=== PATIENT | female | born 1945 | race Caucasian/White ===

== ENCOUNTER 2016-11-10 07:43 | Inpatient (IN) | payer MEDICARE, OTHER ==
[2016-11-10] VITALS (8 sets, daily range): BP systolic 117–166; BP diastolic 59–80; PULSE 86–97; RESP 16–26; TEMP 98.2–100.1; O2SAT 78–95
[~2016-11-10] VITALS: Ht 162.6 cm; Wt 85.5 kg
[2016-11-10] MEDS ORDERED: APIX5TAB PO (07:51)
[2016-11-10] MEDS ORDERED: AMIO200T PO (07:51)
[2016-11-10] MEDS ORDERED: ROSU20 PO (07:51)
[2016-11-10] MEDS ORDERED: CLAR10CA3 PO (07:51)
[2016-11-10] MEDS ORDERED: VALT500T PO (07:51)
[2016-11-10] MEDS ORDERED: VENL50TA PO (07:51)
[2016-11-10] MEDS ORDERED: PROP10TA6 PO (07:56)
[2016-11-10] MEDS ORDERED: zyrtec PO (07:56)
[2016-11-10] MEDS ORDERED: SODIUM CHLORIDE 0.9% FLUSH 10 ML FLUSH IVF PRN ×2 (08:15→09:00)
[2016-11-10 08:25] LABS: AUTOMATED NEUTROPHIL # 10.6 TH/MM3 (1.8-7.7); BASOPHIL # 0.1 TH/MM3 (0-0.2); BASOPHIL % 0.5 % (0.0-2.0); EOSINOPHIL # 0.3 TH/MM3 (0-0.4); EOSINOPHIL % 2.5 % (0.0-4.0); HEMATOCRIT 30.5 % (35.0-46.0); HEMO FLAGS DIFF FINAL; LYMPH % 6.4 % (9.0-44.0); LYMPHOCYTE # 0.8 TH/MM3 (1.0-4.8); MEAN CELL VOLUME 89.7 FL (80.0-100.0); MEAN CORPUSCULAR HEMOGLOBIN 28.9 PG (27.0-34.0); MEAN CORPUSCULAR HGB CONC 32.2 % (32.0-36.0); MONO % 6.8 % (0.0-8.0); NEUT % 83.8 % (16.0-70.0); PLATELET COUNT 460 TH/MM3 (150-450); RED CELL DISTRIBUTION WIDTH 19.4 % (11.6-17.2); WHITE BLOOD COUNT 12.6 TH/MM3 (4.0-11.0)
[2016-11-10 08:39] LABS: BICARBONATE 25.1 MEQ/L (21.0-32.0); POTASSIUM 3.5 MEQ/L (3.5-5.1)
[2016-11-10] MEDS ORDERED: AZITHROMYCIN INJ 500 MG in SODIUM CHLOR 0.9% 250 ML INJ 250 ML IV ONE (09:00)
[2016-11-10] MEDS ORDERED: CEFEPIME INJ 2,000 MG in SODIUM CHLORIDE 0.9% INJ 100 ML IV ONE (09:00)
[2016-11-10] MEDS: SODIUM CHLOR 0.9% 1000 ML INJ 1,000 ML IV SCH ×2 (09:46→19:34)
[2016-11-10] MEDS ORDERED: SODIUM CHLOR 0.9% 1000 ML INJ 1,000 ML IV SCH (09:46)
--- NOTE | 2016-11-10 09:46 | RADRPT ---
EXAM DATE/TIME: 11/10/2016 08:32 [place] COMPARISON: No previous studies available for comparison. INDICATIONS : Shortness of breath, cough, congestion, increased weakness. MEDICAL HISTORY : Hypertension. Chronic obstructive pulmonary disease. SURGICAL HISTORY : CABG. ENCOUNTER: Initial ACUITY: 3 days PAIN SCORE: 0/10 LOCATION: Bilateral chest FINDINGS: PA and lateral views of the chest. Median sternotomy wires are present. Moderate severity diffuse lou ateral interstitial opacity. Areas of more confluence are seen in the right upper lung zone and right lower lung zone. Mild cardiac silhouette enlargement. No evidence of pleural effusion or pneumothora x. Old proximal right humerus fracture. CONCLUSION: Moderate severity diffuse bilateral interstitial opacity. Differential diagnosis is pulmonary edema v ersus chronic lung disease. More confluent areas of opacity in the right upper lung zone and right lo wer lung zone indicate superimposed pulmonary consolidation. Recommend radiographic followup to confi rm resolution and exclude underlying mass. Adolph Root MD on November 10, 2016 at 9:42 Board Certified Radiologist. This report was verified electronically.
[2016-11-10] MEDS ORDERED: NALOXONE HCL 0.4 MG/ML AMP IV PUSH PRN (10:00)
[2016-11-10] MEDS ORDERED: SODIUM CHLORIDE 0.9% FLUSH 10 ML FLUSH IV FLUSH PRN ×2 (10:00)
[2016-11-10] MEDS ORDERED: ACETAMINOPHEN 325 MG TAB PO PRN ×3 (10:00)
--- NOTE | 2016-11-10 10:16 | PD ---
HPI Chief Complaint: Respiratory Distress Time Seen by Provider: 08:09 Travel History International Travel<30 days: No Contact w/Intl Traveler<30days: No Traveled to known affect area: No History of Present Illness HPI 71 yo F with cough and shortness fo breath over night. Denies fever. Reports CABG 7 weeks prior, COPD, and HTN. Pt denies chest pain. Post-op pleural effusion which was drained is reported. Pt drove here from [facility] over past few days with frequent stops for ambulation. Compliance with Eliquis reported. PFSH Past Medical History Depression: Yes Cardiac Catheterization: Yes COPD: Yes Hypertension: Yes Sleep Apnea: Yes Influenza Vaccination: Yes Past Surgical History Appendectomy: Yes Coronary Artery Bypass Graft: Yes Tonsillectomy: Yes Social History Alcohol Use: Yes (daily) Tobacco Use: No Substance Use: No Allergies-Medications (Allergen,Severity, Reaction): Coded Allergies: hydromorphone (Verified Allergy, Intermediate, hallucinations, 11/10/16) morphine (Verified Allergy, Intermediate, hallucinations, 11/10/16) Reported Meds & Prescriptions Reported Meds & Active Scripts Active Reported [zyrtec] Unknown Dose PO HS Propranolol (Propranolol HCl) 10 Mg Tab Unknown Dose PO HS Effexor (Venlafaxine HCl) 50 Mg Tab Unknown Dose PO Q12H Valtrex (Valacyclovir HCl) 500 Mg Tab Unknown Dose PO BID Claritin (Loratadine) 10 Mg Cap 10 Mg PO DAILY Eliquis (Apixaban) 5 Mg Tab Unknown Dose PO BID Crestor (Rosuvastatin Calcium) 20 Mg Tab Unknown Dose PO DAILY Amiodarone (Amiodarone HCl) 200 Mg Tab 200 Mg PO DAILY Review of Systems Except as stated in HPI: all other systems reviewed are Neg General / Constitutional: No: Fever Respiratory: Positive: Cough, Shortness of Breath Physical Exam Narrative GENERAL: 71 yo f, appears well, speaks in full sentences, wnwd SKIN: Warm and dry. HEAD: Atraumatic. Normocephalic. EYES: Pupils equal and round. No scleral icterus. No injection or drainage. ENT: No nasal bleeding or discharge. Mucous membranes pink and moist. NECK: Trachea midline. No JVD. CARDIOVASCULAR: Regular rate and rhythm. RESPIRATORY: No accessory muscle use. Clear to auscultation. Breath sounds equal bilaterally. GASTROINTESTINAL: Abdomen soft, non-tender, nondistended. Hepatic and splenic margins not palpable. MUSCULOSKELETAL: Extremities without clubbing, cyanosis, or edema. No obvious deformities. No sign DVT. NEUROLOGICAL: Awake and alert. No obvious cranial nerve deficits. Motor grossly within normal limits. Five out of 5 muscle strength in the arms and legs. Normal speech. PSYCHIATRIC: Appropriate mood and affect; insight and judgment normal. Data Data Last Documented VS Vital Signs Date Time Temp Pulse Resp B/P (MAP) Pulse Ox O2 Delivery O2 Flow Rate FiO2 11/10/16 08:24 Nasal Cannula 2.00 11/10/16 08:24 95 11/10/16 07:56 86 20 11/10/16 07:44 98.5 139/75 (96) VS reviewed Orders Orders Complete Blood Count With Diff (11/10/16 08:09) Basic Metabolic Panel (Bmp) (11/10/16 08:09) B-Type Natriuretic Peptide (11/10/16 08:09) Iv Access Insert/Monitor (11/10/16 08:09) Electrocardiogram (11/10/16 08:09) Ecg Monitoring (11/10/16 08:09) Oximetry (11/10/16 08:09) Oxygen Administration (11/10/16 08:09) Chest, Pa & Lat (11/10/16 08:09) Sodium Chloride 0.9% Flush (Ns Flush) (11/10/16 08:15) Blood Culture (11/10/16 08:48) Sodium Chloride 0.9% Flush (Ns Flush) (11/10/16 09:00) Cefepime Inj (Maxipime Inj) (11/10/16 09:00) Azithromycin Inj (Zithromax Inj) (11/10/16 09:00) Comprehensive Metabolic Panel (11/11/16 06:00) Free Thyroxine (T4) (11/11/16 06:00) Hemoglobin (Hgb) A1c (11/11/16 06:00) Magnesium (Mg) (11/11/16 06:00) Phosphorus (Po4) (11/11/16 06:00) Thyroid Stimulating Hormone (11/11/16 06:00) Complete Blood Count With Diff (11/11/16 06:00) Valacyclovir (Valtrex) (11/10/16 09:45) Apixaban (Eliquis) (11/10/16 21:00) Propranolol (Inderal) (11/10/16 09:45) Atorvastatin (Lipitor) (11/10/16 21:00) Venlafaxine (Effexor) (11/10/16 21:00) Amiodarone (Cordarone) (11/10/16 11:00) Loratadine (Claritin) (11/10/16 09:45) Admit Order (Ed Use Only) (11/10/16 09:50) Sodium Chlor 0.9% 1000 Ml Inj (Ns 1000 M (11/10/16 09:46) Sodium Chloride 0.9% Flush (Ns Flush) (11/10/16 10:00) Sodium Chloride 0.9% Flush (Ns Flush) (11/10/16 21:00) Cefepime Inj (Maxipime Inj) (11/10/16 10:00) Azithromycin Inj (Zithromax Inj) (11/10/16 10:00) Albuterol-Ipratropium Neb (Duoneb Neb) (11/10/16 10:00) Acetaminophen (Tylenol) (11/10/16 10:00) Ondansetron Inj (Zofran Inj) (11/10/16 10:00) Guaifen-Dm 200-20 Mg/10 Ml Liq (Robituss (11/10/16 10:00) Admit To Inpatient (11/10/16 ) Code Status (11/10/16 09:46) Vital Signs (Adult) RAGINI.Q4H (11/10/16 09:46) Activity Oob With Assistance (11/10/16 09:46) Intake + Output RAGINI.Q8H (11/10/16 09:46) Manager Software Development / Telemetry RAGINI.Q8H (11/10/16 09:46) Diet Heart Healthy (11/10/16 Breakfast) Resp Oxygen Flavio C Titrat 1-4 L (11/10/16 ) Resp Incentive Spirometry (11/10/16 ) Consult Pt Eval & Treat (11/10/16 09:46) Sputum Culture And Gram Stain (11/10/16 09:46) Blood Culture (11/10/16 09:46) Scd Bilateral/Knee High RAGINI.BID (11/10/16 09:46) Humberto Bilateral/Knee High RAGINI.QSHIFT (11/10/16 10:00) Inpatient Certification (11/10/16 ) Vital Signs (Adult) Q4H (11/10/16 09:46) Sodium Chlor 0.9% 1000 Ml Inj (Ns 1000 M (11/10/16 09:46) Sodium Chloride 0.9% Flush (Ns Flush) (11/10/16 10:00) Sodium Chloride 0.9% Flush (Ns Flush) (11/10/16 21:00) Acetaminophen (Tylenol) (11/10/16 10:00) Prochlorperazine Supp (Compazine Supp) (11/10/16 10:00) Creatine Kinase (Cpk) (11/10/16 09:46) Creatine Kinase (Cpk) (11/10/16 15:46) Troponin I (11/10/16 09:46) Troponin I (11/10/16 15:46) Urinalysis - C+S If Indicated (11/10/16 09:46) Electrocardiogram (11/10/16 09:46) Ot Request For Service (11/10/16 09:46) Case Management Consult (11/10/16 09:46) Zolpidem (Ambien) (11/10/16 10:00) Acetaminophen (Tylenol) (11/10/16 10:00) Oxycodone-Acetamin 5-325 Mg (Percocet (11/10/16 10:00) Oxycodone-Acetamin 10-325 Mg (Percocet 1 (11/10/16 10:00) Naloxone Inj (Narcan Inj) (11/10/16 10:00) Docusate Sodium-Senna (Hanna-Colace) (11/10/16 21:00) Magnesium Hydroxide Liq (Milk Of Magnesi (11/10/16 10:00) Sennosides (Senokot) (11/10/16 10:00) Bisacodyl Supp (Dulcolax Supp) (11/10/16 10:00) Lactulose Liq (Lactulose Liq) (11/10/16 10:00) Labs Laboratory Tests Test 11/10/16 08:00 White Blood Count 12.6 TH/MM3 Red Blood Count 3.40 MIL/MM3 Hemoglobin 9.8 GM/DL Hematocrit 30.5 % Mean Corpuscular Volume 89.7 FL Mean Corpuscular Hemoglobin 28.9 PG Mean Corpuscular Hemoglobin Concent 32.2 % Red Cell Distribution Width 19.4 % Platelet Count 460 TH/MM3 Mean Platelet Volume 8.8 FL Neutrophils (%) (Auto) 83.8 % Lymphocytes (%) (Auto) 6.4 % Monocytes (%) (Auto) 6.8 % Eosinophils (%) (Auto) 2.5 % Basophils (%) (Auto) 0.5 % Neutrophils # (Auto) 10.6 TH/MM3 Lymphocytes # (Auto) 0.8 TH/MM3 Monocytes # (Auto) 0.9 TH/MM3 Eosinophils # (Auto) 0.3 TH/MM3 Basophils # (Auto) 0.1 TH/MM3 CBC Comment DIFF FINAL Differential Comment Blood Urea Nitrogen 6 MG/DL Creatinine 0.75 MG/DL Random Glucose 111 MG/DL Calcium Level 9.0 MG/DL Sodium Level 134 MEQ/L Potassium Level 3.5 MEQ/L Chloride Level 100 MEQ/L Carbon Dioxide Level 25.1 MEQ/L Anion Gap 9 MEQ/L Estimat Glomerular Filtration Rate 76 ML/MIN B-Type Natriuretic Peptide 250 PG/ML MDM Medical Decision Making Medical Screen Exam Complete: Yes Emergency Medical Condition: Yes Differential Diagnosis NSTEMI, unstable angina, coronary vasospasm, PE, PTX, aortic dissection, pericarditis, myocarditis, endocarditis, PNA, esophageal disease, aneurysm, musculoskeletal etiologies, anxiety, cocaine/sympathomimetic abuse Narrative Course CBC & BMP Diagram 11/10/16 08:00 Calcium Level 9.0 Last 24 hours Impressions Chest X-Ray 11/10/16 0809 Signed Impressions: Service Date/Time: October 08:32 - CONCLUSION: Moderate severity diffuse bilateral interstitial opacity. Differential diagnosis is pulmonary edema versus chronic lung disease. More confluent areas of opacity in the right upper lung zone and right lower lung zone indicate superimposed pulmonary consolidation. Recommend radiographic followup to confirm resolution and exclude underlying mass. Adolph Root MD There is concern for PNA, possibly with CHF Cefepime/Vanco, blood cultures d/w Dr Gutierrez of [facility] pt agreeable with plan Diagnosis Primary Impression: Bilateral pneumonia Qualified Codes: J18.9 - Pneumonia, unspecified organism Admitting Information Admitting Physician Requests: Admit Car Dunn MD Nov 10, 2016 10:16
[2016-11-10] MEDS: AMIODARONE 200 MG TAB PO SCH (11:00)
[2016-11-10] MEDS: LORATADINE 10 MG TAB PO SCH (12:00)
[2016-11-10] MEDS ORDERED: MAGNESIUM HYDROXIDE SUSP 30 ML CUP PO PRN (12:00)
[2016-11-10] MEDS ORDERED: PROCHLORPERAZINE 25 MG SUPP RECTAL PRN (12:00)
[2016-11-10] MEDS: AZITHROMYCIN INJ 500 MG in SODIUM CHLOR 0.9% 250 ML INJ 250 ML IV SCH (12:00)
[2016-11-10] MEDS: PROPRANOLOL HCL 10 MG TAB PO SCH ×2 (12:00→20:38)
[2016-11-10] MEDS ORDERED: ONDANSETRON HCL 4 MG/2 ML VIAL IV PUSH PRN (12:00)
[2016-11-10] MEDS: valACYclovir HCL 500 MG TAB PO SCH ×2 (12:00→20:38)
[2016-11-10] MEDS ORDERED: oxyCODONE/ACETAMINOPHEN 5 MG/325 MG TAB PO PRN (12:00)
--- NOTE | 2016-11-10 12:38 | HHI.HP ---
[facility]Staff Admission Diagnosis Bilateral PNA Diagnoses: (1) Coronary artery disease Diagnosis: Principal (2) S/P CABG x 3 Diagnosis: Principal (3) VTE (venous thromboembolism) Diagnosis: Principal (4) Chest pain Diagnosis: Secondary (5) Bilateral pneumonia Diagnosis: Principal (6) Atrial fibrillation Chief Complaint: Respiratory distress Travel History International Travel<30 Days: No Contact w/Intl Traveler <30 Da: No Traveled to Known Affected Are: No History of Present Illness Patient is a 71-year-old female. SHe presented to the emergency department today with cough and shortness of breath it's been going on for a couple days. Patient states that she had a coronary artery bypass graft of 3 vesselS 7 weeks ago in [facility]. Has a history of COPD and hypertension. Denies any current chest pain. She states that she did have a postoperative pleural effusion which was drained in the past. She drove here from [place] over the past few days with frequent stops for ambulation. Has been on Eliquis. We'll get a CAT scan involving the pulmonary arteries Treat her for pneumonia. With cefepime and Zithromax since she has a recent hospitalization Will be a full admission Review of Systems Constitutional: COMPLAINS OF: Fatigue, Fever, Chills, DENIES: Diaphoretic episodes, Weight gain, Weight loss, Dizziness, Change in appetite Endocrine: DENIES: Abnorml menstrual pattern, Heat/cold intolerance, Polydipsia Eyes: DENIES: Blurred vision, Diplopia, Eye inflammation, Eye pain Ears, nose, mouth, throat: DENIES: Tinnitus, Hearing loss, Vertigo, Nasal discharge, Oral lesions Respiratory: COMPLAINS OF: Cough, Sputum production, Shortness of breath, DENIES: Apneas, Snoring, Wheezing, Hemoptysis Cardiovascular: DENIES: Chest pain, Palpitations, Syncope, Dyspnea on Exertion , PND Gastrointestinal: DENIES: Abdominal pain, Black stools, Bloody stools, Constipation, Diarrhea Genitourinary: DENIES: Abnormal vaginal bleeding, Dysmenorrhea, Dyspareunia Musculoskeletal: COMPLAINS OF: Joint pain, DENIES: Muscle aches, Stiffness, Joint Swelling Integumentary: DENIES: Abnormal pigmentation, Pruritus, Rash, Nail changes Hematologic/lymphatic: DENIES: Bruising, Lymphadenopathy Immunologic/allergic: DENIES: Urticaria Neurologic: DENIES: Abnormal gait, Headache, Localized weakness, Paresthesias, Seizures, Speech Problems, Tremor Psychiatric: DENIES: Anxiety, Confusion, Mood changes, Depression, Hallucinations, Agitation, Suicidal Ideation, Homicidal Ideation Past Family Social History Past Medical History Depression COPD Hyperlipidemia Obstructive sleep apnea Recent coronary artery disease History of coronary artery bypass graft of 3 vessels approximately 7 weeks ago in [place] On chronic anticoagulation with Eliquis Past Surgical History Coronary artery bypass graft of 3 vessels 7 weeks ago Tonsillectomy Appendectomy bilateral breasts biopsies Steroid injections in the lumbar region Bilateral cataract surgeries Reported Medications Reported Meds & Active Scripts Active Reported [zyrtec] Unknown Dose PO HS Propranolol (Propranolol HCl) 10 Mg Tab Unknown Dose PO HS Effexor (Venlafaxine HCl) 50 Mg Tab Unknown Dose PO Q12H Valtrex (Valacyclovir HCl) 500 Mg Tab Unknown Dose PO BID Claritin (Loratadine) 10 Mg Cap 10 Mg PO DAILY Eliquis (Apixaban) 5 Mg Tab Unknown Dose PO BID Crestor (Rosuvastatin Calcium) 20 Mg Tab Unknown Dose PO DAILY Amiodarone (Amiodarone HCl) 200 Mg Tab 200 Mg PO DAILY Allergies: Coded Allergies: hydromorphone (Verified Allergy, Intermediate, hallucinations, 11/10/16) morphine (Verified Allergy, Intermediate, hallucinations, 11/10/16) Active Ordered Medications Current Medications Sodium Chloride (NS Flush) 2 ml UNSCH PRN IVF FLUSH AFTER USING IV ACCESS; Start 11/10/16 at 08:15; Stop 11/10/16 at 12:00; Status DC Sodium Chloride (NS Flush) 2 ml UNSCH PRN IVF FLUSH AFTER USING IV ACCESS; Start 11/10/16 at 09:00 Cefepime HCl 2000 mg/Sodium Chloride 100 ml @ 200 mls/hr ONCE ONCE IV Last administered on 11/10/16 11:04; Start 11/10/16 at 09:00; Stop 11/10/16 at 09:29 ; Status DC Azithromycin 500 mg/Sodium Chloride 250 ml @ 250 mls/hr ONCE ONCE IV Last administered on 9/28/17at 09:34; Start 11/10/16 at 09:00; Stop 11/10/16 at 09:59 ; Status DC Valacyclovir HCl (Valtrex) 500 mg Q12HR PO ; Start 11/10/16 at 12:00 Apixaban (Eliquis) 5 mg BID PO ; Start 11/10/16 at 21:00 Propranolol HCl (Inderal) 10 mg Q12HR PO ; Start 11/10/16 at 12:00 Atorvastatin Calcium (Lipitor) 80 mg HS PO ; Start 11/10/16 at 21:00 Venlafaxine HCl (Effexor) 50 mg BID PO ; Start 11/10/16 at 21:00 Amiodarone HCl (Cordarone) 200 mg DAILY PO ; Start 11/10/16 at 11:00 Loratadine (Claritin) 10 mg DAILY PO ; Start 11/10/16 at 12:00 Sodium Chloride 1,000 ml @ 100 mls/hr Q10H IV ; Start 11/10/16 at 09:46 Sodium Chloride (NS Flush) 2 ml UNSCH PRN IV FLUSH FLUSH AFTER USING IV ACCESS ; Start 11/10/16 at 10:00; Stop 11/10/16 at 11:58; Status DC Sodium Chloride (NS Flush) 2 ml BID IV FLUSH ; Start 11/10/16 at 21:00; Stop at 21:00; Status DC Cefepime HCl 2000 mg/Sodium Chloride 100 ml @ 200 mls/hr Q8H IV ; Start at 13:00 Azithromycin 500 mg/Sodium Chloride 250 ml @ 250 mls/hr Q24H IV ; Start at 12:00 Albuterol/ Ipratropium (Duoneb Neb) 1 ampule Q4HR NEB PRN INH SHORTNESS OF BREATH; Start 11/10/16 at 12:00 Acetaminophen (Tylenol) 650 mg Q4H PRN PO TEMPERATURE > 101 F; Start 11/10/16 at 10:00; Stop 11/10/16 at 11:59; Status DC Ondansetron HCl (Zofran Inj) 4 mg Q6HR PRN IV PUSH NAUSEA; Start 11/10/16 at 12 :00 Guaifenesin/ Dextromethorphan (Robitussin Dm 200-20 Mg/10 ml Liq) 10 ml Q4HR PRN PO COUGH; Start 11/10/16 at 12:00 Sodium Chloride 1,000 ml @ 100 mls/hr Q10H IV ; Start 11/10/16 at 09:46 Sodium Chloride (NS Flush) 2 ml UNSCH PRN IV FLUSH FLUSH AFTER USING IV ACCESS ; Start 11/10/16 at 10:00 Sodium Chloride (NS Flush) 2 ml BID IV FLUSH ; Start 11/10/16 at 21:00 Acetaminophen (Tylenol) 650 mg Q4H PRN PO TEMP > 100.4; Start 11/10/16 at 10:00 Prochlorperazine (Compazine Supp) 25 mg Q12H PRN RECTAL NAUSEA OR VOMITING; Start 11/10/16 at 12:00 Zolpidem Tartrate (Ambien) 5 mg HS PRN PO INSOMNIA; Start 11/10/16 at 21:00 Acetaminophen (Tylenol) 650 mg Q6H PRN PO PAIN SCALE 1 TO 2; Start 11/10/16 at 10:00 Oxycodone/ Acetaminophen (Percocet 5-325 Mg) 1 tab Q6H PRN PO PAIN SCALE 3 TO 5; Start 11/10/16 at 12:00 Oxycodone/ Acetaminophen (Percocet 10-325 Mg) 1 tab Q6H PRN PO PAIN SCALE 6 TO 10; Start 11/10/16 at 12:00 Naloxone HCl (Narcan Inj) 0.4 mg UNSCH PRN IV PUSH SEE LABEL COMMENTS; Start at 10:00 Senna/Docusate Sodium (Hanna-Colace) 1 tab BID PO ; Start 11/10/16 at 21:00 Magnesium Hydroxide (Milk Of Magnesia Liq) 30 ml Q12HR PRN PO MILD - MODERATE CONSTIPATION; Start 11/10/16 at 12:00 Sennosides (Senokot) 17.2 mg Q12HR PRN PO MODERATE - SEVERE CONSTIPATION; Start 11/10/16 at 12:00 Bisacodyl (Dulcolax Supp) 10 mg DAILY PRN RECTAL SEVERE CONSITIPATION; Start at 12:00 Lactulose (Lactulose Liq) 30 ml DAILY PRN PO SEVERE CONSITIPATION; Start at 12:00 Family History Hypertension Social History Former smoker quit many years ago. Denies any illicits occasional alcoholic beverage Physical Exam Vital Signs Vital Signs Date Time Temp Pulse Resp B/P (MAP) Pulse Ox O2 Delivery O2 Flow Rate FiO2 11/10/16 10:47 95 Nasal Cannula 2.00 11/10/16 08:24 Nasal Cannula 2.00 11/10/16 08:24 95 11/10/16 07:56 86 20 94 Nasal Cannula 3.00 11/10/16 07:44 98.5 91 26 139/75 (96) 78 Physical Exam GENERAL: This is a well-nourished, well-developed patient, in no apparent distress. SKIN: No rashes, ecchymoses or lesions. Cool and dry. HEAD: Atraumatic. Normocephalic. No temporal or scalp tenderness. EYES: Pupils equal round and reactive. Extraocular motions intact. No scleral icterus. No injection or drainage. ENT: Nose without bleeding, purulent drainage or septal hematoma. Throat without erythema, tonsillar hypertrophy or exudate. Uvula midline. Airway patent. NECK: Trachea midline. No JVD or lymphadenopathy. Supple, nontender, no meningeal signs. CARDIOVASCULAR: IRRegular rate and rhythm without murmurs, gallops, or rubs. S1 -S2 no S3 or S4 no heave or thrill or rub or gallop RESPIRATORY: Coarse breath sounds bilaterally. Breath sounds equal bilaterally. No wheezes, rales, Scattered rhonchi GASTROINTESTINAL: Abdomen soft, non-tender, nondistended. No hepato-splenomegaly , or palpable masses. No guarding. MUSCULOSKELETAL: Extremities without clubbing, cyanosis, or edema. No joint tenderness, effusion, or edema noted. No calf tenderness. Negative Homans sign bilaterally. Tenderness in right shoulder humerus region previous fracture recently NEUROLOGICAL: Awake and alert. Cranial nerves II through XII intact. Motor and sensory grossly within normal limits. Five out of 5 muscle strength in all muscle groups. Normal speech. Insight and judgment are good Mood and behavior appropriate Laboratory Laboratory Tests Test 11/10/16 08:00 11/10/16 10:55 White Blood Count 12.6 Red Blood Count 3.40 Hemoglobin 9.8 Hematocrit 30.5 Mean Corpuscular Volume 89.7 Mean Corpuscular Hemoglobin 28.9 Mean Corpuscular Hemoglobin Concent 32.2 Red Cell Distribution Width 19.4 Platelet Count 460 Mean Platelet Volume 8.8 Neutrophils (%) (Auto) 83.8 Lymphocytes (%) (Auto) 6.4 Monocytes (%) (Auto) 6.8 Eosinophils (%) (Auto) 2.5 Basophils (%) (Auto) 0.5 Neutrophils # (Auto) 10.6 Lymphocytes # (Auto) 0.8 Monocytes # (Auto) 0.9 Eosinophils # (Auto) 0.3 Basophils # (Auto) 0.1 CBC Comment DIFF FINAL Differential Comment Blood Urea Nitrogen 6 Creatinine 0.75 Random Glucose 111 Calcium Level 9.0 Sodium Level 134 Potassium Level 3.5 Chloride Level 100 Carbon Dioxide Level 25.1 Anion Gap 9 Estimat Glomerular Filtration Rate 76 B-Type Natriuretic Peptide 250 Date/Time Source Procedure Growth Status 11/10/16 09:20 Blood Peripheral Aerobic Blood Culture Pending Received 11/10/16 09:20 Blood Peripheral Anaerobic Blood Culture Pending Received Result Diagram: 11/10/16 0800 11/10/16 0800 Imaging Last Impressions Chest X-Ray 11/10/16 0809 Signed Impressions: Service Date/Time: October 08:32 - CONCLUSION: Moderate severity diffuse bilateral interstitial opacity. Differential diagnosis is pulmonary edema versus chronic lung disease. More confluent areas of opacity in the right upper lung zone and right lower lung zone indicate superimposed pulmonary consolidation. Recommend radiographic followup to confirm resolution and exclude underlying mass. Adolph Root MD Caprini VTE Risk Assessment Caprini VTE Risk Assessment: Mod/High Risk (score >= 2) Caprini Risk Assessment Model Point Value = 1 Point Value = 2 Point Value = 3 Point Value = 5 Age 41-60 Minor surgery BMI > 25 kg/m2 Swollen legs Varicose veins or History of unexplained or recurrent spontaneous Oral contraceptives or hormone replacement Sepsis (< 1 month) Serious lung disease, including pneumonia (< 1 month) Abnormal pulmonary function Acute myocardial infarction Congestive heart failure (< 1 month) History of inflammatory bowel disease Medical patient at bed rest Age 61-74 Arthroscopic surgery Major open surgery (> 45 min) Laparoscopic surgery (> 45 min) Malignancy Confined to bed (> 72 hours) Immobilizing plaster cast Central venous access Age >= 75 History of VTE Family history of VTE Factor V Leiden Prothrombin [id number] Lupus anticoagulant Anticardiolipin antibodies Elevated serum homocysteine Heparin-induced thrombocytopenia Other congenital or acquired thrombophilia Stroke (< 1 month) Elective arthroplasty Hip, pelvis, or leg fracture Acute spinal cord injury (< 1 month) Prophylaxis Regimen Total Risk Factor Score Risk Level Prophylaxis Regimen 0-1 Low Early ambulation 2 Moderate Order ONE of the following: *Sequential Compression Device (SCD) *Heparin 5000 units SQ BID 3-4 Higher Order ONE of the following medications: *Heparin 5000 units SQ TID *Enoxaparin/Lovenox 40 mg SQ daily (WT < 150 kg, CrCl > 30 mL/min) *Enoxaparin/Lovenox 30 mg SQ daily (WT < 150 kg, CrCl > 10-29 mL/min) *Enoxaparin/Lovenox 30 mg SQ BID (WT < 150 kg, CrCl > 30 mL/min) AND/OR *Sequential Compression Device (SCD) 5 or more Highest Order ONE of the following medications: *Heparin 5000 units SQ TID (Preferred with Epidurals) *Enoxaparin/Lovenox 40 mg SQ daily (WT < 150 kg, CrCl > 30 mL/min) *Enoxaparin/Lovenox 30 mg SQ daily (WT < 150 kg, CrCl > 10-29 mL/min) *Enoxaparin/Lovenox 30 mg SQ BID (WT < 150 kg, CrCl > 30 mL/min) AND *Sequential Compression Device (SCD) Assessment and Plan Problem List: (1) S/P CABG x 3 ICD Code: Z95.1 - Presence of aortocoronary bypass graft (2) Atrial fibrillation ICD Code: I48.91 - Unspecified atrial fibrillation (3) VTE (venous thromboembolism) ICD Code: I82.90 - Acute embolism and thrombosis of unspecified vein (4) Coronary artery disease ICD Code: I25.10 - Atherosclerotic heart disease of [place] coronary artery without angina pectoris (5) Bilateral pneumonia ICD Code: J18.9 - Pneumonia, unspecified organism Status: Acute (6) Chest pain ICD Code: R07.9 - Chest pain, unspecified Status: Acute Assessment and Plan Pneumonia bilateral started on Zithromax and cefepime Continue on guaifenesin continue on incentive spirometry continue on DuoNeb's Atrial fibrillation continue on Eliquis We'll check a CTA of the chest to make sure that she does not have any active pulmonary emboli therefore the Eliquis would have to be increased Has pain in the right upper extremity from where she's had a fracture versus humerus will get x-rays. An ask [employer] for a sling Hypertension continue home medications Atrial fibrillation continue on amiodarone Hyperlipidemia continue on statin Depression continue on Effexor Have discussed with patient and RN. Is on Eliquis for atrial fibrillation which would cover pulmonary emboli but might need to be increased We'll get a.m. labs CBC CMP TSH free T4 hemoglobin A1c magnesium and phosphorus We'll make full admission We will ask physical therapy and occupational therapy to eval and treat Will continue on DVT and GI prophylaxis Code Status Full code Discussed Condition With Discussed with patient and RN and family and the emergency room physician Physician Certification 2 Midnight Certification Type: Admission for Inpatient Services Order for Inpatient Services The services are ordered in accordance with Medicare regulations or non- Medicare payer requirements, as applicable. In the case of services not specified as inpatient-only, they are appropriately provided as inpatient services in accordance with the 2-midnight benchmark. Estimated LOS (days): 3 3 days is the estimated time the patient will need to remain in the hospital, assuming treatment plan goals are met and no additional complications. Post-Hospital Plan: Not yet determined Problem Qualifiers (1) Bilateral pneumonia: Qualified Codes: J18.9 - Pneumonia, unspecified organism Vikas Gutierrez DO Nov 10, 2016 12:38
[2016-11-10 12:54] LABS: CREATINE KINASE 34 U/L (26-192)
--- NOTE | 2016-11-10 14:15 | RADRPT ---
EXAM DATE/TIME: 11/10/2016 13:50 [facility] COMPARISON: No previous studies available for comparison. INDICATIONS : Right shoulder discomfort occasionally. MEDICAL HISTORY : None. SURGICAL HISTORY : None. ENCOUNTER: Subsequent ACUITY: 1 day PAIN SCORE: 0/10 LOCATION: Right shoulder FINDINGS: Old impacted mildly comminuted right humeral neck fracture with periosteal reaction and bony remodeli ng. Slightly high riding right humeral head. Otherwise, glenohumeral joint appears anatomic. No acute bony fractures are identified. Acromioclavicular joint appears maintained. Extensive coarse intersti tial changes in the visualized portions of the right lung. CONCLUSION: 1. Old right humeral neck fracture. 2. No acute fracture or dislocation. 3. Course interstitial opacities throughout the visualized right upper lobe. Crispin Ramos MD on November 10, 2016 at 14:08 Board Certified Radiologist. This report was verified electronically.
--- NOTE | 2016-11-10 14:16 | RADRPT ---
EXAM DATE/TIME: 11/10/2016 13:53 [facility] COMPARISON: No previous studies available for comparison. INDICATIONS : Right shoulder discomfort occasionally. MEDICAL HISTORY : None. SURGICAL HISTORY : None. ENCOUNTER: Subsequent ACUITY: 1 day PAIN SCORE: 0/10 LOCATION: Right shoulder FINDINGS: Impacted old right humeral neck fracture with periosteal reaction and bony remodeling. Remaining osse ous structures are intact without evidence for acute bony fracture. Joint spaces are grossly maintain ed. Soft tissues are within normal limits. CONCLUSION: 1. Old right humeral neck fracture. 2. No acute fracture or dislocation. Crispin Ramos MD on November 10, 2016 at 14:13 Board Certified Radiologist. This report was verified electronically.
[2016-11-10] MEDS ORDERED: IOHEXOL 350 MG/ML 10 ML VIAL (for RAD DIAG) IVCONTRAST ONE (14:54)
[2016-11-10] MEDS: CEFEPIME INJ 2,000 MG in SODIUM CHLORIDE 0.9% INJ 100 ML IV SCH ×2 (15:07→20:37)
--- NOTE | 2016-11-10 15:19 | RADRPT ---
EXAM DATE/TIME: 11/10/2016 14:35 [facility] COMPARISON: CHEST PA & LAT, November 10, 2016, 8:32. INDICATIONS : Shortness of breath and cough. IV CONTRAST: 75 cc Omnipaque 350 (iohexol) IV RADIATION DOSE: 23.44 CTDIvol (mGy) MEDICAL HISTORY : Cardiovascular disease. Hypertension. Chronic obstructive pulmonary disease. SURGICAL HISTORY : Appendectomy. ENCOUNTER: Initial ACUITY: 3 days PAIN SCALE: 5/10 LOCATION: Bilateral chest TECHNIQUE: Volumetric scanning of the chest was performed using a pulmonary embolism protocol MIP images were re constructed. Using automated exposure control and adjustment of the mA and/or kV according to patien t size, radiation dose was kept as low as reasonably achievable to obtain optimal diagnostic quality images. DICOM format image data is available electronically for review and comparison. Follow-up recommendations for detected pulmonary nodules are based at a minimum on nodule size and pa tient risk factors according to Fleischner Society Guidelines. FINDINGS: PULMONARY ARTERIES: No filling defects are seen in the pulmonary arteries through the segmental level. LUNGS: Extensive bilateral pulmonary parenchymal opacity. It is a combination of reticular opacity and groun dglass opacity producing a "crazy paving" pattern. It involves the upper, mid, and lower lung zones b ilaterally with severe involvement of the right lung apex. No focal mass identified. PLEURAE: Small bilateral pleural effusions left greater than right with extension into the major fissure on th e left. MEDIASTINUM: Multiple mildly enlarged mediastinal lymph nodes with pretracheal lymph node measuring 1.6 cm in shor t axis dimension. Aorta is within normal limits. MUSCULOSKELETAL: Within normal limits for patient age. MISCELLANEOUS: Scattered calcifications in the spleen and liver indicating old granulomatous disease. CONCLUSION: 1. No evidence of pulmonary embolus. 2. Severe extensive bilateral pulmonary parenchymal opacity with a "crazy paving" appearance. Differe ntial diagnosis includes pulmonary edema, pulmonary alveolar stenosis, acute interstitial pneumonia, and eosinophilic pneumonia. 3. Small pleural effusions left greater than right. 4. Mildly enlarged mediastinal lymph nodes likely reactive. Adolph Root MD on November 10, 2016 at 15:09 Board Certified Radiologist. This report was verified electronically.
[2016-11-10 18:10] LABS: CREATINE KINASE 33 U/L (26-192)
[2016-11-10] MEDS: RESP: ALBUTEROL 2.5 MG/IPRATROPIUM 0.5 MG NEB (PRN) INH (18:38)
[2016-11-10] MEDS ORDERED: POTASSIUM CHLORIDE 20 MEQ CONTROLLED RELEASE TAB PO ONE (20:30)
[2016-11-10] MEDS ORDERED: FUROSEMIDE 40 MG/4 ML VIAL IV PUSH ONE (20:30)
[2016-11-10] MEDS: APIXABAN 5 MG TABLET PO SCH (20:37)
[2016-11-10] MEDS: SODIUM CHLORIDE 0.9% FLUSH 10 ML FLUSH IV FLUSH SCH (20:37)
[2016-11-10] MEDS: ATORVASTATIN 80 MG TAB PO SCH (20:38)
[2016-11-10] MEDS: DOCUSATE SODIUM 50 MG/SENNA 8.6 MG TAB PO SCH (20:39)
[2016-11-10] MEDS ORDERED: SODIUM CHLORIDE 0.9% FLUSH 10 ML FLUSH IV FLUSH SCH (21:00)
[2016-11-10] MEDS ORDERED: ZOLPIDEM TARTRATE 5 MG TAB PO PRN (21:00)
[2016-11-10] MEDS: VENLAFAXINE HCL 25 MG TAB PO SCH (21:27)
[2016-11-11] VITALS (12 sets, daily range): BP systolic 89–140; BP diastolic 51–78; PULSE 80–97; RESP 16–20; TEMP 98.2–99.6; O2SAT 90–96
[2016-11-11] MEDS: CEFEPIME INJ 2,000 MG in SODIUM CHLORIDE 0.9% INJ 100 ML IV SCH ×3 (04:05→20:35)
[2016-11-11 07:23] LABS: AUTOMATED NEUTROPHIL # 9.8 TH/MM3 (1.8-7.7); BASOPHIL # 0.1 TH/MM3 (0-0.2); BASOPHIL % 0.7 % (0.0-2.0); EOSINOPHIL # 1.2 TH/MM3 (0-0.4); EOSINOPHIL % 8.8 % (0.0-4.0); HEMATOCRIT 28.7 % (35.0-46.0); HEMO FLAGS DIFF FINAL; LYMPH % 10.7 % (9.0-44.0); LYMPHOCYTE # 1.5 TH/MM3 (1.0-4.8); MEAN CELL VOLUME 89.9 FL (80.0-100.0); MEAN CORPUSCULAR HEMOGLOBIN 29.1 PG (27.0-34.0); MEAN CORPUSCULAR HGB CONC 32.3 % (32.0-36.0); MONO % 9.6 % (0.0-8.0); NEUT % 70.2 % (16.0-70.0); PLATELET COUNT 430 TH/MM3 (150-450); RED CELL DISTRIBUTION WIDTH 19.4 % (11.6-17.2)
[2016-11-11 07:45] LABS: ALT (GPT) 20 U/L (10-53); ANION GAP 6 MEQ/L (5-15); AST (GOT) 28 U/L (15-37); BICARBONATE 26.6 MEQ/L (21.0-32.0); BLOOD UREA NITROGEN 8 MG/DL (7-18); CHLORIDE 103 MEQ/L (98-107); GLOMERULAR FILTRATION RATE 75 ML/MIN (>89); MAGNESIUM 1.9 MG/DL (1.5-2.5); POTASSIUM 4.3 MEQ/L (3.5-5.1); SODIUM (NA) 136 MEQ/L (136-145)
[2016-11-11 07:54] LABS: ALKALINE PHOSPHATASE 92 U/L (45-117); FREE T4 1.62 NG/DL (0.76-1.46); TOTAL BILIRUBIN ADULT 0.3 MG/DL (0.2-1.0)
[2016-11-11] MEDS: APIXABAN 5 MG TABLET PO SCH ×2 (08:17→20:32)
[2016-11-11] MEDS: AMIODARONE 200 MG TAB PO SCH (08:17)
[2016-11-11] MEDS: PROPRANOLOL HCL 10 MG TAB PO SCH ×2 (08:17→20:34)
[2016-11-11] MEDS: LORATADINE 10 MG TAB PO SCH (08:17)
[2016-11-11] MEDS: SODIUM CHLORIDE 0.9% FLUSH 10 ML FLUSH IV FLUSH SCH ×2 (08:18→20:35)
[2016-11-11] MEDS: RESP: ALBUTEROL 2.5 MG/IPRATROPIUM 0.5 MG NEB (PRN) INH ×3 (08:53→19:59)
[2016-11-11] MEDS: DOCUSATE SODIUM 50 MG/SENNA 8.6 MG TAB PO SCH ×2 (09:00→20:33)
[2016-11-11] MEDS: VENLAFAXINE HCL 25 MG TAB PO SCH ×2 (09:46→20:31)
[2016-11-11] MEDS: valACYclovir HCL 500 MG TAB PO SCH ×2 (09:46→20:34)
--- NOTE | 2016-11-11 10:17 | EKG ---
Date Performed: 11/10/2016 Time Performed: 11:53:18 PTAGE: 71 years EKG: Sinus rhythm NONSPECIFIC T-WAVE ABNORMALITY BORDERLINE ECG NO PREVIOUS TRACING DOCTOR: Slade Garcia Interpretating Date/Time 11/11/2016 10:12:49
[2016-11-11 13:16] LABS: HEMOGLOBIN A1a 1.5 %; HEMOGLOBIN Ao 83.7 %; HEMOGLOBIN LA1C 2.1 %; HEMOGLOBIN P3 3.9 %
[2016-11-11] MEDS: guaiFENesin/DEXTROMETHORPHAN 200 MG/20 MG/10 ML CUP PO PRN ×2 (13:55→17:58)
[2016-11-11] MEDS: AZITHROMYCIN INJ 500 MG in SODIUM CHLOR 0.9% 250 ML INJ 250 ML IV SCH (13:58)
--- NOTE | 2016-11-11 14:44 | HHI.PR ---
Subjective Remarks 71 years sold female here on vacation from [place] had a recent CABG 09/23, CAD, history of atrial fibrillation that time presented with syncope underwent full comprehensive rehab came in with shortness of breath started about a week ago worsening- prompted to come here overnight and admitted for further evaluation patient states cough - sputum minimal and white mild pretibial edema Objective Vitals Vital Signs Date Time Temp Pulse Resp B/P (MAP) Pulse Ox O2 Delivery O2 Flow Rate FiO2 11/11/16 08:50 92 Nasal Cannula 5.00 11/11/16 08:00 99.6 90 132/67 (88) 11/11/16 04:45 98.4 80 20 138/78 (98) 95 11/11/16 01:19 97 11/11/16 01:00 95 Nasal Cannula 3.00 11/11/16 00:20 98.9 88 19 140/69 (92) 96 11/10/16 20:50 100.1 97 20 166/80 (108) 94 11/10/16 19:56 93 Nasal Cannula 3.00 11/10/16 16:00 98.2 86 16 132/65 (87) 92 I/O 11/10/16 11/10/16 11/10/16 11/11/16 11/11/16 11/11/16 07:00 15:00 23:00 07:00 15:00 23:00 Intake Total 450 ml 700 ml 1050 ml Balance 450 ml 700 ml 1050 ml Intake Oral 600 ml 950 ml IV Total 450 ml 100 ml 100 ml # Voids 1 2 2 # Bowel Movements 0 0 Result Diagram: 11/11/16 0656 11/11/16 0656 Imaging Last Impressions Chest X-Ray 11/10/16 0809 Signed Impressions: Service Date/Time: October 08:32 - CONCLUSION: Moderate severity diffuse bilateral interstitial opacity. Differential diagnosis is pulmonary edema versus chronic lung disease. More confluent areas of opacity in the right upper lung zone and right lower lung zone indicate superimposed pulmonary consolidation. Recommend radiographic followup to confirm resolution and exclude underlying mass. Adolph Root MD Shoulder X-Ray 11/10/16 0000 Signed Impressions: Service Date/Time: October 13:50 - CONCLUSION: 1. Old right humeral neck fracture. 2. No acute fracture or dislocation. 3. Course interstitial opacities throughout the visualized right upper lobe. Crispin Ramos MD Humerus X-Ray 11/10/16 0000 Signed Impressions: Service Date/Time: October 13:53 - CONCLUSION: 1. Old right humeral neck fracture. 2. No acute fracture or dislocation. Crispin Ramos MD CT Angiography 11/10/16 0000 Signed Impressions: Service Date/Time: October 14:35 - CONCLUSION: 1. No evidence of pulmonary embolus. 2. Severe extensive bilateral pulmonary parenchymal opacity with a crazy paving appearance. Differential diagnosis includes pulmonary edema, pulmonary alveolar stenosis, acute interstitial pneumonia, and eosinophilic pneumonia. 3. Small pleural effusions left greater than right. 4. Mildly enlarged mediastinal lymph nodes likely reactive. Adolph Root MD Objective Remarks awake and alert, appears shortness of breath, 2 LNC anicteric lung- decreased breath sounds, no wheezes irregular rhythm, soft 3/6 systolic murmur left sternal border abdomen soft, nontender extremities - mild pretibial edema A/P Problem List: (1) S/P CABG x 3 ICD Code: Z95.1 - Presence of aortocoronary bypass graft (2) Atrial fibrillation ICD Code: I48.91 - Unspecified atrial fibrillation (3) VTE (venous thromboembolism) ICD Code: I82.90 - Acute embolism and thrombosis of unspecified vein (4) Coronary artery disease ICD Code: I25.10 - Atherosclerotic heart disease of [place] coronary artery without angina pectoris (5) Bilateral pneumonia ICD Code: J18.9 - Pneumonia, unspecified organism Status: Acute (6) Chest pain ICD Code: R07.9 - Chest pain, unspecified Status: Acute Assessment and Plan 71 years old female CHF- with udnerlying CAD r/o cardiomyopathy History of atrial fibrillation- now in SR HYpertension will give Lasix 20 mg IV bid get a 2D echo continue on BB, Eliquis\. Amiodarone. consdier DEVIN if decrease EF CTA- negative for PE Cardiology consult- - Dr. Simpson Pneumonia bilateral- treat as hospital acquired started on Zithromax and cefepime Continue on guaifenesin continue on incentive spirometry continue on DuoNeb's COPD- continue duonebs Left UE pain- old healed fracture PT/OT consult Hyperlipidemia continue on statin Depression continue on Effexor not sure why she is on Valtrexz- jef verify We will ask physical therapy and occupational therapy to eval and treat Will continue on DVT and GI prophylaxis Problem Qualifiers (1) Bilateral pneumonia: Qualified Codes: J18.9 - Pneumonia, unspecified organism Joe Mendieta MD Nov 11, 2016 14:44
[2016-11-11] MEDS: oxyCODONE/ACETAMINOPHEN 10 MG/325 MG TAB PO PRN (16:02)
[2016-11-11] MEDS: FUROSEMIDE 20 MG/2 ML VIAL IV PUSH SCH (17:58)
--- NOTE | 2016-11-11 18:31 | MB ---
cc: JOSE BULL MD DATE OF CONSULTATION: 11/11/2016. REASON FOR CONSULTATION: HISTORY OF PRESENT ILLNESS: Ms. Miranda is a very pleasant 71-year-old white female here on vacation from [place], [place] who presented to the emergency room with cough and shortness of breath. She had three-vessel coronary bypass in [place] seven weeks ago. She has not had any chest pain prior to the bypass. She does not have chest pain at this time either. She had pleural effusion which was drained after the surgery. She has chronic atrial fibrillation and has been on Eliquis. She was diagnosed with pneumonia and is treated with antibiotics and she still complains of cough and shortness of breath but has not had any chest pain. PAST MEDICAL HISTORY: Her past medical history is positive for: 1. Coronary artery disease. 2. Recent coronary bypass. There were apparently able to bypass three out of four vessels seven weeks ago in [place]. 3. History of COPD. 4. Dyslipidemia. 5. Sleep apnea. 6. Depression. 7. History of tonsillectomy. 8. Appendectomy. 9. Breast biopsies. 10. Lumbar region steroid injections. 11. Cataract surgery. MEDICATIONS: Medications at home include: 1. Amiodarone. 2. Crestor. 3. Eliquis. 4. Claritin. 5. . 6. Effexor. 7. Propranolol. 8. Zyrtec. ALLERGIES: 1. HYDROMORPHONE. 2. MORPHINE. SOCIAL HISTORY: The patient does not smoke. She quit smoking 23 years ago. She drinks excessively about four drinks a day. FAMILY HISTORY: Family history is positive for heart disease in her brother. REVIEW OF SYSTEMS: The review of systems is otherwise negative. PHYSICAL EXAMINATION: VITAL SIGNS: Blood pressure 132/67, pulse 90 and regular. HEAD, EYES, EARS, NOSE, THROAT: Negative. NECK: 2+ carotid upstrokes, no bruits. LUNGS: With bilateral rhonchi and crackles. HEART: Regular with no murmurs, rubs or gallops. CHEST: The sternal wound is well healed. ABDOMEN: Abdomen soft. No bruits. EXTREMITIES: Without edema. 2+ distal pulses. NEUROLOGIC: Grossly nonfocal. EKGS: EKG was reviewed and showed normal sinus rhythm, first-degree AV block, normal axis and nonspecific T wave changes. LABS: Hemoglobin 9.3. Potassium 4.3, creatinine 0.8. AT and ALT normal. Troponin negative x2. CK and troponin negative x2. BNP 250. TSH 0.6. IMAGING STUDIES: Chest CT shows no evidence of pulmonary embolism, bilateral pulmonary infiltrates and small bilateral pleural effusions. DIAGNOSIS: 1. Bilateral pneumonia. 2. Coronary artery disease, history of three-vessel coronary bypass. 3. Paroxysmal atrial fibrillation. 4. Dyslipidemia. 5. COPD. 6. Depression. DISPOSITION: Ms. Miranda will be monitored on telemetry. She being ruled out for myocardial infarction by enzymes. Will obtain her bypass records from [place]. We will obtain echocardiogram to evaluate her left ventricular function. She will be treated for pneumonia with antibiotics. Will follow her for cardiology during her hospitalization. MD ARINA Barkley/DEBRA /3:55 PM /6:11 PM
[2016-11-11] MEDS: TIOTROPIUM BROMIDE 18 MCG INH INH SCH (18:34)
--- NOTE | 2016-11-11 18:40 | ECHRPT ---
Indication: A FIB FLUTTER CONCLUSIONS Normal left ventricular size. Wall thickness is normal. The left ventricular systolic function is normal with an estimated ejection fraction in the range of 55-60%. No wall motion abnormalities. Trace mitral valve regurgitation. BP: / HR: Rhythm: MEASUREMENTS (Male / Female) Normal Values Technical Quality:Good 2D ECHO LV Diastolic Diameter PLAX 4.1 cm 4.2 - 5.9 / 3.9 - 5.3 cm LV Systolic Diameter PLAX 3.2 cm IVS Diastolic Thickness 1.2 cm 0.6 - 1.0 / 0.6 - 0.9 cm LVPW Diastolic Thickness 0.7 cm 0.6 - 1.0 / 0.6 - 0.9 cm LV Relative Wall Thickness 0.5 RV Internal Dim ED PLAX 2.5 cm LA Systolic Diameter LX 3.4 cm 3.0 - 4.0 / 2.7 - 3.8 cm M-MODE Aortic Root Diameter MM 3.6 cm AV Cusp Separation MM 2.1 cm DOPPLER Mitral E Point Velocity 112.0 cm/s Mitral A Point Velocity 66.1 cm/s Mitral E to A Ratio 1.7 TR Peak Velocity 282.0 cm/s TR Peak Gradient 31.8 mmHg Right Atrial Pressure 5.0 mmHg Pulmonary Artery Systolic Pressu 36.8 mmHg Right Ventricular Systolic Press 36.8 mmHg FINDINGS LEFT VENTRICLE Normal left ventricular size. Wall thickness is normal. The left ventricular systolic function is normal with an estimated ejection fraction in the range of 55-60%. No wall motion abnormalities. RIGHT VENTRICLE Normal right ventricular size and systolic function. LEFT ATRIUM The left atrial size is normal. RIGHT ATRIUM The right atrial size is normal. ATRIAL SEPTUM Normal atrial septal thickness without atrial level shunting by limited color doppler interrogation. AORTA The aortic root and proximal ascending aorta are normal in size on limited imaging. MITRAL VALVE Trace mitral valve regurgitation. AORTIC VALVE Aortic valve sclerosis is present. TRICUSPID VALVE Structurally normal tricuspid valve. No tricuspid valve stenosis or regurgitation. PULMONARY VALVE No pulmonary valve regurgitation or stenosis. VESSELS The inferior vena cava is normal in size. PERICARDIUM No pericardial effusion. Harley Talley MD (Electronically Signed) Final Date:11 November 2016 18:39
[2016-11-11] MEDS: ATORVASTATIN 80 MG TAB PO SCH (20:34)
[2016-11-12] VITALS (15 sets, daily range): BP systolic 101–150; BP diastolic 55–85; PULSE 78–123; RESP 18–36; TEMP 98.5–100.5; O2SAT 72–100
[2016-11-12] MEDS: RESP: ALBUTEROL 2.5 MG/IPRATROPIUM 0.5 MG NEB (PRN) INH ×2 (00:28→09:11)
[2016-11-12] MEDS: CEFEPIME INJ 2,000 MG in SODIUM CHLORIDE 0.9% INJ 100 ML IV SCH ×3 (04:27→21:00)
[2016-11-12] MEDS: TIOTROPIUM BROMIDE 18 MCG INH INH SCH (08:47)
[2016-11-12] MEDS: LORATADINE 10 MG TAB PO SCH (08:54)
[2016-11-12] MEDS: SODIUM CHLORIDE 0.9% FLUSH 10 ML FLUSH IV FLUSH SCH ×2 (08:54→20:23)
[2016-11-12] MEDS: AMIODARONE 200 MG TAB PO SCH (08:54)
[2016-11-12] MEDS: APIXABAN 5 MG TABLET PO SCH ×2 (08:55→20:13)
[2016-11-12] MEDS: DOCUSATE SODIUM 50 MG/SENNA 8.6 MG TAB PO SCH ×2 (08:55→20:13)
[2016-11-12] MEDS: PROPRANOLOL HCL 10 MG TAB PO SCH ×2 (08:55→20:13)
[2016-11-12] MEDS: FUROSEMIDE 20 MG/2 ML VIAL IV PUSH SCH ×2 (09:00→18:00)
[2016-11-12] MEDS: guaiFENesin/DEXTROMETHORPHAN 200 MG/20 MG/10 ML CUP PO PRN (09:09)
[2016-11-12] MEDS: oxyCODONE/ACETAMINOPHEN 10 MG/325 MG TAB PO PRN (09:09)
[2016-11-12] MEDS: valACYclovir HCL 500 MG TAB PO SCH ×2 (09:09→20:23)
[2016-11-12] MEDS: VENLAFAXINE HCL 25 MG TAB PO SCH ×2 (09:10→20:23)
--- NOTE | 2016-11-12 10:25 | HHI.PR ---
Subjective Remarks this am- hypoxemic- appears short of breath- denies any chest pains dry cough- not bringing up anything states slept good overnight Objective Vitals Vital Signs Date Time Temp Pulse Resp B/P (MAP) Pulse Ox O2 Delivery O2 Flow Rate FiO2 11/12/16 07:51 98.9 102 18 115/58 (77) 85 11/12/16 05:25 99.1 100 20 116/57 (76) 82 11/12/16 01:16 100.5 97 18 105/55 (72) 82 11/12/16 00:30 72 Nasal Cannula 6.00 11/11/16 23:00 84 11/11/16 21:42 89 116/55 (75) 11/11/16 20:00 98.2 92 18 89/51 (64) 92 11/11/16 20:00 98.2 92 18 89/ 92 11/11/16 20:00 90 Nasal Cannula 6.00 11/11/16 16:00 98.9 89 16 112/61 (78) 92 11/11/16 12:30 89 11/11/16 12:00 98.9 81 16 105/57 (73) 92 I/O 11/11/16 11/11/16 11/11/16 11/12/16 11/12/16 11/12/16 07:00 15:00 23:00 07:00 15:00 23:00 Intake Total 1050 ml 744.7 ml 240 ml Balance 1050 ml 744.7 ml 240 ml Intake Oral 950 ml 240 ml IV Total 100 ml 744.7 ml # Voids 2 2 1 # Bowel Movements 0 Result Diagram: 11/11/16 0656 11/11/16 0656 Imaging Last Impressions Chest X-Ray 11/10/16 0809 Signed Impressions: Service Date/Time: October 08:32 - CONCLUSION: Moderate severity diffuse bilateral interstitial opacity. Differential diagnosis is pulmonary edema versus chronic lung disease. More confluent areas of opacity in the right upper lung zone and right lower lung zone indicate superimposed pulmonary consolidation. Recommend radiographic followup to confirm resolution and exclude underlying mass. Adolph Root MD Shoulder X-Ray 11/10/16 0000 Signed Impressions: Service Date/Time: October 13:50 - CONCLUSION: 1. Old right humeral neck fracture. 2. No acute fracture or dislocation. 3. Course interstitial opacities throughout the visualized right upper lobe. Crispin Ramos MD Humerus X-Ray 11/10/16 0000 Signed Impressions: Service Date/Time: October 13:53 - CONCLUSION: 1. Old right humeral neck fracture. 2. No acute fracture or dislocation. Crispin Ramos MD CT Angiography 11/10/16 0000 Signed Impressions: Service Date/Time: October 14:35 - CONCLUSION: 1. No evidence of pulmonary embolus. 2. Severe extensive bilateral pulmonary parenchymal opacity with a crazy paving appearance. Differential diagnosis includes pulmonary edema, pulmonary alveolar stenosis, acute interstitial pneumonia, and eosinophilic pneumonia. 3. Small pleural effusions left greater than right. 4. Mildly enlarged mediastinal lymph nodes likely reactive. Adolph Root MD Objective Remarks awake and alert, high Fi02 requirement anicteric lung- decreased breath sounds,+ fine rales bases irregular rhythm, soft 3/6 systolic murmur left sternal border abdomen soft, nontender extremities - mild pretibial edema A/P Problem List: (1) S/P CABG x 3 ICD Code: Z95.1 - Presence of aortocoronary bypass graft (2) Atrial fibrillation ICD Code: I48.91 - Unspecified atrial fibrillation (3) VTE (venous thromboembolism) ICD Code: I82.90 - Acute embolism and thrombosis of unspecified vein (4) Coronary artery disease ICD Code: I25.10 - Atherosclerotic heart disease of [place] coronary artery without angina pectoris (5) Bilateral pneumonia ICD Code: J18.9 - Pneumonia, unspecified organism Status: Acute (6) Chest pain ICD Code: R07.9 - Chest pain, unspecified Status: Acute Assessment and Plan 71 years old female Acute REspiratory failure- hypoxemic- likely with underlying COPD + fine rales 02 sat 87% at 6L secondary to acute CHF- likley diastolic dysfunction acute CHF- with CAD with diastolic dysfunction - fine rales on exam Underlying COPD- no wheezes on exam increase fi02 - to keep sats greater than 90% stat ABG, CXR on duonebs PUlmonary consult- respiratory failure- [place] [facility] [place] History of atrial fibrillation- now in SR HYpertension on Lasix 20 mg IV bid- give extra 40 mg IV x 1 now 2D echo- check EF 55-60% continue on BB, Eliquis\. Amiodarone. consider CTA- negative for PE Cardiology ff Pneumonia bilateral- treat as hospital acquired on Zithromax and cefepime Continue on guaifenesin continue on incentive spirometry continue on DuoNeb's Left UE pain- old healed fracture PT/OT consult Hyperlipidemia continue on statin Depression continue on Effexor on Eliquis for above not sure why she is on Valtrexz- will verify We will ask physical therapy and occupational therapy to eval and treat Will continue on DVT and GI prophylaxis Problem Qualifiers (1) Bilateral pneumonia: Qualified Codes: J18.9 - Pneumonia, unspecified organism Joe Mendieta MD Nov 12, 2016 10:25
--- NOTE | 2016-11-12 10:31 | RADRPT ---
EXAM DATE/TIME: 11/12/2016 09:59 [facility] COMPARISON: CHEST PA & LAT, November 10, 2016, 8:32. CT PULMONARY ANGIOGRAM, November 10, 2016, 14:35. INDICATIONS : Shortness of breath. MEDICAL HISTORY : Hypertension. Chronic obstructive pulmonary disease. SURGICAL HISTORY : CABG. ENCOUNTER: Subsequent ACUITY: 4 - 6 days PAIN SCORE: 0/10 LOCATION: Bilateral chest FINDINGS: Single view of the chest is reviewed with prior CT. Again noted cardiomegaly with bilateral pleural e ffusions. The lung is significant for hyperinflation and diffuse interstitial and a similar air space opacities. Multiple intact median sternotomy wires . Old fracture deformity involving the right femo ral head. This appearance is grossly stable from the exam of November 10, 2016. CONCLUSION: Stable exam. Differential diagnosis remains the same congestive heart failure and pulmonary edema burt daniel alveolar proteinosis, acute interstitial pneumonia or eosinophilic pneumonia. Given the enlarged cardiac silhouette and caliber of the pulmonary vessels favor congestive heart wanda lure and pulmonary edema in the setting of severe diffuse lung disease. Ann Chang MD on November 12, 2016 at 10:25 Board Certified Radiologist. This report was verified electronically.
[2016-11-12] MEDS ORDERED: CETI-1 PO (10:39)
[2016-11-12 10:48] LABS: BLOOD GAS BASE EXCESS -2.4 mmol/L (-2-2); BLOOD GAS CARBOXYHEMOGLOBIN 1.3 % (0-4); BLOOD GAS HCO3 22 mmol/L (22-26); BLOOD GAS METHEMOGLOBIN 0.7 % (0-2); BLOOD GAS O2 HGB SATURATION 75 % (90-100); BLOOD GAS PCO2 40 mmHg (38-42); BLOOD GAS PO2 46 mmHg (61-120); BLOOD GAS TOTAL HGB 9.4 G/DL (12.0-16.0); TEMP CORR TO 98.6
[2016-11-12 10:48] LABS: AUTOMATED NEUTROPHIL # 12.9 TH/MM3 (1.8-7.7); BASOPHIL # 0.1 TH/MM3 (0-0.2); BASOPHIL % 0.4 % (0.0-2.0); EOSINOPHIL # 0.7 TH/MM3 (0-0.4); EOSINOPHIL % 4.3 % (0.0-4.0); HEMATOCRIT 26.1 % (35.0-46.0); HEMO FLAGS DIFF FINAL; LYMPH % 7.6 % (9.0-44.0); LYMPHOCYTE # 1.2 TH/MM3 (1.0-4.8); MEAN CELL VOLUME 89.9 FL (80.0-100.0); MEAN CORPUSCULAR HEMOGLOBIN 30.8 PG (27.0-34.0); MEAN CORPUSCULAR HGB CONC 34.3 % (32.0-36.0); MONO % 6.2 % (0.0-8.0); NEUT % 81.5 % (16.0-70.0); PLATELET COUNT 442 TH/MM3 (150-450); RED CELL DISTRIBUTION WIDTH 18.8 % (11.6-17.2); WHITE BLOOD COUNT 15.8 TH/MM3 (4.0-11.0)
[2016-11-12 10:49] LABS: CRITICAL VALUE YES; DRAW SITE LT RADIAL; LITER FLOW 6 L/M; NUMBER OF ARTERIAL PUNCTURES 1; OXYGEN DEVICE NASAL CANNULA; STAT YES; ULNAR PULSE Y
[2016-11-12] MEDS ORDERED: FUROSEMIDE 40 MG/4 ML VIAL IV PUSH ONE ×2 (11:00→23:15)
[2016-11-12 11:09] LABS: BICARBONATE 24.1 MEQ/L (21.0-32.0); POTASSIUM 3.6 MEQ/L (3.5-5.1)
[2016-11-12] MEDS: AZITHROMYCIN INJ 500 MG in SODIUM CHLOR 0.9% 250 ML INJ 250 ML IV SCH (11:56)
[2016-11-12] MEDS ORDERED: CHLORHEXIDINE GLUCONATE 2 % 1 PACK (2 CLOTHS)(extra cloths) TOPICAL PRN (20:00)
[2016-11-12] MEDS: ALPRAZolam 0.5 MG TAB PO SCH (20:13)
[2016-11-12] MEDS: ATORVASTATIN 80 MG TAB PO SCH (20:13)
[2016-11-12] MEDS: methylPREDNISolone SOD SUCC 40 MG/1 ML VIAL IV PUSH SCH (20:13)
--- NOTE | 2016-11-12 20:31 | MB ---
cc: Ursula SCHWAB M.D. DATE OF CONSULTATION 11/12/16 REASON FOR CONSULTATION Pneumonia and respiratory distress. HISTORY OF PRESENT ILLNESS This is a 71-year-old white female with a history of COPD and hypertension was admitted through the emergency room with complaints of progressive shortness of breath over the past 3 to 4 days. The patient apparently has a history of coronary artery disease and who underwent CABG x3 approximately 7 weeks ago in [place], [place]. She did have some postoperative pleural effusions which had to be tapped. She then drove from [place] down here and she was experiencing increasing dyspnea and thus was seen in the emergency room. A CT scan of the chest showed evidence of bilateral patchy pulmonary infiltrates consistent with either pneumonia and/or pulmonary edema. There was also evidence of pleural effusions. She was coughing up some little brownish mucus. Denies fevers or chills or hemoptysis. PAST MEDICAL HISTORY Has included history of coronary artery disease with recent coronary artery bypass grafting x3. History of atrial arrhythmias and history of obstructive sleep apnea. She has had hypertension and hyperlipidemia. She had a previous tonsillectomy remotely as well as appendectomy. Bilateral breast biopsies. History of lumbar disk disease with injections and bilateral cataract repair. ALLERGIES HYDROMORPHONE. MEDICATIONS LIST Included: 1. Effexor 50 milligrams b.i.d. 2. Propranolol 10 milligrams t.i.d. 3. Claritin 10 milligrams a day. 4. Eliquis 500 milligrams b.i.d. 5. Crestor 20 milligrams a day. 6. Amiodarone 200 milligrams daily. HABITS The patient has a history of smoking one pack per day for over 30 years and then quit. No significant alcohol use. FAMILY HISTORY Significant for heart disease. REVIEW OF SYSTEMS The patient is overweight. She has dizziness, postnasal drip. She has cough with expectoration. She has epigastric distress and reflux. She has urinary frequency. No joint pains. She has mild leg swelling and no calf muscle pains. She has some depression with anxiety. PHYSICAL EXAMINATION GENERAL: This moderately obese elderly lady was on a non-rebreather mask, moderately dyspneic. VITAL SIGNS: Blood pressure 138/80, pulse is 92, respirations 24, temperature 98.2. HEENT: Head normocephalic. Pupils are reactive and equal. Tongue is moist. Throat is injected. Nasal mucosa masses. NECK: Supple. No bruits or thyroid enlargement or lymphadenopathy. CHEST: Distant breath sounds with coarse wheezes throughout both lung franco. Prolonged expirations with crackles at the lung bases. HEART: The heart sounds are irregular S1-S2 with no murmur. No S3, gallop. ABDOMEN: The abdomen is soft, protuberant without masses or organomegaly or tenderness. Bowel sounds are active. EXTREMITIES: No lesions. No edema. NEURO: Reflexes are 1+ with no gross motor deficits. Cranial nerves grossly intact. SKIN: No lesions observed. IMPRESSION 1. Bilateral pneumonia versus pulmonary edema. 2. Atrial fibrillation and ASHD. 3. History of coronary artery disease with CABG x3. 4. Pleural effusions. 5. COPD with emphysema and acute exacerbation. 6. History of DVT. PLAN The patient has been started on antibiotic coverage including cefepime 1 gram q. 8 as well as Zithromax 500 milligrams IV daily. We will also continue with Lasix 20 milligrams IV twice daily, nebulized DuoNeb solution will be added and ___ will be placed on hold. The patient will be maintained on Eliquis 5 milligrams twice a day and she was started on Solu-Medrol 40 milligrams IV q. 8 hours. Follow up chest x-ray to be obtained in a.m. and blood gas study as well. She will be placed on BiPap mask at night and had a Ventimask at 40% during the day and weaned to nasal cannula. I will follow the case with you Dr. Mendieta. Thank you for this consultation. Issa Schwab MD JKENA/BONILLA /7:53 PM /8:13 PM
[2016-11-13] VITALS (37 sets, daily range): BP systolic 74–147; BP diastolic 51–94; PULSE 66–120; RESP 14–31; TEMP 97.4–98.1; O2SAT 93–98
[2016-11-13 00:17] LABS: BLOOD GAS BASE EXCESS -1.9 mmol/L (-2-2); BLOOD GAS CARBOXYHEMOGLOBIN 1.5 % (0-4); BLOOD GAS HCO3 23 mmol/L (22-26); BLOOD GAS METHEMOGLOBIN 1.3 % (0-2); BLOOD GAS O2 HGB SATURATION 92 % (90-100); BLOOD GAS OXYGEN CONTENT 11.1 Vol % (12.0-20.0); BLOOD GAS PCO2 39 mmHg (38-42); BLOOD GAS PO2 76 mmHg (61-120); BLOOD GAS TOTAL HGB 8.5 G/DL (12.0-16.0); CRITICAL VALUE NO; DRAW SITE RT RADIAL; FIO2 100 %; NUMBER OF ARTERIAL PUNCTURES 1; OXYGEN DEVICE BIPAP; STAT YES; TEMP CORR TO 98.6; ULNAR PULSE PRESENT; VENT SETTINGS IPAP15/EPAP8
[2016-11-13] MEDS ORDERED: SUCCINYLCHOLINE CHLORIDE 200 MG/10 ML VIAL ONE (00:36)
[2016-11-13] MEDS ORDERED: ETOMIDATE 20 MG/10 ML VIAL IV PUSH ONE (00:45)
[2016-11-13] MEDS ORDERED: SUCCINYLCHOLINE CHLORIDE 100 MG/5 ML SYRINGE IV PUSH ONE (00:45)
[2016-11-13] MEDS ORDERED: PROPOFOL 1000 MG/100 ML INJ 100 ML ONE (00:59)
[2016-11-13] MEDS ORDERED: NOREPINEPHRINE-DEXTROSE DRIP 250 ML IV ONE (01:18)
--- NOTE | 2016-11-13 01:29 | PD.CONS ---
HPI Service Critical Care Medicine Consult Requested By Primary Care Physician Non-Staff History of Present Illness 71-year-old female with a history of COPD, coronary artery disease and hypertension who was admitted through the emergency room with complaints of progressive shortness of breath over the past 3 to 4 days. The patient has a history of CABG x3 approximately 7 weeks ago in [place], [place]. She did have some postoperative pleural effusions which had to be tapped. She then drove from [place] down here and she was experiencing increasing dyspnea. A CT scan of the chest showed evidence of bilateral patchy pulmonary infiltrates consistent with either pneumonia and/or pulmonary edema. At night November 12 her respiratory status dramatically declined, patient became hypoxemic and tachypneic and diaphoretic requiring endotracheal intubation. Review of Systems ROS Unobtainable patient is sedated and intubated Past Family Social History Allergies: Coded Allergies: hydromorphone (Verified Allergy, Intermediate, hallucinations, 11/10/16) morphine (Verified Allergy, Intermediate, hallucinations, 11/10/16) Past Medical History Coronary artery disease status post CABG 7 weeks ago Atrial arrhythmias COPD Obstructive sleep apnea Hypertension Dyslipidemia Past Surgical History CABG in 2017 Tonsillectomy Appendectomy Bilateral breast biopsies Cataract repair Lumbar disc disease with injections Reported Medications Reported Meds & Active Scripts Active Reported Zyrtec (Cetirizine HCl) Unknown Strength Tablet 1 Tab PO HS Propranolol (Propranolol HCl) 10 Mg Tab Unknown Dose PO HS Effexor (Venlafaxine HCl) 50 Mg Tab Unknown Dose PO Q12H Valtrex (Valacyclovir HCl) 500 Mg Tab Unknown Dose PO BID Claritin (Loratadine) 10 Mg Cap 10 Mg PO DAILY Eliquis (Apixaban) 5 Mg Tab Unknown Dose PO BID Crestor (Rosuvastatin Calcium) 20 Mg Tab Unknown Dose PO DAILY Amiodarone (Amiodarone HCl) 200 Mg Tab 200 Mg PO DAILY Active Ordered Medications Current Medications Medications (Trade) Dose Ordered Sig/Vida Route PRN Reason Start Time Stop Time Status Last Admin Dose Admin Sodium Chloride (NS Flush) 2 ml UNSCH PRN IVF FLUSH AFTER USING IV ACCESS 11/10/16 09:00 Valacyclovir HCl (Valtrex) 500 mg Q12HR PO 11/10/16 12:00 11/12/16 20:23 Apixaban (Eliquis) 5 mg BID PO 11/10/16 21:00 11/12/16 20:13 Propranolol HCl (Inderal) 10 mg Q12HR PO 11/10/16 12:00 11/12/16 20:13 Atorvastatin Calcium (Lipitor) 80 mg HS PO 11/10/16 21:00 11/12/16 20:13 Venlafaxine HCl (Effexor) 50 mg BID PO 11/10/16 21:00 11/12/16 20:23 Amiodarone HCl (Cordarone) 200 mg DAILY PO 11/10/16 11:00 11/12/16 08:54 Loratadine (Claritin) 10 mg DAILY PO 11/10/16 12:00 11/12/16 08:54 Cefepime HCl 2000 mg/Sodium Chloride 100 ml @ 200 mls/hr Q8H IV 11/10/16 13:00 11/12/16 21:00 Azithromycin 500 mg/Sodium Chloride 250 ml @ 250 mls/hr Q24H IV 11/10/16 12:00 11/12/16 11:56 Albuterol/ Ipratropium (Duoneb Neb) 1 ampule Q4HR NEB PRN INH SHORTNESS OF BREATH 11/10/16 12:00 11/12/16 09:11 Ondansetron HCl (Zofran Inj) 4 mg Q6HR PRN IV PUSH NAUSEA 11/10/16 12:00 11/10/16 20:31 Guaifenesin/ Dextromethorphan (Robitussin Dm 200-20 Mg/10 ml Liq) 10 ml Q4HR PRN PO COUGH 11/10/16 12:00 11/12/16 09:09 Sodium Chloride (NS Flush) 2 ml UNSCH PRN IV FLUSH FLUSH AFTER USING IV ACCESS 11/10/16 10:00 Sodium Chloride (NS Flush) 2 ml BID IV FLUSH 11/10/16 21:00 11/12/16 20:23 Acetaminophen (Tylenol) 650 mg Q4H PRN PO TEMP > 100.4 11/10/16 10:00 11/11/16 08:10 Prochlorperazine (Compazine Supp) 25 mg Q12H PRN RECTAL NAUSEA OR VOMITING 11/10/16 12:00 Acetaminophen (Tylenol) 650 mg Q6H PRN PO PAIN SCALE 1 TO 2 11/10/16 10:00 Oxycodone/ Acetaminophen (Percocet 5-325 Mg) 1 tab Q6H PRN PO PAIN SCALE 3 TO 5 11/10/16 12:00 11/10/16 21:47 Oxycodone/ Acetaminophen (Percocet 10-325 Mg) 1 tab Q6H PRN PO PAIN SCALE 6 TO 10 11/10/16 12:00 11/12/16 09:09 Naloxone HCl (Narcan Inj) 0.4 mg UNSCH PRN IV PUSH SEE LABEL COMMENTS 11/10/16 10:00 Senna/Docusate Sodium (Hanna-Colace) 1 tab BID PO 11/10/16 21:00 11/12/16 20:13 Magnesium Hydroxide (Milk Of Magnesia Liq) 30 ml Q12HR PRN PO MILD - MODERATE CONSTIPATION 11/10/16 12:00 Sennosides (Senokot) 17.2 mg Q12HR PRN PO MODERATE - SEVERE CONSTIPATION 11/10/16 12:00 Bisacodyl (Dulcolax Supp) 10 mg DAILY PRN RECTAL SEVERE CONSITIPATION 11/10/16 12:00 Lactulose (Lactulose Liq) 30 ml DAILY PRN PO SEVERE CONSITIPATION 11/10/16 12:00 Furosemide (Lasix Inj) 20 mg BID@09,18 IV PUSH 11/11/16 18:00 11/11/16 17:58 Tiotropium [place] (Spiriva Inh) 18 mcg DAILY INH 11/11/16 17:00 Future Hold 11/12/16 08:47 Alprazolam (Xanax) 0.5 mg HS PO 11/12/16 21:00 11/12/16 20:13 Miscellaneous Information Patient in critical care unit? Ass... [id number] .XX 11/12/16 20:00 Chlorhexidine Gluconate (Chlorhexidine 2% Cloth) 3 pack DAILY@04 TOPICAL 11/13/16 04:00 11/17/16 04:01 11/13/16 03:11 Chlorhexidine Gluconate (Chlorhexidine 2% Cloth) 3 pack UNSCH PRN TOPICAL HYGIENIC CARE 11/12/16 20:00 11/17/16 19:51 Methylprednisolone Sodium Succinate (SoluMEDROL INJ) 40 mg Q8HR IV PUSH 11/12/16 22:00 11/12/16 20:13 Fentanyl Citrate 250 ml @ 5 mls/hr TITRATE PRN IV SEDATION 11/13/16 01:30 11/13/16 02:15 Midazolam HCl 100 ml @ 2 mls/hr TITRATE PRN IV SEDATION 11/13/16 01:30 11/13/16 02:15 Propofol 100 ml @ 2.142 mls/ hr TITRATE PRN IV SEDATION 11/13/16 03:00 Norepinephrine Bitartrate 250 ml @ 7.5 mls/hr TITRATE PRN IV Maintain MAP > 65 mmHg 11/13/16 03:00 Family History Unobtainable Social History Remote history of smoking, patient used to smoke 1-1/2 pack per day for 30 years and quit No history of significant alcohol or illicit drug abuse Physical Exam Vital Signs Vital Signs Date Time Temp Pulse Resp B/P (MAP) Pulse Ox O2 Delivery O2 Flow Rate FiO2 11/12/16 20:00 123 11/12/16 20:00 99.1 123 36 144/85 (104) 96 11/12/16 19:53 95 Non-Rebreather 15.00 11/12/16 18:00 86 11/12/16 16:00 82 11/12/16 16:00 98.5 82 31 150/76 (100) 100 11/12/16 14:00 86 11/12/16 12:00 78 11/12/16 12:00 99.2 78 29 101/59 (73) 96 11/12/16 11:27 18 11/12/16 09:11 92 Non-Rebreather 15.00 11/12/16 07:51 98.9 102 18 115/58 (77) 85 11/12/16 05:25 99.1 100 20 116/57 (76) 82 Physical Exam GENERAL: Sedated and intubated elderly woman SKIN: Warm and dry. HEAD: Normocephalic. EYES: No scleral icterus. No injection or drainage. NECK: Supple, trachea midline. No JVD or lymphadenopathy. CARDIOVASCULAR: Regular rate and rhythm without murmurs, gallops, or rubs. RESPIRATORY: Breath sounds equal bilaterally. No accessory muscle use. GASTROINTESTINAL: Abdomen soft, non-tender, nondistended. MUSCULOSKELETAL: No cyanosis, or edema. BACK: Nontender without obvious deformity. NEURO EXAM: GCS: M 6 V T E 3 Mental Status: The patient is sedated and intubated. Cranial Nerves: Pupils are round, reactive to light. Reflexes: Biceps, patellar, and Achilles are 2/4 bilaterally. No clonus. Laboratory Laboratory Tests Test 11/12/16 10:13 11/12/16 10:30 11/13/16 00:00 Blood Gas Puncture Site LT RADIAL RT RADIAL Blood Gas Patient Temperature 98.6 98.6 Blood Gas HCO3 22 23 Blood Gas Base Excess -2.4 -1.9 Blood Gas Oxygen Saturation 75 92 Arterial Blood pH 7.37 7.38 Arterial Blood Partial Pressure CO2 40 39 Arterial Blood Partial Pressure O2 46 76 Arterial Blood Oxygen Content 10.0 11.1 Arterial Blood Carboxyhemoglobin 1.3 1.5 Arterial Blood Methemoglobin 0.7 1.3 Blood Gas Hemoglobin 9.4 8.5 Oxygen Delivery Device NASAL CANNULA BIPAP Blood Gas Liter Flow 6 White Blood Count 15.8 Red Blood Count 2.90 Hemoglobin 8.9 Hematocrit 26.1 Mean Corpuscular Volume 89.9 Mean Corpuscular Hemoglobin 30.8 Mean Corpuscular Hemoglobin Concent 34.3 Red Cell Distribution Width 18.8 Platelet Count 442 Mean Platelet Volume 8.6 Neutrophils (%) (Auto) 81.5 Lymphocytes (%) (Auto) 7.6 Monocytes (%) (Auto) 6.2 Eosinophils (%) (Auto) 4.3 Basophils (%) (Auto) 0.4 Neutrophils # (Auto) 12.9 Lymphocytes # (Auto) 1.2 Monocytes # (Auto) 1.0 Eosinophils # (Auto) 0.7 Basophils # (Auto) 0.1 CBC Comment DIFF FINAL Differential Comment Blood Urea Nitrogen 10 Creatinine 0.87 Random Glucose 115 Calcium Level 8.5 Sodium Level 131 Potassium Level 3.6 Chloride Level 99 Carbon Dioxide Level 24.1 Anion Gap 8 Estimat Glomerular Filtration Rate 64 Troponin I 0.05 B-Type Natriuretic Peptide 565 Blood Gas Ventilator Setting [id number]/[id number] Blood Gas Inspired Oxygen 100 Date/Time Source Procedure Growth Status 11/10/16 09:20 Blood Peripheral Aerobic Blood Culture - Preliminary NO GROWTH IN 2 DAYS Resulted 11/10/16 09:20 Blood Peripheral Anaerobic Blood Culture - Preliminary NO GROWTH IN 2 DAYS Resulted Result Diagram: 11/12/16 1030 11/12/16 1030 Assessment and Plan Assessment and Plan Respiratory failure - Bilateral patchy infiltrates - Pneumonia versus pulmonary edema - Mechanical ventilation - CXR and ABG daily - Broad-spectrum antibiotics - Worsening CXR will add vancomycin - Follow-up cultures - Gentle diuresis Borderline hypotension - Centerline and a line in place - Likely due to sedation side effect - Levophed to keep MAP above 65 - Telemetry COPD - DuoNeb scheduled and when necessary Coronary artery disease - Status post CABG - Troponins negative - Cardiology input appreciated - Echo pending Paroxysmal atrial fibrillation - Rate controlled - Amiodarone DVT GI prophylaxis - Eliquis - Pepcid - Teds SCDs Critical Care: The total critical care time was 35 minutes. Time to perform other separately billable procedures was not included in the critical care time. Maximus Miles MD Nov 13, 2016 01:29
[2016-11-13 02:11] LABS: BLOOD GAS BASE EXCESS -2.6 mmol/L (-2-2); BLOOD GAS CARBOXYHEMOGLOBIN 1.3 % (0-4); BLOOD GAS HCO3 22 mmol/L (22-26); BLOOD GAS METHEMOGLOBIN 1.5 % (0-2); BLOOD GAS O2 HGB SATURATION 96 % (90-100); BLOOD GAS OXYGEN CONTENT 14.1 Vol % (12.0-20.0); BLOOD GAS PCO2 40 mmHg (38-42); BLOOD GAS PO2 162 mmHg (61-120); BLOOD GAS TOTAL HGB 10.2 G/DL (12.0-16.0); CRITICAL VALUE NO; OXYGEN DEVICE VENTILATOR; TEMP CORR TO 98.6
[2016-11-13 02:12] LABS: DRAW SITE RT RADIAL; FIO2 100 %; NUMBER OF ARTERIAL PUNCTURES 1; STAT NO; ULNAR PULSE PRESENT; VENT SETTINGS PRVC/AC
[2016-11-13] MEDS: MIDAZOLAM 100 MG/100 ML INJ 100 ML IV PRN ×2 (02:15→08:42)
[2016-11-13] MEDS: fentaNYL DRIP 250 ML IV PRN ×2 (02:15→23:03)
--- NOTE | 2016-11-13 02:28 | RADRPT ---
EXAM DATE/TIME: 11/13/2016 01:41 [facility] COMPARISON: CHEST SINGLE AP, November 12, 2016, 9:59. INDICATIONS : Left internal jugular central line placement. MEDICAL HISTORY : Hypertension. Chronic obstructive pulmonary disease. SURGICAL HISTORY : CABG. ENCOUNTER: Subsequent ACUITY: 1 week PAIN SCORE: Non-responsive. LOCATION: Left chest FINDINGS: A single view of the chest demonstrates left central line in superior vena cava. No pneumothorax. End otracheal tube in satisfactory position. Previous median sternotomy and atrial clip. Bilateral airspa ce disease increased from November 12. CONCLUSION: Central line in superior vena cava without pneumothorax. Endotracheal tube in good position. Increasi ng airspace disease. Gold Cope MD on November 13, 2016 at 2:25 Board Certified Radiologist. This report was verified electronically.
[2016-11-13] MEDS ORDERED: NOREPINEPHRINE 4 MG/D5W 250 ML IV PRN (03:00)
[2016-11-13] MEDS: CHLORHEXIDINE GLUCONATE 2 % 1 PACK (2 CLOTHS)(taper/protocol) TOPICAL SCH (03:11)
[2016-11-13] MEDS: CEFEPIME INJ 2,000 MG in SODIUM CHLORIDE 0.9% INJ 100 ML IV SCH ×3 (05:00→21:00)
[2016-11-13] MEDS ORDERED: VANCOMYCIN INJ 1,000 MG in SODIUM CHLOR 0.9% 250 ML INJ 250 ML IV ONE (06:00)
[2016-11-13] MEDS ORDERED: Vancomycin Consult Pharmacy 1 EA OTHER SCH (06:00)
[2016-11-13] MEDS: methylPREDNISolone SOD SUCC 40 MG/1 ML VIAL IV PUSH SCH ×3 (06:15→21:20)
[2016-11-13] MEDS: RESP: ALBUTEROL 2.5 MG/IPRATROPIUM 0.5 MG NEB (PRN) INH (08:12)
[2016-11-13] MEDS: PROPRANOLOL HCL 10 MG TAB PO SCH (08:40)
[2016-11-13] MEDS: FUROSEMIDE 20 MG/2 ML VIAL IV PUSH SCH (08:40)
[2016-11-13] MEDS: DOCUSATE SODIUM 50 MG/SENNA 8.6 MG TAB PO SCH ×2 (08:40→21:20)
[2016-11-13] MEDS: valACYclovir HCL 500 MG TAB PO SCH ×2 (08:40→21:20)
[2016-11-13] MEDS: VENLAFAXINE HCL 25 MG TAB PO SCH ×2 (08:40→21:00)
[2016-11-13] MEDS: AMIODARONE 200 MG TAB PO SCH (08:40)
[2016-11-13] MEDS: APIXABAN 5 MG TABLET PO SCH ×2 (08:40→21:20)
[2016-11-13 08:42] LABS: BASOPHIL % 0.2 % (0.0-2.0); EOSINOPHIL % 0.1 % (0.0-4.0); HEMATOCRIT 29.1 % (35.0-46.0); HEMO FLAGS DIFF FINAL; LYMPH % 3.8 % (9.0-44.0); LYMPHOCYTE # 0.7 TH/MM3 (1.0-4.8); MEAN CELL VOLUME 89.3 FL (80.0-100.0); MEAN CORPUSCULAR HEMOGLOBIN 28.5 PG (27.0-34.0); MEAN CORPUSCULAR HGB CONC 31.9 % (32.0-36.0); MONO % 2.6 % (0.0-8.0); NEUT % 93.3 % (16.0-70.0); PLATELET COUNT 506 TH/MM3 (150-450); RED BLOOD COUNT 3.26 MIL/MM3 (4.00-5.30); RED CELL DISTRIBUTION WIDTH 19.5 % (11.6-17.2); WHITE BLOOD COUNT 18.2 TH/MM3 (4.0-11.0)
[2016-11-13 08:50] LABS: APTT (PATIENT) 35.4 SEC (24.3-30.1); INTERNATIONAL NORMALIZED RATIO 1.3 RATIO; PROTHROMBIN TIME - PATIENT 14.3 SEC (9.8-11.6)
[2016-11-13] MEDS: LORATADINE 10 MG TAB PO SCH (09:00)
[2016-11-13] MEDS: SODIUM CHLORIDE 0.9% FLUSH 10 ML FLUSH IV FLUSH SCH ×2 (09:00→21:20)
[2016-11-13 09:10] LABS: ALKALINE PHOSPHATASE 114 U/L (45-117); ALT (GPT) 18 U/L (10-53); ANION GAP 12 MEQ/L (5-15); AST (GOT) 30 U/L (15-37); BICARBONATE 25.5 MEQ/L (21.0-32.0); BLOOD UREA NITROGEN 14 MG/DL (7-18); CHLORIDE 98 MEQ/L (98-107); GLOMERULAR FILTRATION RATE 57 ML/MIN (>89); MAGNESIUM 1.9 MG/DL (1.5-2.5); SODIUM (NA) 135 MEQ/L (136-145); TOTAL BILIRUBIN ADULT 0.4 MG/DL (0.2-1.0)
[2016-11-13 09:14] LABS: POTASSIUM 2.9 MEQ/L (3.5-5.1)
[2016-11-13] MEDS ORDERED: POTASSIUM PHOSPHATE INJ 30 MMOL in SODIUM CHLOR 0.9% 250 ML INJ 250 ML IV PRN (09:45)
[2016-11-13] MEDS ORDERED: POTASSIUM CHLOR 40 MEQ PREMIX 100 ML IV ONE ×2 (09:45→11:45)
[2016-11-13] MEDS ORDERED: MAGNESIUM OXIDE 400 MG TAB PO PRN (09:45)
[2016-11-13] MEDS ORDERED: MAGNESIUM SULFATE INJ 4 GM in SODIUM CHLORIDE 0.9% INJ 92 ML IV PRN (09:45)
[2016-11-13] MEDS ORDERED: POTASSIUM CHLOR 20 MEQ PREMIX 100 ML IV PRN ×2 (09:45)
[2016-11-13] MEDS ORDERED: POTASSIUM PHOSPHATE MONOBASIC 500 MG TAB PO/TUBE PRN (09:45)
[2016-11-13] MEDS ORDERED: POTASSIUM PHOSPHATE MONOBASIC 500 MG TAB PO PRN (09:45)
[2016-11-13] MEDS ORDERED: SODIUM PHOSPHATE INJ 30 MMOL in SODIUM CHLOR 0.9% 250 ML INJ 240 ML IV PRN (09:45)
[2016-11-13] MEDS ORDERED: POTASSIUM CHLOR 40 MEQ PREMIX 100 ML IV PRN ×2 (09:45)
[2016-11-13] MEDS ORDERED: MAGNESIUM SULFATE INJ 2 GM in SODIUM CHLORIDE 0.9% INJ 96 ML IV PRN (09:45)
--- NOTE | 2016-11-13 09:52 | EKG ---
Date Performed: 11/13/2016 Time Performed: 09:05:23 PTAGE: 71 years EKG: ATRIAL FIBRILLATION WITH RAPID VENTRICULAR RESPONSE ST/T-WAVE ABNORMALITY, CONSIDER ANTERIO R ISCHEMIA ABNORMAL ECG PREVIOUS TRACING : 11/10/2016 11.53 Compared to previous tracing, atrial fibrillation has repla randall Sinus rhythm , heart rate has increased. DOCTOR: Harley Talley Interpretating Date/Time 11/13/2016 09:50:18
[2016-11-13] MEDS: VASOPRESSIN INJ 40 UNITS in DEXTROSE 5% IN WATER 100ML INJ 98 ML IV SCH ×2 (10:46)
[2016-11-13] MEDS: SODIUM CHLOR 0.9% 1000 ML INJ 1,000 ML IV SCH (10:47)
[2016-11-13] MEDS: AZITHROMYCIN INJ 500 MG in SODIUM CHLOR 0.9% 250 ML INJ 250 ML IV SCH (10:47)
[2016-11-13] MEDS: BISACODYL 10 MG SUPP RECTAL PRN (11:08)
[2016-11-13] MEDS: SENNOSIDES 8.6 MG TAB PO PRN (11:08)
[2016-11-13] MEDS: LACTULOSE SYRUP 20 GM/30 ML CUP PO PRN (11:08)
[2016-11-13] MEDS ORDERED: LACTULOSE SYRUP 20 GM/30 ML CUP PO PRN (12:15)
[2016-11-13] MEDS ORDERED: DOCUSATE SODIUM 50 MG/SENNA 8.6 MG TAB PO SCH (12:15)
[2016-11-13] MEDS ORDERED: SENNOSIDES 8.6 MG TAB PO PRN (12:15)
[2016-11-13] MEDS ORDERED: MAGNESIUM HYDROXIDE SUSP 30 ML CUP PO PRN (12:15)
--- NOTE | 2016-11-13 15:43 | HHI.PR ---
Subjective Remarks Was intubated for respiratory failure last Nite. Now on 60 % FIO2. CXR shows Bilateral Infiltrates. Seated on the vent. Objective Vital Signs Date Time Temp Pulse Resp B/P (MAP) Pulse Ox O2 Delivery O2 Flow Rate FiO2 11/13/16 15:30 70 11/13/16 15:19 94 50 11/13/16 15:00 71 11/13/16 14:30 68 11/13/16 14:00 68 11/13/16 13:30 66 11/13/16 13:00 66 11/13/16 12:30 66 11/13/16 12:00 69 11/13/16 12:00 69 14 96/62 (73) 98 93/54 (67) 11/13/16 11:54 98 60 11/13/16 11:30 69 11/13/16 11:30 69 14 91/63 (72) 97 86/51 (63) 11/13/16 11:02 71 11/13/16 11:02 71 17 104/53 (70) 97 105/66 (79) 11/13/16 10:46 74 78/51 11/13/16 10:30 79 14 93/59 (70) 97 108/67 (81) 11/13/16 10:30 79 11/13/16 10:02 79 11/13/16 10:02 79 14 97/55 (69) 95 87/52 (64) 11/13/16 10:00 81 11/13/16 10:00 81 14 74/52 (59) 95 11/13/16 09:30 88 14 107/66 (80) 95 117/65 (82) 11/13/16 09:00 84 14 114/74 (87) 93 106/61 (76) 11/13/16 08:41 87 141/73 11/13/16 08:30 89 14 147/74 (98) 93 146/78 (100) 11/13/16 08:22 84 14 137/94 (108) 93 123/83 (96) 11/13/16 08:14 93 60 11/13/16 08:00 90 11/13/16 08:00 95 14 127/80 (96) 93 90/76 (81) 11/13/16 06:00 85 11/13/16 04:33 94 60 11/13/16 04:00 85 10/1/17 04:00 98.1 95 23 123/78 (93) 95 11/13/16 02:15 96 60 11/13/16 02:00 93 11/13/16 01:12 93 100 11/13/16 00:00 97.6 120 31 90/59 (69) 93 11/13/16 00:00 120 11/12/16 23:06 91 11/12/16 22:57 90 100 11/12/16 22:10 94 90 11/12/16 22:00 120 11/12/16 20:00 123 11/12/16 20:00 99.1 123 36 144/85 (104) 96 11/12/16 19:53 95 Non-Rebreather 15.00 11/12/16 18:00 86 11/12/16 16:00 82 11/12/16 16:00 98.5 82 31 150/76 (100) 100 I/O 11/12/16 11/12/16 11/12/16 11/13/16 11/13/16 11/13/16 07:00 15:00 23:00 07:00 15:00 23:00 Intake Total 240 ml 350 ml 100 ml 805 ml 250 ml Output Total 1400 ml Balance 240 ml 350 ml 100 ml -595 ml 250 ml Intake Oral 240 ml IV Total 350 ml 100 ml 805 ml 250 ml Output Urine Total 1400 ml # Voids 1 # Bowel Movements 0 Result Diagram: 11/13/16 0830 11/13/16 0830 Objective Remarks GENERAL: This moderately obese elderly lady intubated and on vent support. HEENT: Head normocephalic. Pupils are reactive and equal. Tongue is moist. Throat is clear . NECK: Supple. No bruits or thyroid enlargement or lymphadenopathy. CHEST: Distant breath sounds with coarse wheezes throughout both lung franco. Prolonged expirations with crackles at the lung bases. HEART: The heart sounds are irregular S1-S2 with no murmur. No S3, gallop. ABDOMEN: The abdomen is soft, protuberant without masses or organomegaly or tenderness. Bowel sounds are active. EXTREMITIES: No lesions. No edema. NEURO: Reflexes are 1+ .Sedated. SKIN: No lesions observed. Assessment and Plan Assessment and Plan IMPRESSION 1. Bilateral pneumonia versus pulmonary edema. 2. Atrial fibrillation and ASHD. 3. History of coronary artery disease with CABG x3. 4. Pleural effusions. 5. COPD with emphysema and acute exacerbation. 6. History of DVT. 7. Respiratory Failure Plan : 1. Will wean Fio2 to Keep sat >92. 2. Keep sedated with Diprivan. 3. Continue antibiotics . 4. CXR,BMP in am 5. Solumedrol 40 mg IV BID. 6. Nebs miriam , Ursula Castañeda MD Nov 13, 2016 15:43
[2016-11-13] MEDS: ALPRAZolam 0.5 MG TAB PO SCH (21:00)
[2016-11-13] MEDS: ATORVASTATIN 80 MG TAB PO SCH (21:20)
[2016-11-14] VITALS (25 sets, daily range): BP systolic 77–141; BP diastolic 48–76; PULSE 62–72; RESP 14; TEMP 96.8–97.8; O2SAT 92–97
[2016-11-14] MEDS: VANCOMYCIN INJ 1,250 MG in SODIUM CHLOR 0.9% 250 ML INJ 250 ML IV SCH ×2 (00:03→18:00)
[2016-11-14] MEDS: CHLORHEXIDINE GLUCONATE 2 % 1 PACK (2 CLOTHS)(taper/protocol) TOPICAL SCH (01:05)
[2016-11-14] MEDS: CEFEPIME INJ 2,000 MG in SODIUM CHLORIDE 0.9% INJ 100 ML IV SCH ×2 (05:00→11:38)
[2016-11-14 05:01] LABS: AUTOMATED NEUTROPHIL # 13.6 TH/MM3 (1.8-7.7); BASOPHIL % 0.2 % (0.0-2.0); EOSINOPHIL % 0.1 % (0.0-4.0); HEMATOCRIT 25.3 % (35.0-46.0); HEMO FLAGS DIFF FINAL; LYMPH % 4.2 % (9.0-44.0); LYMPHOCYTE # 0.6 TH/MM3 (1.0-4.8); MEAN CELL VOLUME 90.1 FL (80.0-100.0); MEAN CORPUSCULAR HGB CONC 32.2 % (32.0-36.0); MONO % 3.1 % (0.0-8.0); NEUT % 92.4 % (16.0-70.0); PLATELET COUNT 414 TH/MM3 (150-450); RED BLOOD COUNT 2.81 MIL/MM3 (4.00-5.30); RED CELL DISTRIBUTION WIDTH 18.8 % (11.6-17.2); WHITE BLOOD COUNT 14.7 TH/MM3 (4.0-11.0)
[2016-11-14 05:03] LABS: ALKALINE PHOSPHATASE 94 U/L (45-117); ALT (GPT) 24 U/L (10-53); ANION GAP 7 MEQ/L (5-15); AST (GOT) 49 U/L (15-37); BICARBONATE 24.5 MEQ/L (21.0-32.0); BLOOD UREA NITROGEN 27 MG/DL (7-18); CHLORIDE 107 MEQ/L (98-107); GLOMERULAR FILTRATION RATE 51 ML/MIN (>89); SODIUM (NA) 138 MEQ/L (136-145); TOTAL BILIRUBIN ADULT 0.3 MG/DL (0.2-1.0)
[2016-11-14 05:11] LABS: POTASSIUM 4.7 MEQ/L (3.5-5.1)
[2016-11-14] MEDS: SODIUM CHLOR 0.9% 1000 ML INJ 1,000 ML IV SCH ×2 (05:45→08:30)
[2016-11-14] MEDS: methylPREDNISolone SOD SUCC 40 MG/1 ML VIAL IV PUSH SCH ×3 (05:47→21:13)
--- NOTE | 2016-11-14 06:01 | RADRPT ---
EXAM DATE/TIME: 11/14/2016 04:35 [facility] COMPARISON: CHEST SINGLE AP, November 13, 2016, 1:41. INDICATIONS : Shortness of breath, possible pulmonary disease. MEDICAL HISTORY : Hypertension. Chronic obstructive pulmonary disease. SURGICAL HISTORY : CABG. ENCOUNTER: Subsequent ACUITY: 1 week PAIN SCORE: Non-responsive. LOCATION: Bilateral chest FINDINGS: Right greater than left pulmonary consolidation persists but both sides are moderately improved in th e interim. Small, bilateral pleural effusions are likely. No pneumothorax. Heart size stable, within normal limits. Patient has had previous median sternotomy. Endotracheal tube tip is approximately 3.5 cm above the nicolasa. There is a nasogastric tube now prese nt, coiled in the stomach. Left internal jugular central venous catheter again seen, tip in the super ior vena cava. CONCLUSION: Improved bilateral airspace disease. New nasogastric tube, tip in the stomach. Other lines and tubes unchanged. Issa Kumar MD on November 14, 2016 at 5:58 Board Certified Radiologist. This report was verified electronically.
[2016-11-14] MEDS: APIXABAN 5 MG TABLET PO SCH ×2 (08:43→21:14)
[2016-11-14] MEDS: valACYclovir HCL 500 MG TAB PO SCH ×2 (08:43→21:14)
[2016-11-14] MEDS: VENLAFAXINE HCL 25 MG TAB PO SCH ×2 (08:43→21:14)
[2016-11-14] MEDS: DOCUSATE SODIUM 50 MG/SENNA 8.6 MG TAB PO SCH ×2 (08:43→21:14)
[2016-11-14] MEDS: AMIODARONE 200 MG TAB PO SCH (08:43)
[2016-11-14] MEDS: VASOPRESSIN INJ 40 UNITS in DEXTROSE 5% IN WATER 100ML INJ 98 ML IV SCH ×2 (08:43)
[2016-11-14] MEDS: FUROSEMIDE 20 MG/2 ML VIAL IV PUSH SCH (08:44)
[2016-11-14] MEDS: LORATADINE 10 MG TAB PO SCH (08:44)
[2016-11-14] MEDS: SODIUM CHLORIDE 0.9% FLUSH 10 ML FLUSH IV FLUSH SCH ×2 (08:44→21:14)
[2016-11-14] MEDS: AZITHROMYCIN INJ 500 MG in SODIUM CHLOR 0.9% 250 ML INJ 250 ML IV SCH (11:37)
--- NOTE | 2016-11-14 14:52 | HHI.CCPN ---
Subjective Remarks/Hospital Course 11/13: 71-year-old female with a history of COPD, coronary artery disease and hypertension who was admitted through the emergency room with complaints of progressive shortness of breath over the past 3 to 4 days. The patient has a history of CABG x3 approximately 7 weeks ago in [place], [place]. She did have some postoperative pleural effusions which had to be tapped. She then drove from [place] down here and she was experiencing increasing dyspnea. A CT scan of the chest showed evidence of bilateral patchy pulmonary infiltrates consistent with either pneumonia and/or pulmonary edema. At night November 12 her respiratory status dramatically declined, patient became hypoxemic and tachypneic and diaphoretic requiring endotracheal intubation. 11/14: Remains sedated, orally intubated on mechanical ventilation. On low dose vasopressin and Levophed for pressor support. Objective Vital Signs Date Time Temp Pulse Resp B/P (MAP) Pulse Ox O2 Delivery O2 Flow Rate FiO2 11/14/16 14:00 72 11/14/16 14:00 14 99/53 (68) 96 11/14/16 12:54 50 11/14/16 04:00 97.1 11/12/16 19:53 Non-Rebreather 15.00 Intake and Output 11/14/16 11/14/16 11/15/16 08:00 16:00 00:00 Intake Total 1508 ml 200 ml Output Total 700 ml Balance 808 ml 200 ml Result Diagram: 11/14/16 0400 11/14/16 0400 Other Results Laboratory Tests Test 11/14/16 04:00 White Blood Count 14.7 TH/MM3 Red Blood Count 2.81 MIL/MM3 Hemoglobin 8.1 GM/DL Hematocrit 25.3 % Mean Corpuscular Volume 90.1 FL Mean Corpuscular Hemoglobin 29.0 PG Mean Corpuscular Hemoglobin Concent 32.2 % Red Cell Distribution Width 18.8 % Platelet Count 414 TH/MM3 Mean Platelet Volume 9.1 FL Neutrophils (%) (Auto) 92.4 % Lymphocytes (%) (Auto) 4.2 % Monocytes (%) (Auto) 3.1 % Eosinophils (%) (Auto) 0.1 % Basophils (%) (Auto) 0.2 % Neutrophils # (Auto) 13.6 TH/MM3 Lymphocytes # (Auto) 0.6 TH/MM3 Monocytes # (Auto) 0.5 TH/MM3 Eosinophils # (Auto) 0.0 TH/MM3 Basophils # (Auto) 0.0 TH/MM3 CBC Comment DIFF FINAL Differential Comment Blood Urea Nitrogen 27 MG/DL Creatinine 1.05 MG/DL Random Glucose 219 MG/DL Total Protein 6.0 GM/DL Albumin 1.8 GM/DL Calcium Level 8.6 MG/DL Alkaline Phosphatase 94 U/L Aspartate Amino Transf (AST/SGOT) 49 U/L Alanine Aminotransferase (ALT/SGPT) 24 U/L Total Bilirubin 0.3 MG/DL Sodium Level 138 MEQ/L Potassium Level 4.7 MEQ/L Chloride Level 107 MEQ/L Carbon Dioxide Level 24.5 MEQ/L Anion Gap 7 MEQ/L Estimat Glomerular Filtration Rate 51 ML/MIN Imaging Last Impressions Chest X-Ray 11/14/16 0000 Signed Impressions: Service Date/Time: Monday, November 14, 2016 04:35 - CONCLUSION: Improved bilateral airspace disease. New nasogastric tube, tip in the stomach. Other lines and tubes unchanged. Issa Kumar MD Shoulder X-Ray 11/10/16 0000 Signed Impressions: Service Date/Time: October 13:50 - CONCLUSION: 1. Old right humeral neck fracture. 2. No acute fracture or dislocation. 3. Course interstitial opacities throughout the visualized right upper lobe. Crispin Ramos MD Humerus X-Ray 11/10/16 0000 Signed Impressions: Service Date/Time: October 13:53 - CONCLUSION: 1. Old right humeral neck fracture. 2. No acute fracture or dislocation. Crispin Ramos MD CT Angiography 11/10/16 0000 Signed Impressions: Service Date/Time: October 14:35 - CONCLUSION: 1. No evidence of pulmonary embolus. 2. Severe extensive bilateral pulmonary parenchymal opacity with a crazy paving appearance. Differential diagnosis includes pulmonary edema, pulmonary alveolar stenosis, acute interstitial pneumonia, and eosinophilic pneumonia. 3. Small pleural effusions left greater than right. 4. Mildly enlarged mediastinal lymph nodes likely reactive. Adoplh Root MD Objective Remarks GENERAL: Sedated and intubated elderly woman SKIN: Warm and dry. HEAD: Normocephalic. EYES: No scleral icterus. No injection or drainage. NECK: Supple, trachea midline. No JVD or lymphadenopathy. CARDIOVASCULAR: Regular rate and rhythm without murmurs, gallops, or rubs. RESPIRATORY: Breath sounds equal bilaterally. No accessory muscle use. GASTROINTESTINAL: Abdomen soft, non-tender, nondistended. MUSCULOSKELETAL: No cyanosis, or edema. BACK: Nontender without obvious deformity. NEURO: Sedated, arousable, orally intubated on mechanical ventilation A/P Assessment and Plan Acute Respiratory failure on [facility] ventilation - Bilateral patchy infiltrates - Pneumonia versus pulmonary edema - Mechanical ventilation - CXR and ABG daily - Broad-spectrum antibiotics - Follow-up cultures - Gentle diuresis Septic shock - Central line and a line in place -Levophed/low-dose vasopressin gtt. to maintain map greater than 65 - Decrease IV fluids in view of significant positive fluid balance. COPD - DuoNeb scheduled and when necessary, Solumedrol Coronary artery disease - Status post CABG - Troponins negative - Cardiology input appreciated - Echo pending Paroxysmal atrial fibrillation - Rate controlled - Amiodarone DVT GI prophylaxis - Eliquis - Pepcid - Teds SCDs Discussed with patient's daughter and at bedside on 11/13 and updated them regarding current clinical status and plan of care and they voiced understanding and were agreeable. Critical Care: The total critical care time was 35 minutes. Time to perform other separately billable procedures was not included in the critical care time. Ketan Starkey MD Nov 14, 2016 14:52
[2016-11-14] MEDS ORDERED: GLUCAGON 1 MG/ML VIAL IM/SQ PRN (15:00)
[2016-11-14] MEDS: INSULIN ASPART SUPPLEMENTAL SCALE SQ SCH ×2 (15:00→18:00)
[2016-11-14] MEDS ORDERED: DEXTROSE 50% IN WATER 50 ML SYRINGE IV PRN (15:00)
--- NOTE | 2016-11-14 15:22 | PD.ID.CON ---
History of Present Illness Service ID Consult Requested By Reason for Consult Evaluation and mment of Pneumonia in a post CABG patient. Primary Care Physician Non-Staff Diagnoses: History of Present Illness is a 71 y/o CF with PMHx of COPD, CAD, HTN was admitted through emergency room. Patients is in the room and reports she had a CABG triple vessel with major (> 90 percent blockages). She remained intubated for few days post surgery. She improved and drains removed. Overall did ok but when found to have post operative pleural effusions underwent thoracentesis. After tap she did fairly ok and was discharged home. On her way to [place] she started feeling short of breath while they drove here. She was seen in the ED. CT chest showed evidence of bilateral patchy pulmonary infiltrates consistent with either pneumonia and/or pulmonary edema. She was initially admitted to [facility] hospitalist service and due to decline in her respiratory status (hypoxia , tachypnea and diaphoresis) she was intubated. At the time of my evaluation, she is in IMC. Currently intubated with 50% FiO2, PEEP 7. secretions small white thin. UO ok. On vasopressin, weaned off Levophed earlier. ID has been consulted for septic shock secondary to Pneumonia in a CABG patient. Review of Systems ROS Limitations: Intubated Past Family Social History Allergies: Coded Allergies: hydromorphone (Verified Allergy, Intermediate, hallucinations, 11/10/16) morphine (Verified Allergy, Intermediate, hallucinations, 11/10/16) Past Medical History Coronary artery disease status post CABG 7 weeks ago Atrial arrhythmias COPD Obstructive sleep apnea Hypertension Dyslipidemia Past Surgical History Reported Medications I attest that I obtained, updated, or reviewed the home and current medication list (for name, dose, frequency, and route of administration of medications). Reported Meds & Active Scripts Active Reported Zyrtec (Cetirizine HCl) Unknown Strength Tablet 1 Tab PO HS Propranolol (Propranolol HCl) 10 Mg Tab Unknown Dose PO HS Effexor (Venlafaxine HCl) 50 Mg Tab Unknown Dose PO Q12H Valtrex (Valacyclovir HCl) 500 Mg Tab Unknown Dose PO BID Claritin (Loratadine) 10 Mg Cap 10 Mg PO DAILY Eliquis (Apixaban) 5 Mg Tab Unknown Dose PO BID Crestor (Rosuvastatin Calcium) 20 Mg Tab Unknown Dose PO DAILY Amiodarone (Amiodarone HCl) 200 Mg Tab 200 Mg PO DAILY Active Ordered Medications Current Medications Medications (Trade) Dose Ordered Sig/Vida Route Start Time Stop Time Status Last Admin (Valtrex) 500 mg Q12HR PO 11/10/16 12:00 11/14/16 08:43 (Eliquis) 5 mg BID PO 11/10/16 21:00 11/14/16 08:43 (Inderal) 10 mg Q12HR PO 11/10/16 12:00 Future Hold 11/13/16 08:40 (Lipitor) 80 mg HS PO 11/10/16 21:00 11/13/16 21:20 (Effexor) 50 mg BID PO 11/10/16 21:00 11/14/16 08:43 (Cordarone) 200 mg DAILY PO 11/10/16 11:00 11/14/16 08:43 (Claritin) 10 mg DAILY PO 11/10/16 12:00 11/14/16 08:44 Azithromycin 500 mg/Sodium Chloride 250 ml @ 250 mls/hr Q24H IV 11/10/16 12:00 11/14/16 11:37 (Duoneb Neb) 1 ampule Q4HR NEB PRN INH 11/10/16 12:00 11/13/16 08:12 (Zofran Inj) 4 mg Q6HR PRN IV PUSH 11/10/16 12:00 11/10/16 20:31 (Robitussin Dm 200-20 Mg/10 ml Liq) 10 ml Q4HR PRN PO 11/10/16 12:00 11/12/16 09:09 (NS Flush) 2 ml UNSCH PRN IV FLUSH 11/10/16 10:00 (NS Flush) 2 ml BID IV FLUSH 11/10/16 21:00 11/14/16 08:44 (Tylenol) 650 mg Q4H PRN PO 11/10/16 10:00 11/11/16 08:10 (Compazine Supp) 25 mg Q12H PRN RECTAL 11/10/16 12:00 (Tylenol) 650 mg Q6H PRN PO 11/10/16 10:00 (Percocet 5-325 Mg) 1 tab Q6H PRN PO 11/10/16 12:00 11/10/16 21:47 (Percocet 10-325 Mg) 1 tab Q6H PRN PO 11/10/16 12:00 11/12/16 09:09 (Narcan Inj) 0.4 mg UNSCH PRN IV PUSH 11/10/16 10:00 (Hanna-Colace) 1 tab BID PO 11/10/16 21:00 11/14/16 08:43 (Milk Of Magnesia Liq) 30 ml Q12HR PRN PO 11/10/16 12:00 (Senokot) 17.2 mg Q12HR PRN PO 11/10/16 12:00 11/13/16 11:08 (Dulcolax Supp) 10 mg DAILY PRN RECTAL 11/10/16 12:00 11/13/16 11:08 (Lactulose Liq) 30 ml DAILY PRN PO 11/10/16 12:00 11/13/16 11:08 (Spiriva Inh) 18 mcg DAILY INH 11/11/16 17:00 Future Hold 11/12/16 08:47 (Xanax) 0.5 mg HS PO 11/12/16 21:00 11/12/16 20:13 Miscellaneous Information Patient in critical care unit? Ass... Q361D .XX 11/12/16 20:00 (Chlorhexidine 2% Cloth) 3 pack DAILY@04 TOPICAL 11/13/16 04:00 11/17/16 04:01 11/14/16 01:05 (Chlorhexidine 2% Cloth) 3 pack UNSCH PRN TOPICAL 11/12/16 20:00 11/17/16 19:51 (SoluMEDROL INJ) 40 mg Q8HR IV PUSH 11/12/16 22:00 11/14/16 14:35 Fentanyl Citrate 250 ml @ 5 mls/hr TITRATE PRN IV 11/13/16 01:30 11/13/16 23:03 Midazolam HCl 100 ml @ 2 mls/hr TITRATE PRN IV 11/13/16 01:30 11/13/16 08:42 Propofol 100 ml @ 2.142 mls/ hr TITRATE PRN IV 11/13/16 03:00 Norepinephrine Bitartrate 250 ml @ 7.5 mls/hr TITRATE PRN IV 11/13/16 03:00 11/13/16 08:41 Pharmacy Profile Note 0 ml @ 0 mls/hr UNSCH OTHER 11/13/16 06:00 Potassium Chloride 100 ml @ 50 mls/hr Q2H PRN IV 11/13/16 09:45 Potassium Chloride 100 ml @ 50 mls/hr Q2H PRN IV 11/13/16 09:45 Potassium Chloride 100 ml @ 25 mls/hr UNSCH PRN IV 11/13/16 09:45 Potassium Chloride 100 ml @ 50 mls/hr Q2H PRN IV 11/13/16 09:45 Magnesium Sulfate 4 gm/Sodium Chloride 100 ml @ 50 mls/hr UNSCH PRN IV 11/13/16 09:45 (Mag-Ox) 800 mg UNSCH PRN PO 11/13/16 09:45 Magnesium Sulfate 2 gm/Sodium Chloride 100 ml @ 50 mls/hr UNSCH PRN IV 11/13/16 09:45 (K-Phos) 2,000 mg Q4H PRN PO 11/13/16 09:45 Sodium Phosphate 30 mmol/Sodium Chloride 250 ml @ 42 mls/hr UNSCH PRN IV 11/13/16 09:45 (K-Phos) 2,000 mg UNSCH PRN PO/TUBE 11/13/16 09:45 Potassium Phosphate 30 mmol/ Sodium Chloride 260 ml @ 42 mls/hr UNSCH PRN IV 11/13/16 09:45 Vasopressin 40 units/Dextrose 100 ml @ 4.5 mls/hr [id number] IV 11/13/16 09:38 11/14/16 08:43 (Lasix Inj) 20 mg DAILY IV PUSH 11/14/16 09:00 11/14/16 08:44 Sodium Chloride 1,000 ml @ 20 mls/hr Q24H IV 11/13/16 09:45 11/14/16 05:45 Vancomycin HCl 1250 mg/Sodium Chloride 262.5 ml @ 250 mls/hr Q18H IV 11/14/16 00:00 11/14/16 18:00 Miscellaneous Information SPECIFIC LAB TO BE DRAWN:VANCOMYCIN TROUGH DATE TO... ONCE ONCE .XX 11/15/16 11:45 11/15/16 11:46 Cefepime HCl 2000 mg/Sodium Chloride 100 ml @ 200 mls/hr Q12H IV 11/15/16 00:00 (NovoLOG SUPPLEMENTAL SCALE) 1 Q6HR SQ 11/14/16 15:00 11/14/16 15:00 (D50w (Syr) Inj) 25 ml UNSCH PRN IV 11/14/16 15:00 (Glucagon Inj) 1 mg UNSCH PRN IM/SQ 11/14/16 15:00 (Lasix Inj) 40 mg ONCE ONCE IV PUSH 11/14/16 20:00 11/14/16 20:01 Family History could not be obtained. Social History Lives in [place], [place] and visiting here for a vacation. She has been doing that for 20 yrs in [place] area. Non smoker. No alcohol. No drugs. in room. Physical Exam Vital Signs Vital Signs Date Time Temp Pulse Resp B/P (MAP) Pulse Ox O2 Delivery O2 Flow Rate FiO2 11/14/16 14:00 72 11/14/16 14:00 72 14 99/53 (68) 96 11/14/16 12:54 96 50 11/14/16 12:00 62 11/14/16 12:00 50 11/14/16 12:00 62 14 94/54 (67) 93 11/14/16 11:36 63 14 84/55 (65) 93 92/51 (65) 11/14/16 11:36 63 11/14/16 11:30 63 11/14/16 11:30 63 14 78/53 (61) 94 77/48 (58) 11/14/16 11:00 67 11/14/16 11:00 67 14 92/59 (70) 94 87/53 (64) 11/14/16 10:30 66 14 102/64 (77) 94 100/60 (73) 11/14/16 10:30 66 11/14/16 10:12 95 50 11/14/16 10:00 66 14 123/76 (92) 95 133/70 (91) 11/14/16 10:00 66 11/14/16 09:30 65 14 114/65 (81) 95 113/63 (80) 11/14/16 09:30 65 11/14/16 09:01 65 14 131/68 (89) 97 135/71 (92) 11/14/16 09:01 65 11/14/16 08:43 64 129/68 11/14/16 08:30 64 14 110/66 (81) 95 121/66 (84) 11/14/16 08:30 64 11/14/16 08:00 50 11/14/16 08:00 64 14 106/63 (77) 93 118/64 (82) 11/14/16 08:00 64 11/14/16 07:37 93 50 11/14/16 06:00 69 11/14/16 04:17 94 50 11/14/16 04:00 69 11/14/16 04:00 50 11/14/16 04:00 97.1 69 14 129/69 (89) 95 141/75 (97) 11/14/16 02:00 69 11/14/16 00:11 95 50 11/14/16 00:00 71 11/14/16 00:00 60 11/14/16 00:00 96.8 71 14 116/75 (89) 95 125/63 (83) 11/13/16 22:00 72 11/13/16 20:45 96 50 11/13/16 20:00 97.4 71 14 115/76 (89) 96 125/63 (83) 11/13/16 20:00 60 11/13/16 20:00 71 11/13/16 18:01 70 11/13/16 18:00 70 11/13/16 18:00 70 14 79/51 (60) 95 11/13/16 17:30 70 11/13/16 17:30 70 14 116/59 (78) 96 127/72 (90) 11/13/16 17:00 69 11/13/16 17:00 69 14 98/60 (73) 94 108/61 (77) 11/13/16 16:33 67 15 98/63 (75) 95 111/62 (78) 11/13/16 16:33 67 11/13/16 16:00 69 14 120/73 (89) 95 124/64 (84) 11/13/16 16:00 69 11/13/16 15:30 70 11/13/16 15:30 70 Physical Exam GENERAL: Obese, well-developed patient, in no apparent distress. SKIN: No rashes, ecchymoses or lesions. Cool and dry. HEAD: Atraumatic. Normocephalic. No temporal or scalp tenderness. EYES: Pupils equal round and reactive. Extraocular motions intact. No scleral icterus. No injection or drainage. ENT: Nose without bleeding, purulent drainage or septal hematoma. Throat without erythema, tonsillar hypertrophy or exudate. Uvula midline. Airway patent. NECK: Trachea midline. Supple, nontender, no meningeal signs. Large neck. CARDIOVASCULAR: HS audible. No murmur appreciated. Chest wall exam: surgical site with no e.o infection. RESPIRATORY: Clear to auscultation. Breath sounds equal bilaterally. No wheezes , rales, or rhonchi. GASTROINTESTINAL: Abdomen soft, non-tender, nondistended. Drain sites in upper abdomen normal. MUSCULOSKELETAL: Extremities without clubbing, cyanosis, or edema. No joint tenderness, effusion, or edema noted. No calf tenderness. Negative Homans sign bilaterally. NEUROLOGICAL: Awake and alert. Gross examination normal. Psych could not be assessed. IV line sites with no e.o infection. Laboratory Laboratory Tests Test 11/14/16 04:00 White Blood Count 14.7 Red Blood Count 2.81 Hemoglobin 8.1 Hematocrit 25.3 Mean Corpuscular Volume 90.1 Mean Corpuscular Hemoglobin 29.0 Mean Corpuscular Hemoglobin Concent 32.2 Red Cell Distribution Width 18.8 Platelet Count 414 Mean Platelet Volume 9.1 Neutrophils (%) (Auto) 92.4 Lymphocytes (%) (Auto) 4.2 Monocytes (%) (Auto) 3.1 Eosinophils (%) (Auto) 0.1 Basophils (%) (Auto) 0.2 Neutrophils # (Auto) 13.6 Lymphocytes # (Auto) 0.6 Monocytes # (Auto) 0.5 Eosinophils # (Auto) 0.0 Basophils # (Auto) 0.0 CBC Comment DIFF FINAL Differential Comment Blood Urea Nitrogen 27 Creatinine 1.05 Random Glucose 219 Total Protein 6.0 Albumin 1.8 Calcium Level 8.6 Alkaline Phosphatase 94 Aspartate Amino Transf (AST/SGOT) 49 Alanine Aminotransferase (ALT/SGPT) 24 Total Bilirubin 0.3 Sodium Level 138 Potassium Level 4.7 Chloride Level 107 Carbon Dioxide Level 24.5 Anion Gap 7 Estimat Glomerular Filtration Rate 51 Date/Time Source Procedure Growth Status 11/10/16 09:20 Blood Peripheral Aerobic Blood Culture - Preliminary NO GROWTH IN 4 DAYS Resulted 11/10/16 09:20 Blood Peripheral Anaerobic Blood Culture - Preliminary NO GROWTH IN 4 DAYS Resulted 11/13/16 08:30 Nasal Washing Influenza Types A,B Antigen ([facility]) - Final NEGATIVE FOR FLU A AND B ANTIGEN.... Complete Result Diagram: 11/14/1639911/14/16399 Imaging Last Impressions Chest X-Ray 11/14/16 0000 Signed Impressions: Service Date/Time: Monday, November 14, 2016 04:35 - CONCLUSION: Improved bilateral airspace disease. New nasogastric tube, tip in the stomach. Other lines and tubes unchanged. Issa Kumar MD Shoulder X-Ray 11/10/16 0000 Signed Impressions: Service Date/Time: October 13:50 - CONCLUSION: 1. Old right humeral neck fracture. 2. No acute fracture or dislocation. 3. Course interstitial opacities throughout the visualized right upper lobe. Crispin Ramos MD Humerus X-Ray 11/10/16 0000 Signed Impressions: Service Date/Time: October 13:53 - CONCLUSION: 1. Old right humeral neck fracture. 2. No acute fracture or dislocation. Crispin Ramos MD CT Angiography 11/10/16 0000 Signed Impressions: Service Date/Time: October 14:35 - CONCLUSION: 1. No evidence of pulmonary embolus. 2. Severe extensive bilateral pulmonary parenchymal opacity with a crazy paving appearance. Differential diagnosis includes pulmonary edema, pulmonary alveolar stenosis, acute interstitial pneumonia, and eosinophilic pneumonia. 3. Small pleural effusions left greater than right. 4. Mildly enlarged mediastinal lymph nodes likely reactive. Adolph Root MD Assessment and Plan Assessment and Plan Septic Shock with Multiorgan dysfunction syndrome. Pneumonia recent hospitalization at risk for MDRO. Recent CABG triple vessel 7 weeks back. Acute renal failure: sepsis, medication induced. Hyperglycemia, no known DM, A1C 5.8 Obesity BMI 27.6 kg/m2 Recs: Continue Cefepime IV DC Vanco IV Start Zyvox (re: possible MRSA) Continue Azithro (Atypical PNA) follow QT interval. Check Procalcitonin. Check Sputum culture. Check legionella urine antigen Check pneumococcal antigen. Follow cultures Follow clinically. d/w patient spouse and RN for pt. CXR reviewed by me. Antibiotic doses renally adjusted. d/w [facility] . Discussed Condition With Spouse, POA: Jung Miranda who is bedside. [phone] Full code. No advance directive on file. Consuelo Starkey MD Nov 14, 2016 15:22
--- NOTE | 2016-11-14 17:31 | PD.CARD.PN ---
Subjective Subjective Remarks Intubated, sedated, echo on 11/11 w nl LV fx and no WMA, off Levophed, still on vasopressin Objective Medications Administered Medications Medications (Trade) Dose Ordered Sig/Vida Route PRN Reason Start Time Stop Time Status Last Admin Dose Admin Valacyclovir HCl (Valtrex) 500 mg Q12HR PO 11/10/16 12:00 11/14/16 08:43 Apixaban (Eliquis) 5 mg BID PO 11/10/16 21:00 11/14/16 08:43 Propranolol HCl (Inderal) 10 mg Q12HR PO 11/10/16 12:00 Future Hold 11/13/16 08:40 Atorvastatin Calcium (Lipitor) 80 mg HS PO 11/10/16 21:00 11/13/16 21:20 Venlafaxine HCl (Effexor) 50 mg BID PO 11/10/16 21:00 11/14/16 08:43 Amiodarone HCl (Cordarone) 200 mg DAILY PO 11/10/16 11:00 11/14/16 08:43 Loratadine (Claritin) 10 mg DAILY PO 11/10/16 12:00 11/14/16 08:44 Azithromycin 500 mg/Sodium Chloride 250 ml @ 250 mls/hr Q24H IV 11/10/16 12:00 11/14/16 11:37 Albuterol/ Ipratropium (Duoneb Neb) 1 ampule Q4HR NEB PRN INH SHORTNESS OF BREATH 11/10/16 12:00 11/13/16 08:12 Ondansetron HCl (Zofran Inj) 4 mg Q6HR PRN IV PUSH NAUSEA 11/10/16 12:00 11/10/16 20:31 Guaifenesin/ Dextromethorphan (Robitussin Dm 200-20 Mg/10 ml Liq) 10 ml Q4HR PRN PO COUGH 11/10/16 12:00 11/12/16 09:09 Sodium Chloride (NS Flush) 2 ml BID IV FLUSH 11/10/16 21:00 11/14/16 08:44 Acetaminophen (Tylenol) 650 mg Q4H PRN PO TEMP > 100.4 11/10/16 10:00 11/11/16 08:10 Oxycodone/ Acetaminophen (Percocet 5-325 Mg) 1 tab Q6H PRN PO PAIN SCALE 3 TO 5 11/10/16 12:00 11/10/16 21:47 Oxycodone/ Acetaminophen (Percocet 10-325 Mg) 1 tab Q6H PRN PO PAIN SCALE 6 TO 10 11/10/16 12:00 11/12/16 09:09 Senna/Docusate Sodium (Hanna-Colace) 1 tab BID PO 11/10/16 21:00 11/14/16 08:43 Sennosides (Senokot) 17.2 mg Q12HR PRN PO MODERATE - SEVERE CONSTIPATION 11/10/16 12:00 11/13/16 11:08 Bisacodyl (Dulcolax Supp) 10 mg DAILY PRN RECTAL SEVERE CONSITIPATION 11/10/16 12:00 11/13/16 11:08 Lactulose (Lactulose Liq) 30 ml DAILY PRN PO SEVERE CONSITIPATION 11/10/16 12:00 11/13/16 11:08 Tiotropium [place] (Spiriva Inh) 18 mcg DAILY INH 11/11/16 17:00 Future Hold 11/12/16 08:47 Alprazolam (Xanax) 0.5 mg HS PO 11/12/16 21:00 11/12/16 20:13 Chlorhexidine Gluconate (Chlorhexidine 2% Cloth) 3 pack DAILY@04 TOPICAL 11/13/16 04:00 11/17/16 04:01 11/14/16 01:05 Methylprednisolone Sodium Succinate (SoluMEDROL INJ) 40 mg Q8HR IV PUSH 11/12/16 22:00 11/14/16 14:35 Fentanyl Citrate 250 ml @ 5 mls/hr TITRATE PRN IV SEDATION 11/13/16 01:30 11/13/16 23:03 Midazolam HCl 100 ml @ 2 mls/hr TITRATE PRN IV SEDATION 11/13/16 01:30 11/13/16 08:42 Norepinephrine Bitartrate 250 ml @ 7.5 mls/hr TITRATE PRN IV Maintain MAP > 65 mmHg 11/13/16 03:00 11/13/16 08:41 Vasopressin 40 units/Dextrose 100 ml @ 4.5 mls/hr [id number] IV 11/13/16 09:38 11/14/16 08:43 Furosemide (Lasix Inj) 20 mg DAILY IV PUSH 11/14/16 09:00 11/14/16 08:44 Sodium Chloride 1,000 ml @ 20 mls/hr Q24H IV 11/13/16 09:45 11/14/16 05:45 Vancomycin HCl 1250 mg/Sodium Chloride 262.5 ml @ 250 mls/hr Q18H IV 11/14/16 00:00 11/14/16 00:03 Insulin Aspart (NovoLOG SUPPLEMENTAL SCALE) 1 Q6HR SQ 11/14/16 15:00 11/14/16 15:00 Vital Signs / I&O Vital Signs Date Time Temp Pulse Resp B/P (MAP) Pulse Ox O2 Delivery O2 Flow Rate FiO2 11/14/16 14:00 72 11/14/16 14:00 72 14 99/53 (68) 96 11/14/16 12:54 96 50 11/14/16 12:00 62 11/14/16 12:00 50 11/14/16 12:00 62 14 94/54 (67) 93 11/14/16 11:36 63 14 84/55 (65) 93 92/51 (65) 11/14/16 11:36 63 11/14/16 11:30 63 11/14/16 11:30 63 14 78/53 (61) 94 77/48 (58) 11/14/16 11:00 67 11/14/16 11:00 67 14 92/59 (70) 94 87/53 (64) 11/14/16 10:30 66 14 102/64 (77) 94 100/60 (73) 11/14/16 10:30 66 11/14/16 10:12 95 50 11/14/16 10:00 66 14 123/76 (92) 95 133/70 (91) 11/14/16 10:00 66 11/14/16 09:30 65 14 114/65 (81) 95 113/63 (80) 11/14/16 09:30 65 11/14/16 09:01 65 14 131/68 (89) 97 135/71 (92) 11/14/16 09:01 65 11/14/16 08:43 64 129/68 11/14/16 08:30 64 14 110/66 (81) 95 121/66 (84) 11/14/16 08:30 64 11/14/16 08:00 50 11/14/16 08:00 64 14 106/63 (77) 93 118/64 (82) 11/14/16 08:00 64 11/14/16 07:37 93 50 11/14/16 06:00 69 11/14/16 04:17 94 50 11/14/16 04:00 69 11/14/16 04:00 50 11/14/16 04:00 97.1 69 14 129/69 (89) 95 141/75 (97) 11/14/16 02:00 69 11/14/16 00:11 95 50 11/14/16 00:00 71 11/14/16 00:00 60 11/14/16 00:00 96.8 71 14 116/75 (89) 95 125/63 (83) 11/13/16 22:00 72 11/13/16 20:45 96 50 11/13/16 20:00 97.4 71 14 115/76 (89) 96 125/63 (83) 11/13/16 20:00 60 11/13/16 20:00 71 11/13/16 18:01 70 11/13/16 18:00 70 11/13/16 18:00 70 14 79/51 (60) 95 11/13/16 17:30 70 11/13/16 17:30 70 14 116/59 (78) 96 127/72 (90) I/O 11/13/16 11/13/16 11/13/16 11/14/16 11/14/16 11/14/16 07:00 15:00 23:00 07:00 15:00 23:00 Intake Total 805 ml 250 ml 419 ml 1508 ml 550 ml Output Total 1400 ml 750 ml 700 ml Balance -595 ml 250 ml -331 ml 808 ml 550 ml IV Total 805 ml 250 ml 852 ml 550 ml Tube Feeding 179 ml 536 ml Other 240 ml 120 ml Output Urine Total 1400 ml 750 ml 700 ml # Bowel Movements 0 3 2 Physical Exam GENERAL: Intubated, sedated SKIN: Warm and dry. HEAD: Normocephalic. EYES: No scleral icterus. No injection or drainage. NECK: Supple, trachea midline. No JVD or lymphadenopathy. CARDIOVASCULAR: Regular rate and rhythm without murmurs, gallops, or rubs. RESPIRATORY: Breath sounds equal bilaterally. No accessory muscle use. GASTROINTESTINAL: Abdomen soft, non-tender, nondistended. MUSCULOSKELETAL: No cyanosis, or edema. Laboratory Laboratory Tests Test 11/14/16 04:00 White Blood Count 14.7 TH/MM3 Red Blood Count 2.81 MIL/MM3 Hemoglobin 8.1 GM/DL Hematocrit 25.3 % Mean Corpuscular Volume 90.1 FL Mean Corpuscular Hemoglobin 29.0 PG Mean Corpuscular Hemoglobin Concent 32.2 % Red Cell Distribution Width 18.8 % Platelet Count 414 TH/MM3 Mean Platelet Volume 9.1 FL Neutrophils (%) (Auto) 92.4 % Lymphocytes (%) (Auto) 4.2 % Monocytes (%) (Auto) 3.1 % Eosinophils (%) (Auto) 0.1 % Basophils (%) (Auto) 0.2 % Neutrophils # (Auto) 13.6 TH/MM3 Lymphocytes # (Auto) 0.6 TH/MM3 Monocytes # (Auto) 0.5 TH/MM3 Eosinophils # (Auto) 0.0 TH/MM3 Basophils # (Auto) 0.0 TH/MM3 CBC Comment DIFF FINAL Differential Comment Blood Urea Nitrogen 27 MG/DL Creatinine 1.05 MG/DL Random Glucose 219 MG/DL Total Protein 6.0 GM/DL Albumin 1.8 GM/DL Calcium Level 8.6 MG/DL Alkaline Phosphatase 94 U/L Aspartate Amino Transf (AST/SGOT) 49 U/L Alanine Aminotransferase (ALT/SGPT) 24 U/L Total Bilirubin 0.3 MG/DL Sodium Level 138 MEQ/L Potassium Level 4.7 MEQ/L Chloride Level 107 MEQ/L Carbon Dioxide Level 24.5 MEQ/L Anion Gap 7 MEQ/L Estimat Glomerular Filtration Rate 51 ML/MIN Imaging Last 24 hours Impressions Chest X-Ray 11/14/16 0000 Signed Impressions: Service Date/Time: Monday, November 14, 2016 04:35 - CONCLUSION: Improved bilateral airspace disease. New nasogastric tube, tip in the stomach. Other lines and tubes unchanged. Issa Kumar MD Assessment and Plan Problem List: (1) Respiratory failure ICD Codes: J96.90 - Respiratory failure, unspecified, unspecified whether with hypoxia or hypercapnia (2) Septic shock ICD Codes: A41.9 - Sepsis, unspecified organism; R65.21 - Severe sepsis with septic shock (3) Bilateral pneumonia ICD Codes: J18.9 - Pneumonia, unspecified organism Status: Acute (4) Coronary artery disease ICD Codes: I25.10 - Atherosclerotic heart disease of [place] coronary artery without angina pectoris (5) S/P CABG x 3 ICD Codes: Z95.1 - Presence of aortocoronary bypass graft (6) Atrial fibrillation ICD Codes: I48.91 - Unspecified atrial fibrillation Assessment and Plan Continue ICU care with vent support. Wean pressors as tolerated. Continue abx as per ID service. Echo w nl LV syst fx. Tele shows SR. D/w pt's . Problem Qualifiers (1) Bilateral pneumonia: Qualified Codes: J18.9 - Pneumonia, unspecified organism Daniella Simpson MD Nov 14, 2016 17:31
--- NOTE | 2016-11-14 19:07 | HHI.PR ---
Subjective Remarks Was intubated for respiratory failure last Nite. Now on 50 % FIO2. CXR shows Bilateral Infiltrates.Sedated on Vent support. Objective Vital Signs Date Time Temp Pulse Resp B/P (MAP) Pulse Ox O2 Delivery O2 Flow Rate FiO2 11/14/16 16:00 62 14 109/57 (74) 92 11/14/16 16:00 62 11/14/16 16:00 97.8 11/14/16 16:00 50 11/14/16 14:00 72 11/14/16 14:00 72 14 99/53 (68) 96 11/14/16 12:54 96 50 11/14/16 12:00 62 11/14/16 12:00 50 11/14/16 12:00 62 14 94/54 (67) 93 11/14/16 11:36 63 14 84/55 (65) 93 92/51 (65) 11/14/16 11:36 63 11/14/16 11:30 63 11/14/16 11:30 63 14 78/53 (61) 94 77/48 (58) 11/14/16 11:00 67 11/14/16 11:00 67 14 92/59 (70) 94 87/53 (64) 11/14/16 10:30 66 14 102/64 (77) 94 100/60 (73) 11/14/16 10:30 66 11/14/16 10:12 95 50 11/14/16 10:00 66 14 123/76 (92) 95 133/70 (91) 11/14/16 10:00 66 11/14/16 09:30 65 14 114/65 (81) 95 113/63 (80) 11/14/16 09:30 65 11/14/16 09:01 65 14 131/68 (89) 97 135/71 (92) 11/14/16 09:01 65 11/14/16 08:43 64 129/68 11/14/16 08:30 64 14 110/66 (81) 95 121/66 (84) 11/14/16 08:30 64 11/14/16 08:00 50 11/14/16 08:00 64 14 106/63 (77) 93 118/64 (82) 11/14/16 08:00 64 11/14/16 07:37 93 50 11/14/16 06:00 69 11/14/16 04:17 94 50 11/14/16 04:00 69 11/14/16 04:00 50 11/14/16 04:00 97.1 69 14 129/69 (89) 95 141/75 (97) 11/14/16 02:00 69 11/14/16 00:11 95 50 11/14/16 00:00 71 11/14/16 00:00 60 11/14/16 00:00 96.8 71 14 116/75 (89) 95 125/63 (83) 11/13/16 22:00 72 11/13/16 20:45 96 50 11/13/16 20:00 97.4 71 14 115/76 (89) 96 125/63 (83) 11/13/16 20:00 60 11/13/16 20:00 71 I/O 11/13/16 11/13/16 11/13/16 11/14/16 11/14/16 11/14/16 07:00 15:00 23:00 07:00 15:00 23:00 Intake Total 805 ml 250 ml 419 ml 1508 ml 550 ml 848 ml Output Total 1400 ml 750 ml 700 ml 850 ml Balance -595 ml 250 ml -331 ml 808 ml 550 ml -2 ml IV Total 805 ml 250 ml 852 ml 550 ml Tube Feeding 179 ml 536 ml 608 ml Other 240 ml 120 ml 240 ml Output Urine Total 1400 ml 750 ml 700 ml 850 ml # Bowel Movements 0 3 2 Result Diagram: 11/14/1639911/14/16399 Objective Remarks GENERAL: This moderately obese elderly lady intubated and on vent support. HEENT: Head normocephalic. Pupils are reactive and equal. Throat is clear . NECK: Supple. No bruits or thyroid enlargement or lymphadenopathy. CHEST: Distant breath sounds with coarse wheezes throughout both lung franco. Prolonged expirations . HEART: The heart sounds are irregular S1-S2 with no murmur. No S3, gallop. ABDOMEN: The abdomen is soft, protuberant without masses or organomegaly or tenderness. Bowel sounds are active. EXTREMITIES: No lesions. 1 + edema. NEURO: Reflexes are 1+ .Sedated. SKIN: No lesions observed. Assessment and Plan Assessment and Plan IMPRESSION 1. Bilateral pneumonia versus pulmonary edema. 2. Atrial fibrillation and ASHD. 3. History of coronary artery disease with CABG x3. 4. Pleural effusions. 5. COPD with emphysema and acute exacerbation. 6. History of DVT. 7. Respiratory Failure Plan : 1. Will wean Fio2 to Keep sat >90. 2. Keep sedated with Diprivan. 3. Continue antibiotics . 4. CXR,BMP in am 5. Solumedrol 40 mg IV BID. 6. Nebs qid , Duoneb 7. CPAP trial in am if stable. Ursula Schwab MD Nov 14, 2016 19:07
[2016-11-14] MEDS: MIDAZOLAM 100 MG/100 ML INJ 100 ML IV PRN (19:57)
[2016-11-14] MEDS ORDERED: FUROSEMIDE 40 MG/4 ML VIAL IV PUSH ONE (20:00)
[2016-11-14] MEDS: ALPRAZolam 0.5 MG TAB PO SCH (21:13)
[2016-11-14] MEDS: ATORVASTATIN 80 MG TAB PO SCH (21:14)
[2016-11-14] MEDS: LINEZOLID 600 MG PREMIX 300 ML IV SCH (21:14)
[2016-11-15] VITALS (33 sets, daily range): BP systolic 91–133; BP diastolic 53–78; PULSE 63–83; RESP 14–25; TEMP 97.7–98.7; O2SAT 83–96
[2016-11-15] MEDS: CEFEPIME INJ 2,000 MG in SODIUM CHLORIDE 0.9% INJ 100 ML IV SCH ×3 (00:39→23:26)
[2016-11-15] MEDS: CHLORHEXIDINE GLUCONATE 2 % 1 PACK (2 CLOTHS)(taper/protocol) TOPICAL SCH (04:00)
--- NOTE | 2016-11-15 05:46 | RADRPT ---
EXAM DATE/TIME: 11/15/2016 05:05 [place] COMPARISON: CHEST SINGLE AP, November 14, 2016, 4:35. INDICATIONS : Short of breath. MEDICAL HISTORY : Hypertension. Chronic obstructive pulmonary disease. SURGICAL HISTORY : CABG. ENCOUNTER: Subsequent ACUITY: 1 week PAIN SCORE: 0/10 LOCATION: Bilateral chest FINDINGS: Diffuse bibasilar predominant bilateral airspace consolidation again noted. Small pleural effusion po ssible on the left. No large effusion seen. No pneumothorax. Heart size stable, within normal limits. Endotracheal tube tip is approximately 3 cm above the nicolas[place]. There is a nasogastric tube that course s into the stomach. Left internal jugular central venous catheter with tip in the superior vena cava again noted. CONCLUSION: No significant change. Issa Kumar MD on November 15, 2016 at 5:44 Board Certified Radiologist. This report was verified electronically.
[2016-11-15] MEDS: INSULIN ASPART SUPPLEMENTAL SCALE SQ SCH ×5 (06:00→23:26)
[2016-11-15] MEDS: VASOPRESSIN INJ 40 UNITS in DEXTROSE 5% IN WATER 100ML INJ 98 ML IV SCH ×2 (06:06)
[2016-11-15 08:00] LABS: AUTOMATED NEUTROPHIL # 14.9 TH/MM3 (1.8-7.7); BASOPHIL # 0.1 TH/MM3 (0-0.2); BASOPHIL % 0.5 % (0.0-2.0); HEMATOCRIT 23.3 % (35.0-46.0); HEMO FLAGS DIFF FINAL; LYMPH % 3.7 % (9.0-44.0); LYMPHOCYTE # 0.6 TH/MM3 (1.0-4.8); MEAN CELL VOLUME 90.4 FL (80.0-100.0); MEAN CORPUSCULAR HEMOGLOBIN 29.5 PG (27.0-34.0); MEAN CORPUSCULAR HGB CONC 32.7 % (32.0-36.0); MONO % 3.5 % (0.0-8.0); NEUT % 92.3 % (16.0-70.0); PLATELET COUNT 393 TH/MM3 (150-450); RED BLOOD COUNT 2.58 MIL/MM3 (4.00-5.30); RED CELL DISTRIBUTION WIDTH 18.8 % (11.6-17.2); WHITE BLOOD COUNT 16.1 TH/MM3 (4.0-11.0)
[2016-11-15] MEDS: LACTULOSE SYRUP 20 GM/30 ML CUP PO PRN (08:19)
[2016-11-15] MEDS: DOCUSATE SODIUM 50 MG/SENNA 8.6 MG TAB PO SCH ×2 (08:19→20:38)
[2016-11-15] MEDS: valACYclovir HCL 500 MG TAB PO SCH ×2 (08:19→20:38)
[2016-11-15] MEDS: methylPREDNISolone SOD SUCC 40 MG/1 ML VIAL IV PUSH SCH ×2 (08:20→20:38)
[2016-11-15] MEDS: FUROSEMIDE 20 MG/2 ML VIAL IV PUSH SCH (08:20)
[2016-11-15] MEDS: VENLAFAXINE HCL 25 MG TAB PO SCH ×2 (08:20→20:38)
[2016-11-15] MEDS: AMIODARONE 200 MG TAB PO SCH (08:20)
[2016-11-15] MEDS: APIXABAN 5 MG TABLET PO SCH (08:20)
[2016-11-15] MEDS: LORATADINE 10 MG TAB PO SCH (08:20)
[2016-11-15] MEDS: SENNOSIDES 8.6 MG TAB PO PRN (08:20)
[2016-11-15] MEDS: BISACODYL 10 MG SUPP RECTAL PRN (08:21)
[2016-11-15] MEDS: SODIUM CHLORIDE 0.9% FLUSH 10 ML FLUSH IV FLUSH SCH ×2 (08:21→20:38)
[2016-11-15] MEDS: LINEZOLID 600 MG PREMIX 300 ML IV SCH ×2 (08:21→20:37)
[2016-11-15 08:27] LABS: ALKALINE PHOSPHATASE 89 U/L (45-117); ALT (GPT) 34 U/L (10-53); ANION GAP 5 MEQ/L (5-15); AST (GOT) 38 U/L (15-37); BICARBONATE 27.6 MEQ/L (21.0-32.0); BLOOD UREA NITROGEN 39 MG/DL (7-18); CHLORIDE 109 MEQ/L (98-107); GLOMERULAR FILTRATION RATE 42 ML/MIN (>89); MAGNESIUM 2.3 MG/DL (1.5-2.5); SODIUM (NA) 142 MEQ/L (136-145); TOTAL BILIRUBIN ADULT 0.2 MG/DL (0.2-1.0)
--- NOTE | 2016-11-15 08:35 | HHI.IDPN ---
Subjective Subjective Remarks is a 71 y/o CF with PMHx of COPD, CAD, HTN was admitted through emergency room. Patients is in the room and reports she had a CABG triple vessel with major (> 90 percent blockages). She remained intubated for few days post surgery. She improved and drains removed. Overall did ok but when found to have post operative pleural effusions underwent thoracentesis. After tap she did fairly ok and was discharged home. On her way to [place] she started feeling short of breath while they drove here. She was seen in the ED. CT chest showed evidence of bilateral patchy pulmonary infiltrates consistent with either pneumonia and/or pulmonary edema. [facility] and due to decline in her respiratory status (hypoxia , tachypnea and diaphoresis) she was intubated. At the time of my evaluation, she is in IMC. Currently intubated with 50% FiO2, PEEP 7. secretions small white thin. UO ok. On vasopressin, weaned off Levophed earlier. ID has been consulted for septic shock secondary to Pneumonia in a CABG patient. Overnight events reviewed. Remains intubated. Vent FIO2 50%, PEEP 7. Not much secretions: white, thin, small to moderate. No fevers No rash No diarrhea. sputum not sent yet. UO ok. Antibiotics Azithro Zyvox Cefepime Lines Line sites with no e.o infection Past Medical History reviewed Allergies: Coded Allergies: hydromorphone (Verified Allergy, Intermediate, hallucinations, 11/10/16) morphine (Verified Allergy, Intermediate, hallucinations, 11/10/16) Objective . Vital Signs Date Time Temp Pulse Resp B/P (MAP) Pulse Ox O2 Delivery O2 Flow Rate FiO2 11/15/16 07:38 94 50 11/15/16 06:06 68 101/55 11/15/16 06:00 63 11/15/16 04:27 89 50 11/15/16 04:00 97.9 67 14 124/69 (87) 92 11/15/16 04:00 67 11/15/16 04:00 50 11/15/16 02:00 65 11/15/16 00:19 90 50 11/15/16 00:00 67 11/15/16 00:00 50 11/15/16 00:00 97.7 67 14 133/78 (96) 88 11/14/16 22:00 63 11/14/16 21:22 97 50 11/14/16 20:00 50 11/14/16 20:00 62 11/14/16 20:00 97.4 62 14 114/59 (77) 93 11/14/16 18:00 66 11/14/16 16:00 62 14 109/57 (74) 92 11/14/16 16:00 62 11/14/16 16:00 97.8 11/14/16 16:00 50 11/14/16 14:00 72 11/14/16 14:00 72 14 99/53 (68) 96 11/14/16 12:54 96 50 11/14/16 12:00 62 11/14/16 12:00 50 11/14/16 12:00 62 14 94/54 (67) 93 11/14/16 11:36 63 14 84/55 (65) 93 92/51 (65) 11/14/16 11:36 63 11/14/16 11:30 63 11/14/16 11:30 63 14 78/53 (61) 94 77/48 (58) 11/14/16 11:00 67 11/14/16 11:00 67 14 92/59 (70) 94 87/53 (64) 11/14/16 10:30 66 14 102/64 (77) 94 100/60 (73) 11/14/16 10:30 66 11/14/16 10:12 95 50 11/14/16 10:00 66 14 123/76 (92) 95 133/70 (91) 11/14/16 10:00 66 11/14/16 09:30 65 14 114/65 (81) 95 113/63 (80) 11/14/16 09:30 65 11/14/16 09:01 65 14 131/68 (89) 97 135/71 (92) 11/14/16 09:01 65 11/14/16 08:43 64 129/68 . Laboratory Tests Test 11/14/16 04:00 11/15/16 07:30 White Blood Count 14.7 TH/MM3 16.1 TH/MM3 Red Blood Count 2.81 MIL/MM3 2.58 MIL/MM3 Hemoglobin 8.1 GM/DL 7.6 GM/DL Hematocrit 25.3 % 23.3 % Mean Corpuscular Volume 90.1 FL 90.4 FL Mean Corpuscular Hemoglobin 29.0 PG 29.5 PG Mean Corpuscular Hemoglobin Concent 32.2 % 32.7 % Red Cell Distribution Width 18.8 % 18.8 % Platelet Count 414 TH/MM3 393 TH/MM3 Mean Platelet Volume 9.1 FL 8.2 FL Neutrophils (%) (Auto) 92.4 % 92.3 % Lymphocytes (%) (Auto) 4.2 % 3.7 % Monocytes (%) (Auto) 3.1 % 3.5 % Eosinophils (%) (Auto) 0.1 % 0.0 % Basophils (%) (Auto) 0.2 % 0.5 % Neutrophils # (Auto) 13.6 TH/MM3 14.9 TH/MM3 Lymphocytes # (Auto) 0.6 TH/MM3 0.6 TH/MM3 Monocytes # (Auto) 0.5 TH/MM3 0.6 TH/MM3 Eosinophils # (Auto) 0.0 TH/MM3 0.0 TH/MM3 Basophils # (Auto) 0.0 TH/MM3 0.1 TH/MM3 CBC Comment DIFF FINAL DIFF FINAL Differential Comment Laboratory Tests Test 11/14/16 04:00 11/15/16 03:08 11/15/16 07:30 Blood Urea Nitrogen 27 MG/DL 39 MG/DL Creatinine 1.05 MG/DL 1.25 MG/DL Random Glucose 219 MG/DL 173 MG/DL Total Protein 6.0 GM/DL 5.9 GM/DL Albumin 1.8 GM/DL 1.9 GM/DL Calcium Level 8.6 MG/DL 8.6 MG/DL Alkaline Phosphatase 94 U/L 89 U/L Aspartate Amino Transf (AST/SGOT) 49 U/L 38 U/L Alanine Aminotransferase (ALT/SGPT) 24 U/L 34 U/L Total Bilirubin 0.3 MG/DL 0.2 MG/DL Sodium Level 138 MEQ/L 142 MEQ/L Potassium Level 4.7 MEQ/L 4.0 MEQ/L Chloride Level 107 MEQ/L 109 MEQ/L Carbon Dioxide Level 24.5 MEQ/L 27.6 MEQ/L Anion Gap 7 MEQ/L 5 MEQ/L Estimat Glomerular Filtration Rate 51 ML/MIN 42 ML/MIN Phosphorus Level 2.2 MG/DL Magnesium Level 2.3 MG/DL Microbiology Date/Time Source Procedure Growth Status 11/13/16 08:30 Nasal Washing Influenza Types A,B Antigen (SARAH) - Final NEGATIVE FOR FLU A AND B ANTIGEN.... Complete 11/15/16 01:20 Urine Random Urine Legionella Antigen Pending Received 11/15/16 01:20 Urine Random Urine Streptococcus pneumoniae Antigen (M Pending Received Imaging Last Impressions Chest X-Ray 11/15/16 0600 Signed Impressions: Service Date/Time: Tuesday, November 15, 2016 05:05 - CONCLUSION: No significant change. Issa Kumar MD Shoulder X-Ray 11/10/16 0000 Signed Impressions: Service Date/Time: , November 10, 2016 13:50 - CONCLUSION: 1. Old right humeral neck fracture. 2. No acute fracture or dislocation. 3. Course interstitial opacities throughout the visualized right upper lobe. Crispin Ramos MD Humerus X-Ray 11/10/16 0000 Signed Impressions: Service Date/Time: October 13:53 - CONCLUSION: 1. Old right humeral neck fracture. 2. No acute fracture or dislocation. Crispin Ramos MD CT Angiography 11/10/16 0000 Signed Impressions: Service Date/Time: October 14:35 - CONCLUSION: 1. No evidence of pulmonary embolus. 2. Severe extensive bilateral pulmonary parenchymal opacity with a crazy paving appearance. Differential diagnosis includes pulmonary edema, pulmonary alveolar stenosis, acute interstitial pneumonia, and eosinophilic pneumonia. 3. Small pleural effusions left greater than right. 4. Mildly enlarged mediastinal lymph nodes likely reactive. Adolph Root MD Physical Exam GENERAL: Obese, well-developed patient, in no apparent distress. SKIN: No rashes, ecchymoses or lesions. Cool and dry. HEAD: Atraumatic. Normocephalic. No temporal or scalp tenderness. EYES: Pupils equal round and reactive. Extraocular motions intact. No scleral icterus. No injection or drainage. ENT: Nose without bleeding, purulent drainage or septal hematoma. Throat without erythema, tonsillar hypertrophy or exudate. Uvula midline. Airway patent. NECK: Trachea midline. Supple, nontender, no meningeal signs. Large neck. CARDIOVASCULAR: HS audible. No murmur appreciated. Chest wall exam: surgical site with no e.o infection. RESPIRATORY: Clear to auscultation. Breath sounds equal bilaterally. No wheezes , rales, or rhonchi. GASTROINTESTINAL: Abdomen soft, non-tender, nondistended. Drain sites in upper abdomen normal. MUSCULOSKELETAL: Extremities without clubbing, cyanosis, or edema. No joint tenderness, effusion, or edema noted. No calf tenderness. Negative Homans sign bilaterally. NEUROLOGICAL: Awake and alert. Gross examination normal. Psych could not be assessed. IV line sites with no e.o infection. Assessment & Plan Remarks Septic Shock with Multiorgan dysfunction syndrome. Pneumonia recent hospitalization at risk for MDRO. Recent CABG triple vessel 7 weeks back. Acute renal failure: sepsis, medication induced. Hyperglycemia, no known DM, A1C 5.8 Obesity BMI 27.6 kg/m2 Recs: Continue Cefepime IV Continue Zyvox (re: possible MRSA) Continue Azithro (Atypical PNA) follow QT interval. Follow Procalcitonin. Sputum culture not sent so far. Follow legionella and pneumococcal antigen. Follow cultures Follow clinically. d/w LAZARO SANTIAGO and RN. Consuelo Starkey MD Nov 15, 2016 08:35
[2016-11-15] MEDS ORDERED: PHARMACY ORDERED LAB ONE (11:45)
[2016-11-15] MEDS: AZITHROMYCIN INJ 500 MG in SODIUM CHLOR 0.9% 250 ML INJ 250 ML IV SCH (12:33)
--- NOTE | 2016-11-15 14:40 | HHI.CCPN ---
Subjective Remarks/Hospital Course 11/13: 71-year-old female with a history of COPD, coronary artery disease and hypertension who was admitted through the emergency room with complaints of progressive shortness of breath over the past 3 to 4 days. The patient has a history of CABG x3 approximately 7 weeks ago in [place], [place]. She did have some postoperative pleural effusions which had to be tapped. She then drove from [place] down here and she was experiencing increasing dyspnea. A CT scan of the chest showed evidence of bilateral patchy pulmonary infiltrates consistent with either pneumonia and/or pulmonary edema. At night November 12 her respiratory status dramatically declined, patient became hypoxemic and tachypneic and diaphoretic requiring endotracheal intubation. 11/14: Remains sedated, orally intubated on mechanical ventilation. On low dose vasopressin and Levophed for pressor support. 11/15: Remains sedated, orally intubated on mechanical ventilation. Failed C- peptide yesterday within 5 minutes. Off Levophed. Low-dose vasopressin being titrated down. Tolerating tube feeds. Hemoglobin drop noted however significant positive fluid balance. Objective Vital Signs Date Time Temp Pulse Resp B/P (MAP) Pulse Ox O2 Delivery O2 Flow Rate FiO2 11/15/16 14:00 81 11/15/16 12:58 83 50 11/15/16 12:30 25 109/58 (75) 100/53 (69) 11/15/16 04:00 97.9 11/12/16 19:53 Non-Rebreather 15.00 Intake and Output 11/15/16 11/15/16 11/16/16 08:00 16:00 00:00 Intake Total 1512.8 ml Output Total 875 ml Balance 637.8 ml Result Diagram: 11/15/16 0730 11/15/16 0730 Other Results Microbiology Date/Time Source Procedure Growth Status 11/13/16 08:30 Nasal Washing Influenza Types A,B Antigen (SARAH) - Final NEGATIVE FOR FLU A AND B ANTIGEN.... Complete 11/15/16 01:20 Urine Random Urine Legionella Antigen - Final PRESUMPTIVE NEGATIVE FOR LEGIONELLA P... Complete 11/15/16 01:20 Urine Random Urine Streptococcus pneumoniae Antigen (M - Final PRESUMPTIVE NEGATIVE FOR STREPTOCOCCU... Complete Imaging Last Impressions Chest X-Ray 11/14/16 0000 Signed Impressions: Service Date/Time: Monday, November 14, 2016 04:35 - CONCLUSION: Improved bilateral airspace disease. New nasogastric tube, tip in the stomach. Other lines and tubes unchanged. Issa Kumar MD Shoulder X-Ray 11/10/16 0000 Signed Impressions: Service Date/Time: October 13:50 - CONCLUSION: 1. Old right humeral neck fracture. 2. No acute fracture or dislocation. 3. Course interstitial opacities throughout the visualized right upper lobe. Crispin Ramos MD Humerus X-Ray 11/10/16 0000 Signed Impressions: Service Date/Time: October 13:53 - CONCLUSION: 1. Old right humeral neck fracture. 2. No acute fracture or dislocation. Crispin Ramos MD CT Angiography 11/10/16 0000 Signed Impressions: Service Date/Time: October 14:35 - CONCLUSION: 1. No evidence of pulmonary embolus. 2. Severe extensive bilateral pulmonary parenchymal opacity with a crazy paving appearance. Differential diagnosis includes pulmonary edema, pulmonary alveolar stenosis, acute interstitial pneumonia, and eosinophilic pneumonia. 3. Small pleural effusions left greater than right. 4. Mildly enlarged mediastinal lymph nodes likely reactive. Adolph Root MD Objective Remarks GENERAL: Sedated and intubated elderly woman SKIN: Warm and dry. HEAD: Normocephalic. EYES: No scleral icterus. No injection or drainage. NECK: Supple, trachea midline. No JVD or lymphadenopathy. CARDIOVASCULAR: Regular rate and rhythm without murmurs, gallops, or rubs. RESPIRATORY: Breath sounds equal bilaterally. No accessory muscle use. GASTROINTESTINAL: Abdomen soft, non-tender, nondistended. MUSCULOSKELETAL: No cyanosis, or edema. BACK: Nontender without obvious deformity. NEURO: Sedated, arousable, orally intubated on mechanical ventilation A/P Assessment and Plan Acute Respiratory failure on [facility] ventilation - Bilateral patchy infiltrates - Pneumonia versus pulmonary edema - Mechanical ventilation - CXR and ABG daily - Broad-spectrum antibiotics - Follow-up cultures - Gentle diuresis Septic shock - Central line and a line in place -OffLevophed/low-dose vasopressin gtt. - Decreased IV fluids in view of significant positive fluid balance. Diurese with lasix to mobilize fluid. COPD - DuoNeb scheduled and when necessary, Solumedrol Coronary artery disease - Status post CABG - Troponins negative - Cardiology input appreciated - Echo with normal LV function. Paroxysmal atrial fibrillation - Rate controlled - Amiodarone - Eliquis held on 11/15 due to drop in Hgb. DVT GI prophylaxis - Eliquis held 11/15, will consider lovenox for DVT prophylaxis vs resuming full anticoagulation if Hgb remains stable with no e/o bleeding. - Pepcid - Teds SCDs Discussed with patient's daughter and at bedside on 11/13 and updated them regarding current clinical status and plan of care and they voiced understanding and were agreeable. Critical Care: The total critical care time was 35 minutes. Time to perform other separately billable procedures was not included in the critical care time. Ketan Starkey MD Nov 15, 2016 14:40
[2016-11-15] MEDS ORDERED: FUROSEMIDE 40 MG/4 ML VIAL IV PUSH ONE (15:00)
[2016-11-15 17:11] LABS: BLOOD, URINE SMALL (NEG); GLUCOSE,URINE NEG (NEG); KETONE, URINE NEG (NEG); NITRITE,URINE NEG (NEG); PH, URINE 5.5 (5.0-8.5); URINE COLOR LIGHT-YELLOW (YELLW/STRAW)
[2016-11-15 17:15] LABS: COMMENT (UR) CATH-CULT NOT IND; CULTURE IF INDICATED CATH CULTURE NOT IND
--- NOTE | 2016-11-15 17:30 | PD.CARD.PN ---
Subjective Subjective Remarks Intubated, sedated, off pressors Objective Medications Administered Medications Medications (Trade) Dose Ordered Sig/Vida Route PRN Reason Start Time Stop Time Status Last Admin Dose Admin Valacyclovir HCl (Valtrex) 500 mg Q12HR PO 11/10/16 12:00 11/15/16 08:19 Apixaban (Eliquis) 5 mg BID PO 11/10/16 21:00 Future Hold 11/15/16 08:20 Propranolol HCl (Inderal) 10 mg Q12HR PO 11/10/16 12:00 Future Hold 11/13/16 08:40 Atorvastatin Calcium (Lipitor) 80 mg HS PO 11/10/16 21:00 11/14/16 21:14 Venlafaxine HCl (Effexor) 50 mg BID PO 11/10/16 21:00 11/15/16 08:20 Amiodarone HCl (Cordarone) 200 mg DAILY PO 11/10/16 11:00 11/15/16 08:20 Loratadine (Claritin) 10 mg DAILY PO 11/10/16 12:00 11/15/16 08:20 Azithromycin 500 mg/Sodium Chloride 250 ml @ 250 mls/hr Q24H IV 11/10/16 12:00 11/15/16 12:33 Albuterol/ Ipratropium (Duoneb Neb) 1 ampule Q4HR NEB PRN INH SHORTNESS OF BREATH 11/10/16 12:00 11/13/16 08:12 Ondansetron HCl (Zofran Inj) 4 mg Q6HR PRN IV PUSH NAUSEA 11/10/16 12:00 11/10/16 20:31 Guaifenesin/ Dextromethorphan (Robitussin Dm 200-20 Mg/10 ml Liq) 10 ml Q4HR PRN PO COUGH 11/10/16 12:00 11/12/16 09:09 Sodium Chloride (NS Flush) 2 ml BID IV FLUSH 11/10/16 21:00 11/15/16 08:21 Acetaminophen (Tylenol) 650 mg Q4H PRN PO TEMP > 100.4 11/10/16 10:00 11/11/16 08:10 Oxycodone/ Acetaminophen (Percocet 5-325 Mg) 1 tab Q6H PRN PO PAIN SCALE 3 TO 5 11/10/16 12:00 11/10/16 21:47 Oxycodone/ Acetaminophen (Percocet 10-325 Mg) 1 tab Q6H PRN PO PAIN SCALE 6 TO 10 11/10/16 12:00 11/12/16 09:09 Senna/Docusate Sodium (Hanna-Colace) 1 tab BID PO 11/10/16 21:00 11/15/16 08:19 Sennosides (Senokot) 17.2 mg Q12HR PRN PO MODERATE - SEVERE CONSTIPATION 11/10/16 12:00 11/15/16 08:20 Bisacodyl (Dulcolax Supp) 10 mg DAILY PRN RECTAL SEVERE CONSITIPATION 11/10/16 12:00 11/15/16 08:21 Lactulose (Lactulose Liq) 30 ml DAILY PRN PO SEVERE CONSITIPATION 11/10/16 12:00 11/15/16 08:19 Tiotropium Martin (Spiriva Inh) 18 mcg DAILY INH 11/11/16 17:00 Future Hold 11/12/16 08:47 Alprazolam (Xanax) 0.5 mg HS PO 11/12/16 21:00 11/14/16 21:13 Chlorhexidine Gluconate (Chlorhexidine 2% Cloth) 3 pack DAILY@04 TOPICAL 11/13/16 04:00 11/17/16 04:01 11/15/16 04:00 Fentanyl Citrate 250 ml @ 5 mls/hr TITRATE PRN IV SEDATION 11/13/16 01:30 11/13/16 23:03 Midazolam HCl 100 ml @ 2 mls/hr TITRATE PRN IV SEDATION 11/13/16 01:30 11/14/16 19:57 Norepinephrine Bitartrate 250 ml @ 7.5 mls/hr TITRATE PRN IV Maintain MAP > 65 mmHg 11/13/16 03:00 11/13/16 08:41 Sodium Phosphate 30 mmol/Sodium Chloride 250 ml @ 42 mls/hr UNSCH PRN IV For Phosphorus < 2.5 mg/dL 11/13/16 09:45 11/15/16 15:02 Vasopressin 40 units/Dextrose 100 ml @ 4.5 mls/hr [id number] IV 11/13/16 09:38 11/14/16 08:43 Sodium Chloride 1,000 ml @ 20 mls/hr Q24H IV 11/13/16 09:45 11/14/16 08:30 Cefepime HCl 2000 mg/Sodium Chloride 100 ml @ 200 mls/hr Q12H IV 11/15/16 00:00 11/15/16 12:32 Insulin Aspart (NovoLOG SUPPLEMENTAL SCALE) 1 Q6HR SQ 11/14/16 15:00 11/15/16 06:00 Linezolid 300 ml @ 300 mls/hr Q12H IV 11/14/16 20:00 11/15/16 08:21 Methylprednisolone Sodium Succinate (SoluMEDROL INJ) 40 mg BID IV PUSH 11/14/16 21:00 11/15/16 08:20 Vital Signs / I&O Vital Signs Date Time Temp Pulse Resp B/P (MAP) Pulse Ox O2 Delivery O2 Flow Rate FiO2 11/15/16 16:30 78 17 107/59 (75) 94 107/55 (72) 11/15/16 16:30 78 11/15/16 16:16 95 50 11/15/16 16:00 76 11/15/16 16:00 50 11/15/16 16:00 76 17 100/56 (71) 89 106/54 (71) 11/15/16 15:30 78 17 111/57 (75) 94 115/59 (77) 11/15/16 15:00 80 23 104/65 (78) 91 107/57 (74) 11/15/16 14:30 83 19 99/58 (72) 92 101/54 (70) 11/15/16 14:00 81 11/15/16 14:00 81 18 91/58 (69) 95 100/54 (69) 11/15/16 13:00 83 11/15/16 12:58 83 50 11/15/16 12:38 91 50 11/15/16 12:30 79 11/15/16 12:30 79 25 109/58 (75) 90 100/53 (69) 11/15/16 12:00 81 23 113/74 (87) 86 105/53 (70) 11/15/16 12:00 81 11/15/16 12:00 50 11/15/16 11:30 80 11/15/16 11:00 81 11/15/16 11:00 81 24 129/63 (85) 94 114/64 (81) 11/15/16 10:47 91 50 11/15/16 10:30 78 18 101/70 (80) 91 96/54 (68) 11/15/16 10:30 78 11/15/16 10:00 77 20 118/76 (90) 88 114/60 (78) 11/15/16 10:00 77 11/15/16 09:30 77 11/15/16 09:30 77 17 119/65 (83) 91 112/58 (76) 11/15/16 09:28 77 18 121/69 (86) 89 105/62 (76) 11/15/16 09:28 77 11/15/16 09:10 50 11/15/16 09:10 96 50 11/15/16 08:00 68 15 102/56 (71) 93 11/15/16 08:00 68 11/15/16 08:00 50 11/15/16 07:38 94 50 11/15/16 06:06 68 101/55 11/15/16 06:00 63 11/15/16 04:27 89 50 11/15/16 04:00 97.9 67 14 124/69 (87) 92 11/15/16 04:00 67 11/15/16 04:00 50 11/15/16 02:00 65 11/15/16 00:19 90 50 11/15/16 00:00 67 11/15/16 00:00 50 11/15/16 00:00 97.7 67 14 133/78 (96) 88 11/14/16 22:00 63 11/14/16 21:22 97 50 11/14/16 20:00 50 11/14/16 20:00 62 11/14/16 20:00 97.4 62 14 114/59 (77) 93 11/14/16 18:00 66 I/O 11/14/16 11/14/16 11/14/16 11/15/16 11/15/16 11/15/16 07:00 15:00 23:00 07:00 15:00 23:00 Intake Total 1508 ml 550 ml 1108 ml 1512.8 ml Output Total 700 ml 850 ml 875 ml Balance 808 ml 550 ml 258 ml 637.8 ml IV Total 852 ml 550 ml 260 ml 861.8 ml Tube Feeding 536 ml 608 ml 651 ml Other 120 ml 240 ml Output Urine Total 700 ml 850 ml 875 ml # Bowel Movements 2 Physical Exam GENERAL: Intubated, sedated SKIN: Warm and dry. HEAD: Normocephalic. EYES: No scleral icterus. No injection or drainage. NECK: Supple, trachea midline. No JVD or lymphadenopathy. CARDIOVASCULAR: Regular rate and rhythm without murmurs, gallops, or rubs. RESPIRATORY: Breath sounds equal bilaterally, coarse. GASTROINTESTINAL: Abdomen soft, non-tender, nondistended. MUSCULOSKELETAL: No cyanosis, or edema. Laboratory Laboratory Tests Test 11/15/16 03:08 11/15/16 07:30 11/15/16 15:20 Procalcitonin 0.44 ng/mL White Blood Count 16.1 TH/MM3 Red Blood Count 2.58 MIL/MM3 Hemoglobin 7.6 GM/DL Hematocrit 23.3 % Mean Corpuscular Volume 90.4 FL Mean Corpuscular Hemoglobin 29.5 PG Mean Corpuscular Hemoglobin Concent 32.7 % Red Cell Distribution Width 18.8 % Platelet Count 393 TH/MM3 Mean Platelet Volume 8.2 FL Neutrophils (%) (Auto) 92.3 % Lymphocytes (%) (Auto) 3.7 % Monocytes (%) (Auto) 3.5 % Eosinophils (%) (Auto) 0.0 % Basophils (%) (Auto) 0.5 % Neutrophils # (Auto) 14.9 TH/MM3 Lymphocytes # (Auto) 0.6 TH/MM3 Monocytes # (Auto) 0.6 TH/MM3 Eosinophils # (Auto) 0.0 TH/MM3 Basophils # (Auto) 0.1 TH/MM3 CBC Comment DIFF FINAL Differential Comment Blood Urea Nitrogen 39 MG/DL Creatinine 1.25 MG/DL Random Glucose 173 MG/DL Total Protein 5.9 GM/DL Albumin 1.9 GM/DL Calcium Level 8.6 MG/DL Phosphorus Level 2.2 MG/DL Magnesium Level 2.3 MG/DL Alkaline Phosphatase 89 U/L Aspartate Amino Transf (AST/SGOT) 38 U/L Alanine Aminotransferase (ALT/SGPT) 34 U/L Total Bilirubin 0.2 MG/DL Sodium Level 142 MEQ/L Potassium Level 4.0 MEQ/L Chloride Level 109 MEQ/L Carbon Dioxide Level 27.6 MEQ/L Anion Gap 5 MEQ/L Estimat Glomerular Filtration Rate 42 ML/MIN Urine Color LIGHT-YELLOW Urine Turbidity CLEAR Urine pH 5.5 Urine Specific [place] 1.010 Urine Protein NEG mg/dL Urine Glucose (UA) NEG mg/dL Urine Ketones NEG mg/dL Urine Occult Blood SMALL Urine Nitrite NEG Urine Bilirubin NEG Urine Urobilinogen LESS THAN 2.0 MG/DL Urine Leukocyte Esterase NEG Urine RBC 3 /hpf Urine WBC 2 /hpf Microscopic Urinalysis Comment CATH-CULT NOT IND Imaging Last 24 hours Impressions Chest X-Ray 11/15/16 0600 Signed Impressions: Service Date/Time: Tuesday, November 15, 2016 05:05 - CONCLUSION: No significant change. Issa Kumar MD Assessment and Plan Problem List: (1) Respiratory failure ICD Codes: J96.90 - Respiratory failure, unspecified, unspecified whether with hypoxia or hypercapnia (2) Septic shock ICD Codes: A41.9 - Sepsis, unspecified organism; R65.21 - Severe sepsis with septic shock (3) Bilateral pneumonia ICD Codes: J18.9 - Pneumonia, unspecified organism Status: Acute (4) Coronary artery disease ICD Codes: I25.10 - Atherosclerotic heart disease of [place] coronary artery without angina pectoris (5) S/P CABG x 3 ICD Codes: Z95.1 - Presence of aortocoronary bypass graft (6) Atrial fibrillation ICD Codes: I48.91 - Unspecified atrial fibrillation Assessment and Plan Continue ICU care with vent support. Off pressors. Wean vent as tolerated. Continue antibiotic tx as per ID service. Echo w nl LV syst fx. Tele shows SR. Problem Qualifiers (1) Bilateral pneumonia: Qualified Codes: J18.9 - Pneumonia, unspecified organism Daniella Simpson MD Nov 15, 2016 17:30
--- NOTE | 2016-11-15 18:51 | HHI.PR ---
Subjective Remarks Was intubated for respiratory failure and now sedated on the vent. Now on 50 % FIO2. CXR shows Bilateral Infiltrates. Restless on the vent . Objective Vital Signs Date Time Temp Pulse Resp B/P (MAP) Pulse Ox O2 Delivery O2 Flow Rate FiO2 11/15/16 18:00 76 11/15/16 16:30 78 17 107/59 (75) 94 107/55 (72) 11/15/16 16:30 78 11/15/16 16:16 95 50 11/15/16 16:00 76 11/15/16 16:00 50 11/15/16 16:00 76 17 100/56 (71) 89 106/54 (71) 11/15/16 15:30 78 17 111/57 (75) 94 115/59 (77) 11/15/16 15:00 80 23 104/65 (78) 91 107/57 (74) 11/15/16 14:30 83 19 99/58 (72) 92 101/54 (70) 11/15/16 14:00 81 11/15/16 14:00 81 18 91/58 (69) 95 100/54 (69) 11/15/16 13:00 83 11/15/16 12:58 83 50 11/15/16 12:38 91 50 11/15/16 12:30 79 11/15/16 12:30 79 25 109/58 (75) 90 100/53 (69) 11/15/16 12:00 81 23 113/74 (87) 86 105/53 (70) 11/15/16 12:00 81 11/15/16 12:00 50 11/15/16 11:30 80 11/15/16 11:00 81 11/15/16 11:00 81 24 129/63 (85) 94 114/64 (81) 11/15/16 10:47 91 50 11/15/16 10:30 78 18 101/70 (80) 91 96/54 (68) 11/15/16 10:30 78 11/15/16 10:00 77 20 118/76 (90) 88 114/60 (78) 11/15/16 10:00 77 11/15/16 09:30 77 11/15/16 09:30 77 17 119/65 (83) 91 112/58 (76) 11/15/16 09:28 77 18 121/69 (86) 89 105/62 (76) 11/15/16 09:28 77 11/15/16 09:10 50 11/15/16 09:10 96 50 11/15/16 08:00 68 15 102/56 (71) 93 11/15/16 08:00 68 11/15/16 08:00 50 11/15/16 07:38 94 50 11/15/16 06:06 68 101/55 11/15/16 06:00 63 11/15/16 04:27 89 50 11/15/16 04:00 97.9 67 14 124/69 (87) 92 11/15/16 04:00 67 11/15/16 04:00 50 11/15/16 02:00 65 11/15/16 00:19 90 50 11/15/16 00:00 67 11/15/16 00:00 50 11/15/16 00:00 97.7 67 14 133/78 (96) 88 11/14/16 22:00 63 11/14/16 21:22 97 50 11/14/16 20:00 50 11/14/16 20:00 62 11/14/16 20:00 97.4 62 14 114/59 (77) 93 I/O 11/14/16 11/14/16 11/14/16 11/15/16 11/15/16 11/15/16 07:00 15:00 23:00 07:00 15:00 23:00 Intake Total 1508 ml 550 ml 1108 ml 1512.8 ml 1547 ml Output Total 700 ml 850 ml 875 ml 800 ml Balance 808 ml 550 ml 258 ml 637.8 ml 747 ml IV Total 852 ml 550 ml 260 ml 861.8 ml 550 ml Tube Feeding 536 ml 608 ml 651 ml 757 ml Other 120 ml 240 ml 240 ml Output Urine Total 700 ml 850 ml 875 ml 800 ml # Bowel Movements 2 1 Result Diagram: 11/15/1672911/15/16729 Objective Remarks GENERAL: This moderately obese elderly lady intubated and on vent support. HEENT: Head normocephalic. Pupils are reactive and equal. Throat is clear . NECK: Supple. No bruits or thyroid enlargement or lymphadenopathy. CHEST: Distant breath sounds with coarse wheezes throughout both lung franco. Prolonged expirations .Occ Crackles HEART: The heart sounds are irregular S1-S2 with no murmur. No S3, gallop. ABDOMEN: The abdomen is soft, protuberant without masses or organomegaly or tenderness. Bowel sounds are active. EXTREMITIES: No lesions. 1 + edema. NEURO: Reflexes are 1+ .Sedated. SKIN: No lesions observed. Assessment and Plan Assessment and Plan IMPRESSION 1. Bilateral pneumonia versus pulmonary edema. 2. Atrial fibrillation and ASHD. 3. History of coronary artery disease with CABG x3. 4. Pleural effusions. 5. COPD with emphysema and acute exacerbation. 6. History of DVT. 7. Respiratory Failure Plan : 1. Will wean Fio2 to Keep sat >90. 2. Keep sedated with fentanyl, Versed 3. Continue antibiotics . 4. CXR,CBC BMP in am 5. Solumedrol 40 mg IV BID. 6. Nebs qid , Duoneb 7. Rpt CPAP trial in am if stable. Ursula Schwab MD Nov 15, 2016 18:51
[2016-11-15] MEDS: ALPRAZolam 0.5 MG TAB PO SCH (20:38)
[2016-11-15] MEDS: ATORVASTATIN 80 MG TAB PO SCH (20:38)
[2016-11-15] MEDS: MIDAZOLAM 100 MG/100 ML INJ 100 ML IV PRN (23:27)
[2016-11-16] VITALS (25 sets, daily range): BP systolic 110–140; BP diastolic 61–74; PULSE 75–87; RESP 15–32; TEMP 98.2–98.8; O2SAT 91–95
[2016-11-16 02:54] LABS: HEMATOCRIT 24.3 % (35.0-46.0); MEAN CELL VOLUME 89.5 FL (80.0-100.0); MEAN CORPUSCULAR HEMOGLOBIN 28.8 PG (27.0-34.0); MEAN CORPUSCULAR HGB CONC 32.1 % (32.0-36.0); PLATELET COUNT 394 TH/MM3 (150-450); RED BLOOD COUNT 2.72 MIL/MM3 (4.00-5.30); RED CELL DISTRIBUTION WIDTH 18.9 % (11.6-17.2); WHITE BLOOD COUNT 18.9 TH/MM3 (4.0-11.0)
[2016-11-16 03:02] LABS: HEMO FLAGS AUTO DIFF
[2016-11-16 03:38] LABS: ALKALINE PHOSPHATASE 88 U/L (45-117); ALT (GPT) 50 U/L (10-53); ANION GAP 7 MEQ/L (5-15); AST (GOT) 51 U/L (15-37); BICARBONATE 27.3 MEQ/L (21.0-32.0); BLOOD UREA NITROGEN 56 MG/DL (7-18); CHLORIDE 111 MEQ/L (98-107); GLOMERULAR FILTRATION RATE 30 ML/MIN (>89); POTASSIUM 3.9 MEQ/L (3.5-5.1); SODIUM (NA) 145 MEQ/L (136-145); TOTAL BILIRUBIN ADULT 0.2 MG/DL (0.2-1.0)
[2016-11-16] MEDS: CHLORHEXIDINE GLUCONATE 2 % 1 PACK (2 CLOTHS)(taper/protocol) TOPICAL SCH (04:00)
[2016-11-16] MEDS: VASOPRESSIN INJ 40 UNITS in DEXTROSE 5% IN WATER 100ML INJ 98 ML IV SCH ×4 (04:20→23:32)
[2016-11-16] MEDS: fentaNYL DRIP 250 ML IV PRN (05:16)
[2016-11-16] MEDS: SODIUM CHLOR 0.9% 1000 ML INJ 1,000 ML IV SCH (05:16)
[2016-11-16] MEDS: INSULIN ASPART SUPPLEMENTAL SCALE SQ SCH ×4 (05:17→23:31)
--- NOTE | 2016-11-16 05:51 | RADRPT ---
EXAM DATE/TIME: 11/16/2016 05:03 [facility] COMPARISON: CHEST SINGLE AP, November 15, 2016, 5:05. INDICATIONS : Short of breath. MEDICAL HISTORY : Hypertension. Chronic obstructive pulmonary disease. SURGICAL HISTORY : CABG. ENCOUNTER: Subsequent ACUITY: 1 week PAIN SCORE: 0/10 LOCATION: Bilateral chest FINDINGS: Patchy diffuse airspace opacities persist bilaterally, not significantly changed. No pleural effusion . No pneumothorax. Heart size stable, normal. Patient has had previous median sternotomy. Endotracheal tube tip is about 2.5 cm above the nicolasa. Nasogastric tube is coiled in the stomach. Th ere is a left internal jugular central venous catheter are again seen, tip in the superior vena cava. CONCLUSION: No significant change. Issa Kumar MD on November 16, 2016 at 5:48 Board Certified Radiologist. This report was verified electronically.
[2016-11-16 06:01] LABS: BLOOD GAS BASE EXCESS -0.9 mmol/L (-2-2); BLOOD GAS CARBOXYHEMOGLOBIN 1.5 % (0-4); BLOOD GAS HCO3 23 mmol/L (22-26); BLOOD GAS METHEMOGLOBIN 1.3 % (0-2); BLOOD GAS O2 HGB SATURATION 93 % (90-100); BLOOD GAS OXYGEN CONTENT 10.8 Vol % (12.0-20.0); BLOOD GAS PCO2 38 mmHg (38-42); BLOOD GAS PO2 80 mmHg (61-120); BLOOD GAS TOTAL HGB 8.2 G/DL (12.0-16.0); TEMP CORR TO 98.6
[2016-11-16 06:02] LABS: CRITICAL VALUE NO; OXYGEN DEVICE VENTILATOR
[2016-11-16 06:03] LABS: DRAW SITE ALINE; FIO2 50 %; NUMBER OF ARTERIAL PUNCTURES 0; ULNAR PULSE PRESENT
[2016-11-16 06:04] LABS: STAT NO
[2016-11-16 08:55] LABS: BANDS 6 % (0-6); POLYS (SEG NEUTROPHILS) 89 % (16-70); WBC DIFF SAMPLE 100
[2016-11-16 08:58] LABS: OVALOCYTES 1+ (NORMAL)
[2016-11-16 09:02] LABS: SCAN/DIFF FINAL DIFF MANUAL
[2016-11-16 09:03] LABS: ACANTHOCYTES OCC (NORMAL)
[2016-11-16] MEDS: LINEZOLID 600 MG PREMIX 300 ML IV SCH ×2 (10:05→21:18)
[2016-11-16] MEDS: AMIODARONE 200 MG TAB PO SCH (10:06)
[2016-11-16] MEDS: LORATADINE 10 MG TAB PO SCH (10:06)
[2016-11-16] MEDS: SODIUM CHLORIDE 0.9% FLUSH 10 ML FLUSH IV FLUSH SCH ×2 (10:06→21:19)
[2016-11-16] MEDS: DOCUSATE SODIUM 50 MG/SENNA 8.6 MG TAB PO SCH ×2 (10:06→21:00)
[2016-11-16] MEDS: valACYclovir HCL 500 MG TAB PO SCH ×2 (10:06→21:19)
[2016-11-16] MEDS: VENLAFAXINE HCL 25 MG TAB PO SCH ×2 (10:06→21:19)
[2016-11-16] MEDS: methylPREDNISolone SOD SUCC 40 MG/1 ML VIAL IV PUSH SCH ×2 (10:07→21:19)
[2016-11-16] MEDS: FUROSEMIDE 20 MG/2 ML VIAL IV PUSH SCH (10:07)
--- NOTE | 2016-11-16 10:14 | HHI.IDPN ---
Subjective Subjective Remarks is a 71 y/o CF with PMHx of COPD, CAD, HTN was admitted through emergency room. Patients is in the room and reports she had a CABG triple vessel with major (> 90 percent blockages). She remained intubated for few days post surgery. She improved and drains removed. Overall did ok but when found to have post operative pleural effusions underwent thoracentesis. After tap she did fairly ok and was discharged home. On her way to [place] she started feeling short of breath while they drove here. She was seen in the ED. CT chest showed evidence of bilateral patchy pulmonary infiltrates consistent with either pneumonia and/or pulmonary edema. She was initially admitted to [facility] and due to decline in her respiratory status (hypoxia , tachypnea and diaphoresis) she was intubated. At the time of my evaluation, she is in [facility]. Currently intubated with 50% FiO2, PEEP 7. secretions small white thin. UO ok. On vasopressin, weaned off Levophed earlier. ID has been consulted for septic shock secondary to Pneumonia in a CABG patient. Overnight events reviewed. Remains intubated. Vent FIO2 50%, PEEP 7.On CPAP trial today. Receiving diuretics. Not much secretions: white, thin, small to moderate. No fevers No rash No diarrhea. sputum not sent yet. UO ok. Antibiotics Azithro Zyvox Cefepime Lines Line sites with no e.o infection Past Medical History reviewed Allergies: Coded Allergies: hydromorphone (Verified Allergy, Intermediate, hallucinations, 11/10/16) morphine (Verified Allergy, Intermediate, hallucinations, 11/10/16) Objective . Vital Signs Date Time Temp Pulse Resp B/P (MAP) Pulse Ox O2 Delivery O2 Flow Rate FiO2 11/16/16 08:09 93 45 11/16/16 06:00 75 11/16/16 04:00 76 11/16/16 04:00 98.7 76 16 118/65 (82) 92 122/69 (86) 11/16/16 04:00 50 11/16/16 03:59 91 50 11/16/16 02:00 77 11/16/16 00:00 79 11/16/16 00:00 98.8 79 18 123/70 (87) 91 118/71 (87) 11/16/16 00:00 50 11/15/16 23:43 91 50 11/15/16 22:00 76 11/15/16 20:51 91 50 11/15/16 20:00 79 11/15/16 20:00 98.7 79 19 108/58 (75) 91 109/55 (73) 11/15/16 20:00 50 11/15/16 18:00 76 11/15/16 16:30 78 17 107/59 (75) 94 107/55 (72) 11/15/16 16:30 78 11/15/16 16:16 95 50 11/15/16 16:00 76 11/15/16 16:00 50 11/15/16 16:00 76 17 100/56 (71) 89 106/54 (71) 11/15/16 15:30 78 17 111/57 (75) 94 115/59 (77) 11/15/16 15:00 80 23 104/65 (78) 91 107/57 (74) 11/15/16 14:30 83 19 99/58 (72) 92 101/54 (70) 11/15/16 14:00 81 11/15/16 14:00 81 18 91/58 (69) 95 100/54 (69) 11/15/16 13:00 83 11/15/16 12:58 83 50 11/15/16 12:38 91 50 11/15/16 12:30 79 11/15/16 12:30 79 25 109/58 (75) 90 100/53 (69) 11/15/16 12:00 81 23 113/74 (87) 86 105/53 (70) 11/15/16 12:00 81 11/15/16 12:00 50 11/15/16 11:30 80 11/15/16 11:00 81 11/15/16 11:00 81 24 129/63 (85) 94 114/64 (81) 11/15/16 10:47 91 50 11/15/16 10:30 78 18 101/70 (80) 91 96/54 (68) 11/15/16 10:30 78 . Laboratory Tests Test 11/15/16 07:30 11/16/16 02:45 White Blood Count 16.1 TH/MM3 18.9 TH/MM3 Red Blood Count 2.58 MIL/MM3 2.72 MIL/MM3 Hemoglobin 7.6 GM/DL 7.8 GM/DL Hematocrit 23.3 % 24.3 % Mean Corpuscular Volume 90.4 FL 89.5 FL Mean Corpuscular Hemoglobin 29.5 PG 28.8 PG Mean Corpuscular Hemoglobin Concent 32.7 % 32.1 % Red Cell Distribution Width 18.8 % 18.9 % Platelet Count 393 TH/MM3 394 TH/MM3 Mean Platelet Volume 8.2 FL 8.1 FL Neutrophils (%) (Auto) 92.3 % Lymphocytes (%) (Auto) 3.7 % Monocytes (%) (Auto) 3.5 % Eosinophils (%) (Auto) 0.0 % Basophils (%) (Auto) 0.5 % Neutrophils # (Auto) 14.9 TH/MM3 Lymphocytes # (Auto) 0.6 TH/MM3 Monocytes # (Auto) 0.6 TH/MM3 Eosinophils # (Auto) 0.0 TH/MM3 Basophils # (Auto) 0.1 TH/MM3 CBC Comment DIFF FINAL AUTO DIFF Differential Comment FINAL DIFF MANUAL Differential Total Cells Counted 100 Neutrophils % (Manual) 89 % Band Neutrophils % 6 % Lymphocytes % 3 % Monocytes % 2 % Neutrophils # (Manual) 18.0 TH/MM3 Ovalocytes 1+ Acanthocytes OCC Laboratory Tests Test 11/15/16 03:08 11/15/16 07:30 11/16/16 02:45 Procalcitonin 0.44 ng/mL Blood Urea Nitrogen 39 MG/DL 56 MG/DL Creatinine 1.25 MG/DL 1.68 MG/DL Random Glucose 173 MG/DL 154 MG/DL Total Protein 5.9 GM/DL 5.8 GM/DL Albumin 1.9 GM/DL 1.9 GM/DL Calcium Level 8.6 MG/DL 8.4 MG/DL Phosphorus Level 2.2 MG/DL 3.2 MG/DL Magnesium Level 2.3 MG/DL Alkaline Phosphatase 89 U/L 88 U/L Aspartate Amino Transf (AST/SGOT) 38 U/L 51 U/L Alanine Aminotransferase (ALT/SGPT) 34 U/L 50 U/L Total Bilirubin 0.2 MG/DL 0.2 MG/DL Sodium Level 142 MEQ/L 145 MEQ/L Potassium Level 4.0 MEQ/L 3.9 MEQ/L Chloride Level 109 MEQ/L 111 MEQ/L Carbon Dioxide Level 27.6 MEQ/L 27.3 MEQ/L Anion Gap 5 MEQ/L 7 MEQ/L Estimat Glomerular Filtration Rate 42 ML/MIN 30 ML/MIN Microbiology Date/Time Source Procedure Growth Status 11/15/16 09:00 Sputum Endotracheal Gram Stain - Final Resulted 11/15/16 09:00 Sputum Endotracheal Sputum Culture Pending Resulted 11/15/16 01:20 Urine Random Urine Legionella Antigen - Final PRESUMPTIVE NEGATIVE FOR LEGIONELLA P... Complete 11/15/16 01:20 Urine Random Urine Streptococcus pneumoniae Antigen (M - Final PRESUMPTIVE NEGATIVE FOR STREPTOCOCCU... Complete Imaging Last Impressions Chest X-Ray 11/15/16 0600 Signed Impressions: Service Date/Time: Tuesday, November 15, 2016 05:05 - CONCLUSION: No significant change. Issa Kumar MD Shoulder X-Ray 11/10/16 0000 Signed Impressions: Service Date/Time: October 13:50 - CONCLUSION: 1. Old right humeral neck fracture. 2. No acute fracture or dislocation. 3. Course interstitial opacities throughout the visualized right upper lobe. Crispin Ramos MD Humerus X-Ray 11/10/16 0000 Signed Impressions: Service Date/Time: October 13:53 - CONCLUSION: 1. Old right humeral neck fracture. 2. No acute fracture or dislocation. Crispin Ramos MD CT Angiography 11/10/16 0000 Signed Impressions: Service Date/Time: October 14:35 - CONCLUSION: 1. No evidence of pulmonary embolus. 2. Severe extensive bilateral pulmonary parenchymal opacity with a crazy paving appearance. Differential diagnosis includes pulmonary edema, pulmonary alveolar stenosis, acute interstitial pneumonia, and eosinophilic pneumonia. 3. Small pleural effusions left greater than right. 4. Mildly enlarged mediastinal lymph nodes likely reactive. Adolph Root MD Physical Exam GENERAL: Obese, well-developed patient, in no apparent distress. SKIN: No rashes, ecchymoses or lesions. Cool and dry. HEAD: Atraumatic. Normocephalic. No temporal or scalp tenderness. EYES: Pupils equal round and reactive. Extraocular motions intact. No scleral icterus. No injection or drainage. ENT: Nose without bleeding, purulent drainage or septal hematoma. Throat without erythema, tonsillar hypertrophy or exudate. Uvula midline. Airway patent. NECK: Trachea midline. Supple, nontender, no meningeal signs. Large neck. CARDIOVASCULAR: HS audible. No murmur appreciated. Chest wall exam: surgical site with no e.o infection. RESPIRATORY: Clear to auscultation. Breath sounds equal bilaterally. No wheezes , rales, or rhonchi. GASTROINTESTINAL: Abdomen soft, non-tender, nondistended. Drain sites in upper abdomen normal. MUSCULOSKELETAL: Extremities without clubbing, cyanosis, or edema. No joint tenderness, effusion, or edema noted. No calf tenderness. Negative Homans sign bilaterally. NEUROLOGICAL: Awake and alert. Gross examination normal. Psych could not be assessed. IV line sites with no e.o infection. Assessment & Plan Remarks Septic Shock with Multiorgan dysfunction syndrome. Pneumonia recent hospitalization at risk for MDRO. Recent CABG triple vessel 7 weeks back. Acute renal failure: sepsis, medication induced. Hyperglycemia, no known DM, A1C 5.8 Obesity BMI 27.6 kg/m2 Recs: Continue Cefepime IV Continue Zyvox (re: possible MRSA) Continue Azithro (Atypical PNA) follow QT interval. Normal Procalcitonin. Negative legionella and pneumococcal antigen. Follow cultures Follow clinically. d/w LAZARO SANTIAGO and RN. Consuelo Starkey MD Nov 16, 2016 10:14
--- NOTE | 2016-11-16 11:06 | HHI.CCPN ---
Subjective Remarks/Hospital Course 11/13: 71-year-old female with a history of COPD, coronary artery disease and hypertension who was admitted through the emergency room with complaints of progressive shortness of breath over the past 3 to 4 days. The patient has a history of CABG x3 approximately 7 weeks ago in [place], [place]. She did have some postoperative pleural effusions which had to be tapped. She then drove from [place] down here and she was experiencing increasing dyspnea. A CT scan of the chest showed evidence of bilateral patchy pulmonary infiltrates consistent with either pneumonia and/or pulmonary edema. At night November 12 her respiratory status dramatically declined, patient became hypoxemic and tachypneic and diaphoretic requiring endotracheal intubation. 11/14: Remains sedated, orally intubated on mechanical ventilation. On low dose vasopressin and Levophed for pressor support. 11/15: Remains sedated, orally intubated on mechanical ventilation. Failed CPAP trial yesterday within 5 minutes. Off Levophed. Low-dose vasopressin being titrated down. Tolerating tube feeds. Hemoglobin drop noted however significant positive fluid balance. 11/16: Remains sedated, orally intubated on mechanical ventilation. Tolerating tube feeds. Off pressors. Daily C Pap trials. Objective Vital Signs Date Time Temp Pulse Resp B/P (MAP) Pulse Ox O2 Delivery O2 Flow Rate FiO2 11/16/16 10:21 45 11/16/16 08:09 93 11/16/16 06:00 75 11/16/16 04:00 98.7 16 118/65 (82) 122/69 (86) 11/12/16 19:53 Non-Rebreather 15.00 Intake and Output 11/16/16 11/16/16 11/17/16 08:00 16:00 00:00 Intake Total 1236.0 ml Output Total 450 ml Balance 786.0 ml Result Diagram: 11/16/16 0245 11/16/16 0245 Other Results Laboratory Tests Test 11/15/16 15:20 11/16/16 02:45 11/16/16 05:43 Urine Color LIGHT-YELLOW Urine Turbidity CLEAR Urine pH 5.5 Urine Specific Daphne 1.010 Urine Protein NEG mg/dL Urine Glucose (UA) NEG mg/dL Urine Ketones NEG mg/dL Urine Occult Blood SMALL Urine Nitrite NEG Urine Bilirubin NEG Urine Urobilinogen LESS THAN 2.0 MG/DL Urine Leukocyte Esterase NEG Urine RBC 3 /hpf Urine WBC 2 /hpf Microscopic Urinalysis Comment CATH-CULT NOT IND White Blood Count 18.9 TH/MM3 Red Blood Count 2.72 MIL/MM3 Hemoglobin 7.8 GM/DL Hematocrit 24.3 % Mean Corpuscular Volume 89.5 FL Mean Corpuscular Hemoglobin 28.8 PG Mean Corpuscular Hemoglobin Concent 32.1 % Red Cell Distribution Width 18.9 % Platelet Count 394 TH/MM3 Mean Platelet Volume 8.1 FL CBC Comment AUTO DIFF Differential Total Cells Counted 100 Neutrophils % (Manual) 89 % Band Neutrophils % 6 % Lymphocytes % 3 % Monocytes % 2 % Neutrophils # (Manual) 18.0 TH/MM3 Differential Comment FINAL DIFF MANUAL Ovalocytes 1+ Acanthocytes OCC Blood Urea Nitrogen 56 MG/DL Creatinine 1.68 MG/DL Random Glucose 154 MG/DL Total Protein 5.8 GM/DL Albumin 1.9 GM/DL Calcium Level 8.4 MG/DL Phosphorus Level 3.2 MG/DL Alkaline Phosphatase 88 U/L Aspartate Amino Transf (AST/SGOT) 51 U/L Alanine Aminotransferase (ALT/SGPT) 50 U/L Total Bilirubin 0.2 MG/DL Sodium Level 145 MEQ/L Potassium Level 3.9 MEQ/L Chloride Level 111 MEQ/L Carbon Dioxide Level 27.3 MEQ/L Anion Gap 7 MEQ/L Estimat Glomerular Filtration Rate 30 ML/MIN Blood Gas Puncture Site HORACE Blood Gas Patient Temperature 98.6 Blood Gas HCO3 23 mmol/L Blood Gas Base Excess -0.9 mmol/L Blood Gas Oxygen Saturation 93 % Arterial Blood pH 7.41 Arterial Blood Partial Pressure CO2 38 mmHg Arterial Blood Partial Pressure O2 80 mmHg Arterial Blood Oxygen Content 10.8 Vol % Arterial Blood Carboxyhemoglobin 1.5 % Arterial Blood Methemoglobin 1.3 % Blood Gas Hemoglobin 8.2 G/DL Oxygen Delivery Device VENTILATOR Blood Gas Ventilator Setting SEE COMMENT Blood Gas Inspired Oxygen 50 % Imaging Last Impressions Chest X-Ray 11/14/16 0000 Signed Impressions: Service Date/Time: Monday, November 14, 2016 04:35 - CONCLUSION: Improved bilateral airspace disease. New nasogastric tube, tip in the stomach. Other lines and tubes unchanged. Issa Kumar MD Shoulder X-Ray 11/10/16 0000 Signed Impressions: Service Date/Time: October 13:50 - CONCLUSION: 1. Old right humeral neck fracture. 2. No acute fracture or dislocation. 3. Course interstitial opacities throughout the visualized right upper lobe. Crispin Ramos MD Humerus X-Ray 11/10/16 0000 Signed Impressions: Service Date/Time: October 13:53 - CONCLUSION: 1. Old right humeral neck fracture. 2. No acute fracture or dislocation. Crispin Ramos MD CT Angiography 11/10/16 0000 Signed Impressions: Service Date/Time: October 14:35 - CONCLUSION: 1. No evidence of pulmonary embolus. 2. Severe extensive bilateral pulmonary parenchymal opacity with a crazy paving appearance. Differential diagnosis includes pulmonary edema, pulmonary alveolar stenosis, acute interstitial pneumonia, and eosinophilic pneumonia. 3. Small pleural effusions left greater than right. 4. Mildly enlarged mediastinal lymph nodes likely reactive. Adolph Root MD Objective Remarks GENERAL: Sedated and intubated elderly woman SKIN: Warm and dry. HEAD: Normocephalic. EYES: Pallor present. No scleral icterus. No injection or drainage. NECK: Supple, trachea midline. No JVD or lymphadenopathy. CARDIOVASCULAR: Regular rate and rhythm without murmurs, gallops, or rubs. RESPIRATORY: Breath sounds equal bilaterally. No accessory muscle use. GASTROINTESTINAL: Abdomen soft, non-tender, nondistended. MUSCULOSKELETAL: No cyanosis. Trace edema. BACK: Nontender without obvious deformity. NEURO: Sedated, arousable, orally intubated on mechanical ventilation Urinary Catheter: Yes Assessment to: Continue Barraza insert reason: ICU Pt Getting Diuretics A/P Assessment and Plan Acute Respiratory failure on [facility] ventilation - Bilateral patchy infiltrates - Pneumonia versus pulmonary edema - Mechanical ventilation - CXR and ABG daily - Broad-spectrum antibiotics - Follow-up cultures - Gentle diuresis Septic shock - Central line and a line in place -OffLevophed/low-dose vasopressin gtt. - Decreased IV fluids in view of significant positive fluid balance. Diurese with lasix to mobilize fluid. COPD - DuoNeb scheduled and when necessary, Solumedrol Coronary artery disease - Status post CABG - Troponins negative - Cardiology input appreciated - Echo with normal LV function. Paroxysmal atrial fibrillation - Rate controlled - Amiodarone - Eliquis held on 11/15 due to drop in Hgb. DVT GI prophylaxis - Eliquis held 11/15, will consider lovenox for DVT prophylaxis vs resuming full anticoagulation if Hgb remains stable with no e/o bleeding. - Pepcid - Teds SCDs Discussed with patient's daughter and at bedside on 11/13 and updated them regarding current clinical status and plan of care and they voiced understanding and were agreeable. Critical Care: The total critical care time was 35 minutes. Time to perform other separately billable procedures was not included in the critical care time. Ketan Starkey MD Nov 16, 2016 11:06
--- NOTE | 2016-11-16 12:35 | HHI.PR ---
Subjective Remarks Was intubated for respiratory failure and now sedated on the vent. Now on 45 % FIO2. CXR shows Bilateral Infiltrates. Restless on the vent .On CPAP Now. Objective Vital Signs Date Time Temp Pulse Resp B/P (MAP) Pulse Ox O2 Delivery O2 Flow Rate FiO2 11/16/16 11:59 94 45 11/16/16 11:00 80 18 116/69 (85) 93 128/68 (88) 11/16/16 10:30 79 25 120/61 (80) 95 134/71 (92) 11/16/16 10:21 45 11/16/16 10:00 77 18 115/74 (88) 95 125/67 (86) 11/16/16 09:30 80 32 123/61 (81) 94 128/68 (88) 11/16/16 09:00 75 15 119/66 (83) 92 124/68 (86) 11/16/16 08:30 75 18 110/65 (80) 92 117/65 (82) 11/16/16 08:09 93 45 11/16/16 08:00 50 11/16/16 08:00 75 16 113/65 (81) 92 117/64 (81) 11/16/16 06:00 75 11/16/16 04:00 76 11/16/16 04:00 98.7 76 16 118/65 (82) 92 122/69 (86) 11/16/16 04:00 50 11/16/16 03:59 91 50 11/16/16 02:00 77 11/16/16 00:00 79 11/16/16 00:00 98.8 79 18 123/70 (87) 91 118/71 (87) 11/16/16 00:00 50 11/15/16 23:43 91 50 11/15/16 22:00 76 11/15/16 20:51 91 50 11/15/16 20:00 79 11/15/16 20:00 98.7 79 19 108/58 (75) 91 109/55 (73) 11/15/16 20:00 50 11/15/16 18:00 76 11/15/16 16:30 78 17 107/59 (75) 94 107/55 (72) 11/15/16 16:30 78 11/15/16 16:16 95 50 11/15/16 16:00 76 11/15/16 16:00 50 11/15/16 16:00 76 17 100/56 (71) 89 106/54 (71) 11/15/16 15:30 78 17 111/57 (75) 94 115/59 (77) 11/15/16 15:00 80 23 104/65 (78) 91 107/57 (74) 11/15/16 14:30 83 19 99/58 (72) 92 101/54 (70) 11/15/16 14:00 81 11/15/16 14:00 81 18 91/58 (69) 95 100/54 (69) 11/15/16 13:00 83 11/15/16 12:58 83 50 11/15/16 12:38 91 50 I/O 11/15/16 11/15/16 11/15/16 11/16/16 11/16/16 11/16/16 07:00 15:00 23:00 07:00 15:00 23:00 Intake Total 1512.8 ml 2097 ml 1236.0 ml 300 ml Output Total 875 ml 800 ml 450 ml Balance 637.8 ml 1297 ml 786.0 ml 300 ml IV Total 861.8 ml 1100 ml 244.0 ml 300 ml Tube Feeding 651 ml 757 ml 872 ml Other 240 ml 120 ml Output Urine Total 875 ml 800 ml 450 ml # Bowel Movements 1 Result Diagram: 11/16/1624411/16/16244 Objective Remarks GENERAL: This moderately obese elderly lady intubated and on vent support. HEENT: Head normocephalic. Pupils are reactive and equal. Throat is clear . NECK: Supple. No bruits or thyroid enlargement or lymphadenopathy. CHEST: Distant breath sounds with coarse wheezes throughout both lung franco. Prolonged expirations .Occ Crackles at bases HEART: The heart sounds are irregular S1-S2 with no murmur. No S3, gallop. ABDOMEN: The abdomen is soft, protuberant without masses or organomegaly or tenderness. Bowel sounds are active. EXTREMITIES: No lesions. 1 + edema. NEURO: Reflexes are 1+ .Sedated. SKIN: No lesions observed. Assessment and Plan Assessment and Plan IMPRESSION 1. Bilateral pneumonia versus pulmonary edema. 2. Atrial fibrillation and ASHD. 3. History of coronary artery disease with CABG x3. 4. Pleural effusions. 5. COPD with emphysema and acute exacerbation. 6. History of DVT. 7. Respiratory Failure Plan : 1. Will wean Fio2 to Keep sat >90. 2. Keep sedated with fentanyl, Versed 3. Continue antibiotics . per ID 4. CXR,CBC BMP in am 5. Solumedrol 20 mg IV BID. 6. Nebs qid , Duoneb 7. Rpt CPAP trial in am if stable. Ursula Schwab MD Nov 16, 2016 12:35
[2016-11-16] MEDS: CEFEPIME INJ 2,000 MG in SODIUM CHLORIDE 0.9% INJ 100 ML IV SCH ×2 (12:40→23:31)
[2016-11-16] MEDS: AZITHROMYCIN INJ 500 MG in SODIUM CHLOR 0.9% 250 ML INJ 250 ML IV SCH (12:41)
--- NOTE | 2016-11-16 16:30 | PD.CARD.PN ---
Subjective Subjective Remarks Intubated, sedated, on CPAP Objective Medications Administered Medications Medications (Trade) Dose Ordered Sig/Vida Route PRN Reason Start Time Stop Time Status Last Admin Dose Admin Valacyclovir HCl (Valtrex) 500 mg Q12HR PO 11/10/16 12:00 11/16/16 10:06 Apixaban (Eliquis) 5 mg BID PO 11/10/16 21:00 Future Hold 11/15/16 08:20 Propranolol HCl (Inderal) 10 mg Q12HR PO 11/10/16 12:00 Future Hold 11/13/16 08:40 Atorvastatin Calcium (Lipitor) 80 mg HS PO 11/10/16 21:00 11/15/16 20:38 Venlafaxine HCl (Effexor) 50 mg BID PO 11/10/16 21:00 11/16/16 10:06 Amiodarone HCl (Cordarone) 200 mg DAILY PO 11/10/16 11:00 11/16/16 10:06 Loratadine (Claritin) 10 mg DAILY PO 11/10/16 12:00 11/16/16 10:06 Azithromycin 500 mg/Sodium Chloride 250 ml @ 250 mls/hr Q24H IV 11/10/16 12:00 11/16/16 12:41 Albuterol/ Ipratropium (Duoneb Neb) 1 ampule Q4HR NEB PRN INH SHORTNESS OF BREATH 11/10/16 12:00 11/13/16 08:12 Ondansetron HCl (Zofran Inj) 4 mg Q6HR PRN IV PUSH NAUSEA 11/10/16 12:00 11/10/16 20:31 Guaifenesin/ Dextromethorphan (Robitussin Dm 200-20 Mg/10 ml Liq) 10 ml Q4HR PRN PO COUGH 11/10/16 12:00 11/12/16 09:09 Sodium Chloride (NS Flush) 2 ml BID IV FLUSH 11/10/16 21:00 11/16/16 10:06 Acetaminophen (Tylenol) 650 mg Q4H PRN PO TEMP > 100.4 11/10/16 10:00 11/11/16 08:10 Oxycodone/ Acetaminophen (Percocet 5-325 Mg) 1 tab Q6H PRN PO PAIN SCALE 3 TO 5 11/10/16 12:00 11/10/16 21:47 Oxycodone/ Acetaminophen (Percocet 10-325 Mg) 1 tab Q6H PRN PO PAIN SCALE 6 TO 10 11/10/16 12:00 11/12/16 09:09 Senna/Docusate Sodium (Hanna-Colace) 1 tab BID PO 11/10/16 21:00 11/16/16 10:06 Sennosides (Senokot) 17.2 mg Q12HR PRN PO MODERATE - SEVERE CONSTIPATION 11/10/16 12:00 11/15/16 08:20 Bisacodyl (Dulcolax Supp) 10 mg DAILY PRN RECTAL SEVERE CONSITIPATION 11/10/16 12:00 11/15/16 08:21 Lactulose (Lactulose Liq) 30 ml DAILY PRN PO SEVERE CONSITIPATION 11/10/16 12:00 11/15/16 08:19 Tiotropium [place] (Spiriva Inh) 18 mcg DAILY INH 11/11/16 17:00 Future Hold 11/12/16 08:47 Alprazolam (Xanax) 0.5 mg HS PO 11/12/16 21:00 11/15/16 20:38 Chlorhexidine Gluconate (Chlorhexidine 2% Cloth) 3 pack DAILY@04 TOPICAL 11/13/16 04:00 11/17/16 04:01 11/16/16 04:00 Fentanyl Citrate 250 ml @ 5 mls/hr TITRATE PRN IV SEDATION 11/13/16 01:30 11/16/16 05:16 Midazolam HCl 100 ml @ 2 mls/hr TITRATE PRN IV SEDATION 11/13/16 01:30 11/15/16 23:27 Norepinephrine Bitartrate 250 ml @ 7.5 mls/hr TITRATE PRN IV Maintain MAP > 65 mmHg 11/13/16 03:00 11/13/16 08:41 Sodium Phosphate 30 mmol/Sodium Chloride 250 ml @ 42 mls/hr UNSCH PRN IV For Phosphorus < 2.5 mg/dL 11/13/16 09:45 11/15/16 15:02 Vasopressin 40 units/Dextrose 100 ml @ 4.5 mls/hr [id number] IV 11/13/16 09:38 11/14/16 08:43 Sodium Chloride 1,000 ml @ 20 mls/hr Q24H IV 11/13/16 09:45 11/14/16 08:30 Cefepime HCl 2000 mg/Sodium Chloride 100 ml @ 200 mls/hr Q12H IV 11/15/16 00:00 11/16/16 12:40 Insulin Aspart (NovoLOG SUPPLEMENTAL SCALE) 1 Q6HR SQ 11/14/16 15:00 11/16/16 12:00 Linezolid 300 ml @ 300 mls/hr Q12H IV 11/14/16 20:00 11/16/16 10:05 Furosemide (Lasix Inj) 20 mg DAILY IV PUSH 11/16/16 09:00 11/16/16 10:07 Vital Signs / I&O Vital Signs Date Time Temp Pulse Resp B/P (MAP) Pulse Ox O2 Delivery O2 Flow Rate FiO2 11/16/16 15:55 92 45 11/16/16 14:00 87 11/16/16 13:00 85 11/16/16 12:30 86 11/16/16 12:00 84 11/16/16 12:00 98.2 11/16/16 12:00 45 11/16/16 11:59 94 45 11/16/16 11:30 80 11/16/16 11:00 80 11/16/16 11:00 80 18 116/69 (85) 93 128/68 (88) 11/16/16 10:30 79 25 120/61 (80) 95 134/71 (92) 11/16/16 10:30 79 11/16/16 10:21 45 11/16/16 10:00 77 18 115/74 (88) 95 125/67 (86) 11/16/16 10:00 77 11/16/16 09:30 80 32 123/61 (81) 94 128/68 (88) 11/16/16 09:30 80 11/16/16 09:00 75 11/16/16 09:00 75 15 119/66 (83) 92 124/68 (86) 11/16/16 08:30 75 18 110/65 (80) 92 117/65 (82) 11/16/16 08:30 75 11/16/16 08:09 93 45 11/16/16 08:00 50 11/16/16 08:00 75 16 113/65 (81) 92 117/64 (81) 11/16/16 08:00 75 11/16/16 06:00 75 11/16/16 04:00 76 11/16/16 04:00 98.7 76 16 118/65 (82) 92 122/69 (86) 11/16/16 04:00 50 11/16/16 03:59 91 50 11/16/16 02:00 77 11/16/16 00:00 79 11/16/16 00:00 98.8 79 18 123/70 (87) 91 118/71 (87) 11/16/16 00:00 50 11/15/16 23:43 91 50 11/15/16 22:00 76 11/15/16 20:51 91 50 11/15/16 20:00 79 11/15/16 20:00 98.7 79 19 108/58 (75) 91 109/55 (73) 11/15/16 20:00 50 11/15/16 18:00 76 11/15/16 16:30 78 17 107/59 (75) 94 107/55 (72) 11/15/16 16:30 78 I/O 11/15/16 11/15/16 11/15/16 11/16/16 11/16/16 11/16/16 07:00 15:00 23:00 07:00 15:00 23:00 Intake Total 1512.8 ml 2097 ml 1236.0 ml 300 ml Output Total 875 ml 800 ml 450 ml Balance 637.8 ml 1297 ml 786.0 ml 300 ml IV Total 861.8 ml 1100 ml 244.0 ml 300 ml Tube Feeding 651 ml 757 ml 872 ml Other 240 ml 120 ml Output Urine Total 875 ml 800 ml 450 ml # Bowel Movements 1 Physical Exam GENERAL: Intubated, sedated SKIN: Warm and dry. HEAD: Normocephalic. EYES: No scleral icterus. No injection or drainage. NECK: Supple, trachea midline. No JVD or lymphadenopathy. CARDIOVASCULAR: Regular rate and rhythm without murmurs, gallops, or rubs. RESPIRATORY: Breath sounds equal bilaterally, coarse. GASTROINTESTINAL: Abdomen soft, non-tender, nondistended. MUSCULOSKELETAL: No cyanosis, or edema. Laboratory Laboratory Tests Test 11/16/16 02:45 11/16/16 05:43 White Blood Count 18.9 TH/MM3 Red Blood Count 2.72 MIL/MM3 Hemoglobin 7.8 GM/DL Hematocrit 24.3 % Mean Corpuscular Volume 89.5 FL Mean Corpuscular Hemoglobin 28.8 PG Mean Corpuscular Hemoglobin Concent 32.1 % Red Cell Distribution Width 18.9 % Platelet Count 394 TH/MM3 Mean Platelet Volume 8.1 FL CBC Comment AUTO DIFF Differential Total Cells Counted 100 Neutrophils % (Manual) 89 % Band Neutrophils % 6 % Lymphocytes % 3 % Monocytes % 2 % Neutrophils # (Manual) 18.0 TH/MM3 Differential Comment FINAL DIFF MANUAL Ovalocytes 1+ Acanthocytes OCC Blood Urea Nitrogen 56 MG/DL Creatinine 1.68 MG/DL Random Glucose 154 MG/DL Total Protein 5.8 GM/DL Albumin 1.9 GM/DL Calcium Level 8.4 MG/DL Phosphorus Level 3.2 MG/DL Alkaline Phosphatase 88 U/L Aspartate Amino Transf (AST/SGOT) 51 U/L Alanine Aminotransferase (ALT/SGPT) 50 U/L Total Bilirubin 0.2 MG/DL Sodium Level 145 MEQ/L Potassium Level 3.9 MEQ/L Chloride Level 111 MEQ/L Carbon Dioxide Level 27.3 MEQ/L Anion Gap 7 MEQ/L Estimat Glomerular Filtration Rate 30 ML/MIN Blood Gas Puncture Site HORACE Blood Gas Patient Temperature 98.6 Blood Gas HCO3 23 mmol/L Blood Gas Base Excess -0.9 mmol/L Blood Gas Oxygen Saturation 93 % Arterial Blood pH 7.41 Arterial Blood Partial Pressure CO2 38 mmHg Arterial Blood Partial Pressure O2 80 mmHg Arterial Blood Oxygen Content 10.8 Vol % Arterial Blood Carboxyhemoglobin 1.5 % Arterial Blood Methemoglobin 1.3 % Blood Gas Hemoglobin 8.2 G/DL Oxygen Delivery Device VENTILATOR Blood Gas Ventilator Setting SEE COMMENT Blood Gas Inspired Oxygen 50 % Assessment and Plan Problem List: (1) Respiratory failure ICD Codes: J96.90 - Respiratory failure, unspecified, unspecified whether with hypoxia or hypercapnia (2) Septic shock ICD Codes: A41.9 - Sepsis, unspecified organism; R65.21 - Severe sepsis with septic shock (3) Bilateral pneumonia ICD Codes: J18.9 - Pneumonia, unspecified organism Status: Acute (4) Coronary artery disease ICD Codes: I25.10 - Atherosclerotic heart disease of [place] coronary artery without angina pectoris (5) S/P CABG x 3 ICD Codes: Z95.1 - Presence of aortocoronary bypass graft (6) Atrial fibrillation ICD Codes: I48.91 - Unspecified atrial fibrillation Assessment and Plan No new cardiac issues. Continue ICU care with vent support. Off pressors. Wean vent as tolerated, hopefully extubation soon. Continue antibiotic tx as per ID service. Echo w nl LV syst fx. Tele shows SR. D/w pt's . Problem Qualifiers (1) Bilateral pneumonia: Qualified Codes: J18.9 - Pneumonia, unspecified organism Daniella Simpson MD Nov 16, 2016 16:30
[2016-11-16] MEDS: ATORVASTATIN 80 MG TAB PO SCH (21:19)
[2016-11-16] MEDS: ALPRAZolam 0.5 MG TAB PO SCH (21:19)
[2016-11-17] VITALS (20 sets, daily range): BP systolic 125–164; BP diastolic 69–93; PULSE 81–92; RESP 15–25; TEMP 98–98.8; O2SAT 90–100
[2016-11-17] MEDS: CHLORHEXIDINE GLUCONATE 2 % 1 PACK (2 CLOTHS)(taper/protocol) TOPICAL SCH (03:28)
[2016-11-17] MEDS: SODIUM CHLOR 0.9% 1000 ML INJ 1,000 ML IV SCH (03:28)
[2016-11-17] MEDS: MIDAZOLAM 100 MG/100 ML INJ 100 ML IV PRN (04:45)
[2016-11-17] MEDS: INSULIN ASPART SUPPLEMENTAL SCALE SQ SCH ×4 (05:35→23:53)
[2016-11-17 08:55] LABS: AUTOMATED NEUTROPHIL # 15.2 TH/MM3 (1.8-7.7); BASOPHIL % 0.2 % (0.0-2.0); HEMATOCRIT 25.3 % (35.0-46.0); HEMO FLAGS DIFF FINAL; LYMPH % 6.9 % (9.0-44.0); LYMPHOCYTE # 1.2 TH/MM3 (1.0-4.8); MEAN CELL VOLUME 89.9 FL (80.0-100.0); MEAN CORPUSCULAR HEMOGLOBIN 28.9 PG (27.0-34.0); MEAN CORPUSCULAR HGB CONC 32.2 % (32.0-36.0); MONO % 6.9 % (0.0-8.0); PLATELET COUNT 342 TH/MM3 (150-450); RED BLOOD COUNT 2.82 MIL/MM3 (4.00-5.30); RED CELL DISTRIBUTION WIDTH 19.6 % (11.6-17.2); WHITE BLOOD COUNT 17.6 TH/MM3 (4.0-11.0)
[2016-11-17] MEDS ORDERED: POTASSIUM CHLORIDE 20 MEQ PWD PACKET OG-TUBE ONE (09:00)
[2016-11-17] MEDS ORDERED: FUROSEMIDE 40 MG/4 ML VIAL IV PUSH ONE (09:00)
[2016-11-17 09:14] LABS: ALKALINE PHOSPHATASE 90 U/L (45-117); ALT (GPT) 58 U/L (10-53); ANION GAP 7 MEQ/L (5-15); AST (GOT) 50 U/L (15-37); BICARBONATE 27.1 MEQ/L (21.0-32.0); BLOOD UREA NITROGEN 74 MG/DL (7-18); CHLORIDE 112 MEQ/L (98-107); GLOMERULAR FILTRATION RATE 22 ML/MIN (>89); POTASSIUM 4.3 MEQ/L (3.5-5.1); SODIUM (NA) 146 MEQ/L (136-145); TOTAL BILIRUBIN ADULT 0.2 MG/DL (0.2-1.0)
[2016-11-17] MEDS: DOCUSATE SODIUM 50 MG/SENNA 8.6 MG TAB PO SCH ×2 (09:29→20:38)
[2016-11-17] MEDS: LORATADINE 10 MG TAB PO SCH (09:29)
[2016-11-17] MEDS: methylPREDNISolone SOD SUCC 40 MG/1 ML VIAL IV PUSH SCH ×2 (09:29→20:38)
[2016-11-17] MEDS: valACYclovir HCL 500 MG TAB PO SCH ×2 (09:30→20:38)
[2016-11-17] MEDS: AMIODARONE 200 MG TAB PO SCH (09:30)
[2016-11-17] MEDS: SODIUM CHLORIDE 0.9% FLUSH 10 ML FLUSH IV FLUSH SCH ×2 (09:31→20:37)
[2016-11-17] MEDS: FUROSEMIDE 20 MG/2 ML VIAL IV PUSH SCH (09:31)
[2016-11-17] MEDS: VENLAFAXINE HCL 25 MG TAB PO SCH ×2 (09:36→20:38)
--- NOTE | 2016-11-17 09:41 | HHI.IDPN ---
Subjective Subjective Remarks is a 71 y/o CF with PMHx of COPD, CAD, HTN was admitted through emergency room. Patients is in the room and reports she had a CABG triple vessel with major (> 90 percent blockages). She remained intubated for few days post surgery. She improved and drains removed. Overall did ok but when found to have post operative pleural effusions underwent thoracentesis. After tap she did fairly ok and was discharged home. On her way to [place] she started feeling short of breath while they drove here. She was seen in the ED. CT chest showed evidence of bilateral patchy pulmonary infiltrates consistent with either pneumonia and/or pulmonary edema. She was initially admitted to [facility] and due to decline in her respiratory status (hypoxia , tachypnea and diaphoresis) she was intubated. At the time of my evaluation, she is in IMC. Currently intubated with 50% FiO2, PEEP 7. secretions small white thin. UO ok. On vasopressin, weaned off Levophed earlier. ID has been consulted for septic shock secondary to Pneumonia in a CABG patient. Overnight events reviewed. Remains intubated. Vent FIO2 50%, PEEP 7.On CPAP trial today. Receiving diuretics. Not much secretions: white, thin, small to moderate. No fevers No rash No diarrhea. sputum not sent yet. UO ok. Antibiotics Azithro Zyvox Cefepime Lines Line sites with no e.o infection Past Medical History reviewed Allergies: Coded Allergies: hydromorphone (Verified Allergy, Intermediate, hallucinations, 11/10/16) morphine (Verified Allergy, Intermediate, hallucinations, 11/10/16) Objective . Vital Signs Date Time Temp Pulse Resp B/P (MAP) Pulse Ox O2 Delivery O2 Flow Rate FiO2 11/17/16 09:17 40 11/17/16 08:02 40 11/17/16 08:02 93 40 11/17/16 08:00 40 11/17/16 06:00 81 11/17/16 04:38 92 45 11/17/16 04:00 45 11/17/16 04:00 83 11/17/16 04:00 98.1 83 17 139/75 (96) 91 130/69 (89) 11/17/16 02:00 83 11/17/16 00:33 90 45 11/17/16 00:00 45 11/17/16 00:00 82 11/17/16 00:00 98.1 82 18 130/74 (92) 91 141/75 (97) 11/16/16 22:00 85 11/16/16 20:28 94 45 11/16/16 20:00 45 11/16/16 20:00 82 11/16/16 20:00 98.6 82 25 140/73 (95) 94 11/16/16 18:00 83 11/16/16 16:00 84 11/16/16 16:00 84 21 128/68 (88) 91 11/16/16 16:00 45 11/16/16 16:00 84 11/16/16 15:55 92 45 11/16/16 14:00 87 11/16/16 13:00 85 11/16/16 12:30 86 11/16/16 12:00 84 11/16/16 12:00 98.2 11/16/16 12:00 45 11/16/16 11:59 94 45 11/16/16 11:30 80 11/16/16 11:00 80 11/16/16 11:00 80 18 116/69 (85) 93 128/68 (88) 11/16/16 10:30 79 25 120/61 (80) 95 134/71 (92) 11/16/16 10:30 79 11/16/16 10:21 45 11/16/16 10:00 77 18 115/74 (88) 95 125/67 (86) 11/16/16 10:00 77 11/17/16 11/17/16 11/18/16 15:00 23:00 07:00 Intake Total 226 ml Balance 226 ml IV Total 20 ml Tube Feeding 146 ml Other 60 ml . Laboratory Tests Test 11/16/16 02:45 11/17/16 07:43 White Blood Count 18.9 TH/MM3 17.6 TH/MM3 Red Blood Count 2.72 MIL/MM3 2.82 MIL/MM3 Hemoglobin 7.8 GM/DL 8.1 GM/DL Hematocrit 24.3 % 25.3 % Mean Corpuscular Volume 89.5 FL 89.9 FL Mean Corpuscular Hemoglobin 28.8 PG 28.9 PG Mean Corpuscular Hemoglobin Concent 32.1 % 32.2 % Red Cell Distribution Width 18.9 % 19.6 % Platelet Count 394 TH/MM3 342 TH/MM3 Mean Platelet Volume 8.1 FL 8.2 FL CBC Comment AUTO DIFF DIFF FINAL Differential Total Cells Counted 100 Neutrophils % (Manual) 89 % Band Neutrophils % 6 % Lymphocytes % 3 % Monocytes % 2 % Neutrophils # (Manual) 18.0 TH/MM3 Differential Comment FINAL DIFF MANUAL Ovalocytes 1+ Acanthocytes OCC Neutrophils (%) (Auto) 86.0 % Lymphocytes (%) (Auto) 6.9 % Monocytes (%) (Auto) 6.9 % Eosinophils (%) (Auto) 0.0 % Basophils (%) (Auto) 0.2 % Neutrophils # (Auto) 15.2 TH/MM3 Lymphocytes # (Auto) 1.2 TH/MM3 Monocytes # (Auto) 1.2 TH/MM3 Eosinophils # (Auto) 0.0 TH/MM3 Basophils # (Auto) 0.0 TH/MM3 Laboratory Tests Test 11/16/16 02:45 11/17/16 07:43 Blood Urea Nitrogen 56 MG/DL 74 MG/DL Creatinine 1.68 MG/DL 2.16 MG/DL Random Glucose 154 MG/DL 125 MG/DL Total Protein 5.8 GM/DL 6.2 GM/DL Albumin 1.9 GM/DL 2.0 GM/DL Calcium Level 8.4 MG/DL 9.0 MG/DL Phosphorus Level 3.2 MG/DL 2.8 MG/DL Alkaline Phosphatase 88 U/L 90 U/L Aspartate Amino Transf (AST/SGOT) 51 U/L 50 U/L Alanine Aminotransferase (ALT/SGPT) 50 U/L 58 U/L Total Bilirubin 0.2 MG/DL 0.2 MG/DL Sodium Level 145 MEQ/L 146 MEQ/L Potassium Level 3.9 MEQ/L 4.3 MEQ/L Chloride Level 111 MEQ/L 112 MEQ/L Carbon Dioxide Level 27.3 MEQ/L 27.1 MEQ/L Anion Gap 7 MEQ/L 7 MEQ/L Estimat Glomerular Filtration Rate 30 ML/MIN 22 ML/MIN Magnesium Level 3.0 MG/DL Microbiology Date/Time Source Procedure Growth Status 11/15/16 09:00 Sputum Endotracheal Gram Stain - Final Complete 11/15/16 09:00 Sputum Endotracheal Sputum Culture - Final HEAVY GROWTH NORMAL RESPIRATORY MANJULA Complete 11/15/16 01:20 Urine Random Urine Legionella Antigen - Final PRESUMPTIVE NEGATIVE FOR LEGIONELLA P... Complete 11/15/16 01:20 Urine Random Urine Streptococcus pneumoniae Antigen (M - Final PRESUMPTIVE NEGATIVE FOR STREPTOCOCCU... Complete Imaging Last Impressions Chest X-Ray 11/15/16 0600 Signed Impressions: Service Date/Time: Tuesday, November 15, 2016 05:05 - CONCLUSION: No significant change. Issa Kumar MD Shoulder X-Ray 11/10/16 0000 Signed Impressions: Service Date/Time: October 13:50 - CONCLUSION: 1. Old right humeral neck fracture. 2. No acute fracture or dislocation. 3. Course interstitial opacities throughout the visualized right upper lobe. Crispin Ramos MD Humerus X-Ray 11/10/16 0000 Signed Impressions: Service Date/Time: October 13:53 - CONCLUSION: 1. Old right humeral neck fracture. 2. No acute fracture or dislocation. Crispin Ramos MD CT Angiography 11/10/16 0000 Signed Impressions: Service Date/Time: October 14:35 - CONCLUSION: 1. No evidence of pulmonary embolus. 2. Severe extensive bilateral pulmonary parenchymal opacity with a crazy paving appearance. Differential diagnosis includes pulmonary edema, pulmonary alveolar stenosis, acute interstitial pneumonia, and eosinophilic pneumonia. 3. Small pleural effusions left greater than right. 4. Mildly enlarged mediastinal lymph nodes likely reactive. Adolph Root MD Physical Exam GENERAL: Obese, well-developed patient, in no apparent distress. SKIN: No rashes, ecchymoses or lesions. Cool and dry. HEAD: Atraumatic. Normocephalic. No temporal or scalp tenderness. EYES: Pupils equal round and reactive. Extraocular motions intact. No scleral icterus. No injection or drainage. ENT: Nose without bleeding, purulent drainage or septal hematoma. Throat without erythema, tonsillar hypertrophy or exudate. Uvula midline. Airway patent. NECK: Trachea midline. Supple, nontender, no meningeal signs. Large neck. CARDIOVASCULAR: HS audible. No murmur appreciated. Chest wall exam: surgical site with no e.o infection. RESPIRATORY: Clear to auscultation. Breath sounds equal bilaterally. No wheezes , rales, or rhonchi. GASTROINTESTINAL: Abdomen soft, non-tender, nondistended. Drain sites in upper abdomen normal. MUSCULOSKELETAL: Extremities without clubbing, cyanosis, or edema. No joint tenderness, effusion, or edema noted. No calf tenderness. Negative Homans sign bilaterally. NEUROLOGICAL: Awake and alert. Gross examination normal. Psych could not be assessed. IV line sites with no e.o infection. Assessment & Plan Remarks Septic Shock with Multiorgan dysfunction syndrome. Pneumonia recent hospitalization at risk for MDRO. Recent CABG triple vessel 7 weeks back. Acute renal failure: sepsis, medication induced. Hyperglycemia, no known DM, A1C 5.8 Obesity BMI 27.6 kg/m2 Recs: DC Cefepime IV DC Zyvox no e/o MRSA. DC Azithro Start and continue Unasyn for few more days. Once extubated will likely stop all antibiotics. Negative legionella and pneumococcal antigen. Follow cultures Follow clinically. d/w LAZARO SANTIAGO and RN. Consuelo Starkey MD Nov 17, 2016 09:41
[2016-11-17] MEDS: AMPICILLIN-SULBACTAM INJ 1,500 MG in SODIUM CHLORIDE 0.9% INJ 100 ML IV SCH ×3 (12:35→22:22)
--- NOTE | 2016-11-17 12:45 | HHI.CCPN ---
Subjective Remarks/Hospital Course 11/13: 71-year-old female with a history of COPD, coronary artery disease and hypertension who was admitted through the emergency room with complaints of progressive shortness of breath over the past 3 to 4 days. The patient has a history of CABG x3 approximately 7 weeks ago in [place], [place]. She did have some postoperative pleural effusions which had to be tapped. She then drove from [place] down here and she was experiencing increasing dyspnea. A CT scan of the chest showed evidence of bilateral patchy pulmonary infiltrates consistent with either pneumonia and/or pulmonary edema. At night November 12 her respiratory status dramatically declined, patient became hypoxemic and tachypneic and diaphoretic requiring endotracheal intubation. 11/14: Remains sedated, orally intubated on mechanical ventilation. On low dose vasopressin and Levophed for pressor support. 11/15: Remains sedated, orally intubated on mechanical ventilation. Failed CPAP trial yesterday within 5 minutes. Off Levophed. Low-dose vasopressin being titrated down. Tolerating tube feeds. Hemoglobin drop noted however significant positive fluid balance. 11/16: Remains sedated, orally intubated on mechanical ventilation. Tolerating tube feeds. Off pressors. Daily C Pap trials. 11/17: Remains sedated, orally intubated on mechanical ventilation. Tolerating tube feeds. Failed C Pap trial yesterday. Objective Vital Signs Date Time Temp Pulse Resp B/P (MAP) Pulse Ox O2 Delivery O2 Flow Rate FiO2 11/17/16 12:00 40 11/17/16 12:00 98.8 89 16 152/83 (106) 96 147/89 (108) Intake and Output 11/17/16 11/17/16 11/18/16 08:00 16:00 00:00 Intake Total 1203 ml Output Total 625 ml Balance 578 ml Result Diagram: 11/17/16 0743 11/17/16 0743 Other Results Microbiology Date/Time Source Procedure Growth Status 11/15/16 09:00 Sputum Endotracheal Gram Stain - Final Complete 11/15/16 09:00 Sputum Endotracheal Sputum Culture - Final HEAVY GROWTH NORMAL RESPIRATORY MANJULA Complete 11/15/16 01:20 Urine Random Urine Legionella Antigen - Final PRESUMPTIVE NEGATIVE FOR LEGIONELLA P... Complete 11/15/16 01:20 Urine Random Urine Streptococcus pneumoniae Antigen (M - Final PRESUMPTIVE NEGATIVE FOR STREPTOCOCCU... Complete Imaging Last Impressions Chest X-Ray 11/14/16 0000 Signed Impressions: Service Date/Time: Monday, November 14, 2016 04:35 - CONCLUSION: Improved bilateral airspace disease. New nasogastric tube, tip in the stomach. Other lines and tubes unchanged. Issa Kumar MD Shoulder X-Ray 11/10/16 0000 Signed Impressions: Service Date/Time: October 13:50 - CONCLUSION: 1. Old right humeral neck fracture. 2. No acute fracture or dislocation. 3. Course interstitial opacities throughout the visualized right upper lobe. Crispin Ramos MD Humerus X-Ray 11/10/16 0000 Signed Impressions: Service Date/Time: October 13:53 - CONCLUSION: 1. Old right humeral neck fracture. 2. No acute fracture or dislocation. Crispin Ramos MD CT Angiography 11/10/16 0000 Signed Impressions: Service Date/Time: October 14:35 - CONCLUSION: 1. No evidence of pulmonary embolus. 2. Severe extensive bilateral pulmonary parenchymal opacity with a crazy paving appearance. Differential diagnosis includes pulmonary edema, pulmonary alveolar stenosis, acute interstitial pneumonia, and eosinophilic pneumonia. 3. Small pleural effusions left greater than right. 4. Mildly enlarged mediastinal lymph nodes likely reactive. Adolph Root MD Objective Remarks GENERAL: Sedated and intubated elderly woman SKIN: Warm and dry. HEAD: Normocephalic. EYES: Pallor present. No scleral icterus. No injection or drainage. NECK: Supple, trachea midline. No JVD or lymphadenopathy. CARDIOVASCULAR: Regular rate and rhythm without murmurs, gallops, or rubs. RESPIRATORY: Breath sounds equal bilaterally. No accessory muscle use. GASTROINTESTINAL: Abdomen soft, non-tender, nondistended. MUSCULOSKELETAL: No cyanosis. Trace edema. BACK: Nontender without obvious deformity. NEURO: Sedated, arousable, orally intubated on mechanical ventilation Urinary Catheter: Yes Assessment to: Continue Barraza insert reason: Measure Accurate Output A/P Assessment and Plan Acute Respiratory failure on [facility] ventilation - Bilateral patchy infiltrates - Pneumonia versus pulmonary edema - Mechanical ventilation - CXR and ABG daily - Broad-spectrum antibiotics - Follow-up cultures - Gentle diuresis Septic shock - Central line and a line in place -OffLevophed/low-dose vasopressin gtt. - Decreased IV fluids in view of significant positive fluid balance. Diurese with lasix to mobilize fluid. COPD - DuoNeb scheduled and when necessary, Solumedrol Coronary artery disease - Status post CABG - Troponins negative - Cardiology input appreciated - Echo with normal LV function. Paroxysmal atrial fibrillation - Rate controlled - Amiodarone - Eliquis held on 11/15 due to drop in Hgb. Will start heparin for full anticoagulation without bolus. CONCHITA - Strict intake output, monitor and replete electro lites, follow BUN/ creatinine. On diuretics to attempt negative fluid balance. DVT GI prophylaxis - Eliquis held 11/15, will consider lovenox for DVT prophylaxis vs resuming full anticoagulation if Hgb remains stable with no e/o bleeding. - Pepcid - Teds SCDs Discussed with patient's at bedside on 11/17 and updated them regarding current clinical status and plan of care and they voiced understanding and were agreeable. Critical Care: The total critical care time was 35 minutes. Time to perform other separately billable procedures was not included in the critical care time. Ketan Starkey MD Nov 17, 2016 12:45
[2016-11-17] MEDS ORDERED: HEPARIN SODIUM - IV 10,000 UNITS/10 ML VIAL IV PUSH ONE (13:15)
[2016-11-17] MEDS: HEPARIN-D5W 25,000 U/250 ML 250 ML IV PRN (14:43)
[2016-11-17 16:11] LABS: HEMATOCRIT 26.5 % (35.0-46.0); MEAN CELL VOLUME 89.7 FL (80.0-100.0); MEAN CORPUSCULAR HEMOGLOBIN 27.8 PG (27.0-34.0); PLATELET COUNT 349 TH/MM3 (150-450); RED BLOOD COUNT 2.96 MIL/MM3 (4.00-5.30); RED CELL DISTRIBUTION WIDTH 19.8 % (11.6-17.2); REVIEW FLAG FINAL; WHITE BLOOD COUNT 17.8 TH/MM3 (4.0-11.0)
[2016-11-17 16:25] LABS: INTERNATIONAL NORMALIZED RATIO 1.1 RATIO; PROTHROMBIN TIME - PATIENT 12.1 SEC (9.8-11.6)
--- NOTE | 2016-11-17 17:56 | PD.CARD.PN ---
Subjective Subjective Remarks Intubated, sedated, not ready for extubation Objective Medications Administered Medications Medications (Trade) Dose Ordered Sig/Vida Route PRN Reason Start Time Stop Time Status Last Admin Dose Admin Valacyclovir HCl (Valtrex) 500 mg Q12HR PO 11/10/16 12:00 11/17/16 09:30 Apixaban (Eliquis) 5 mg BID PO 11/10/16 21:00 Future Hold 11/15/16 08:20 Propranolol HCl (Inderal) 10 mg Q12HR PO 11/10/16 12:00 Future Hold 11/13/16 08:40 Atorvastatin Calcium (Lipitor) 80 mg HS PO 11/10/16 21:00 11/16/16 21:19 Venlafaxine HCl (Effexor) 50 mg BID PO 11/10/16 21:00 11/17/16 09:36 Amiodarone HCl (Cordarone) 200 mg DAILY PO 11/10/16 11:00 11/17/16 09:30 Loratadine (Claritin) 10 mg DAILY PO 11/10/16 12:00 11/17/16 09:29 Albuterol/ Ipratropium (Duoneb Neb) 1 ampule Q4HR NEB PRN INH SHORTNESS OF BREATH 11/10/16 12:00 11/13/16 08:12 Ondansetron HCl (Zofran Inj) 4 mg Q6HR PRN IV PUSH NAUSEA 11/10/16 12:00 11/10/16 20:31 Guaifenesin/ Dextromethorphan (Robitussin Dm 200-20 Mg/10 ml Liq) 10 ml Q4HR PRN PO COUGH 11/10/16 12:00 11/12/16 09:09 Sodium Chloride (NS Flush) 2 ml BID IV FLUSH 11/10/16 21:00 11/17/16 09:31 Acetaminophen (Tylenol) 650 mg Q4H PRN PO TEMP > 100.4 11/10/16 10:00 11/11/16 08:10 Oxycodone/ Acetaminophen (Percocet 5-325 Mg) 1 tab Q6H PRN PO PAIN SCALE 3 TO 5 11/10/16 12:00 11/10/16 21:47 Oxycodone/ Acetaminophen (Percocet 10-325 Mg) 1 tab Q6H PRN PO PAIN SCALE 6 TO 10 11/10/16 12:00 11/12/16 09:09 Senna/Docusate Sodium (Hanna-Colace) 1 tab BID PO 11/10/16 21:00 11/17/16 09:29 Sennosides (Senokot) 17.2 mg Q12HR PRN PO MODERATE - SEVERE CONSTIPATION 11/10/16 12:00 11/15/16 08:20 Bisacodyl (Dulcolax Supp) 10 mg DAILY PRN RECTAL SEVERE CONSITIPATION 11/10/16 12:00 11/15/16 08:21 Lactulose (Lactulose Liq) 30 ml DAILY PRN PO SEVERE CONSITIPATION 11/10/16 12:00 11/15/16 08:19 Tiotropium [place] (Spiriva Inh) 18 mcg DAILY INH 11/11/16 17:00 Future Hold 11/12/16 08:47 Alprazolam (Xanax) 0.5 mg HS PO 11/12/16 21:00 11/16/16 21:19 Fentanyl Citrate 250 ml @ 5 mls/hr TITRATE PRN IV SEDATION 11/13/16 01:30 11/16/16 05:16 Midazolam HCl 100 ml @ 2 mls/hr TITRATE PRN IV SEDATION 11/13/16 01:30 11/17/16 04:45 Norepinephrine Bitartrate 250 ml @ 7.5 mls/hr TITRATE PRN IV Maintain MAP > 65 mmHg 11/13/16 03:00 11/13/16 08:41 Sodium Phosphate 30 mmol/Sodium Chloride 250 ml @ 42 mls/hr UNSCH PRN IV For Phosphorus < 2.5 mg/dL 11/13/16 09:45 11/15/16 15:02 Vasopressin 40 units/Dextrose 100 ml @ 4.5 mls/hr [id number] IV 11/13/16 09:38 11/14/16 08:43 Sodium Chloride 1,000 ml @ 20 mls/hr Q24H IV 11/13/16 09:45 11/14/16 08:30 Insulin Aspart (NovoLOG SUPPLEMENTAL SCALE) 1 Q6HR SQ 11/14/16 15:00 11/17/16 17:33 Furosemide (Lasix Inj) 20 mg DAILY IV PUSH 11/16/16 09:00 11/17/16 09:31 Methylprednisolone Sodium Succinate (SoluMEDROL INJ) 20 mg BID IV PUSH 11/16/16 21:00 11/17/16 09:29 Ampicillin Sodium/ Sulbactam Sodium 1500 mg/Sodium Chloride 100 ml @ 200 mls/hr Q6H IV 11/17/16 11:00 11/17/16 16:26 Heparin Sodium/ Dextrose 250 ml @ 10 mls/hr TITRATE PRN IV Coagulation management 11/17/16 13:15 11/17/16 14:43 Vital Signs / I&O Vital Signs Date Time Temp Pulse Resp B/P (MAP) Pulse Ox O2 Delivery O2 Flow Rate FiO2 11/17/16 16:00 98.3 87 18 139/82 (101) 93 154/85 (108) 11/17/16 16:00 87 11/17/16 16:00 40 11/17/16 15:15 96 50 11/17/16 14:00 85 11/17/16 12:00 40 11/17/16 12:00 98.8 89 16 152/83 (106) 96 147/89 (108) 11/17/16 12:00 89 11/17/16 11:36 95 50 11/17/16 11:05 40 11/17/16 10:00 92 11/17/16 09:17 40 11/17/16 08:02 40 11/17/16 08:02 93 40 11/17/16 08:00 81 11/17/16 08:00 98.3 89 25 146/85 (105) 91 164/88 (113) 11/17/16 08:00 40 11/17/16 06:00 81 11/17/16 04:38 92 45 11/17/16 04:00 45 11/17/16 04:00 83 11/17/16 04:00 98.1 83 17 139/75 (96) 91 130/69 (89) 11/17/16 02:00 83 11/17/16 00:33 90 45 11/17/16 00:00 45 11/17/16 00:00 82 11/17/16 00:00 98.1 82 18 130/74 (92) 91 141/75 (97) 11/16/16 22:00 85 11/16/16 20:28 94 45 11/16/16 20:00 45 11/16/16 20:00 82 11/16/16 20:00 98.6 82 25 140/73 (95) 94 11/16/16 18:00 83 I/O 11/16/16 11/16/16 11/16/16 11/17/16 11/17/16 11/17/16 07:00 15:00 23:00 07:00 15:00 23:00 Intake Total 1236.0 ml 300 ml 1349 ml 977 ml 226 ml 100 ml Output Total 450 ml 800 ml 625 ml Balance 786.0 ml 300 ml 549 ml 352 ml 226 ml 100 ml IV Total 244.0 ml 300 ml 300 ml 200 ml 20 ml 100 ml Tube Feeding 872 ml 809 ml 777 ml 146 ml Other 120 ml 240 ml 60 ml Output Urine Total 450 ml 800 ml 425 ml Stool Total 200 ml # Bowel Movements 2 1 Physical Exam GENERAL: Intubated, sedated SKIN: Warm and dry. HEAD: Normocephalic. EYES: No scleral icterus. No injection or drainage. NECK: Supple, trachea midline. No JVD or lymphadenopathy. CARDIOVASCULAR: Regular rate and rhythm without murmurs, gallops, or rubs. RESPIRATORY: Breath sounds equal bilaterally, coarse. GASTROINTESTINAL: Abdomen soft, non-tender, nondistended. MUSCULOSKELETAL: No cyanosis, or edema. Laboratory Laboratory Tests Test 11/17/16 07:43 11/17/16 14:30 White Blood Count 17.6 TH/MM3 17.8 TH/MM3 Red Blood Count 2.82 MIL/MM3 2.96 MIL/MM3 Hemoglobin 8.1 GM/DL 8.2 GM/DL Hematocrit 25.3 % 26.5 % Mean Corpuscular Volume 89.9 FL 89.7 FL Mean Corpuscular Hemoglobin 28.9 PG 27.8 PG Mean Corpuscular Hemoglobin Concent 32.2 % 31.0 % Red Cell Distribution Width 19.6 % 19.8 % Platelet Count 342 TH/MM3 349 TH/MM3 Mean Platelet Volume 8.2 FL 8.0 FL Neutrophils (%) (Auto) 86.0 % Lymphocytes (%) (Auto) 6.9 % Monocytes (%) (Auto) 6.9 % Eosinophils (%) (Auto) 0.0 % Basophils (%) (Auto) 0.2 % Neutrophils # (Auto) 15.2 TH/MM3 Lymphocytes # (Auto) 1.2 TH/MM3 Monocytes # (Auto) 1.2 TH/MM3 Eosinophils # (Auto) 0.0 TH/MM3 Basophils # (Auto) 0.0 TH/MM3 CBC Comment DIFF FINAL Differential Comment Blood Urea Nitrogen 74 MG/DL Creatinine 2.16 MG/DL Random Glucose 125 MG/DL Total Protein 6.2 GM/DL Albumin 2.0 GM/DL Calcium Level 9.0 MG/DL Phosphorus Level 2.8 MG/DL Magnesium Level 3.0 MG/DL Alkaline Phosphatase 90 U/L Aspartate Amino Transf (AST/SGOT) 50 U/L Alanine Aminotransferase (ALT/SGPT) 58 U/L Total Bilirubin 0.2 MG/DL Sodium Level 146 MEQ/L Potassium Level 4.3 MEQ/L Chloride Level 112 MEQ/L Carbon Dioxide Level 27.1 MEQ/L Anion Gap 7 MEQ/L Estimat Glomerular Filtration Rate 22 ML/MIN Prothrombin Time 12.1 SEC Prothromb Time International Ratio 1.1 RATIO Activated Partial Thromboplast Time 24.0 SEC Assessment and Plan Problem List: (1) Respiratory failure ICD Codes: J96.90 - Respiratory failure, unspecified, unspecified whether with hypoxia or hypercapnia (2) Septic shock ICD Codes: A41.9 - Sepsis, unspecified organism; R65.21 - Severe sepsis with septic shock (3) Bilateral pneumonia ICD Codes: J18.9 - Pneumonia, unspecified organism Status: Acute (4) Coronary artery disease ICD Codes: I25.10 - Atherosclerotic heart disease of [place] coronary artery without angina pectoris (5) S/P CABG x 3 ICD Codes: Z95.1 - Presence of aortocoronary bypass graft (6) Atrial fibrillation ICD Codes: I48.91 - Unspecified atrial fibrillation Assessment and Plan No new cardiac issues. Tele with no arrhythmias. Continue vent support. Off pressors. Wean vent as tolerated. Continue antibiotic tx as per ID service. Echo w nl LV syst fx. Continue ICU care. Problem Qualifiers (1) Bilateral pneumonia: Qualified Codes: J18.9 - Pneumonia, unspecified organism Daniella Simpsno MD Nov 17, 2016 17:56
--- NOTE | 2016-11-17 19:28 | HHI.PR ---
Subjective Remarks Failed CPAP today and now sedated on the vent. Now on 40 % FIO2. CXR shows Bilateral Infiltrates. Restless on the vent . Objective Vital Signs Date Time Temp Pulse Resp B/P (MAP) Pulse Ox O2 Delivery O2 Flow Rate FiO2 11/17/16 18:00 83 11/17/16 16:00 98.3 87 18 139/82 (101) 93 154/85 (108) 11/17/16 16:00 87 11/17/16 16:00 40 11/17/16 15:15 96 50 11/17/16 14:00 85 11/17/16 12:00 40 11/17/16 12:00 98.8 89 16 152/83 (106) 96 147/89 (108) 11/17/16 12:00 89 11/17/16 11:36 95 50 11/17/16 11:05 40 11/17/16 10:00 92 11/17/16 09:17 40 11/17/16 08:02 40 11/17/16 08:02 93 40 11/17/16 08:00 81 11/17/16 08:00 98.3 89 25 146/85 (105) 91 164/88 (113) 11/17/16 08:00 40 11/17/16 06:00 81 11/17/16 04:38 92 45 11/17/16 04:00 45 11/17/16 04:00 83 11/17/16 04:00 98.1 83 17 139/75 (96) 91 130/69 (89) 11/17/16 02:00 83 11/17/16 00:33 90 45 11/17/16 00:00 45 11/17/16 00:00 82 11/17/16 00:00 98.1 82 18 130/74 (92) 91 141/75 (97) 11/16/16 22:00 85 11/16/16 20:28 94 45 11/16/16 20:00 45 11/16/16 20:00 82 11/16/16 20:00 98.6 82 25 140/73 (95) 94 I/O 11/16/16 11/16/16 11/16/16 11/17/16 11/17/16 11/17/16 07:00 15:00 23:00 07:00 15:00 23:00 Intake Total 1236.0 ml 300 ml 1349 ml 977 ml 226 ml 924 ml Output Total 450 ml 800 ml 625 ml 1950 ml Balance 786.0 ml 300 ml 549 ml 352 ml 226 ml -1026 ml IV Total 244.0 ml 300 ml 300 ml 200 ml 20 ml 278 ml Tube Feeding 872 ml 809 ml 777 ml 146 ml 406 ml Other 120 ml 240 ml 60 ml 240 ml Output Urine Total 450 ml 800 ml 425 ml 1750 ml Stool Total 200 ml 200 ml # Bowel Movements 2 1 1 Result Diagram: 11/17/16 1430 11/17/16 0743 Objective Remarks GENERAL: This moderately obese elderly lady intubated and on vent support. HEENT: Head normocephalic. Pupils are reactive and equal. Throat is clear . NECK: Supple. No bruits or thyroid enlargement or lymphadenopathy. CHEST: Distant breath sounds with occ wheezes throughout both lung franco. Occ Crackles at bases HEART: The heart sounds are irregular S1-S2 with no murmur. No S3, gallop. ABDOMEN: The abdomen is soft, protuberant without masses or organomegaly or tenderness. Bowel sounds are active. EXTREMITIES: No lesions. 1 + edema. NEURO: Reflexes are 1+ .Sedated. SKIN: No lesions observed. Assessment and Plan Assessment and Plan IMPRESSION 1. Bilateral pneumonia versus pulmonary edema. 2. Atrial fibrillation and ASHD. 3. History of coronary artery disease with CABG x3. 4. Pleural effusions. 5. COPD with emphysema and acute exacerbation. 6. History of DVT. 7. Respiratory Failure Plan : 1. Will wean Fio2 to Keep sat >90. 2. Wean sedation 3. Continue antibiotics . per ID 4. CXR,CBC BMP in am 5. Solumedrol 20 mg IV BID. 6. Nebs qid , Duoneb 7. Rpt CPAP trial in am and ABG. Ursula Schwab MD Nov 17, 2016 19:28
[2016-11-17] MEDS: RESP: ALBUTEROL 2.5 MG/IPRATROPIUM 0.5 MG NEB (PRN) INH (20:32)
[2016-11-17] MEDS: ATORVASTATIN 80 MG TAB PO SCH (20:38)
[2016-11-17] MEDS: ALPRAZolam 0.5 MG TAB PO SCH (20:38)
[2016-11-17 21:50] LABS: APTT (PATIENT) 84.9 SEC (24.3-30.1)
[2016-11-17] MEDS: VASOPRESSIN INJ 40 UNITS in DEXTROSE 5% IN WATER 100ML INJ 98 ML IV SCH ×2 (23:52)
[2016-11-17] MEDS: fentaNYL DRIP 250 ML IV PRN (23:57)
[2016-11-18] VITALS (22 sets, daily range): BP systolic 100–170; BP diastolic 56–94; PULSE 76–93; RESP 12–20; TEMP 98.1–99.1; O2SAT 92–99
[2016-11-18] MEDS: MIDAZOLAM 100 MG/100 ML INJ 100 ML IV PRN (02:38)
[2016-11-18] MEDS: AMPICILLIN-SULBACTAM INJ 1,500 MG in SODIUM CHLORIDE 0.9% INJ 100 ML IV SCH ×4 (04:29→23:48)
[2016-11-18] MEDS: SODIUM CHLOR 0.9% 1000 ML INJ 1,000 ML IV SCH ×2 (04:29→09:08)
[2016-11-18] MEDS: INSULIN ASPART SUPPLEMENTAL SCALE SQ SCH ×3 (05:56→17:14)
[2016-11-18 06:39] LABS: APTT (PATIENT) 56.5 SEC (24.3-30.1)
[2016-11-18 08:17] LABS: AUTOMATED NEUTROPHIL # 15.9 TH/MM3 (1.8-7.7); BASOPHIL % 0.2 % (0.0-2.0); EOSINOPHIL % 0.1 % (0.0-4.0); HEMATOCRIT 24.5 % (35.0-46.0); HEMO FLAGS DIFF FINAL; LYMPH % 6.9 % (9.0-44.0); LYMPHOCYTE # 1.3 TH/MM3 (1.0-4.8); MEAN CELL VOLUME 90.5 FL (80.0-100.0); MEAN CORPUSCULAR HEMOGLOBIN 28.4 PG (27.0-34.0); MEAN CORPUSCULAR HGB CONC 31.3 % (32.0-36.0); MONO % 6.4 % (0.0-8.0); NEUT % 86.4 % (16.0-70.0); PLATELET COUNT 316 TH/MM3 (150-450); RED BLOOD COUNT 2.71 MIL/MM3 (4.00-5.30); RED CELL DISTRIBUTION WIDTH 19.2 % (11.6-17.2); WHITE BLOOD COUNT 18.4 TH/MM3 (4.0-11.0)
[2016-11-18 08:37] LABS: ALKALINE PHOSPHATASE 88 U/L (45-117); ALT (GPT) 68 U/L (10-53); ANION GAP 7 MEQ/L (5-15); AST (GOT) 51 U/L (15-37); BICARBONATE 28.9 MEQ/L (21.0-32.0); BLOOD UREA NITROGEN 91 MG/DL (7-18); CHLORIDE 113 MEQ/L (98-107); GLOMERULAR FILTRATION RATE 18 ML/MIN (>89); MAGNESIUM 3.2 MG/DL (1.5-2.5); POTASSIUM 4.9 MEQ/L (3.5-5.1); SODIUM (NA) 149 MEQ/L (136-145); TOTAL BILIRUBIN ADULT 0.2 MG/DL (0.2-1.0)
[2016-11-18] MEDS: SODIUM CHLORIDE 0.9% FLUSH 10 ML FLUSH IV FLUSH SCH ×2 (08:58→21:14)
[2016-11-18] MEDS: valACYclovir HCL 500 MG TAB PO SCH ×2 (08:58→21:13)
[2016-11-18] MEDS: DOCUSATE SODIUM 50 MG/SENNA 8.6 MG TAB PO SCH ×2 (08:58→21:13)
[2016-11-18] MEDS: methylPREDNISolone SOD SUCC 40 MG/1 ML VIAL IV PUSH SCH ×2 (08:58→21:14)
[2016-11-18] MEDS: LORATADINE 10 MG TAB PO SCH (08:58)
[2016-11-18] MEDS: VENLAFAXINE HCL 25 MG TAB PO SCH ×2 (08:58→21:13)
[2016-11-18] MEDS: FUROSEMIDE 20 MG/2 ML VIAL IV PUSH SCH (09:00)
[2016-11-18] MEDS: AMIODARONE 200 MG TAB PO SCH (09:06)
[2016-11-18] MEDS ORDERED: SODIUM CHLOR 0.9% 250 ML INJ 250 ML IV ONE (09:15)
[2016-11-18 09:58] LABS: BACTERIA, URINE MOD /hpf; BLOOD, URINE MOD (NEG); COMMENT (UR) CATH-CULTURE IND; CULTURE IF INDICATED CATH CULTURE IND; GLUCOSE,URINE NEG (NEG); KETONE, URINE NEG (NEG); MUCUS URINE FEW /lpf (OCC); NITRITE,URINE NEG (NEG); PH, URINE 5.5 (5.0-8.5); RENAL EPITHELIAL CELLS <1 /hpf; SQUAMOUS EPITHELIAL CELL URINE 1 /hpf (0-5); TRANSITIONAL EPI CELLS, URINE <1 /hpf; URINE COLOR YELLOW (YELLW/STRAW)
--- NOTE | 2016-11-18 10:47 | RADRPT ---
EXAM DATE/TIME: 11/18/2016 10:09 [facility] COMPARISON: No previous studies available for comparison. INDICATIONS : Eval for retroperitoneal bleed. ORAL CONTRAST: No oral contrast ingested. RADIATION DOSE: 9.96 CTDIvol (mGy) MEDICAL HISTORY : Congestive heart failure. Hypertension. Chronic obstructive pulmonary disease. SURGICAL HISTORY : CABG Appendectomy.Gastric ulcer ENCOUNTER: Initial ACUITY: 1 day PAIN SCALE: Non-responsive LOCATION: Bilateral abdomen TECHNIQUE: Volumetric scanning of the abdomen and pelvis was performed. Using automated exposure control and adjustment of the mA and/or kV according to patient size, radiation dose was kept as low as reasonably achievable to obtain optimal diagnostic quality images. DICOM format image data is av ailable electronically for review and comparison. FINDINGS: LOWER LUNGS: Small left pleural effusion with redemonstration of diffuse interstitial and patchy groundglass opacities at the lung bases. LIVER: Multiple scattered calcifications. Liver is otherwise unremarkable without significant int rahepatic ductal dilatation. Gallbladder is decompressed. SPLEEN: Splenic calcifications. PANCREAS: Within normal limits. KIDNEYS: Kidneys are symmetrical in size without evidence for hydronephrosis. Punctate calcified calyceal calculus in the anterior mid left kidney. ADRENAL GLANDS: Within normal limits. VASCULAR: Dense aortic calcifications without aneurysm. BOWEL/MESENTERY: Rectal catheter in place. NGT in the stomach. No dilated bowel loops. No signifi cant pneumatosis or free air. ABDOMINAL WALL: Within normal limits. RETROPERITONEUM: There is no lymphadenopathy or evidence for hematoma. BLADDER: Decompressed secondary to Barraza catheter REPRODUCTIVE: Within normal limits. INGUINAL: There is no lymphadenopathy or hernia. MUSCULOSKELETAL: Within normal limits for patient age. CONCLUSION: 1. No evidence for retroperitoneal hematoma or acute abnormality, as questioned. 2. Small left pleural effusion with redemonstration of diffuse interstitial patchy airspace opacities at the lung bases. 3. NGT in the stomach. Crispin Ramos MD on November 18, 2016 at 10:41 Board Certified Radiologist. This report was verified electronically.
[2016-11-18] MEDS ORDERED: FUROSEMIDE 20 MG/2 ML VIAL IV PUSH ONE (11:00)
--- NOTE | 2016-11-18 12:28 | PD.CARD.PN ---
Subjective Subjective Remarks Intubated, sedated, anemic, requiring transfusion Objective Medications Administered Medications Medications (Trade) Dose Ordered Sig/Vida Route PRN Reason Start Time Stop Time Status Last Admin Dose Admin Valacyclovir HCl (Valtrex) 500 mg Q12HR PO 11/10/16 12:00 11/18/16 08:58 Apixaban (Eliquis) 5 mg BID PO 11/10/16 21:00 Future Hold 11/15/16 08:20 Propranolol HCl (Inderal) 10 mg Q12HR PO 11/10/16 12:00 Future Hold 11/13/16 08:40 Atorvastatin Calcium (Lipitor) 80 mg HS PO 11/10/16 21:00 11/17/16 20:38 Venlafaxine HCl (Effexor) 50 mg BID PO 11/10/16 21:00 11/18/16 08:58 Amiodarone HCl (Cordarone) 200 mg DAILY PO 11/10/16 11:00 11/18/16 09:06 Loratadine (Claritin) 10 mg DAILY PO 11/10/16 12:00 11/18/16 08:58 Albuterol/ Ipratropium (Duoneb Neb) 1 ampule Q4HR NEB PRN INH SHORTNESS OF BREATH 11/10/16 12:00 11/17/16 20:32 Ondansetron HCl (Zofran Inj) 4 mg Q6HR PRN IV PUSH NAUSEA 11/10/16 12:00 11/10/16 20:31 Guaifenesin/ Dextromethorphan (Robitussin Dm 200-20 Mg/10 ml Liq) 10 ml Q4HR PRN PO COUGH 11/10/16 12:00 11/12/16 09:09 Sodium Chloride (NS Flush) 2 ml BID IV FLUSH 11/10/16 21:00 11/18/16 08:58 Acetaminophen (Tylenol) 650 mg Q4H PRN PO TEMP > 100.4 11/10/16 10:00 11/11/16 08:10 Oxycodone/ Acetaminophen (Percocet 5-325 Mg) 1 tab Q6H PRN PO PAIN SCALE 3 TO 5 11/10/16 12:00 11/10/16 21:47 Oxycodone/ Acetaminophen (Percocet 10-325 Mg) 1 tab Q6H PRN PO PAIN SCALE 6 TO 10 11/10/16 12:00 11/12/16 09:09 Senna/Docusate Sodium (Hanna-Colace) 1 tab BID PO 11/10/16 21:00 11/18/16 08:58 Sennosides (Senokot) 17.2 mg Q12HR PRN PO MODERATE - SEVERE CONSTIPATION 11/10/16 12:00 11/15/16 08:20 Bisacodyl (Dulcolax Supp) 10 mg DAILY PRN RECTAL SEVERE CONSITIPATION 11/10/16 12:00 11/15/16 08:21 Lactulose (Lactulose Liq) 30 ml DAILY PRN PO SEVERE CONSITIPATION 11/10/16 12:00 11/15/16 08:19 Tiotropium [place] (Spiriva Inh) 18 mcg DAILY INH 11/11/16 17:00 Future Hold 11/12/16 08:47 Alprazolam (Xanax) 0.5 mg HS PO 11/12/16 21:00 11/17/16 20:38 Fentanyl Citrate 250 ml @ 5 mls/hr TITRATE PRN IV SEDATION 11/13/16 01:30 11/17/16 23:57 Midazolam HCl 100 ml @ 2 mls/hr TITRATE PRN IV SEDATION 11/13/16 01:30 11/18/16 02:38 Norepinephrine Bitartrate 250 ml @ 7.5 mls/hr TITRATE PRN IV Maintain MAP > 65 mmHg 11/13/16 03:00 11/13/16 08:41 Sodium Phosphate 30 mmol/Sodium Chloride 250 ml @ 42 mls/hr UNSCH PRN IV For Phosphorus < 2.5 mg/dL 11/13/16 09:45 11/15/16 15:02 Vasopressin 40 units/Dextrose 100 ml @ 4.5 mls/hr [id number] IV 11/13/16 09:38 11/14/16 08:43 Sodium Chloride 1,000 ml @ 20 mls/hr Q24H IV 11/13/16 09:45 11/18/16 09:08 Insulin Aspart (NovoLOG SUPPLEMENTAL SCALE) 1 Q6HR SQ 11/14/16 15:00 11/18/16 05:56 Furosemide (Lasix Inj) 20 mg DAILY IV PUSH 11/16/16 09:00 11/17/16 09:31 Methylprednisolone Sodium Succinate (SoluMEDROL INJ) 20 mg BID IV PUSH 11/16/16 21:00 11/18/16 08:58 Ampicillin Sodium/ Sulbactam Sodium 1500 mg/Sodium Chloride 100 ml @ 200 mls/hr Q6H IV 11/17/16 11:00 11/18/16 11:13 Heparin Sodium/ Dextrose 250 ml @ 10 mls/hr TITRATE PRN IV Coagulation management 11/17/16 13:15 Future Hold 11/17/16 14:43 Vital Signs / I&O Vital Signs Date Time Temp Pulse Resp B/P (MAP) Pulse Ox O2 Delivery O2 Flow Rate FiO2 11/18/16 12:00 79 11/18/16 12:00 50 11/18/16 10:31 99 50 11/18/16 10:30 99 50 11/18/16 10:00 78 11/18/16 08:00 50 11/18/16 08:00 78 11/18/16 08:00 98.1 78 16 104/56 (72) 98 128/78 (95) 11/18/16 07:48 93 50 11/18/16 07:22 92 Ventilator 45 11/18/16 06:00 76 11/18/16 04:00 45 11/18/16 04:00 98.6 78 12 118/71 (87) 93 121/72 (88) 11/18/16 04:00 78 11/18/16 03:20 94 45 11/18/16 02:00 80 11/18/16 00:00 98.5 80 13 100/64 (76) 93 119/70 (86) 11/18/16 00:00 80 11/18/16 00:00 45 11/17/16 23:49 100 45 11/17/16 22:10 95 45 11/17/16 22:00 89 11/17/16 20:00 86 11/17/16 20:00 98.0 86 15 125/72 (89) 94 142/93 (109) 11/17/16 20:00 40 11/17/16 19:53 100 40 11/17/16 18:00 83 11/17/16 16:00 98.3 87 18 139/82 (101) 93 154/85 (108) 11/17/16 16:00 87 11/17/16 16:00 40 11/17/16 15:15 96 50 11/17/16 14:00 85 I/O 11/17/16 11/17/16 11/17/16 11/18/16 11/18/16 11/18/16 07:00 15:00 23:00 07:00 15:00 23:00 Intake Total 977 ml 226 ml 1124 ml 1274.5 ml 127 ml Output Total 625 ml 1950 ml 420 ml Balance 352 ml 226 ml -826 ml 854.5 ml 127 ml IV Total 200 ml 20 ml 478 ml 453.5 ml 127 ml Tube Feeding 777 ml 146 ml 406 ml 821 ml Other 60 ml 240 ml Output Urine Total 425 ml 1750 ml 420 ml Stool Total 200 ml 200 ml # Bowel Movements 1 1 5 Physical Exam GENERAL: Intubated, sedated SKIN: Warm and dry. HEAD: Normocephalic. EYES: No scleral icterus. No injection or drainage. NECK: Supple, trachea midline. No JVD or lymphadenopathy. CARDIOVASCULAR: Regular rate and rhythm without murmurs, gallops, or rubs. RESPIRATORY: Breath sounds equal bilaterally, coarse. GASTROINTESTINAL: Abdomen soft, non-tender, nondistended. MUSCULOSKELETAL: No cyanosis, or edema. Laboratory Laboratory Tests Test 11/17/16 14:30 11/17/16 21:00 11/18/16 04:20 11/18/16 07:30 White Blood Count 17.8 TH/MM3 18.4 TH/MM3 Red Blood Count 2.96 MIL/MM3 2.71 MIL/MM3 Hemoglobin 8.2 GM/DL 7.7 GM/DL Hematocrit 26.5 % 24.5 % Mean Corpuscular Volume 89.7 FL 90.5 FL Mean Corpuscular Hemoglobin 27.8 PG 28.4 PG Mean Corpuscular Hemoglobin Concent 31.0 % 31.3 % Red Cell Distribution Width 19.8 % 19.2 % Platelet Count 349 TH/MM3 316 TH/MM3 Mean Platelet Volume 8.0 FL 8.5 FL Prothrombin Time 12.1 SEC Prothromb Time International Ratio 1.1 RATIO Activated Partial Thromboplast Time 24.0 SEC 84.9 SEC 56.5 SEC Neutrophils (%) (Auto) 86.4 % Lymphocytes (%) (Auto) 6.9 % Monocytes (%) (Auto) 6.4 % Eosinophils (%) (Auto) 0.1 % Basophils (%) (Auto) 0.2 % Neutrophils # (Auto) 15.9 TH/MM3 Lymphocytes # (Auto) 1.3 TH/MM3 Monocytes # (Auto) 1.2 TH/MM3 Eosinophils # (Auto) 0.0 TH/MM3 Basophils # (Auto) 0.0 TH/MM3 CBC Comment DIFF FINAL Differential Comment Blood Urea Nitrogen 91 MG/DL Creatinine 2.61 MG/DL Random Glucose 133 MG/DL Total Protein 6.1 GM/DL Albumin 1.9 GM/DL Calcium Level 8.6 MG/DL Magnesium Level 3.2 MG/DL Alkaline Phosphatase 88 U/L Aspartate Amino Transf (AST/SGOT) 51 U/L Alanine Aminotransferase (ALT/SGPT) 68 U/L Total Bilirubin 0.2 MG/DL Sodium Level 149 MEQ/L Potassium Level 4.9 MEQ/L Chloride Level 113 MEQ/L Carbon Dioxide Level 28.9 MEQ/L Anion Gap 7 MEQ/L Estimat Glomerular Filtration Rate 18 ML/MIN Test 11/18/16 09:15 Urine Color YELLOW Urine Turbidity HAZY Urine pH 5.5 Urine Specific [place] 1.017 Urine Protein 30 mg/dL Urine Glucose (UA) NEG mg/dL Urine Ketones NEG mg/dL Urine Occult Blood MOD Urine Nitrite NEG Urine Bilirubin NEG Urine Urobilinogen LESS THAN 2.0 MG/DL Urine Leukocyte Esterase NEG Urine RBC 27 /hpf Urine WBC 6 /hpf Urine Squamous Epithelial Cells 1 /hpf Urine Transitional Epithelial Cells <1 /hpf Urine Renal Epithelial Cells <1 /hpf Urine Amorphous Sediment RARE Urine Bacteria MOD /hpf Urine Mucus FEW /lpf Microscopic Urinalysis Comment CATH-CULTURE IND Imaging Last 24 hours Impressions Abdomen/Pelvis CT 11/18/16 0000 Signed Impressions: Service Date/Time: Friday, November 18, 2016 10:09 - CONCLUSION: 1. No evidence for retroperitoneal hematoma or acute abnormality, as questioned. 2. Small left pleural effusion with redemonstration of diffuse interstitial patchy airspace opacities at the lung bases. 3. NGT in the stomach. Crispin Ramos MD Assessment and Plan Problem List: (1) Respiratory failure ICD Codes: J96.90 - Respiratory failure, unspecified, unspecified whether with hypoxia or hypercapnia (2) Septic shock ICD Codes: A41.9 - Sepsis, unspecified organism; R65.21 - Severe sepsis with septic shock (3) Bilateral pneumonia ICD Codes: J18.9 - Pneumonia, unspecified organism Status: Acute (4) Coronary artery disease ICD Codes: I25.10 - Atherosclerotic heart disease of [place] coronary artery without angina pectoris (5) S/P CABG x 3 ICD Codes: Z95.1 - Presence of aortocoronary bypass graft (6) Atrial fibrillation ICD Codes: I48.91 - Unspecified atrial fibrillation (7) Renal insufficiency ICD Codes: N28.9 - Disorder of kidney and ureter, unspecified Assessment and Plan No arrhythmias. Not ready for extubation. Continue vent support. Off pressors. Wean vent as tolerated. Continue antibiotics as per ID service. Monitor renal fx. Echo w nl LV syst fx. Continue ICU care. Problem Qualifiers (1) Bilateral pneumonia: Qualified Codes: J18.9 - Pneumonia, unspecified organism Daniella Simpson MD Nov 18, 2016 12:28
--- NOTE | 2016-11-18 12:50 | HHI.CCPN ---
Subjective Remarks/Hospital Course 11/13: 71-year-old female with a history of COPD, coronary artery disease and hypertension who was admitted through the emergency room with complaints of progressive shortness of breath over the past 3 to 4 days. The patient has a history of CABG x3 approximately 7 weeks ago in [place], [place]. She did have some postoperative pleural effusions which had to be tapped. She then drove from [place] down here and she was experiencing increasing dyspnea. A CT scan of the chest showed evidence of bilateral patchy pulmonary infiltrates consistent with either pneumonia and/or pulmonary edema. At night November 12 her respiratory status dramatically declined, patient became hypoxemic and tachypneic and diaphoretic requiring endotracheal intubation. 11/14: Remains sedated, orally intubated on mechanical ventilation. On low dose vasopressin and Levophed for pressor support. 11/15: Remains sedated, orally intubated on mechanical ventilation. Failed CPAP trial yesterday within 5 minutes. Off Levophed. Low-dose vasopressin being titrated down. Tolerating tube feeds. Hemoglobin drop noted however significant positive fluid balance. 11/16: Remains sedated, orally intubated on mechanical ventilation. Tolerating tube feeds. Off pressors. Daily C Pap trials. 11/17: Remains sedated, orally intubated on mechanical ventilation. Tolerating tube feeds. Failed C Pap trial yesterday. 11/18: Remains sedated, arousable, orally intubated on mechanical ventilation. Tolerated C Pap trials however on dropping pressure-support to+5 became tachypneic. Hemoglobin 7.7 this morning. No melena or rectal bleeding. Ordered CT abdomen and pelvis to evaluate for retroperitoneal bleed. One unit PRBCs ordered to be transfused. Also noted rising BUN/creatinine. Patient is nonoliguric and is on diuretics. Objective Vital Signs Date Time Temp Pulse Resp B/P (MAP) Pulse Ox O2 Delivery O2 Flow Rate FiO2 11/18/16 12:00 79 11/18/16 12:00 99.1 12 136/71 (92) 94 11/18/16 12:00 50 11/18/16 07:22 Ventilator Intake and Output 11/18/16 11/18/16 11/18/16 07:59 15:59 23:59 Intake Total 1179.3 ml 127 ml Output Total 420 ml Balance 759.3 ml 127 ml Result Diagram: 11/18/16 0730 11/18/16 0730 Other Results Laboratory Tests Test 11/17/16 14:30 11/17/16 21:00 11/18/16 04:20 11/18/16 07:30 White Blood Count 17.8 TH/MM3 18.4 TH/MM3 Red Blood Count 2.96 MIL/MM3 2.71 MIL/MM3 Hemoglobin 8.2 GM/DL 7.7 GM/DL Hematocrit 26.5 % 24.5 % Mean Corpuscular Volume 89.7 FL 90.5 FL Mean Corpuscular Hemoglobin 27.8 PG 28.4 PG Mean Corpuscular Hemoglobin Concent 31.0 % 31.3 % Red Cell Distribution Width 19.8 % 19.2 % Platelet Count 349 TH/MM3 316 TH/MM3 Mean Platelet Volume 8.0 FL 8.5 FL Prothrombin Time 12.1 SEC Prothromb Time International Ratio 1.1 RATIO Activated Partial Thromboplast Time 24.0 SEC 84.9 SEC 56.5 SEC Neutrophils (%) (Auto) 86.4 % Lymphocytes (%) (Auto) 6.9 % Monocytes (%) (Auto) 6.4 % Eosinophils (%) (Auto) 0.1 % Basophils (%) (Auto) 0.2 % Neutrophils # (Auto) 15.9 TH/MM3 Lymphocytes # (Auto) 1.3 TH/MM3 Monocytes # (Auto) 1.2 TH/MM3 Eosinophils # (Auto) 0.0 TH/MM3 Basophils # (Auto) 0.0 TH/MM3 CBC Comment DIFF FINAL Differential Comment Blood Urea Nitrogen 91 MG/DL Creatinine 2.61 MG/DL Random Glucose 133 MG/DL Total Protein 6.1 GM/DL Albumin 1.9 GM/DL Calcium Level 8.6 MG/DL Magnesium Level 3.2 MG/DL Alkaline Phosphatase 88 U/L Aspartate Amino Transf (AST/SGOT) 51 U/L Alanine Aminotransferase (ALT/SGPT) 68 U/L Total Bilirubin 0.2 MG/DL Sodium Level 149 MEQ/L Potassium Level 4.9 MEQ/L Chloride Level 113 MEQ/L Carbon Dioxide Level 28.9 MEQ/L Anion Gap 7 MEQ/L Estimat Glomerular Filtration Rate 18 ML/MIN Test 11/18/16 09:15 Urine Color YELLOW Urine Turbidity HAZY Urine pH 5.5 Urine Specific [place] 1.017 Urine Protein 30 mg/dL Urine Glucose (UA) NEG mg/dL Urine Ketones NEG mg/dL Urine Occult Blood MOD Urine Nitrite NEG Urine Bilirubin NEG Urine Urobilinogen LESS THAN 2.0 MG/DL Urine Leukocyte Esterase NEG Urine RBC 27 /hpf Urine WBC 6 /hpf Urine Squamous Epithelial Cells 1 /hpf Urine Transitional Epithelial Cells <1 /hpf Urine Renal Epithelial Cells <1 /hpf Urine Amorphous Sediment RARE Urine Bacteria MOD /hpf Urine Mucus FEW /lpf Microscopic Urinalysis Comment CATH-CULTURE IND Imaging Last Impressions Chest X-Ray 11/14/16 0000 Signed Impressions: Service Date/Time: Monday, November 14, 2016 04:35 - CONCLUSION: Improved bilateral airspace disease. New nasogastric tube, tip in the stomach. Other lines and tubes unchanged. Issa Kumar MD Shoulder X-Ray 11/10/16 0000 Signed Impressions: Service Date/Time: October 13:50 - CONCLUSION: 1. Old right humeral neck fracture. 2. No acute fracture or dislocation. 3. Course interstitial opacities throughout the visualized right upper lobe. Crispin Ramos MD Humerus X-Ray 11/10/16 0000 Signed Impressions: Service Date/Time: October 13:53 - CONCLUSION: 1. Old right humeral neck fracture. 2. No acute fracture or dislocation. Crispin Ramos MD CT Angiography 11/10/16 0000 Signed Impressions: Service Date/Time: October 14:35 - CONCLUSION: 1. No evidence of pulmonary embolus. 2. Severe extensive bilateral pulmonary parenchymal opacity with a crazy paving appearance. Differential diagnosis includes pulmonary edema, pulmonary alveolar stenosis, acute interstitial pneumonia, and eosinophilic pneumonia. 3. Small pleural effusions left greater than right. 4. Mildly enlarged mediastinal lymph nodes likely reactive. Adolph Root MD Objective Remarks GENERAL: Sedated and intubated elderly woman SKIN: Warm and dry. HEAD: Normocephalic. EYES: Pallor present. No scleral icterus. No injection or drainage. NECK: Supple, trachea midline. No JVD or lymphadenopathy. CARDIOVASCULAR: Regular rate and rhythm without murmurs, gallops, or rubs. RESPIRATORY: Orally intubated on mechanical ventilation. Breath sounds equal bilaterally. Scattered rhonchi, no wheezing or crackles. GASTROINTESTINAL: Abdomen soft, non-tender, nondistended. MUSCULOSKELETAL: No cyanosis. Trace edema. NEURO: Sedated, arousable, orally intubated on mechanical ventilation A/P Assessment and Plan Acute Respiratory failure on [facility] ventilation - Bilateral patchy infiltrates - Pneumonia versus pulmonary edema - Mechanical ventilation -Antibiotic be escalated to Unasyn by ID. - Gentle diuresis if tolerated. Septic shock - Central line and a line in place -Off Levophed/low-dose vasopressin gtt. - Decreased IV fluids in view of significant positive fluid balance. Diuresed with lasix to mobilize fluid. COPD - DuoNeb scheduled and when necessary, Solumedrol Coronary artery disease - Status post CABG - Troponins negative - Cardiology input appreciated - Echo with normal LV function. Paroxysmal atrial fibrillation - Rate controlled - Amiodarone - Eliquis held on 11/15 due to drop in Hgb. Started heparin for full anticoagulation on 11/17 however in view of hemoglobin drop on 11/18 stopped heparin while evaluating for retroperitoneal bleed. Follow up CT abdomen pelvis Anemia: - No overt evidence of GI blood loss. CT abdomen pelvis ordered to evaluate for retroperitoneal bleed. CONCHITA - Strict intake output, monitor and replete electro lites, follow BUN/ creatinine. On diuretics to attempt negative fluid balance however may have to hold diuretics in view of worsening kidney function. Nephrology consult requested, if renal function continues to decline may need hemodialysis. DVT GI prophylaxis - Eliquis held 11/15, will consider lovenox for DVT prophylaxis vs resuming full anticoagulation if Hgb remains response to 1 unit PRBC transfusion with no e/o bleeding on CT abdomen pelvis. - Pepcid - Teds SCDs Discussed with patient's at bedside on 11/17 and updated them regarding current clinical status and plan of care and they voiced understanding and were agreeable. Critical Care: The total critical care time was 35 minutes. Time to perform other separately billable procedures was not included in the critical care time. Ketan Starkey MD Nov 18, 2016 12:50
--- NOTE | 2016-11-18 16:06 | MB ---
cc: CORTEZ EMERSON MD DATE OF CONSULTATION: 11/18/2016. REASON FOR CONSULTATION: Acute kidney injury with elevated BUN and creatinine. HISTORY OF PRESENT ILLNESS: This is a 71-year-old female with a past medical history of hyperlipidemia, chronic obstructive liver disease, sleep apnea, ischemic heart disease, history of coronary artery bypass grafting done about 28 weeks ago and depression who was admitted with worsening shortness of breath and cough. I was called to see the patient because of elevated BUN and creatinine. The patient had a creatinine of 0.7 on admission which gradually has been getting worse for the last four days and now it is 2.6. The patient has had a complicated course in the hospital and she developed respiratory failure and was intubated on November 13 for respiratory failure. She was diagnosed with bilateral pneumonia and pulmonary edema. The patient was continued with antibiotics and she was also started on Lasix. The patient has been nonoliguric. She has hypotension and was started on pressors and now she is off pressors. Her blood pressure is better. The patient is sedated. Most of the history was taken from the patient's chart and some from the patient's daughter who was sitting at the bedside. PAST MEDICAL HISTORY 1. Chronic obstructive pulmonary disease. 2. Sleep apnea. 3. Ischemic heart disease. 4. Hyperlipidemia. 5. Depression. PAST SURGICAL HISTORY: 1. Coronary artery bypass grafting done about 8 weeks ago. 2. Tonsillectomy. 3. Appendectomy. 4. Breast biopsy. 5. Steroid injection in the lumbar region. 6. Cataract surgery. REVIEW OF SYSTEMS: Review of systems cannot be taken since the patient is intubated and sedated. SOCIAL HISTORY: The patient lives [place] in [place]. She is . She is a former smoker and stopped many years ago. There is no history of any other drugs or alcoholism. FAMILY HISTORY: Family history is positive for hypertension. ALLERGIES: She is allergic to: 1. HYDROMORPHONE. 2. MORPHINE. MEDICATIONS: Currently she is on: 1. Vasopressin as needed. 2. Effexor 50 milligrams twice a day. 3. Hanna-Colace one twice a day. 4. Solu-Medrol 20 milligrams twice a day. 5. Cordarone 200 milligrams daily. 6. Claritin 10 milligrams once a day. 7. Furosemide 20 milligrams IV daily. 8. Lipitor 80 milligrams at bedtime. 9. Xanax 0.5 milligrams at bedtime. 10. Valtrex 5 milligrams q. 12 hours. 11. Ampicillin /sulbactam 1.5 grams q. 6 hours. 12. Insulin aspart sliding scale. 13. DuoNeb nebulizer. 14. Zofran as needed. PHYSICAL EXAMINATION: GENERAL: On examination, the patient is intubated and sedated. VITAL SIGNS: Her last blood pressure was 137/77 and she is now off pressors. Temperature is 98.8 with T-max of 99.1. HEAD, EYES, EARS, NOSE, THROAT: The pupils are mid constricted. Nonicteric sclerae. Conjunctivae are pale. NECK: The neck is supple. JVD is slightly elevated. LUNGS: The patient has bilateral decreased air entry with scattered wheezing and basal rales. HEART: S1 and S2 regular rhythm. ABDOMEN: Abdomen is distended, soft and lax. There is no tenderness. Bowel sounds positive. EXTREMITIES: There is mild edema. INVESTIGATIONS: White blood cell count is 18.4, white blood cell count 18.4, hemoglobin 7.7, platelet count of 316,000. Neutrophils 86.4%. Eosinophils of 0.1%. Sodium 149, potassium 4.9, chloride 113, bicarbonate 28.9, BUN 91, creatinine 2.6, calcium 8.6, magnesium 3.2. AST is 51, ALT is 68. PTT is 56.5. Urinalysis showing protein of 30, moderate bacteria, WBCs 6, RBCs 27. Urine culture pending. Cultures showing no growth so far. ____ positive. IMAGING STUDIES: The patient had a CT scan of the abdomen and pelvis done today and it shows no evidence of retroperitoneal hematoma. A small left pleural effusion. Nasogastric tube in the stomach. Diffuse interstitial patchy air space disease in both lung bases. Th kidneys are symmetric and without IV evidence of hydronephrosis , calcified randell in the mid left kidney. CT angiogram was done on 11/10 and this was showing no evidence of pulmonary embolism, severe extensive bilateral pulmonary parenchymal opacities. ASSESSMENT AND PLAN: 1. Acute kidney injury 2. Pneumonia. 3. Hypotension and shock status. 4. History of ischemic heart disease. 5. Anemia and GI bleeding 6. COPD and sleep apnea. The patient has acute kidney injury. The differential diagnosis is ATN because of the hypotension or from the infection or possibility of interstitial nephritis which is unlikely or could be from diuresis, although she is only on very low dose of Lasix 20 mg once a day and the urine output is in negative fluid balance but this is possible. She is getting now blood transfusion. The hemoglobin dropped and the blood pressure is stable now. I will send the urine sodium osmolality and hold Lasix for now. Will follow the urine output and the BUN and creatinine. Thank you for the consultation and I will follow the patient while she is in the hospital. MD OPAL Ray/DEBRA /3:25 PM /3:45 PM
[2016-11-18 18:45] LABS: HEMATOCRIT 29.8 % (35.0-46.0); REVIEW FLAG FINAL
--- NOTE | 2016-11-18 19:59 | HHI.PR ---
Subjective Remarks Failed CPAP today and now sedated on the vent.Remains on 40 % FIO2. Was hypotensive . Hgb was 7.7. CT abdomen was done . Restless on the vent . Objective Vital Signs Date Time Temp Pulse Resp B/P (MAP) Pulse Ox O2 Delivery O2 Flow Rate FiO2 11/18/16 19:26 96 45 11/18/16 18:00 90 11/18/16 16:00 90 11/18/16 16:00 98.4 90 20 146/80 (102) 94 11/18/16 16:00 45 11/18/16 14:30 95 45 11/18/16 14:00 84 11/18/16 13:07 98.8 83 12 137/77 97 11/18/16 12:54 98.8 83 12 142/78 97 11/18/16 12:00 79 11/18/16 12:00 99.1 79 12 136/71 (92) 94 11/18/16 12:00 50 11/18/16 10:45 Arterial Line 11/18/16 10:31 99 50 11/18/16 10:30 99 50 11/18/16 10:00 78 11/18/16 08:00 50 11/18/16 08:00 78 11/18/16 08:00 98.1 78 16 104/56 (72) 98 128/78 (95) 11/18/16 07:48 93 50 11/18/16 07:22 92 Ventilator 45 11/18/16 06:00 76 11/18/16 04:00 45 11/18/16 04:00 98.6 78 12 118/71 (87) 93 121/72 (88) 11/18/16 04:00 78 11/18/16 03:20 94 45 11/18/16 02:00 80 11/18/16 00:00 98.5 80 13 100/64 (76) 93 119/70 (86) 11/18/16 00:00 80 11/18/16 00:00 45 11/17/16 23:49 100 45 11/17/16 22:10 95 45 11/17/16 22:00 89 11/17/16 20:00 86 11/17/16 20:00 98.0 86 15 125/72 (89) 94 142/93 (109) 11/17/16 20:00 40 I/O 11/17/16 11/17/16 11/17/16 11/18/16 11/18/16 11/18/16 07:00 15:00 23:00 07:00 15:00 23:00 Intake Total 977 ml 226 ml 1124 ml 1274.5 ml 137 ml 1055.8 ml Output Total 625 ml 1950 ml 420 ml 1050 ml Balance 352 ml 226 ml -826 ml 854.5 ml 137 ml 5.8 ml IV Total 200 ml 20 ml 478 ml 453.5 ml 127 ml 246.8 ml Tube Feeding 777 ml 146 ml 406 ml 821 ml 184 ml Packed Cells 365 ml Blood Product IV Normal Saline Flush 10 ml 20 ml Other 60 ml 240 ml 240 ml Output Urine Total 425 ml 1750 ml 420 ml 650 ml Stool Total 200 ml 200 ml 400 ml # Bowel Movements 1 1 5 2 Result Diagram: 11/18/16 1633 11/18/16 0730 Objective Remarks GENERAL: This moderately obese elderly lady intubated and on vent support. HEENT: Head normocephalic. Pupils are reactive and equal. Throat is clear . NECK: Supple. No bruits or thyroid enlargement or lymphadenopathy. CHEST: Distant breath sounds with occ wheezes throughout both lung franco. Occ Crackles at bases HEART: The heart sounds are irregular S1-S2 with no murmur. No S3, gallop. ABDOMEN: The abdomen is soft, protuberant without masses or organomegaly or tenderness. Bowel sounds are faint . EXTREMITIES: No lesions. 1 + edema. NEURO: Reflexes are 1+ .Sedated. SKIN: No lesions observed. Assessment and Plan Assessment and Plan IMPRESSION 1. Bilateral pneumonia versus pulmonary edema. 2. Atrial fibrillation and ASHD. 3. History of coronary artery disease with CABG x3. 4. Pleural effusions. 5. COPD with emphysema and acute exacerbation. 6. History of DVT. 7. Respiratory Failure Plan : 1. Will wean Fio2 to Keep sat >90. 2. Wean sedation 3. Continue antibiotics . per ID 4. CXR,CBC BMP in am 5. Solumedrol 40 mg IV BID. 6. Nebs qid , Duoneb 7. CPAP trial in am . 8. Tube feeds at 60 CC. Ursula Schwab MD Nov 18, 2016 19:59
[2016-11-18] MEDS: ATORVASTATIN 80 MG TAB PO SCH (21:13)
[2016-11-18] MEDS: ALPRAZolam 0.5 MG TAB PO SCH (21:13)
[2016-11-18] MEDS: VASOPRESSIN INJ 40 UNITS in DEXTROSE 5% IN WATER 100ML INJ 98 ML IV SCH ×2 (23:02)
[2016-11-19] VITALS (17 sets, daily range): BP systolic 119–176; BP diastolic 58–97; PULSE 86–96; RESP 15–19; TEMP 86–99.4; O2SAT 94–98
[2016-11-19] MEDS: PROPOFOL 1000 MG/100 ML IV PRN ×3 (03:03→21:06)
[2016-11-19 04:18] LABS: AUTOMATED NEUTROPHIL # 17.6 TH/MM3 (1.8-7.7); BASOPHIL % 0.1 % (0.0-2.0); EOSINOPHIL % 0.2 % (0.0-4.0); HEMATOCRIT 30.7 % (35.0-46.0); HEMO FLAGS DIFF FINAL; LYMPH % 5.7 % (9.0-44.0); LYMPHOCYTE # 1.1 TH/MM3 (1.0-4.8); MEAN CELL VOLUME 88.6 FL (80.0-100.0); MEAN CORPUSCULAR HEMOGLOBIN 28.3 PG (27.0-34.0); MEAN CORPUSCULAR HGB CONC 31.9 % (32.0-36.0); MONO % 5.7 % (0.0-8.0); NEUT % 88.3 % (16.0-70.0); PLATELET COUNT 340 TH/MM3 (150-450); RED BLOOD COUNT 3.47 MIL/MM3 (4.00-5.30); RED CELL DISTRIBUTION WIDTH 19.3 % (11.6-17.2)
[2016-11-19 04:51] LABS: ALT (GPT) 78 U/L (10-53); ANION GAP 9 MEQ/L (5-15); AST (GOT) 58 U/L (15-37); BICARBONATE 27.8 MEQ/L (21.0-32.0); BLOOD UREA NITROGEN 102 MG/DL (7-18); CHLORIDE 112 MEQ/L (98-107); GLOMERULAR FILTRATION RATE 15 ML/MIN (>89); SODIUM (NA) 149 MEQ/L (136-145)
[2016-11-19] MEDS: AMPICILLIN-SULBACTAM INJ 1,500 MG in SODIUM CHLORIDE 0.9% INJ 100 ML IV SCH ×3 (05:00→17:00)
--- NOTE | 2016-11-19 05:13 | RADRPT ---
EXAM DATE/TIME: 11/19/2016 03:51 [facility] COMPARISON: CHEST SINGLE AP, November 16, 2016, 5:03. INDICATIONS : Shortness of breath, possible pulmonary disease. MEDICAL HISTORY : Hypertension. Chronic obstructive pulmonary disease. SURGICAL HISTORY : CABG. ENCOUNTER: Subsequent ACUITY: 1 week PAIN SCORE: 0/10 LOCATION: Bilateral chest FINDINGS: Single portable frontal view of the chest shows diffuse bilateral pulmonary infiltrates which are unc hanged. No discrete effusions. Heart is mildly enlarged. Tip of the endotracheal tube 1 cm proximal t o the nicolasa. Left-sided central line. Median sternotomy wires. CONCLUSION: Unchanged diffuse pulmonary infiltrates. Jayden Olguin Jr., MD on November 19, 2016 at 5:11 Board Certified Radiologist. This report was verified electronically.
[2016-11-19 05:20] LABS: ALKALINE PHOSPHATASE 91 U/L (45-117); TOTAL BILIRUBIN ADULT 0.3 MG/DL (0.2-1.0)
[2016-11-19] MEDS: INSULIN ASPART SUPPLEMENTAL SCALE SQ SCH ×4 (05:37→18:00)
[2016-11-19] MEDS: AMIODARONE 200 MG TAB PO SCH (09:18)
[2016-11-19] MEDS: VENLAFAXINE HCL 25 MG TAB PO SCH ×2 (09:18→21:03)
[2016-11-19] MEDS: SODIUM CHLORIDE 0.9% FLUSH 10 ML FLUSH IV FLUSH SCH ×2 (09:19→21:03)
[2016-11-19] MEDS: valACYclovir HCL 500 MG TAB PO SCH ×2 (09:19→21:05)
[2016-11-19] MEDS: methylPREDNISolone SOD SUCC 40 MG/1 ML VIAL IV PUSH SCH ×2 (09:19→21:03)
[2016-11-19] MEDS: DOCUSATE SODIUM 50 MG/SENNA 8.6 MG TAB PO SCH ×2 (09:19→21:03)
[2016-11-19] MEDS: LORATADINE 10 MG TAB PO SCH (09:19)
--- NOTE | 2016-11-19 10:40 | HHI.NPPN ---
Subjective History of Present Illness 71-year-old female with a past medical history of hyperlipidemia, chronic obstructive liver disease, sleep apnea, ischemic heart disease, history of coronary artery bypass grafting done about 28 weeks ago and depression who was admitted with worsening shortness of breath and cough. I was called to see the patient because of elevated BUN and creatinine. The patient had a creatinine of 0.7 on admission. Additional Remarks Patient remain intubated and sedated. Review of Systems General General Remarks Intubated and sedated. Objective Data Data Vital Signs Date Time Temp Pulse Resp B/P (MAP) Pulse Ox O2 Delivery O2 Flow Rate FiO2 11/19/16 10:00 92 11/19/16 09:15 45 11/19/16 09:15 45 11/19/16 08:00 86 11/19/16 08:00 98.1 86 16 164/82 (109) 96 11/19/16 07:10 98 45 11/19/16 06:00 91 11/19/16 04:19 96 45 11/19/16 04:00 45 11/19/16 04:00 98.7 93 16 165/86 (112) 96 11/19/16 04:00 93 11/19/16 02:00 96 11/19/16 00:00 45 11/19/16 00:00 93 11/19/16 00:00 98.4 93 15 168/86 (113) 94 11/18/16 23:50 96 45 11/18/16 22:00 93 11/18/16 20:00 45 11/18/16 20:00 98.7 91 16 170/94 (119) 94 11/18/16 20:00 91 11/18/16 19:26 96 45 11/18/16 18:00 90 11/18/16 16:00 90 11/18/16 16:00 98.4 90 20 146/80 (102) 94 11/18/16 16:00 45 11/18/16 14:30 95 45 11/18/16 14:00 84 11/18/16 13:07 98.8 83 12 137/77 97 11/18/16 12:54 98.8 83 12 142/78 97 11/18/16 12:00 79 11/18/16 12:00 99.1 79 12 136/71 (92) 94 11/18/16 12:00 50 11/18/16 10:45 Arterial Line -: 11/19/16 0400 11/19/16399 Physical Exam General Appearance: No Acute Distress, Comfortable Eyes Eye Exam: Pupils Equal Neck Neck Exam: Neck Supple Pulmonary Resp Exam: Rhonchi, Decreased Bases, Diminished Breath Sounds, Poor Inspiratory Effort Cardiology CV Exam: Regular, Normal Sinus Rhythm Gastrointestinal/Abdomen GI Exam: Soft, Non-Tender, Bowel Sounds Present, Distended Extremeties Extremities Exam: Moderate Edema, Pitting Edema, Dependent Edema Neurologic Neuro Exam: Sedated Assessment/Plan Assessment Summary: CONCHITA/Acute Renal Failure Problem List: (1) Acute kidney injury ICD Codes: N17.9 - Acute kidney failure, unspecified (2) Respiratory failure ICD Codes: J96.90 - Respiratory failure, unspecified, unspecified whether with hypoxia or hypercapnia (3) Septic shock ICD Codes: A41.9 - Sepsis, unspecified organism; R65.21 - Severe sepsis with septic shock (4) Atrial fibrillation ICD Codes: I48.91 - Unspecified atrial fibrillation (5) Coronary artery disease ICD Codes: I25.10 - Atherosclerotic heart disease of [place] coronary artery without angina pectoris (6) Bilateral pneumonia ICD Codes: J18.9 - Pneumonia, unspecified organism Status: Acute Plan Patient has been non oliguric. Has Acute kidney injury, urine Na was high and osmolality was not very high, Eosinophils negative. Most likely has ATN causing CONCHITA, either due to hypotension or infection. Off Lasix, urine out put is adequate. Continue antibiotics. Avoid Nephrotoxins. Weaning as per CCM, now on CPAP. Problem Qualifiers (1) Bilateral pneumonia: Qualified Codes: J18.9 - Pneumonia, unspecified organism Michelle Boo MD Nov 19, 2016 10:40
--- NOTE | 2016-11-19 11:50 | HHI.CCPN ---
Subjective Remarks/Hospital Course 11/13: 71-year-old female with a history of COPD, coronary artery disease and hypertension who was admitted through the emergency room with complaints of progressive shortness of breath over the past 3 to 4 days. The patient has a history of CABG x3 approximately 7 weeks ago in [place], [place]. She did have some postoperative pleural effusions which had to be tapped. She then drove from [place] down here and she was experiencing increasing dyspnea. A CT scan of the chest showed evidence of bilateral patchy pulmonary infiltrates consistent with either pneumonia and/or pulmonary edema. At night November 12 her respiratory status dramatically declined, patient became hypoxemic and tachypneic and diaphoretic requiring endotracheal intubation. 11/14: Remains sedated, orally intubated on mechanical ventilation. On low dose vasopressin and Levophed for pressor support. 11/15: Remains sedated, orally intubated on mechanical ventilation. Failed CPAP trial yesterday within 5 minutes. Off Levophed. Low-dose vasopressin being titrated down. Tolerating tube feeds. Hemoglobin drop noted however significant positive fluid balance. 11/16: Remains sedated, orally intubated on mechanical ventilation. Tolerating tube feeds. Off pressors. Daily C Pap trials. 11/17: Remains sedated, orally intubated on mechanical ventilation. Tolerating tube feeds. Failed C Pap trial yesterday. 11/18: Remains sedated, arousable, orally intubated on mechanical ventilation. Tolerated C Pap trials however on dropping pressure-support to+5 became tachypneic. Hemoglobin 7.7 this morning. No melena or rectal bleeding. Ordered CT abdomen and pelvis to evaluate for retroperitoneal bleed. One unit PRBCs ordered to be transfused. Also noted rising BUN/creatinine. Patient is nonoliguric and is on diuretics. 11/19: failed cpap today for hypoxia and tachypnea. ct abd pelvis yesterday without evidence of retroperitoneal hematoma. hgb improved with prbc and remains stable. BUN/Cr continues to rise, nephrology note today: most likely ATN. hypernatremia worsening as well. Objective Vital Signs Date Time Temp Pulse Resp B/P (MAP) Pulse Ox O2 Delivery O2 Flow Rate FiO2 11/19/16 10:36 96 40 11/19/16 10:00 92 11/19/16 08:00 98.1 16 164/82 (109) 10/6/17 07:22 Ventilator Intake and Output 11/19/16 11/19/16 11/19/16 07:59 15:59 23:59 Intake Total 1039.5 ml Output Total 1000 ml Balance 39.5 ml Result Diagram: 11/19/16 0400 11/19/16 0400 Other Results Microbiology Date/Time Source Procedure Growth Status 11/18/16 09:15 Stool Stool Stool Occult Blood (SARAH) - Final HEMOCCULT POSITIVE Complete Imaging Last Impressions Chest X-Ray 11/14/16 0000 Signed Impressions: Service Date/Time: Monday, November 14, 2016 04:35 - CONCLUSION: Improved bilateral airspace disease. New nasogastric tube, tip in the stomach. Other lines and tubes unchanged. Issa Kumar MD Shoulder X-Ray 11/10/16 0000 Signed Impressions: Service Date/Time: October 13:50 - CONCLUSION: 1. Old right humeral neck fracture. 2. No acute fracture or dislocation. 3. Course interstitial opacities throughout the visualized right upper lobe. Crispin Ramos MD Humerus X-Ray 11/10/16 0000 Signed Impressions: Service Date/Time: October 13:53 - CONCLUSION: 1. Old right humeral neck fracture. 2. No acute fracture or dislocation. Crispin Ramos MD CT Angiography 11/10/16 0000 Signed Impressions: Service Date/Time: October 14:35 - CONCLUSION: 1. No evidence of pulmonary embolus. 2. Severe extensive bilateral pulmonary parenchymal opacity with a crazy paving appearance. Differential diagnosis includes pulmonary edema, pulmonary alveolar stenosis, acute interstitial pneumonia, and eosinophilic pneumonia. 3. Small pleural effusions left greater than right. 4. Mildly enlarged mediastinal lymph nodes likely reactive. Adolph Root MD Objective Remarks GENERAL: Sedated and intubated elderly woman SKIN: Warm and dry. HEAD: Normocephalic. EYES: Pallor present. No scleral icterus. No injection or drainage. NECK: trachea midline. No JVD CARDIOVASCULAR: Regular rate and rhythm RESPIRATORY: Orally intubated on mechanical ventilation. Breath sounds equal bilaterally. Scattered rhonchi, no wheezing or crackles. GASTROINTESTINAL: Abdomen soft, non-tender, nondistended. no guarding. MUSCULOSKELETAL: No cyanosis. Trace edema. NEURO: Sedated, arousable, orally intubated on mechanical ventilation A/P Assessment and Plan Assessment: 71yF with bilateral pneumonia and acute hypoxic respiratory failure. failing cpap trials and off pathway. remains critically ill today with worsening renal function, metabolic derangements and not improving from a pulmonary standpoint. Acute hypoxic Respiratory failure on [facility] ventilation - Bilateral patchy infiltrates - Pneumonia versus pulmonary edema - Mechanical ventilation - Unasyn by ID. - Gentle diuresis if tolerated. - daily SBTs. failing for hypoxia and tachypnea. Septic shock- resolved. - d/c central line. obtain piv's. -off vasopressors. - stop ivf. continue gentle diuresis COPD - DuoNeb scheduled and when necessary, Solumedrol Coronary artery disease - Status post CABG - Troponins negative - Cardiology input appreciated - Echo with normal LV function. Paroxysmal atrial fibrillation - Rate controlled - Amiodarone - Eliquis held on 11/15 due to drop in Hgb. Started heparin for full anticoagulation on 11/17 however in view of hemoglobin drop on 11/18 stopped heparin. will give an additional 24h and trend hgb before restarting any anticoagulation, then will likely transition to prophylactic SQH before full anticoagulation given high concern for bleeding. Anemia secondary to acute blood loss - No overt evidence of GI blood loss. CT abdomen pelvis ordered to evaluate for retroperitoneal bleed. CONCHITA - Strict intake output, monitor and replete electro lites, follow BUN/ creatinine. On diuretics to attempt negative fluid balance however may have to hold diuretics in view of worsening kidney function. Nephrology consult requested, if renal function continues to decline may need hemodialysis. Hypernatremia - start free water 200 q6h DVT GI prophylaxis - Eliquis held 11/15, will consider lovenox for DVT prophylaxis vs resuming full anticoagulation if Hgb remains response to 1 unit PRBC transfusion with no e/o bleeding on CT abdomen pelvis. - Pepcid - Teds SCDs Discussed with patient's at bedside on 11/17 and updated them regarding current clinical status and plan of care and they voiced understanding and were agreeable. Critical Care: The total critical care time was 31 minutes. Time to perform other separately billable procedures was not included in the critical care time. Mikal Sheets MD Nov 19, 2016 11:50
[2016-11-19] MEDS: FREE WATER G-TUBE SCH ×2 (12:00→18:00)
--- NOTE | 2016-11-19 16:49 | PD.CARD.PN ---
Subjective Subjective Remarks Intubated, sedated, weaning efforts so far unsuccessful Objective Medications Administered Medications Medications (Trade) Dose Ordered Sig/Vida Route PRN Reason Start Time Stop Time Status Last Admin Dose Admin Valacyclovir HCl (Valtrex) 500 mg Q12HR PO 11/10/16 12:00 11/19/16 09:19 Apixaban (Eliquis) 5 mg BID PO 11/10/16 21:00 Future Hold 11/15/16 08:20 Propranolol HCl (Inderal) 10 mg Q12HR PO 11/10/16 12:00 Future Hold 11/13/16 08:40 Atorvastatin Calcium (Lipitor) 80 mg HS PO 11/10/16 21:00 11/18/16 21:13 Venlafaxine HCl (Effexor) 50 mg BID PO 11/10/16 21:00 11/19/16 09:18 Amiodarone HCl (Cordarone) 200 mg DAILY PO 11/10/16 11:00 11/19/16 09:18 Loratadine (Claritin) 10 mg DAILY PO 11/10/16 12:00 11/19/16 09:19 Albuterol/ Ipratropium (Duoneb Neb) 1 ampule Q4HR NEB PRN INH SHORTNESS OF BREATH 11/10/16 12:00 11/17/16 20:32 Ondansetron HCl (Zofran Inj) 4 mg Q6HR PRN IV PUSH NAUSEA 11/10/16 12:00 11/10/16 20:31 Guaifenesin/ Dextromethorphan (Robitussin Dm 200-20 Mg/10 ml Liq) 10 ml Q4HR PRN PO COUGH 11/10/16 12:00 11/12/16 09:09 Sodium Chloride (NS Flush) 2 ml BID IV FLUSH 11/10/16 21:00 11/19/16 09:19 Acetaminophen (Tylenol) 650 mg Q4H PRN PO TEMP > 100.4 11/10/16 10:00 11/11/16 08:10 Oxycodone/ Acetaminophen (Percocet 5-325 Mg) 1 tab Q6H PRN PO PAIN SCALE 3 TO 5 11/10/16 12:00 11/10/16 21:47 Oxycodone/ Acetaminophen (Percocet 10-325 Mg) 1 tab Q6H PRN PO PAIN SCALE 6 TO 10 11/10/16 12:00 11/12/16 09:09 Senna/Docusate Sodium (Hanna-Colace) 1 tab BID PO 11/10/16 21:00 11/19/16 09:19 Sennosides (Senokot) 17.2 mg Q12HR PRN PO MODERATE - SEVERE CONSTIPATION 11/10/16 12:00 11/15/16 08:20 Bisacodyl (Dulcolax Supp) 10 mg DAILY PRN RECTAL SEVERE CONSITIPATION 11/10/16 12:00 11/15/16 08:21 Lactulose (Lactulose Liq) 30 ml DAILY PRN PO SEVERE CONSITIPATION 11/10/16 12:00 11/15/16 08:19 Tiotropium [place] (Spiriva Inh) 18 mcg DAILY INH 11/11/16 17:00 Future Hold 11/12/16 08:47 Alprazolam (Xanax) 0.5 mg HS PO 11/12/16 21:00 11/18/16 21:13 Fentanyl Citrate 250 ml @ 5 mls/hr TITRATE PRN IV SEDATION 11/13/16 01:30 11/17/16 23:57 Propofol 100 ml @ 2.142 mls/ hr TITRATE PRN IV SEDATION 11/13/16 03:00 11/19/16 15:16 Sodium Chloride 1,000 ml @ 20 mls/hr Q24H IV 11/13/16 09:45 11/18/16 09:08 Insulin Aspart (NovoLOG SUPPLEMENTAL SCALE) 1 Q6HR SQ 11/14/16 15:00 11/19/16 12:00 Methylprednisolone Sodium Succinate (SoluMEDROL INJ) 20 mg BID IV PUSH 11/16/16 21:00 11/19/16 09:19 Ampicillin Sodium/ Sulbactam Sodium 1500 mg/Sodium Chloride 100 ml @ 200 mls/hr Q6H IV 11/17/16 11:00 11/19/16 11:00 Heparin Sodium/ Dextrose 250 ml @ 10 mls/hr TITRATE PRN IV Coagulation management 11/17/16 13:15 Future Hold 11/17/16 14:43 Water (Free Water) VOLUME: 200 ML Q6HR G-TUBE 11/19/16 12:00 11/19/16 12:00 Vital Signs / I&O Vital Signs Date Time Temp Pulse Resp B/P (MAP) Pulse Ox O2 Delivery O2 Flow Rate FiO2 11/19/16 14:25 95 45 11/19/16 14:00 89 11/19/16 12:00 45 11/19/16 12:00 91 11/19/16 12:00 98.3 93 19 176/97 (123) 11/19/16 10:36 96 40 11/19/16 10:00 92 11/19/16 09:15 45 11/19/16 09:15 45 11/19/16 08:00 86 11/19/16 08:00 98.1 86 16 164/82 (109) 96 11/19/16 07:10 98 45 11/19/16 06:00 91 11/19/16 04:19 96 45 11/19/16 04:00 45 11/19/16 04:00 98.7 93 16 165/86 (112) 96 11/19/16 04:00 93 11/19/16 02:00 96 11/19/16 00:00 45 11/19/16 00:00 93 11/19/16 00:00 98.4 93 15 168/86 (113) 94 11/18/16 23:50 96 45 11/18/16 22:00 93 11/18/16 20:00 45 11/18/16 20:00 98.7 91 16 170/94 (119) 94 11/18/16 20:00 91 11/18/16 19:26 96 45 11/18/16 18:00 90 I/O 11/18/16 11/18/16 11/18/16 11/19/16 11/19/16 11/19/16 07:00 15:00 23:00 07:00 15:00 23:00 Intake Total 1274.5 ml 137 ml 1055.8 ml 1039.5 ml Output Total 420 ml 1050 ml 1000 ml Balance 854.5 ml 137 ml 5.8 ml 39.5 ml IV Total 453.5 ml 127 ml 246.8 ml 353.5 ml Tube Feeding 821 ml 184 ml 566 ml Packed Cells 365 ml Blood Product IV Normal Saline Flush 10 ml 20 ml Other 240 ml 120 ml Output Urine Total 420 ml 650 ml 700 ml Stool Total 400 ml 300 ml # Bowel Movements 5 2 Physical Exam GENERAL: Intubated, sedated SKIN: Warm and dry. HEAD: Normocephalic. EYES: No scleral icterus. No injection or drainage. NECK: Supple, trachea midline. No JVD or lymphadenopathy. CARDIOVASCULAR: Regular rate and rhythm without murmurs, gallops, or rubs. RESPIRATORY: Breath sounds equal bilaterally, coarse. GASTROINTESTINAL: Abdomen soft, non-tender, nondistended. MUSCULOSKELETAL: No cyanosis, or edema. Laboratory Laboratory Tests Test 11/19/16 02:16 11/19/16 04:00 Urine Eosinophils NONE SEEN /HPF White Blood Count 20.0 TH/MM3 Red Blood Count 3.47 MIL/MM3 Hemoglobin 9.8 GM/DL Hematocrit 30.7 % Mean Corpuscular Volume 88.6 FL Mean Corpuscular Hemoglobin 28.3 PG Mean Corpuscular Hemoglobin Concent 31.9 % Red Cell Distribution Width 19.3 % Platelet Count 340 TH/MM3 Mean Platelet Volume 8.2 FL Neutrophils (%) (Auto) 88.3 % Lymphocytes (%) (Auto) 5.7 % Monocytes (%) (Auto) 5.7 % Eosinophils (%) (Auto) 0.2 % Basophils (%) (Auto) 0.1 % Neutrophils # (Auto) 17.6 TH/MM3 Lymphocytes # (Auto) 1.1 TH/MM3 Monocytes # (Auto) 1.1 TH/MM3 Eosinophils # (Auto) 0.0 TH/MM3 Basophils # (Auto) 0.0 TH/MM3 CBC Comment DIFF FINAL Differential Comment Blood Urea Nitrogen 102 MG/DL Creatinine 3.05 MG/DL Random Glucose 154 MG/DL Total Protein 6.4 GM/DL Albumin 2.1 GM/DL Calcium Level 9.1 MG/DL Alkaline Phosphatase 91 U/L Aspartate Amino Transf (AST/SGOT) 58 U/L Alanine Aminotransferase (ALT/SGPT) 78 U/L Total Bilirubin 0.3 MG/DL Sodium Level 149 MEQ/L Potassium Level 5.0 MEQ/L Chloride Level 112 MEQ/L Carbon Dioxide Level 27.8 MEQ/L Anion Gap 9 MEQ/L Estimat Glomerular Filtration Rate 15 ML/MIN Assessment and Plan Problem List: (1) Respiratory failure ICD Codes: J96.90 - Respiratory failure, unspecified, unspecified whether with hypoxia or hypercapnia (2) Septic shock ICD Codes: A41.9 - Sepsis, unspecified organism; R65.21 - Severe sepsis with septic shock (3) Bilateral pneumonia ICD Codes: J18.9 - Pneumonia, unspecified organism Status: Acute (4) Coronary artery disease ICD Codes: I25.10 - Atherosclerotic heart disease of [place] coronary artery without angina pectoris (5) S/P CABG x 3 ICD Codes: Z95.1 - Presence of aortocoronary bypass graft (6) Atrial fibrillation ICD Codes: I48.91 - Unspecified atrial fibrillation (7) Renal insufficiency ICD Codes: N28.9 - Disorder of kidney and ureter, unspecified Assessment and Plan Vent weaning so far unsuccessful. No recurrent arrhythmias. Continue vent support. Wean vent as tolerated. Continue antibiotics as per ID service. Monitor renal fx. Echo w nl LV syst fx. Continue ICU care. No new cardiac issues. Problem Qualifiers (1) Bilateral pneumonia: Qualified Codes: J18.9 - Pneumonia, unspecified organism Daniella Simpson MD Nov 19, 2016 16:48
--- NOTE | 2016-11-19 19:59 | HHI.PR ---
Subjective Remarks sedated on the ventilator attemt at weaning not successful Objective GENERAL: SKIN: Warm and dry. HEAD: Atraumatic. Normocephalic. EYES: Pupils equal and round. No scleral icterus. No injection or drainage. ENT: No nasal bleeding or discharge. Mucous membranes pink and moist. NECK: Trachea midline. No JVD. CARDIOVASCULAR: Regular rate and rhythm. RESPIRATORY: No accessory muscle use. Clear to auscultation. Breath sounds equal bilaterally. GASTROINTESTINAL: Abdomen soft, non-tender, nondistended. Hepatic and splenic margins not palpable. MUSCULOSKELETAL: Extremities without clubbing, cyanosis, or edema. No obvious deformities. NEUROLOGICAL: Awake and alert. No obvious cranial nerve deficits. Motor grossly within normal limits. Five out of 5 muscle strength in the arms and legs. Normal speech. PSYCHIATRIC: Appropriate mood and affect; insight and judgment normal. Vital Signs Date Time Temp Pulse Resp B/P (MAP) Pulse Ox O2 Delivery O2 Flow Rate FiO2 11/19/16 16:00 45 11/19/16 16:00 91 11/19/16 16:00 86.0 89 19 119/58 (78) 94 11/19/16 14:25 95 45 11/19/16 14:00 89 11/19/16 12:00 45 11/19/16 12:00 91 11/19/16 12:00 98.3 93 19 176/97 (123) 11/19/16 10:36 96 40 11/19/16 10:00 92 11/19/16 09:15 45 11/19/16 09:15 45 11/19/16 08:00 86 11/19/16 08:00 98.1 86 16 164/82 (109) 96 11/19/16 07:10 98 45 11/19/16 06:00 91 11/19/16 04:19 96 45 11/19/16 04:00 45 11/19/16 04:00 98.7 93 16 165/86 (112) 96 11/19/16 04:00 93 11/19/16 02:00 96 11/19/16 00:00 45 11/19/16 00:00 93 11/19/16 00:00 98.4 93 15 168/86 (113) 94 11/18/16 23:50 96 45 11/18/16 22:00 93 11/18/16 20:00 45 11/18/16 20:00 98.7 91 16 170/94 (119) 94 11/18/16 20:00 91 I/O 11/18/16 11/18/16 11/18/16 11/19/16 11/19/16 11/19/16 07:00 15:00 23:00 07:00 15:00 23:00 Intake Total 1274.5 ml 137 ml 1055.8 ml 1039.5 ml 100 ml 1189 ml Output Total 420 ml 1050 ml 1000 ml 900 ml Balance 854.5 ml 137 ml 5.8 ml 39.5 ml 100 ml 289 ml IV Total 453.5 ml 127 ml 246.8 ml 353.5 ml 100 ml 100 ml Tube Feeding 821 ml 184 ml 566 ml 589 ml Packed Cells 365 ml Blood Product IV Normal Saline Flush 10 ml 20 ml Other 240 ml 120 ml 500 ml Output Urine Total 420 ml 650 ml 700 ml 800 ml Stool Total 400 ml 300 ml 100 ml # Bowel Movements 5 2 Result Diagram: 11/19/1639911/19/16399 Objective Remarks Laboratory Tests Test 11/17/16 07:43 11/17/16 14:30 11/17/16 21:00 11/18/16 04:20 White Blood Count 17.6 TH/MM3 (4.0-11.0) 17.8 TH/MM3 (4.0-11.0) Red Blood Count 2.82 MIL/MM3 (4.00-5.30) 2.96 MIL/MM3 (4.00-5.30) Hemoglobin 8.1 GM/DL (11.6-15.3) 8.2 GM/DL (11.6-15.3) Hematocrit 25.3 % (35.0-46.0) 26.5 % (35.0-46.0) Red Cell Distribution Width 19.6 % (11.6-17.2) 19.8 % (11.6-17.2) Neutrophils (%) (Auto) 86.0 % (16.0-70.0) Lymphocytes (%) (Auto) 6.9 % (9.0-44.0) Neutrophils # (Auto) 15.2 TH/MM3 (1.8-7.7) Monocytes # (Auto) 1.2 TH/MM3 (0-0.9) Blood Urea Nitrogen 74 MG/DL (7-18) Creatinine 2.16 MG/DL (0.50-1.00) Random Glucose 125 MG/DL (74-106) Total Protein 6.2 GM/DL (6.4-8.2) Albumin 2.0 GM/DL (3.4-5.0) Magnesium Level 3.0 MG/DL (1.5-2.5) Aspartate Amino Transf (AST/SGOT) 50 U/L (15-37) Alanine Aminotransferase (ALT/SGPT) 58 U/L (10-53) Sodium Level 146 MEQ/L (136-145) Chloride Level 112 MEQ/L (98-107) Estimat Glomerular Filtration Rate 22 ML/MIN (>89) Mean Corpuscular Hemoglobin Concent 31.0 % (32.0-36.0) Prothrombin Time 12.1 SEC (9.8-11.6) Activated Partial Thromboplast Time 24.0 SEC (24.3-30.1) 84.9 SEC (24.3-30.1) 56.5 SEC (24.3-30.1) Test 11/18/16 07:30 11/18/16 09:15 11/18/16 16:33 11/18/16 16:35 White Blood Count 18.4 TH/MM3 (4.0-11.0) Red Blood Count 2.71 MIL/MM3 (4.00-5.30) Hemoglobin 7.7 GM/DL (11.6-15.3) 9.4 GM/DL (11.6-15.3) Hematocrit 24.5 % (35.0-46.0) 29.8 % (35.0-46.0) Mean Corpuscular Hemoglobin Concent 31.3 % (32.0-36.0) Red Cell Distribution Width 19.2 % (11.6-17.2) Neutrophils (%) (Auto) 86.4 % (16.0-70.0) Lymphocytes (%) (Auto) 6.9 % (9.0-44.0) Neutrophils # (Auto) 15.9 TH/MM3 (1.8-7.7) Monocytes # (Auto) 1.2 TH/MM3 (0-0.9) Blood Urea Nitrogen 91 MG/DL (7-18) Creatinine 2.61 MG/DL (0.50-1.00) Random Glucose 133 MG/DL (74-106) Total Protein 6.1 GM/DL (6.4-8.2) Albumin 1.9 GM/DL (3.4-5.0) Magnesium Level 3.2 MG/DL (1.5-2.5) Aspartate Amino Transf (AST/SGOT) 51 U/L (15-37) Alanine Aminotransferase (ALT/SGPT) 68 U/L (10-53) Sodium Level 149 MEQ/L (136-145) Chloride Level 113 MEQ/L (98-107) Estimat Glomerular Filtration Rate 18 ML/MIN (>89) Urine Turbidity HAZY (CLEAR) Urine Protein 30 mg/dL (NEG-TRACE) Urine Occult Blood MOD (NEG) Urine RBC 27 /hpf (0-3) Urine WBC 6 /hpf (0-5) Urine Bacteria MOD /hpf (NONE) Urine Mucus FEW /lpf (OCC) Test 11/19/16 02:16 11/19/16 04:00 White Blood Count 20.0 TH/MM3 (4.0-11.0) Red Blood Count 3.47 MIL/MM3 (4.00-5.30) Hemoglobin 9.8 GM/DL (11.6-15.3) Hematocrit 30.7 % (35.0-46.0) Mean Corpuscular Hemoglobin Concent 31.9 % (32.0-36.0) Red Cell Distribution Width 19.3 % (11.6-17.2) Neutrophils (%) (Auto) 88.3 % (16.0-70.0) Lymphocytes (%) (Auto) 5.7 % (9.0-44.0) Neutrophils # (Auto) 17.6 TH/MM3 (1.8-7.7) Monocytes # (Auto) 1.1 TH/MM3 (0-0.9) Blood Urea Nitrogen 102 MG/DL (7-18) Creatinine 3.05 MG/DL (0.50-1.00) Random Glucose 154 MG/DL (74-106) Albumin 2.1 GM/DL (3.4-5.0) Aspartate Amino Transf (AST/SGOT) 58 U/L (15-37) Alanine Aminotransferase (ALT/SGPT) 78 U/L (10-53) Sodium Level 149 MEQ/L (136-145) Chloride Level 112 MEQ/L (98-107) Estimat Glomerular Filtration Rate 15 ML/MIN (>89) Assessment and Plan Assessment and Plan respiratory failure pna COPD PLAN VENT. SUPPORT ANTIBX. WEAN TOLERATED Ryan Davis MD Nov 19, 2016 19:59
[2016-11-19] MEDS: ALPRAZolam 0.5 MG TAB PO SCH (21:03)
[2016-11-19] MEDS: ATORVASTATIN 80 MG TAB PO SCH (21:03)
[2016-11-20] VITALS (18 sets, daily range): BP systolic 30–161; BP diastolic 55–78; PULSE 82–96; RESP 4–20; TEMP 97.4–98.9; O2SAT 90–98
[2016-11-20] MEDS: AMPICILLIN-SULBACTAM INJ 1,500 MG in SODIUM CHLORIDE 0.9% INJ 100 ML IV SCH ×3 (00:56→10:39)
[2016-11-20] MEDS: PROPOFOL 1000 MG/100 ML IV PRN ×4 (03:33→20:30)
[2016-11-20 05:25] LABS: HEMATOCRIT 28.6 % (35.0-46.0); MEAN CORPUSCULAR HEMOGLOBIN 28.1 PG (27.0-34.0); MEAN CORPUSCULAR HGB CONC 31.6 % (32.0-36.0); PLATELET COUNT 310 TH/MM3 (150-450); RED BLOOD COUNT 3.22 MIL/MM3 (4.00-5.30); RED CELL DISTRIBUTION WIDTH 19.3 % (11.6-17.2); REVIEW FLAG FINAL
[2016-11-20 05:36] LABS: BICARBONATE 27.6 MEQ/L (21.0-32.0); POTASSIUM 4.9 MEQ/L (3.5-5.1)
[2016-11-20] MEDS: FREE WATER G-TUBE SCH ×6 (06:00→23:50)
[2016-11-20] MEDS: SODIUM CHLOR 0.9% 1000 ML INJ 1,000 ML IV SCH (06:00)
[2016-11-20] MEDS: INSULIN ASPART SUPPLEMENTAL SCALE SQ SCH ×5 (06:00→23:50)
[2016-11-20] MEDS: valACYclovir HCL 500 MG TAB PO SCH (08:35)
[2016-11-20] MEDS: AMIODARONE 200 MG TAB PO SCH (08:35)
[2016-11-20] MEDS: methylPREDNISolone SOD SUCC 40 MG/1 ML VIAL IV PUSH SCH ×2 (08:35→20:43)
[2016-11-20] MEDS: VENLAFAXINE HCL 25 MG TAB PO SCH ×2 (08:35→20:43)
[2016-11-20] MEDS: DOCUSATE SODIUM 50 MG/SENNA 8.6 MG TAB PO SCH ×2 (08:35→20:43)
[2016-11-20] MEDS: LORATADINE 10 MG TAB PO SCH (08:35)
[2016-11-20] MEDS: SODIUM CHLORIDE 0.9% FLUSH 10 ML FLUSH IV FLUSH SCH ×2 (08:36→20:44)
--- NOTE | 2016-11-20 10:26 | HHI.CCPN ---
Subjective Remarks/Hospital Course 11/13: 71-year-old female with a history of COPD, coronary artery disease and hypertension who was admitted through the emergency room with complaints of progressive shortness of breath over the past 3 to 4 days. The patient has a history of CABG x3 approximately 7 weeks ago in [place], [place]. She did have some postoperative pleural effusions which had to be tapped. She then drove from [place] down here and she was experiencing increasing dyspnea. A CT scan of the chest showed evidence of bilateral patchy pulmonary infiltrates consistent with either pneumonia and/or pulmonary edema. At night November 12 her respiratory status dramatically declined, patient became hypoxemic and tachypneic and diaphoretic requiring endotracheal intubation. 11/14: Remains sedated, orally intubated on mechanical ventilation. On low dose vasopressin and Levophed for pressor support. 11/15: Remains sedated, orally intubated on mechanical ventilation. Failed CPAP trial yesterday within 5 minutes. Off Levophed. Low-dose vasopressin being titrated down. Tolerating tube feeds. Hemoglobin drop noted however significant positive fluid balance. 11/16: Remains sedated, orally intubated on mechanical ventilation. Tolerating tube feeds. Off pressors. Daily C Pap trials. 11/17: Remains sedated, orally intubated on mechanical ventilation. Tolerating tube feeds. Failed C Pap trial yesterday. 11/18: Remains sedated, arousable, orally intubated on mechanical ventilation. Tolerated C Pap trials however on dropping pressure-support to+5 became tachypneic. Hemoglobin 7.7 this morning. No melena or rectal bleeding. Ordered CT abdomen and pelvis to evaluate for retroperitoneal bleed. One unit PRBCs ordered to be transfused. Also noted rising BUN/creatinine. Patient is nonoliguric and is on diuretics. 11/19: failed cpap today for hypoxia and tachypnea. ct abd pelvis yesterday without evidence of retroperitoneal hematoma. hgb improved with prbc and remains stable. BUN/Cr continues to rise, nephrology note today: most likely ATN. hypernatremia worsening as well. 11/20: continues to fail cpap for hypoxia. hgb stable. hypernatremia continues to worsen. cr stable. uop adequate. Objective Vital Signs Date Time Temp Pulse Resp B/P (MAP) Pulse Ox O2 Delivery O2 Flow Rate FiO2 11/20/16 10:00 96 11/20/16 08:54 40 11/20/16 08:00 98.2 16 156/76 (102) 98 11/18/16 07:22 Ventilator Intake and Output 11/20/16 11/20/16 11/21/16 08:00 16:00 00:00 Intake Total 2099 ml Output Total 1000 ml Balance 1099 ml Result Diagram: 11/20/16 0420 11/20/16 0420 Other Results Microbiology Date/Time Source Procedure Growth Status 11/18/16 09:15 Stool Stool Stool Occult Blood (SARAH) - Final HEMOCCULT POSITIVE Complete 11/18/16 09:15 Urine Catheterized Urine Urine Culture - Final NO GROWTH IN 48 HOURS. Complete Imaging Last Impressions Chest X-Ray 11/14/16 0000 Signed Impressions: Service Date/Time: Monday, November 14, 2016 04:35 - CONCLUSION: Improved bilateral airspace disease. New nasogastric tube, tip in the stomach. Other lines and tubes unchanged. Issa Kumar MD Shoulder X-Ray 11/10/16 0000 Signed Impressions: Service Date/Time: October 13:50 - CONCLUSION: 1. Old right humeral neck fracture. 2. No acute fracture or dislocation. 3. Course interstitial opacities throughout the visualized right upper lobe. Crispin Ramos MD Humerus X-Ray 11/10/16 0000 Signed Impressions: Service Date/Time: October 13:53 - CONCLUSION: 1. Old right humeral neck fracture. 2. No acute fracture or dislocation. Crispin Ramos MD CT Angiography 11/10/16 0000 Signed Impressions: Service Date/Time: October 14:35 - CONCLUSION: 1. No evidence of pulmonary embolus. 2. Severe extensive bilateral pulmonary parenchymal opacity with a crazy paving appearance. Differential diagnosis includes pulmonary edema, pulmonary alveolar stenosis, acute interstitial pneumonia, and eosinophilic pneumonia. 3. Small pleural effusions left greater than right. 4. Mildly enlarged mediastinal lymph nodes likely reactive. Adolph Root MD Objective Remarks GENERAL: Sedated and intubated elderly woman SKIN: Warm and dry. HEAD: Normocephalic. EYES: Pallor present. No scleral icterus. No injection or drainage. NECK: trachea midline. No JVD CARDIOVASCULAR: Regular rate and rhythm RESPIRATORY: Orally intubated on mechanical ventilation. Breath sounds equal bilaterally. Scattered rhonchi, no wheezing or crackles. GASTROINTESTINAL: Abdomen soft, non-tender, nondistended. no guarding. MUSCULOSKELETAL: No cyanosis. Trace edema. NEURO: Sedated, arousable, orally intubated on mechanical ventilation A/P Assessment and Plan Assessment: 71yF with bilateral pneumonia and acute hypoxic respiratory failure. failing cpap trials and off pathway. remains critically ill today with persistent renal dysfunction, metabolic derangements and not improving from a pulmonary standpoint. Continues to fail CPAP trials. off pathway and not improving as we would expect. if we withdraw support, she would . may likely need tracheostomy if she does not improve. Acute hypoxic Respiratory failure on [facility] ventilation - Bilateral patchy infiltrates - Pneumonia versus pulmonary edema - Mechanical ventilation - Unasyn by ID. - Gentle diuresis if tolerated. - daily SBTs. failing for hypoxia and tachypnea. - intubated 11/12 (9 days of mechanical ventilation) Septic shock- resolved. - piv's -off vasopressors. - off ivf. continue gentle diuresis COPD - DuoNeb scheduled and when necessary, Solumedrol Coronary artery disease - Status post CABG - Troponins negative - Cardiology input appreciated - Echo with normal LV function. Paroxysmal atrial fibrillation - Rate controlled - Amiodarone - Eliquis held on 11/15 due to drop in Hgb. Started heparin for full anticoagulation on 11/17 however in view of hemoglobin drop on 11/18 stopped heparin. hgb 9.8 to 9.0 in 24h. will recheck this afternoon and if stable will order SQH 5000 q12h and slowly work back up to full anticoagulation. Anemia secondary to acute blood loss - No overt evidence of GI blood loss. CT abdomen pelvis ordered to evaluate for retroperitoneal bleed. CONCHITA - Strict intake output, monitor and replete electrolites, follow BUN/ creatinine. off diuretics given conchita. nephrology on board. no indication for emergent dialysis at this time. Hypernatremia- worsening - increase free water to 300 q4h DVT GI prophylaxis - Eliquis held 11/15, will consider lovenox for DVT prophylaxis vs resuming full anticoagulation if Hgb remains response to 1 unit PRBC transfusion with no e/o bleeding on CT abdomen pelvis. - Pepcid - Teds SCDs Critical Care: The total critical care time was 33 minutes. Time to perform other separately billable procedures was not included in the critical care time. Mikal Sheets MD Nov 20, 2016 10:26
[2016-11-20] MEDS ORDERED: LABETALOL HCL 100 MG/20 ML VIAL IV PUSH PRN (10:30)
[2016-11-20] MEDS: hydrALAZINE HCL 20 MG/ML VIAL IV PUSH PRN (10:39)
--- NOTE | 2016-11-20 11:25 | HHI.IDPN ---
Subjective Subjective Remarks is a 71 y/o CF with PMHx of COPD, CAD, HTN was admitted through emergency room. Patients is in the room and reports she had a CABG triple vessel with major (> 90 percent blockages). She remained intubated for few days post surgery. She improved and drains removed. Overall did ok but when found to have post operative pleural effusions underwent thoracentesis. After tap she did fairly ok and was discharged home. On her way to [place] she started feeling short of breath while they drove here. She was seen in the ED. CT chest showed evidence of bilateral patchy pulmonary infiltrates consistent with either pneumonia and/or pulmonary edema. She was initially admitted to [facility] and due to decline in her respiratory status (hypoxia , tachypnea and diaphoresis) she was intubated. At the time of my evaluation, she is in IMC. Currently intubated with 50% FiO2, PEEP 7. secretions small white thin. UO ok. On vasopressin, weaned off Levophed earlier. ID has been consulted for septic shock secondary to Pneumonia in a CABG patient. Overnight events reviewed. Remains intubated. On CPAP trial today. Receiving diuretics. Not much secretions: white, thin, small. No fevers No rash No diarrhea. UO ok. Antibiotics Unasyn IV Lines Line sites with no e.o infection Past Medical History reviewed Allergies: Coded Allergies: hydromorphone (Verified Allergy, Intermediate, hallucinations, 11/10/16) morphine (Verified Allergy, Intermediate, hallucinations, 11/10/16) Objective . Vital Signs Date Time Temp Pulse Resp B/P (MAP) Pulse Ox O2 Delivery O2 Flow Rate FiO2 11/20/16 10:00 96 11/20/16 08:54 40 11/20/16 08:50 45 11/20/16 08:00 96 11/20/16 08:00 45 11/20/16 08:00 98.2 85 16 156/76 (102) 98 11/20/16 07:10 98 40 11/20/16 06:00 85 11/20/16 04:27 97 45 11/20/16 04:00 86 11/20/16 04:00 45 11/20/16 04:00 98.5 86 18 134/71 (92) 98 11/20/16 02:00 92 11/20/16 00:45 96 45 11/20/16 00:00 45 11/20/16 00:00 96 11/20/16 00:00 98.6 96 20 161/74 (103) 96 11/19/16 22:00 93 11/19/16 20:13 98 45 11/19/16 20:00 45 11/19/16 20:00 99.4 93 16 168/81 (110) 98 11/19/16 20:00 93 11/19/16 18:00 93 11/19/16 16:00 45 11/19/16 16:00 91 11/19/16 16:00 86.0 89 19 119/58 (78) 94 11/19/16 14:25 95 45 11/19/16 14:00 89 11/19/16 12:00 45 11/19/16 12:00 91 11/19/16 12:00 98.3 93 19 176/97 (123) . Laboratory Tests Test 11/18/16 16:33 11/19/16 04:00 11/20/16 04:20 Hemoglobin 9.4 GM/DL 9.8 GM/DL 9.0 GM/DL Hematocrit 29.8 % 30.7 % 28.6 % White Blood Count 20.0 TH/MM3 17.0 TH/MM3 Red Blood Count 3.47 MIL/MM3 3.22 MIL/MM3 Mean Corpuscular Volume 88.6 FL 89.0 FL Mean Corpuscular Hemoglobin 28.3 PG 28.1 PG Mean Corpuscular Hemoglobin Concent 31.9 % 31.6 % Red Cell Distribution Width 19.3 % 19.3 % Platelet Count 340 TH/MM3 310 TH/MM3 Mean Platelet Volume 8.2 FL 8.7 FL Neutrophils (%) (Auto) 88.3 % Lymphocytes (%) (Auto) 5.7 % Monocytes (%) (Auto) 5.7 % Eosinophils (%) (Auto) 0.2 % Basophils (%) (Auto) 0.1 % Neutrophils # (Auto) 17.6 TH/MM3 Lymphocytes # (Auto) 1.1 TH/MM3 Monocytes # (Auto) 1.1 TH/MM3 Eosinophils # (Auto) 0.0 TH/MM3 Basophils # (Auto) 0.0 TH/MM3 CBC Comment DIFF FINAL Differential Comment Laboratory Tests Test 11/19/16 04:00 11/20/16 04:20 Blood Urea Nitrogen 102 MG/DL 104 MG/DL Creatinine 3.05 MG/DL 3.07 MG/DL Random Glucose 154 MG/DL 174 MG/DL Total Protein 6.4 GM/DL Albumin 2.1 GM/DL Calcium Level 9.1 MG/DL 8.9 MG/DL Alkaline Phosphatase 91 U/L Aspartate Amino Transf (AST/SGOT) 58 U/L Alanine Aminotransferase (ALT/SGPT) 78 U/L Total Bilirubin 0.3 MG/DL Sodium Level 149 MEQ/L 153 MEQ/L Potassium Level 5.0 MEQ/L 4.9 MEQ/L Chloride Level 112 MEQ/L 116 MEQ/L Carbon Dioxide Level 27.8 MEQ/L 27.6 MEQ/L Anion Gap 9 MEQ/L 9 MEQ/L Estimat Glomerular Filtration Rate 15 ML/MIN 15 ML/MIN Microbiology Date/Time Source Procedure Growth Status 11/18/16 09:15 Stool Stool Stool Occult Blood (SARAH) - Final HEMOCCULT POSITIVE Complete 11/18/16 09:15 Urine Catheterized Urine Urine Culture - Final NO GROWTH IN 48 HOURS. Complete Imaging Last Impressions Chest X-Ray 11/15/16 0600 Signed Impressions: Service Date/Time: Tuesday, November 15, 2016 05:05 - CONCLUSION: No significant change. Issa Kumar MD Shoulder X-Ray 11/10/16 0000 Signed Impressions: Service Date/Time: October 13:50 - CONCLUSION: 1. Old right humeral neck fracture. 2. No acute fracture or dislocation. 3. Course interstitial opacities throughout the visualized right upper lobe. Crispin Ramos MD Humerus X-Ray 11/10/16 0000 Signed Impressions: Service Date/Time: October 13:53 - CONCLUSION: 1. Old right humeral neck fracture. 2. No acute fracture or dislocation. Crispin Ramos MD CT Angiography 11/10/16 0000 Signed Impressions: Service Date/Time: October 14:35 - CONCLUSION: 1. No evidence of pulmonary embolus. 2. Severe extensive bilateral pulmonary parenchymal opacity with a crazy paving appearance. Differential diagnosis includes pulmonary edema, pulmonary alveolar stenosis, acute interstitial pneumonia, and eosinophilic pneumonia. 3. Small pleural effusions left greater than right. 4. Mildly enlarged mediastinal lymph nodes likely reactive. Adolph Root MD Physical Exam GENERAL: Obese, well-developed patient, in no apparent distress. SKIN: No rashes, ecchymoses or lesions. Cool and dry. HEAD: Atraumatic. Normocephalic. No temporal or scalp tenderness. EYES: Pupils equal round and reactive. Extraocular motions intact. No scleral icterus. No injection or drainage. ENT: Nose without bleeding, purulent drainage or septal hematoma. Throat without erythema, tonsillar hypertrophy or exudate. Uvula midline. Airway patent. NECK: Trachea midline. Supple, nontender, no meningeal signs. Large neck. CARDIOVASCULAR: HS audible. No murmur appreciated. Chest wall exam: surgical site with no e.o infection. RESPIRATORY: Clear to auscultation. Breath sounds equal bilaterally. No wheezes , rales, or rhonchi. GASTROINTESTINAL: Abdomen soft, non-tender, nondistended. Drain sites in upper abdomen normal. MUSCULOSKELETAL: Extremities without clubbing, cyanosis, or edema. No joint tenderness, effusion, or edema noted. No calf tenderness. Negative Homans sign bilaterally. NEUROLOGICAL: Awake and alert. Gross examination normal. Psych could not be assessed. IV line sites with no e.o infection. Assessment & Plan Remarks Pneumonia recent hospitalization at risk for MDRO. Recent CABG triple vessel 7 weeks back. Acute renal failure: sepsis, medication induced. Hyperglycemia, no known DM, A1C 5.8 Obesity BMI 27.6 kg/m2 Leucocytosis: likely steroid related. Recs: DC Unasyn IV Observe off antibiotics. d/w CCM and RN: assess need for valacyclovir as it can affect kidney function. d.w Pts spouse. Will discontinue Valacyclovir for now as no obvious clinical indication. Will sign off please call back if any change in clinical condition or questions. Consuelo Starkey MD Nov 20, 2016 11:25
--- NOTE | 2016-11-20 12:47 | PD.CARD.PN ---
Subjective Subjective Remarks Intubated, sedated, on CPAP earlier Objective Medications Administered Medications Medications (Trade) Dose Ordered Sig/Vida Route PRN Reason Start Time Stop Time Status Last Admin Dose Admin Apixaban (Eliquis) 5 mg BID PO 11/10/16 21:00 Future Hold 11/15/16 08:20 Propranolol HCl (Inderal) 10 mg Q12HR PO 11/10/16 12:00 Future Hold 11/13/16 08:40 Atorvastatin Calcium (Lipitor) 80 mg HS PO 11/10/16 21:00 11/19/16 21:03 Venlafaxine HCl (Effexor) 50 mg BID PO 11/10/16 21:00 11/20/16 08:35 Amiodarone HCl (Cordarone) 200 mg DAILY PO 11/10/16 11:00 11/20/16 08:35 Loratadine (Claritin) 10 mg DAILY PO 11/10/16 12:00 11/20/16 08:35 Albuterol/ Ipratropium (Duoneb Neb) 1 ampule Q4HR NEB PRN INH SHORTNESS OF BREATH 11/10/16 12:00 11/17/16 20:32 Ondansetron HCl (Zofran Inj) 4 mg Q6HR PRN IV PUSH NAUSEA 11/10/16 12:00 11/10/16 20:31 Guaifenesin/ Dextromethorphan (Robitussin Dm 200-20 Mg/10 ml Liq) 10 ml Q4HR PRN PO COUGH 11/10/16 12:00 11/12/16 09:09 Sodium Chloride (NS Flush) 2 ml BID IV FLUSH 11/10/16 21:00 11/20/16 08:36 Acetaminophen (Tylenol) 650 mg Q4H PRN PO TEMP > 100.4 11/10/16 10:00 11/11/16 08:10 Oxycodone/ Acetaminophen (Percocet 5-325 Mg) 1 tab Q6H PRN PO PAIN SCALE 3 TO 5 11/10/16 12:00 11/10/16 21:47 Oxycodone/ Acetaminophen (Percocet 10-325 Mg) 1 tab Q6H PRN PO PAIN SCALE 6 TO 10 11/10/16 12:00 11/12/16 09:09 Senna/Docusate Sodium (Hanna-Colace) 1 tab BID PO 11/10/16 21:00 11/20/16 08:35 Sennosides (Senokot) 17.2 mg Q12HR PRN PO MODERATE - SEVERE CONSTIPATION 11/10/16 12:00 11/15/16 08:20 Bisacodyl (Dulcolax Supp) 10 mg DAILY PRN RECTAL SEVERE CONSITIPATION 11/10/16 12:00 11/15/16 08:21 Lactulose (Lactulose Liq) 30 ml DAILY PRN PO SEVERE CONSITIPATION 11/10/16 12:00 11/15/16 08:19 Tiotropium [place] (Spiriva Inh) 18 mcg DAILY INH 11/11/16 17:00 Future Hold 11/12/16 08:47 Alprazolam (Xanax) 0.5 mg HS PO 11/12/16 21:00 11/19/16 21:03 Fentanyl Citrate 250 ml @ 5 mls/hr TITRATE PRN IV SEDATION 11/13/16 01:30 11/17/16 23:57 Propofol 100 ml @ 2.142 mls/ hr TITRATE PRN IV SEDATION 11/13/16 03:00 11/20/16 08:35 Sodium Chloride 1,000 ml @ 20 mls/hr Q24H IV 11/13/16 09:45 11/20/16 06:00 Insulin Aspart (NovoLOG SUPPLEMENTAL SCALE) 1 Q6HR SQ 11/14/16 15:00 11/20/16 11:03 Methylprednisolone Sodium Succinate (SoluMEDROL INJ) 20 mg BID IV PUSH 11/16/16 21:00 11/20/16 08:35 Heparin Sodium/ Dextrose 250 ml @ 10 mls/hr TITRATE PRN IV Coagulation management 11/17/16 13:15 Future Hold 11/17/16 14:43 Hydralazine HCl (Apresoline Inj) 10 mg Q30M PRN IV PUSH sbp > 160 11/20/16 10:30 11/20/16 10:39 Water (Free Water) 300 ml Q4HR G-TUBE 11/20/16 12:00 11/20/16 11:03 Vital Signs / I&O Vital Signs Date Time Temp Pulse Resp B/P (MAP) Pulse Ox O2 Delivery O2 Flow Rate FiO2 11/20/16 11:55 40 11/20/16 11:29 94 40 11/20/16 10:00 96 11/20/16 08:54 40 11/20/16 08:50 45 11/20/16 08:00 96 11/20/16 08:00 45 11/20/16 08:00 98.2 85 16 156/76 (102) 98 11/20/16 07:10 98 40 11/20/16 06:00 85 11/20/16 04:27 97 45 11/20/16 04:00 86 11/20/16 04:00 45 11/20/16 04:00 98.5 86 18 134/71 (92) 98 11/20/16 02:00 92 11/20/16 00:45 96 45 11/20/16 00:00 45 11/20/16 00:00 96 11/20/16 00:00 98.6 96 20 161/74 (103) 96 11/19/16 22:00 93 11/19/16 20:13 98 45 11/19/16 20:00 45 11/19/16 20:00 99.4 93 16 168/81 (110) 98 11/19/16 20:00 93 11/19/16 18:00 93 11/19/16 16:00 45 11/19/16 16:00 91 11/19/16 16:00 86.0 89 19 119/58 (78) 94 11/19/16 14:25 95 45 11/19/16 14:00 89 I/O 11/19/16 11/19/16 11/19/16 11/20/16 11/20/16 11/20/16 07:00 15:00 23:00 07:00 15:00 23:00 Intake Total 1039.5 ml 100 ml 1289 ml 2099 ml Output Total 1000 ml 900 ml 1000 ml Balance 39.5 ml 100 ml 389 ml 1099 ml IV Total 353.5 ml 100 ml 200 ml 1200 ml Tube Feeding 566 ml 589 ml 499 ml Other 120 ml 500 ml 400 ml Output Urine Total 700 ml 800 ml 700 ml Stool Total 300 ml 100 ml 300 ml Physical Exam GENERAL: Intubated, sedated SKIN: Warm and dry. HEAD: Normocephalic. EYES: No scleral icterus. No injection or drainage. NECK: Supple, trachea midline. No JVD or lymphadenopathy. CARDIOVASCULAR: Irregular, without murmurs, gallops, or rubs. RESPIRATORY: Breath sounds equal bilaterally, coarse. GASTROINTESTINAL: Abdomen soft, non-tender, nondistended. MUSCULOSKELETAL: No cyanosis, or edema. Laboratory Laboratory Tests Test 11/20/16 04:20 White Blood Count 17.0 TH/MM3 Red Blood Count 3.22 MIL/MM3 Hemoglobin 9.0 GM/DL Hematocrit 28.6 % Mean Corpuscular Volume 89.0 FL Mean Corpuscular Hemoglobin 28.1 PG Mean Corpuscular Hemoglobin Concent 31.6 % Red Cell Distribution Width 19.3 % Platelet Count 310 TH/MM3 Mean Platelet Volume 8.7 FL Blood Urea Nitrogen 104 MG/DL Creatinine 3.07 MG/DL Random Glucose 174 MG/DL Calcium Level 8.9 MG/DL Sodium Level 153 MEQ/L Potassium Level 4.9 MEQ/L Chloride Level 116 MEQ/L Carbon Dioxide Level 27.6 MEQ/L Anion Gap 9 MEQ/L Estimat Glomerular Filtration Rate 15 ML/MIN Assessment and Plan Problem List: (1) Respiratory failure ICD Codes: J96.90 - Respiratory failure, unspecified, unspecified whether with hypoxia or hypercapnia (2) Septic shock ICD Codes: A41.9 - Sepsis, unspecified organism; R65.21 - Severe sepsis with septic shock (3) Bilateral pneumonia ICD Codes: J18.9 - Pneumonia, unspecified organism Status: Acute (4) Coronary artery disease ICD Codes: I25.10 - Atherosclerotic heart disease of [place] coronary artery without angina pectoris (5) S/P CABG x 3 ICD Codes: Z95.1 - Presence of aortocoronary bypass graft (6) Atrial fibrillation ICD Codes: I48.91 - Unspecified atrial fibrillation (7) Renal insufficiency ICD Codes: N28.9 - Disorder of kidney and ureter, unspecified Assessment and Plan Increase atrial ectopy; no AF. Vent weaning so far unsuccessful. Continue vent support. Wean vent as tolerated. Continue antibiotics as per ID service. Monitor renal fx. Echo w nl LV syst fx. Continue ICU care. Problem Qualifiers (1) Bilateral pneumonia: Qualified Codes: J18.9 - Pneumonia, unspecified organism Daniella Simpson MD Nov 20, 2016 12:47
--- NOTE | 2016-11-20 13:20 | HHI.NPPN ---
Subjective History of Present Illness 71-year-old female with a past medical history of hyperlipidemia, chronic obstructive liver disease, sleep apnea, ischemic heart disease, history of coronary artery bypass grafting done about 28 weeks ago and depression who was admitted with worsening shortness of breath and cough. I was called to see the patient because of elevated BUN and creatinine. The patient had a creatinine of 0.7 on admission. Additional Remarks Patient remain intubated and sedated, clinically same. Review of Systems General General Remarks Intubated and sedated. Objective Data Data Vital Signs Date Time Temp Pulse Resp B/P (MAP) Pulse Ox O2 Delivery O2 Flow Rate FiO2 11/20/16 11:55 40 11/20/16 11:29 94 40 11/20/16 10:00 96 11/20/16 08:54 40 11/20/16 08:50 45 11/20/16 08:00 96 11/20/16 08:00 45 11/20/16 08:00 98.2 85 16 156/76 (102) 98 11/20/16 07:10 98 40 11/20/16 06:00 85 11/20/16 04:27 97 45 11/20/16 04:00 86 11/20/16 04:00 45 11/20/16 04:00 98.5 86 18 134/71 (92) 98 11/20/16 02:00 92 11/20/16 00:45 96 45 11/20/16 00:00 45 11/20/16 00:00 96 11/20/16 00:00 98.6 96 20 161/74 (103) 96 11/19/16 22:00 93 11/19/16 20:13 98 45 11/19/16 20:00 45 11/19/16 20:00 99.4 93 16 168/81 (110) 98 11/19/16 20:00 93 11/19/16 18:00 93 11/19/16 16:00 45 11/19/16 16:00 91 11/19/16 16:00 86.0 89 19 119/58 (78) 94 11/19/16 14:25 95 45 11/19/16 14:00 89 -: 11/20/16 0420 11/20/16 0420 Physical Exam General Appearance: No Acute Distress, Comfortable Eyes Eye Exam: Pupils Equal Neck Neck Exam: Neck Supple Pulmonary Resp Exam: Rhonchi, Decreased Bases, Diminished Breath Sounds, Poor Inspiratory Effort Cardiology CV Exam: Regular, Normal Sinus Rhythm Gastrointestinal/Abdomen GI Exam: Soft, Non-Tender, Bowel Sounds Present, Distended Extremeties Extremities Exam: Moderate Edema, Pitting Edema, Dependent Edema Neurologic Neuro Exam: Sedated Assessment/Plan Assessment Summary: CONCHITA/Acute Renal Failure Problem List: (1) Acute kidney injury ICD Codes: N17.9 - Acute kidney failure, unspecified (2) Respiratory failure ICD Codes: J96.90 - Respiratory failure, unspecified, unspecified whether with hypoxia or hypercapnia (3) Septic shock ICD Codes: A41.9 - Sepsis, unspecified organism; R65.21 - Severe sepsis with septic shock (4) Atrial fibrillation ICD Codes: I48.91 - Unspecified atrial fibrillation (5) Coronary artery disease ICD Codes: I25.10 - Atherosclerotic heart disease of [place] coronary artery without angina pectoris (6) Bilateral pneumonia ICD Codes: J18.9 - Pneumonia, unspecified organism Status: Acute Plan Patient has been non oliguric. Has Acute kidney injury, urine Na was high and osmolality was not very high, Eosinophils negative. Most likely has ATN causing CONCHITA, either due to hypotension or infection. Off Lasix, urine out put is adequate. Continue antibiotics. Avoid Nephrotoxins. Weaning as per CCM. Creatinine now almost same. Na. increased, started on free water. Follow the urine out put and BMP. D/W the at the bed side. Problem Qualifiers (1) Bilateral pneumonia: Qualified Codes: J18.9 - Pneumonia, unspecified organism Michelle Boo MD Nov 20, 2016 13:20
--- NOTE | 2016-11-20 16:11 | HHI.PR ---
Subjective Remarks sedated on the ventilator attempt at weaning not successful Objective Vital Signs Date Time Temp Pulse Resp B/P (MAP) Pulse Ox O2 Delivery O2 Flow Rate FiO2 11/20/16 16:00 98.9 93 18 148/78 (101) 97 11/20/16 16:00 93 11/20/16 16:00 40 11/20/16 14:58 98 40 11/20/16 14:00 82 11/20/16 12:00 83 11/20/16 12:00 98.4 83 16 98/55 (69) 96 11/20/16 12:00 40 11/20/16 11:55 40 11/20/16 11:29 94 40 11/20/16 10:00 96 11/20/16 08:54 40 11/20/16 08:50 45 11/20/16 08:00 96 11/20/16 08:00 45 11/20/16 08:00 98.2 85 16 156/76 (102) 98 11/20/16 07:10 98 40 11/20/16 06:00 85 11/20/16 04:27 97 45 11/20/16 04:00 86 11/20/16 04:00 45 11/20/16 04:00 98.5 86 18 134/71 (92) 98 11/20/16 02:00 92 11/20/16 00:45 96 45 11/20/16 00:00 45 11/20/16 00:00 96 11/20/16 00:00 98.6 96 20 161/74 (103) 96 11/19/16 22:00 93 11/19/16 20:13 98 45 11/19/16 20:00 45 11/19/16 20:00 99.4 93 16 168/81 (110) 98 11/19/16 20:00 93 11/19/16 18:00 93 I/O 11/19/16 11/19/16 11/19/16 11/20/16 11/20/16 11/20/16 07:00 15:00 23:00 07:00 15:00 23:00 Intake Total 1039.5 ml 100 ml 1289 ml 2099 ml 100 ml Output Total 1000 ml 900 ml 1000 ml Balance 39.5 ml 100 ml 389 ml 1099 ml 100 ml IV Total 353.5 ml 100 ml 200 ml 1200 ml 100 ml Tube Feeding 566 ml 589 ml 499 ml Other 120 ml 500 ml 400 ml Output Urine Total 700 ml 800 ml 700 ml Stool Total 300 ml 100 ml 300 ml Result Diagram: 11/20/1641911/20/16419 Objective Remarks Laboratory Tests Test 11/17/16 07:43 11/17/16 14:30 11/17/16 21:00 11/18/16 04:20 White Blood Count 17.6 TH/MM3 (4.0-11.0) 17.8 TH/MM3 (4.0-11.0) Red Blood Count 2.82 MIL/MM3 (4.00-5.30) 2.96 MIL/MM3 (4.00-5.30) Hemoglobin 8.1 GM/DL (11.6-15.3) 8.2 GM/DL (11.6-15.3) Hematocrit 25.3 % (35.0-46.0) 26.5 % (35.0-46.0) Red Cell Distribution Width 19.6 % (11.6-17.2) 19.8 % (11.6-17.2) Neutrophils (%) (Auto) 86.0 % (16.0-70.0) Lymphocytes (%) (Auto) 6.9 % (9.0-44.0) Neutrophils # (Auto) 15.2 TH/MM3 (1.8-7.7) Monocytes # (Auto) 1.2 TH/MM3 (0-0.9) Blood Urea Nitrogen 74 MG/DL (7-18) Creatinine 2.16 MG/DL (0.50-1.00) Random Glucose 125 MG/DL (74-106) Total Protein 6.2 GM/DL (6.4-8.2) Albumin 2.0 GM/DL (3.4-5.0) Magnesium Level 3.0 MG/DL (1.5-2.5) Aspartate Amino Transf (AST/SGOT) 50 U/L (15-37) Alanine Aminotransferase (ALT/SGPT) 58 U/L (10-53) Sodium Level 146 MEQ/L (136-145) Chloride Level 112 MEQ/L (98-107) Estimat Glomerular Filtration Rate 22 ML/MIN (>89) Mean Corpuscular Hemoglobin Concent 31.0 % (32.0-36.0) Prothrombin Time 12.1 SEC (9.8-11.6) Activated Partial Thromboplast Time 24.0 SEC (24.3-30.1) 84.9 SEC (24.3-30.1) 56.5 SEC (24.3-30.1) Test 11/18/16 07:30 11/18/16 09:15 11/18/16 16:33 11/18/16 16:35 White Blood Count 18.4 TH/MM3 (4.0-11.0) Red Blood Count 2.71 MIL/MM3 (4.00-5.30) Hemoglobin 7.7 GM/DL (11.6-15.3) 9.4 GM/DL (11.6-15.3) Hematocrit 24.5 % (35.0-46.0) 29.8 % (35.0-46.0) Mean Corpuscular Hemoglobin Concent 31.3 % (32.0-36.0) Red Cell Distribution Width 19.2 % (11.6-17.2) Neutrophils (%) (Auto) 86.4 % (16.0-70.0) Lymphocytes (%) (Auto) 6.9 % (9.0-44.0) Neutrophils # (Auto) 15.9 TH/MM3 (1.8-7.7) Monocytes # (Auto) 1.2 TH/MM3 (0-0.9) Blood Urea Nitrogen 91 MG/DL (7-18) Creatinine 2.61 MG/DL (0.50-1.00) Random Glucose 133 MG/DL (74-106) Total Protein 6.1 GM/DL (6.4-8.2) Albumin 1.9 GM/DL (3.4-5.0) Magnesium Level 3.2 MG/DL (1.5-2.5) Aspartate Amino Transf (AST/SGOT) 51 U/L (15-37) Alanine Aminotransferase (ALT/SGPT) 68 U/L (10-53) Sodium Level 149 MEQ/L (136-145) Chloride Level 113 MEQ/L (98-107) Estimat Glomerular Filtration Rate 18 ML/MIN (>89) Urine Turbidity HAZY (CLEAR) Urine Protein 30 mg/dL (NEG-TRACE) Urine Occult Blood MOD (NEG) Urine RBC 27 /hpf (0-3) Urine WBC 6 /hpf (0-5) Urine Bacteria MOD /hpf (NONE) Urine Mucus FEW /lpf (OCC) Test 11/19/16 02:16 11/19/16 04:00 White Blood Count 20.0 TH/MM3 (4.0-11.0) Red Blood Count 3.47 MIL/MM3 (4.00-5.30) Hemoglobin 9.8 GM/DL (11.6-15.3) Hematocrit 30.7 % (35.0-46.0) Mean Corpuscular Hemoglobin Concent 31.9 % (32.0-36.0) Red Cell Distribution Width 19.3 % (11.6-17.2) Neutrophils (%) (Auto) 88.3 % (16.0-70.0) Lymphocytes (%) (Auto) 5.7 % (9.0-44.0) Neutrophils # (Auto) 17.6 TH/MM3 (1.8-7.7) Monocytes # (Auto) 1.1 TH/MM3 (0-0.9) Blood Urea Nitrogen 102 MG/DL (7-18) Creatinine 3.05 MG/DL (0.50-1.00) Random Glucose 154 MG/DL (74-106) Albumin 2.1 GM/DL (3.4-5.0) Aspartate Amino Transf (AST/SGOT) 58 U/L (15-37) Alanine Aminotransferase (ALT/SGPT) 78 U/L (10-53) Sodium Level 149 MEQ/L (136-145) Chloride Level 112 MEQ/L (98-107) Estimat Glomerular Filtration Rate 15 ML/MIN (>89) Assessment and Plan Assessment and Plan respiratory failure pna COPD PLAN VENT. SUPPORT ANTIBX. WEAN TOLERATED Ryan Davis MD Nov 20, 2016 16:11
[2016-11-20 18:54] LABS: REVIEW FLAG FINAL
[2016-11-20] MEDS: RESP: ALBUTEROL 2.5 MG/IPRATROPIUM 0.5 MG NEB (PRN) INH (19:32)
[2016-11-20] MEDS: ALPRAZolam 0.5 MG TAB PO SCH (20:43)
[2016-11-20] MEDS: ATORVASTATIN 80 MG TAB PO SCH (20:43)
[2016-11-21] VITALS (40 sets, daily range): BP systolic 120–190; BP diastolic 60–143; PULSE 76–103; RESP 16–18; TEMP 98–98.9; O2SAT 92–100
[2016-11-21] MEDS: PROPOFOL 1000 MG/100 ML IV PRN ×3 (01:08→21:11)
[2016-11-21] MEDS: FREE WATER G-TUBE SCH ×5 (03:15→20:00)
[2016-11-21] MEDS: SODIUM CHLOR 0.9% 1000 ML INJ 1,000 ML IV SCH (05:45)
[2016-11-21] MEDS: INSULIN ASPART SUPPLEMENTAL SCALE SQ SCH ×3 (06:00→17:03)
[2016-11-21] MEDS: DOCUSATE SODIUM 50 MG/SENNA 8.6 MG TAB PO SCH ×2 (09:24→21:00)
[2016-11-21] MEDS: methylPREDNISolone SOD SUCC 40 MG/1 ML VIAL IV PUSH SCH ×2 (09:24→21:13)
[2016-11-21] MEDS: SODIUM CHLORIDE 0.9% FLUSH 10 ML FLUSH IV FLUSH SCH ×2 (09:24→21:33)
[2016-11-21] MEDS: LORATADINE 10 MG TAB PO SCH (09:24)
[2016-11-21] MEDS: AMIODARONE 200 MG TAB PO SCH (09:24)
[2016-11-21] MEDS: VENLAFAXINE HCL 25 MG TAB PO SCH ×2 (09:24→21:00)
--- NOTE | 2016-11-21 10:34 | PD.CONS ---
Consult Service Palliative Care Consult Requested By Dr. Starkey Primary Care Physician Non-Staff Reason for Consultation a. To assist with evaluation and management of symptoms including: Shortness of breath, Debility b. To assist medical decision maker(s) with: better understanding of current medical conditions; weighing benefits/burdens of medical treatment options; making medical treatment decisions. HPI History of Present Illness Mrs Miranda is a 71 years old female history of CAD, COPD, atrial fibrillation , hypertension, hyperlipidemia, depression, obstructive sleep apnea. Approximately 8 weeks ago, patient had CABG X3 vessels and post operative pleural effusion which was drained in [place], [place]. Patient presented to the ER on 11/10/16 complaining of shortness of breath and cough overnight. Patient also complaining of pain to LUE. Chest x-ray revealed old right middle neck fracture no acute fracture or dislocation, course interstitial opacities throughout the visualize right upper lobe. Patient started on Zithromax and Cefepime. CT angiography revealed no evidence of pulmonary embolus, severe extensive bilateral pulmonary parenchymal opacity with a crazy paving appearance , small pleural effusions left greater than right, mildly enlarged mediastinal lymph nodes likely reactive. Laboratory workup revealed WBC 12.6, hemoglobin 9.2, hematocrit 30.5, platelet count 460, sodium 135, potassium 2.9, BUN/ creatinine 14/0.96, albumin 2.0. Patient admitted for further evaluation. Clinical course complicated with A Flutter on 11/11/16, echocardiogram revealed The left ventricular systolic function is normal with an estimated ejection fraction in the range of 55-60%. No wall motion abnormalities. Cardiology Dr. Simpson consulted. Pulmonology consulted 11/11/16 for pneumonia and respiratory distress, recommended BiPap mask at night and had a Ventimask at 40% day time and to nicole to [place]. 11/12/16 patient became hypoxemic, tachypneic and diaphoretic.Critical Care Management consulted and patient was intubated, sedated and placed on mechanical ventilation. 11/14/16 patient has septic shock started on low-dose vasopressin and levophed. ID Dr. Starkey for evaluation and management of pneumonia. 11/18/[address] Boo consulted for management of increased BUN/creatinine 91/2.61. Patient has been failing CPAP trials. Palliative team consulted. Patient seen in ICU, intubated on mechanical ventilation with no sedation. Patient off pressors. Patient is opening eyes but not following commands, with close with all 4 extremities. Patient currently on CPAP. Ventilator settings 5 /12/35%. Patient afebrile. SBPs 130s. O2 saturation high 90s. Laboratory workup revealed WBC 22.7, hemoglobin 10.3, hematocrit 32.9, platelet count 351. Family meeting with patient's , Jung Miranda, updated on medical status. Patient`s verbalizes that patient is probably not happy with all that is being done to her. For the last 2 years patient has been having problems with breathing and he has been sedentary. Patient had a prescribed CPAP machine that she did not use.He expresses that status post cardiac surgery patient, patient was not willing to participate in any activity to speed up her recovery. Patient`s decided to make patient an alternate code for now and is travelling to [place], to discuss with patient`s daughters whether they would like to pursue aggressive treatment inclusive of hemodialyisis if need arises, tracheostomy and PEG placement if patient is not able to be weaned off the ventilator. . Function/Cognitive Trajectory Patient is able to perform most of her ADLs and able to verbalize her needs. Patient has mostly been sedentary for the last 2 years, after being hospitalized for COPD requiring pulmonary ablation. Per patient has had problems with shortness of breath for more than a year and had moved from her bedroom to sleep downstairs because she had a difficult time ambulating upstairs due to shortness of breath. states that he does most of the work at home and patiently rarely goes out. Review of Systems ROS Limitations: Clinical Condition, Intubated Constitutional: COMPLAINS OF: Fatigue, Change in appetite, Pain, Generalized weakness Eyes: DENIES: Eye inflammation Ears, nose, mouth, throat: DENIES: Nasal discharge Respiratory: COMPLAINS OF: Cough, Shortness of breath Cardiovascular: DENIES: Lower Extremity Edema Gastrointestinal: DENIES: Constipation Musculoskeletal: COMPLAINS OF: Decreased range of motion Hematologic/Lymphatics: COMPLAINS OF: Bruising Other ROS: ROS obtained from medical history and clinical observation. . Past Family Social History Coded Allergies: hydromorphone (Verified Allergy, Intermediate, hallucinations, 11/10/16) morphine (Verified Allergy, Intermediate, hallucinations, 11/10/16) Past Medical History Depression COPD Hyperlipidemia Hypertension Obstructive sleep apnea Recent coronary artery disease History of coronary artery bypass graft of 3 vessels approximately 7 weeks ago in [place] Atrial fibrillation, on chronic anticoagulation with Eliquis Lumbar region steroid injections . Past Surgical History Coronary artery bypass graft of 3 vessels 7 weeks ago Tonsillectomy Appendectomy bilateral breasts biopsies Steroid injections in the lumbar region Bilateral cataract surgeries Reported Medications Zyrtec (Cetirizine HCl) Unknown Strength Tablet 1 Tab PO HS Propranolol (Propranolol HCl) 10 Mg Tab Unknown Dose PO HS Effexor (Venlafaxine HCl) 50 Mg Tab Unknown Dose PO Q12H Valtrex (Valacyclovir HCl) 500 Mg Tab Unknown Dose PO BID Claritin (Loratadine) 10 Mg Cap 10 Mg PO DAILY Eliquis (Apixaban) 5 Mg Tab Unknown Dose PO BID Crestor (Rosuvastatin Calcium) 20 Mg Tab Unknown Dose PO DAILY Amiodarone (Amiodarone HCl) 200 Mg Tab 200 Mg PO DAILY . Current Medications Medications (Trade) Dose Ordered Sig/Vida Route Start Time Stop Time Status Last Admin (Eliquis) 5 mg BID PO 11/10/16 21:00 Future Hold 11/15/16 08:20 (Inderal) 10 mg Q12HR PO 11/10/16 12:00 Future Hold 11/13/16 08:40 (Lipitor) 80 mg HS PO 11/10/16 21:00 11/20/16 20:43 (Effexor) 50 mg BID PO 11/10/16 21:00 11/21/16 09:24 (Cordarone) 200 mg DAILY PO 11/10/16 11:00 11/21/16 09:24 (Claritin) 10 mg DAILY PO 11/10/16 12:00 11/21/16 09:24 (Duoneb Neb) 1 ampule Q4HR NEB PRN INH 11/10/16 12:00 11/20/16 19:32 (Zofran Inj) 4 mg Q6HR PRN IV PUSH 11/10/16 12:00 11/10/16 20:31 (Robitussin Dm 200-20 Mg/10 ml Liq) 10 ml Q4HR PRN PO 11/10/16 12:00 11/12/16 09:09 (NS Flush) 2 ml UNSCH PRN IV FLUSH 11/10/16 10:00 (NS Flush) 2 ml BID IV FLUSH 11/10/16 21:00 11/21/16 09:24 (Tylenol) 650 mg Q4H PRN PO 11/10/16 10:00 11/11/16 08:10 (Tylenol) 650 mg Q6H PRN PO 11/10/16 10:00 (Percocet 5-325 Mg) 1 tab Q6H PRN PO 11/10/16 12:00 11/10/16 21:47 (Percocet 10-325 Mg) 1 tab Q6H PRN PO 11/10/16 12:00 11/12/16 09:09 (Narcan Inj) 0.4 mg UNSCH PRN IV PUSH 11/10/16 10:00 (Hanna-Colace) 1 tab BID PO 11/10/16 21:00 11/21/16 09:24 (Milk Of Magnesia Liq) 30 ml Q12HR PRN PO 11/10/16 12:00 (Senokot) 17.2 mg Q12HR PRN PO 11/10/16 12:00 11/15/16 08:20 (Dulcolax Supp) 10 mg DAILY PRN RECTAL 11/10/16 12:00 11/15/16 08:21 (Lactulose Liq) 30 ml DAILY PRN PO 11/10/16 12:00 11/15/16 08:19 (Spiriva Inh) 18 mcg DAILY INH 11/11/16 17:00 Future Hold 11/12/16 08:47 (Xanax) 0.5 mg HS PO 11/12/16 21:00 11/20/16 20:43 Miscellaneous Information Patient in critical care unit? Ass... Q361D .XX 11/12/16 20:00 Fentanyl Citrate 250 ml @ 5 mls/hr TITRATE PRN IV 11/13/16 01:30 11/17/16 23:57 Propofol 100 ml @ 2.142 mls/ hr TITRATE PRN IV 11/13/16 03:00 11/21/16 05:54 Sodium Chloride 1,000 ml @ 20 mls/hr Q24H IV 11/13/16 09:45 11/21/16 05:45 (NovoLOG SUPPLEMENTAL SCALE) 1 Q6HR SQ 11/14/16 15:00 11/21/16 06:00 (D50w (Syr) Inj) 25 ml UNSCH PRN IV 11/14/16 15:00 (Glucagon Inj) 1 mg UNSCH PRN IM/SQ 11/14/16 15:00 (SoluMEDROL INJ) 20 mg BID IV PUSH 11/16/16 21:00 11/21/16 09:24 Heparin Sodium/ Dextrose 250 ml @ 10 mls/hr TITRATE PRN IV 11/17/16 13:15 Future Hold 11/17/16 14:43 (Trandate Inj) 20 mg Q15M PRN IV PUSH 11/20/16 10:30 (Apresoline Inj) 10 mg Q30M PRN IV PUSH 11/20/16 10:30 11/20/16 10:39 (Free Water) 300 ml Q4HR G-TUBE 11/20/16 12:00 11/21/16 08:00 Family History Mother- at age 100 Father - of cancer in his 60s . Substance Use Tobacco: Remote history of smoking, patient used to smoke 1-1/2 pack per day for 30 years and quit Alcohol: Yes, daily Prescription med abuse: Denies Illicits: Denies . Psychosocial History Patient was born in [place] and she moved to [place] at an early age. Patient has been twice. Patient is to her second of 43 years. Patient has 3 daughters and 6 grandchildren. 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 . Spiritual/Cultural Factors Patient is Jew. has already had a hospital mortician visit with patient. . Living Will: Never completed Health Care Surrogate: Completed, but not made available Durable Power of Veterinarian Poultry: Never completed Health Care Surrogate(s): Reported by that he is the healthcare surrogate -Jung Miranda and alternate HCS is daughter Temi Garza. . Family/friends goals: Patient made an alternate Code today. and patient`s daughter to discuss whether they will progress with hemodialysis, tracheostomy and PEG placement. . Ethical and Legal Issues None identified at this time. . Physical Exam Vital Signs Date Time Temp Pulse Resp B/P (MAP) Pulse Ox O2 Delivery O2 Flow Rate FiO2 11/21/16 07:43 99 40 11/21/16 06:00 76 11/21/16 04:12 97 40 11/21/16 04:00 98.0 85 18 134/67 (89) 97 11/21/16 04:00 40 11/21/16 04:00 85 11/21/16 02:00 90 11/21/16 00:25 96 40 11/21/16 00:00 79 11/21/16 00:00 98.2 79 16 132/61 (84) 96 11/21/16 00:00 40 11/20/16 22:00 86 11/20/16 20:00 97.4 90 20 152/69 (96) 90 11/20/16 20:00 40 11/20/16 20:00 90 11/20/16 19:33 96 40 11/20/16 18:00 91 11/20/16 16:00 98.9 93 18 148/78 (101) 97 11/20/16 16:00 93 11/20/16 16:00 40 11/20/16 14:58 98 40 11/20/16 14:00 82 11/20/16 12:00 83 11/20/16 12:00 98.4 83 16 98/55 (69) 96 11/20/16 12:00 40 11/20/16 11:55 40 11/20/16 11:29 94 40 11/20/16 10:00 96 Exam CONSTITUTIONAL/GENERAL: This is an adequately nourished elderly patient, intubated on mechanical ventilation. TUBES/LINES/DRAINS:PIVS,FC, [place]ign[place], SCDs, ETT, BUE soft restraints. SKIN: No jaundice, rashes, or lesions. Ecchymoses on upper extremities. No wounds seen anteriorly. Skin temperature appropriate. Not diaphoretic. HEAD: Atraumatic. Normocephalic. EYES: Pupils equal and round and reactive. Extraocular motions intact. No scleral icterus. No injection or drainage. Fundi not examined. ENT: Nose without bleeding or purulent drainage. Moist oral mucosa. NECK: Trachea midline. Supple, nontender. No palpable thyroid enlargement or nodularity. CARDIOVASCULAR: Regular rhythm, sinus tachycardia. No murmurs, gallops, or rubs. No JVD. Peripheral pulses symmetric. RESPIRATORY/CHEST: Symmetric, unlabored respirations. Clear to auscultation. Breath sounds equal bilaterally but diminished. No wheezes, rales, or rhonchi. GASTROINTESTINAL: Abdomen soft, non-tender, nondistended. No hepato-splenomegaly , or palpable masses. No guarding. Bowel sounds present. GENITOURINARY: Without palpable bladder distension. Barraza catheter in place. MUSCULOSKELETAL: Extremities without clubbing, cyanosis, or edema. No joint tenderness or effusion noted. No calf tenderness. No mottling or clubbing. NEUROLOGICAL: Lethargic and intubated on mechanical ventilation.Patient is following commands. Withdraws with all extremities. PSYCHIATRIC: Intubated on mechanical ventilation. . Diagnostic Tests Laboratory Laboratory Tests Test 11/18/16 16:33 11/18/16 16:35 11/19/16 02:16 11/19/16 04:00 Hemoglobin 9.4 GM/DL (11.6-15.3) 9.8 GM/DL (11.6-15.3) Hematocrit 29.8 % (35.0-46.0) 30.7 % (35.0-46.0) Urine Osmolality 358 MOSM/KG (300-1300) Urine Random Sodium 113 MEQ/L Urine Eosinophils NONE SEEN /HPF (NONE SEEN) White Blood Count 20.0 TH/MM3 (4.0-11.0) Red Blood Count 3.47 MIL/MM3 (4.00-5.30) Mean Corpuscular Volume 88.6 FL (80.0-100.0) Mean Corpuscular Hemoglobin 28.3 PG (27.0-34.0) Mean Corpuscular Hemoglobin Concent 31.9 % (32.0-36.0) Red Cell Distribution Width 19.3 % (11.6-17.2) Platelet Count 340 TH/MM3 (150-450) Mean Platelet Volume 8.2 FL (7.0-11.0) Neutrophils (%) (Auto) 88.3 % (16.0-70.0) Lymphocytes (%) (Auto) 5.7 % (9.0-44.0) Monocytes (%) (Auto) 5.7 % (0.0-8.0) Eosinophils (%) (Auto) 0.2 % (0.0-4.0) Basophils (%) (Auto) 0.1 % (0.0-2.0) Neutrophils # (Auto) 17.6 TH/MM3 (1.8-7.7) Lymphocytes # (Auto) 1.1 TH/MM3 (1.0-4.8) Monocytes # (Auto) 1.1 TH/MM3 (0-0.9) Eosinophils # (Auto) 0.0 TH/MM3 (0-0.4) Basophils # (Auto) 0.0 TH/MM3 (0-0.2) CBC Comment DIFF FINAL Differential Comment Blood Urea Nitrogen 102 MG/DL (7-18) Creatinine 3.05 MG/DL (0.50-1.00) Random Glucose 154 MG/DL (74-106) Total Protein 6.4 GM/DL (6.4-8.2) Albumin 2.1 GM/DL (3.4-5.0) Calcium Level 9.1 MG/DL (8.5-10.1) Alkaline Phosphatase 91 U/L (45-117) Aspartate Amino Transf (AST/SGOT) 58 U/L (15-37) Alanine Aminotransferase (ALT/SGPT) 78 U/L (10-53) Total Bilirubin 0.3 MG/DL (0.2-1.0) Sodium Level 149 MEQ/L (136-145) Potassium Level 5.0 MEQ/L (3.5-5.1) Chloride Level 112 MEQ/L (98-107) Carbon Dioxide Level 27.8 MEQ/L (21.0-32.0) Anion Gap 9 MEQ/L (5-15) Estimat Glomerular Filtration Rate 15 ML/MIN (>89) Test 11/20/16 04:20 11/20/16 18:22 White Blood Count 17.0 TH/MM3 (4.0-11.0) Red Blood Count 3.22 MIL/MM3 (4.00-5.30) Hemoglobin 9.0 GM/DL (11.6-15.3) 10.8 GM/DL (11.6-15.3) Hematocrit 28.6 % (35.0-46.0) 35.0 % (35.0-46.0) Mean Corpuscular Volume 89.0 FL (80.0-100.0) Mean Corpuscular Hemoglobin 28.1 PG (27.0-34.0) Mean Corpuscular Hemoglobin Concent 31.6 % (32.0-36.0) Red Cell Distribution Width 19.3 % (11.6-17.2) Platelet Count 310 TH/MM3 (150-450) Mean Platelet Volume 8.7 FL (7.0-11.0) Blood Urea Nitrogen 104 MG/DL (7-18) Creatinine 3.07 MG/DL (0.50-1.00) Random Glucose 174 MG/DL (74-106) Calcium Level 8.9 MG/DL (8.5-10.1) Sodium Level 153 MEQ/L (136-145) Potassium Level 4.9 MEQ/L (3.5-5.1) Chloride Level 116 MEQ/L (98-107) Carbon Dioxide Level 27.6 MEQ/L (21.0-32.0) Anion Gap 9 MEQ/L (5-15) Estimat Glomerular Filtration Rate 15 ML/MIN (>89) Result Diagram: 11/20/16 1822 11/20/16 0420 Imaging Last Impressions Chest X-Ray 11/19/16 0600 Signed Impressions: Service Date/Time: Saturday, November 19, 2016 03:51 - CONCLUSION: Unchanged diffuse pulmonary infiltrates. Jayden Olguin Jr., MD Abdomen/Pelvis CT 11/18/16 0000 Signed Impressions: Service Date/Time: Friday, November 18, 2016 10:09 - CONCLUSION: 1. No evidence for retroperitoneal hematoma or acute abnormality, as questioned. 2. Small left pleural effusion with redemonstration of diffuse interstitial patchy airspace opacities at the lung bases. 3. NGT in the stomach. Crispin Ramos MD Shoulder X-Ray 11/10/16 0000 Signed Impressions: Service Date/Time: October 13:50 - CONCLUSION: 1. Old right humeral neck fracture. 2. No acute fracture or dislocation. 3. Course interstitial opacities throughout the visualized right upper lobe. Crispin Ramos MD Humerus X-Ray 11/10/16 0000 Signed Impressions: Service Date/Time: October 13:53 - CONCLUSION: 1. Old right humeral neck fracture. 2. No acute fracture or dislocation. Crispin Ramos MD CT Angiography 11/10/16 0000 Signed Impressions: Service Date/Time: October 14:35 - CONCLUSION: 1. No evidence of pulmonary embolus. 2. Severe extensive bilateral pulmonary parenchymal opacity with a crazy paving appearance. Differential diagnosis includes pulmonary edema, pulmonary alveolar stenosis, acute interstitial pneumonia, and eosinophilic pneumonia. 3. Small pleural effusions left greater than right. 4. Mildly enlarged mediastinal lymph nodes likely reactive. Adolph Root MD Procedures 11/12/16 -intubation . Patient/Family Conference Present at Family Conference: Patient's Jung Miranda . Family Conference Location: Consult Room Issues Discussed: * Palliative care role, purpose, approach * Additional medical, psychosocial, and spiritual history * Patients general health, functional status, and cognitive changes in the months leading up to the current hospitalization * Patient/family understanding of the current medical problems, COPD, CAD, pneumonia, acute renal failure. * Patient/family understanding of prognosis * Patients goals of care as best understood from advance directives and/or conversations and/or values * Current medical treatment options and benefits/burdens of those options * Likely scenarios comparing ongoing aggressive care with a transition to comfort measures only * Questions answered to the best of my ability * Palliative care contact information provided Assessment and Plan Disease Oriented Problem List: (1) Respiratory failure (2) Septic shock (3) Acute kidney injury (4) Bilateral pneumonia (5) Coronary artery disease (6) Atrial fibrillation Symptom Scale: (1) Shortness of breath 0-10 Scale: Unable to quantify (2) Debility 0-10 Scale: Unable to quantify Pertinent Non-Medical Issues Psychosocial:Patient was born in [place] and she moved to [place] at an early age. Patient has been twice. Patient is to her second of 43 years. Patient has 3 daughters and 6 grandchildren. 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 Spiritual: Patient is Jew Legal:Reported by that he is the healthcare surrogate -Jung Miranda and alternate HCS is daughter Temi Garza. Ethical issues impacting care: None identified Important Contacts Spouse- Jung Miranda , Daughters- Karolina Almazan ; Yamilet Infante ; Temi Greg . Prognosis Mrs Miranda is a 71 years old female history of CAD, COPD, atrial fibrillation , hypertension, hyperlipidemia, depression, obstructive sleep apnea. Approximately 8 weeks ago, patient had CABG X3 vessels and post operative pleural effusion which was drained in [place], [place]. Patient presented to the ER on 11/10/16 complaining of shortness of breath and cough overnight. Chest CT revealed evidence of bilateral patchy pulmonary infiltrates consistent of pneumonia and/or pulmonary edema. Patient`s respiratory status declined requiring intubation. Further complications include sepsis, and acute renal failure. Given patient`s ongoing multiple comorbidities, patient is at high risk for further complications, deterioration, decline leading to . . Code Status: Alternative Code Plan PLAN: Legal decision maker: Patient currently intubated and on mechanical ventilation. Patient has a Jung Miranda who reports that he is patients` Health Care Surrogate and alternate healthcare Surrogate is patient`s daughter Temi Garza. Goals: Patient`s has made patient an Alternate Code. CODE STATUS: Alternate Code SYMPTOMS: * Shortness of breath-Patient has a history of COPD, obstructive sleep apnea. Patient has been having shortness of breath for more than a year. Currently intubated and on mechanical ventilation. Patient failing CPAP trials. Patient on solumedrol BID, Duonebs. * Debility- Patient has been deteriorating healthwise for more than a 2 years, has had decreased oral intake for sometime. Patient had CABG x 3 vessels on 2016. PT and OT following. Patient may benefit from rehabilitation if she survives this hospitalization. Palliative care will continue to follow the patient during hospital course as condition evolves, to assist patient/decision-maker with understanding of their medical conditions, weighing benefits/burdens of treatment options, for clarification of goals of treatment. Additionally will assist with any symptoms of palliative concern Thank you for the opportunity to participate in the care of Ms. Miranda. Attestation To help prompt me to consider important information that might be impacting todays encounter, some historical information from prior notes written by myself or my colleagues may have been brought forward into todays note. My signature on this note, however, is an attestation that I personally performed the exam noted today, and, unless otherwise dated, the interactions with patient , family, and staff as well as the review of records noted all occurred today. I also attest that the listed assessment and stated plan reflect my best clinical judgment today based on the combination of historical information, prior notes, and todays exam/ interactions. The level of evaluation / management services and/or time that is claimed for this visit does NOT include work or time done by myself or other providers on previous visits. . Dalton Puentes Nov 21, 2016 10:34
--- NOTE | 2016-11-21 12:12 | HHI.NPPN ---
Subjective History of Present Illness 71-year-old female with a past medical history of hyperlipidemia, chronic obstructive liver disease, sleep apnea, ischemic heart disease, history of coronary artery bypass grafting done about 28 weeks ago and depression who was admitted with worsening shortness of breath and cough. I was called to see the patient because of elevated BUN and creatinine. The patient had a creatinine of 0.7 on admission. Additional Remarks Patient remain intubated and sedated. Review of Systems General General Remarks Intubated and sedated. Objective Data Data Vital Signs Date Time Temp Pulse Resp B/P (MAP) Pulse Ox O2 Delivery O2 Flow Rate FiO2 11/21/16 11:13 95 35 11/21/16 09:52 100 35 11/21/16 09:50 40 11/21/16 07:43 99 40 11/21/16 06:00 76 11/21/16 04:12 97 40 11/21/16 04:00 98.0 85 18 134/67 (89) 97 11/21/16 04:00 40 11/21/16 04:00 85 11/21/16 02:00 90 11/21/16 00:25 96 40 11/21/16 00:00 79 11/21/16 00:00 98.2 79 16 132/61 (84) 96 11/21/16 00:00 40 11/20/16 22:00 86 11/20/16 20:00 97.4 90 20 152/69 (96) 90 11/20/16 20:00 40 11/20/16 20:00 90 11/20/16 19:33 96 40 11/20/16 18:00 91 11/20/16 16:00 98.9 93 18 148/78 (101) 97 11/20/16 16:00 93 11/20/16 16:00 40 11/20/16 14:58 98 40 11/20/16 14:00 82 -: 11/20/16 1822 11/20/16 0420 Physical Exam General Appearance: No Acute Distress, Comfortable Eyes Eye Exam: Pupils Equal Neck Neck Exam: Neck Supple Pulmonary Resp Exam: Rhonchi, Decreased Bases, Diminished Breath Sounds, Poor Inspiratory Effort Cardiology CV Exam: Regular, Normal Sinus Rhythm Gastrointestinal/Abdomen GI Exam: Soft, Non-Tender, Bowel Sounds Present, Distended Extremeties Extremities Exam: Moderate Edema, Pitting Edema, Dependent Edema Neurologic Neuro Exam: Sedated Assessment/Plan Assessment Summary: CONCHITA/Acute Renal Failure Problem List: (1) Acute kidney injury ICD Codes: N17.9 - Acute kidney failure, unspecified (2) Respiratory failure ICD Codes: J96.90 - Respiratory failure, unspecified, unspecified whether with hypoxia or hypercapnia (3) Septic shock ICD Codes: A41.9 - Sepsis, unspecified organism; R65.21 - Severe sepsis with septic shock (4) Atrial fibrillation ICD Codes: I48.91 - Unspecified atrial fibrillation (5) Coronary artery disease ICD Codes: I25.10 - Atherosclerotic heart disease of [place] coronary artery without angina pectoris (6) Bilateral pneumonia ICD Codes: J18.9 - Pneumonia, unspecified organism Status: Acute Plan Patient has been non oliguric. Has Acute kidney injury, urine Na was high and osmolality was not very high, Eosinophils negative. Most likely has ATN causing CONCHITA, either due to hypotension or infection. Off Lasix, urine out put is adequate. Continue antibiotics. Avoid Nephrotoxins. Weaning as per CCM. No new BMP, send now. Non oliguric. Problem Qualifiers (1) Bilateral pneumonia: Qualified Codes: J18.9 - Pneumonia, unspecified organism Michelle Boo MD Nov 21, 2016 12:12
--- NOTE | 2016-11-21 12:31 | HHI.PR ---
Subjective Remarks Failed CPAP today and remains on the vent.Remains on 35 % FIO2. Restless on the vent .good output. Objective Vital Signs Date Time Temp Pulse Resp B/P (MAP) Pulse Ox O2 Delivery O2 Flow Rate FiO2 11/21/16 11:13 95 35 11/21/16 09:52 100 35 11/21/16 09:50 40 11/21/16 07:43 99 40 11/21/16 06:00 76 11/21/16 04:12 97 40 11/21/16 04:00 98.0 85 18 134/67 (89) 97 11/21/16 04:00 40 11/21/16 04:00 85 11/21/16 02:00 90 11/21/16 00:25 96 40 11/21/16 00:00 79 11/21/16 00:00 98.2 79 16 132/61 (84) 96 11/21/16 00:00 40 11/20/16 22:00 86 11/20/16 20:00 97.4 90 20 152/69 (96) 90 11/20/16 20:00 40 11/20/16 20:00 90 11/20/16 19:33 96 40 11/20/16 18:00 91 11/20/16 16:00 98.9 93 18 148/78 (101) 97 11/20/16 16:00 93 11/20/16 16:00 40 11/20/16 14:58 98 40 11/20/16 14:00 82 I/O 11/20/16 11/20/16 11/20/16 11/21/16 11/21/16 11/21/16 07:00 15:00 23:00 07:00 15:00 23:00 Intake Total 2099 ml 100 ml 1701 ml 2154 ml Output Total 1000 ml 1450 ml 1200 ml Balance 1099 ml 100 ml 251 ml 954 ml IV Total 1200 ml 100 ml 550 ml Tube Feeding 499 ml 801 ml 704 ml Other 400 ml 900 ml 900 ml Output Urine Total 700 ml 750 ml 700 ml Stool Total 300 ml 700 ml 500 ml Result Diagram: 11/20/16 1822 11/20/16 9800 Objective Remarks GENERAL: This moderately obese elderly lady intubated and on vent support. HEENT: Head normocephalic. Pupils are reactive and equal. Throat is clear . NECK: Supple. No bruits or thyroid enlargement or lymphadenopathy. CHEST: Distant breath sounds with occ wheezes and Crackles at bases HEART: The heart sounds are irregular S1-S2 with no murmur. No S3, gallop. ABDOMEN: The abdomen is soft, protuberant without masses or organomegaly or tenderness. Bowel sounds are active. EXTREMITIES: No lesions. 1 + edema. NEURO: Reflexes are 1+ .Sedated. SKIN: No lesions observed. Assessment and Plan Assessment and Plan IMPRESSION 1. Bilateral pneumonia versus pulmonary edema. 2. Atrial fibrillation and ASHD. 3. History of coronary artery disease with CABG x3. 4. Pleural effusions. 5. COPD with emphysema and acute exacerbation. 6. History of DVT. 7. Respiratory Failure Plan : 1. Will Do CPAP gases and parameters . 2.CXR in am 3. Continue antibiotics . per ID 4. CBC BMP in am 5. Solumedrol 40 mg IV BID. 6. Nebs qid , Duoneb 7. Stop sedation 8. Tube feeds at 60 CC. Ursula Schwab MD Nov 21, 2016 12:31
[2016-11-21 13:30] LABS: HEMATOCRIT 32.9 % (35.0-46.0); MEAN CELL VOLUME 90.5 FL (80.0-100.0); MEAN CORPUSCULAR HEMOGLOBIN 28.4 PG (27.0-34.0); MEAN CORPUSCULAR HGB CONC 31.4 % (32.0-36.0); PLATELET COUNT 351 TH/MM3 (150-450); RED BLOOD COUNT 3.63 MIL/MM3 (4.00-5.30); RED CELL DISTRIBUTION WIDTH 19.2 % (11.6-17.2); REVIEW FLAG FINAL; WHITE BLOOD COUNT 22.7 TH/MM3 (4.0-11.0)
--- NOTE | 2016-11-21 14:06 | PD.CARD.PN ---
Subjective Subjective Remarks Intubated, sedated Objective Medications Administered Medications Medications (Trade) Dose Ordered Sig/Vida Route PRN Reason Start Time Stop Time Status Last Admin Dose Admin Apixaban (Eliquis) 5 mg BID PO 11/10/16 21:00 Future Hold 11/15/16 08:20 Propranolol HCl (Inderal) 10 mg Q12HR PO 11/10/16 12:00 Future Hold 11/13/16 08:40 Atorvastatin Calcium (Lipitor) 80 mg HS PO 11/10/16 21:00 11/20/16 20:43 Venlafaxine HCl (Effexor) 50 mg BID PO 11/10/16 21:00 11/21/16 09:24 Amiodarone HCl (Cordarone) 200 mg DAILY PO 11/10/16 11:00 11/21/16 09:24 Loratadine (Claritin) 10 mg DAILY PO 11/10/16 12:00 11/21/16 09:24 Albuterol/ Ipratropium (Duoneb Neb) 1 ampule Q4HR NEB PRN INH SHORTNESS OF BREATH 11/10/16 12:00 11/20/16 19:32 Ondansetron HCl (Zofran Inj) 4 mg Q6HR PRN IV PUSH NAUSEA 11/10/16 12:00 11/10/16 20:31 Guaifenesin/ Dextromethorphan (Robitussin Dm 200-20 Mg/10 ml Liq) 10 ml Q4HR PRN PO COUGH 11/10/16 12:00 11/12/16 09:09 Sodium Chloride (NS Flush) 2 ml BID IV FLUSH 11/10/16 21:00 11/21/16 09:24 Acetaminophen (Tylenol) 650 mg Q4H PRN PO TEMP > 100.4 11/10/16 10:00 11/11/16 08:10 Oxycodone/ Acetaminophen (Percocet 5-325 Mg) 1 tab Q6H PRN PO PAIN SCALE 3 TO 5 11/10/16 12:00 11/10/16 21:47 Oxycodone/ Acetaminophen (Percocet 10-325 Mg) 1 tab Q6H PRN PO PAIN SCALE 6 TO 10 11/10/16 12:00 11/12/16 09:09 Senna/Docusate Sodium (Hanna-Colace) 1 tab BID PO 11/10/16 21:00 11/21/16 09:24 Sennosides (Senokot) 17.2 mg Q12HR PRN PO MODERATE - SEVERE CONSTIPATION 11/10/16 12:00 11/15/16 08:20 Bisacodyl (Dulcolax Supp) 10 mg DAILY PRN RECTAL SEVERE CONSITIPATION 11/10/16 12:00 11/15/16 08:21 Lactulose (Lactulose Liq) 30 ml DAILY PRN PO SEVERE CONSITIPATION 11/10/16 12:00 11/15/16 08:19 Tiotropium [place] (Spiriva Inh) 18 mcg DAILY INH 11/11/16 17:00 Future Hold 11/12/16 08:47 Alprazolam (Xanax) 0.5 mg HS PO 11/12/16 21:00 11/20/16 20:43 Fentanyl Citrate 250 ml @ 5 mls/hr TITRATE PRN IV SEDATION 11/13/16 01:30 11/17/16 23:57 Propofol 100 ml @ 2.142 mls/ hr TITRATE PRN IV SEDATION 11/13/16 03:00 11/21/16 05:54 Sodium Chloride 1,000 ml @ 20 mls/hr Q24H IV 11/13/16 09:45 11/21/16 05:45 Insulin Aspart (NovoLOG SUPPLEMENTAL SCALE) 1 Q6HR SQ 11/14/16 15:00 11/21/16 06:00 Methylprednisolone Sodium Succinate (SoluMEDROL INJ) 20 mg BID IV PUSH 11/16/16 21:00 11/21/16 09:24 Heparin Sodium/ Dextrose 250 ml @ 10 mls/hr TITRATE PRN IV Coagulation management 11/17/16 13:15 Future Hold 11/17/16 14:43 Hydralazine HCl (Apresoline Inj) 10 mg Q30M PRN IV PUSH sbp > 160 11/20/16 10:30 11/20/16 10:39 Water (Free Water) 300 ml Q4HR G-TUBE 11/20/16 12:00 11/21/16 12:00 Vital Signs / I&O Vital Signs Date Time Temp Pulse Resp B/P (MAP) Pulse Ox O2 Delivery O2 Flow Rate FiO2 11/21/16 11:13 95 35 11/21/16 09:52 100 35 11/21/16 09:50 40 11/21/16 07:43 99 40 11/21/16 06:00 76 11/21/16 04:12 97 40 11/21/16 04:00 98.0 85 18 134/67 (89) 97 11/21/16 04:00 40 11/21/16 04:00 85 11/21/16 02:00 90 11/21/16 00:25 96 40 11/21/16 00:00 79 11/21/16 00:00 98.2 79 16 132/61 (84) 96 11/21/16 00:00 40 11/20/16 22:00 86 11/20/16 20:00 97.4 90 20 152/69 (96) 90 11/20/16 20:00 40 11/20/16 20:00 90 11/20/16 19:33 96 40 11/20/16 18:00 91 11/20/16 16:00 98.9 93 18 148/78 (101) 97 11/20/16 16:00 93 11/20/16 16:00 40 11/20/16 14:58 98 40 I/O 11/20/16 11/20/16 11/20/16 11/21/16 11/21/16 11/21/16 07:00 15:00 23:00 07:00 15:00 23:00 Intake Total 2099 ml 100 ml 1701 ml 2154 ml Output Total 1000 ml 1450 ml 1200 ml Balance 1099 ml 100 ml 251 ml 954 ml IV Total 1200 ml 100 ml 550 ml Tube Feeding 499 ml 801 ml 704 ml Other 400 ml 900 ml 900 ml Output Urine Total 700 ml 750 ml 700 ml Stool Total 300 ml 700 ml 500 ml Physical Exam GENERAL: Intubated, sedated SKIN: Warm and dry. HEAD: Normocephalic. EYES: No scleral icterus. No injection or drainage. NECK: Supple, trachea midline. No JVD or lymphadenopathy. CARDIOVASCULAR: Irregular, without murmurs, gallops, or rubs. RESPIRATORY: Breath sounds equal bilaterally, coarse. GASTROINTESTINAL: Abdomen soft, non-tender, nondistended. MUSCULOSKELETAL: No cyanosis, or edema. Laboratory Laboratory Tests Test 11/20/16 18:22 11/21/16 12:35 Hemoglobin 10.8 GM/DL 10.3 GM/DL Hematocrit 35.0 % 32.9 % White Blood Count 22.7 TH/MM3 Red Blood Count 3.63 MIL/MM3 Mean Corpuscular Volume 90.5 FL Mean Corpuscular Hemoglobin 28.4 PG Mean Corpuscular Hemoglobin Concent 31.4 % Red Cell Distribution Width 19.2 % Platelet Count 351 TH/MM3 Mean Platelet Volume 9.6 FL Assessment and Plan Problem List: (1) Respiratory failure ICD Codes: J96.90 - Respiratory failure, unspecified, unspecified whether with hypoxia or hypercapnia (2) Septic shock ICD Codes: A41.9 - Sepsis, unspecified organism; R65.21 - Severe sepsis with septic shock (3) Bilateral pneumonia ICD Codes: J18.9 - Pneumonia, unspecified organism Status: Acute (4) Coronary artery disease ICD Codes: I25.10 - Atherosclerotic heart disease of k[place] coronary artery without angina pectoris (5) S/P CABG x 3 ICD Codes: Z95.1 - Presence of aortocoronary bypass graft (6) Atrial fibrillation ICD Codes: I48.91 - Unspecified atrial fibrillation (7) Renal insufficiency ICD Codes: N28.9 - Disorder of kidney and ureter, unspecified Assessment and Plan No new cardiac issues. Tele with NSR. Vent weaning so far unsuccessful. Continue vent support. Wean vent as tolerated. Continue antibiotics as per ID service. Monitor renal fx. Echo w nl LV syst fx. Continue ICU care. Pt now DNR. Problem Qualifiers (1) Bilateral pneumonia: Qualified Codes: J18.9 - Pneumonia, unspecified organism Daniella Simpson MD Nov 21, 2016 14:06
[2016-11-21 14:11] LABS: BICARBONATE 25.3 MEQ/L (21.0-32.0); POTASSIUM 5.8 MEQ/L (3.5-5.1)
[2016-11-21] MEDS ORDERED: INSULIN HUMAN REGULAR 1,000 UNITS/10 ML VIAL IV PUSH ONE (19:15)
[2016-11-21] MEDS ORDERED: DEXTROSE 50% IN WATER 50 ML VIAL(D50) IV ONE (19:15)
--- NOTE | 2016-11-21 19:21 | HHI.CCPN ---
Subjective Remarks/Hospital Course 11/13: 71-year-old female with a history of COPD, coronary artery disease and hypertension who was admitted through the emergency room with complaints of progressive shortness of breath over the past 3 to 4 days. The patient has a history of CABG x3 approximately 7 weeks ago in [place], [place]. She did have some postoperative pleural effusions which had to be tapped. She then drove from [place] down here and she was experiencing increasing dyspnea. A CT scan of the chest showed evidence of bilateral patchy pulmonary infiltrates consistent with either pneumonia and/or pulmonary edema. At night November 12 her respiratory status dramatically declined, patient became hypoxemic and tachypneic and diaphoretic requiring endotracheal intubation. 11/14: Remains sedated, orally intubated on mechanical ventilation. On low dose vasopressin and Levophed for pressor support. 11/15: Remains sedated, orally intubated on mechanical ventilation. Failed CPAP trial yesterday within 5 minutes. Off Levophed. Low-dose vasopressin being titrated down. Tolerating tube feeds. Hemoglobin drop noted however significant positive fluid balance. 11/16: Remains sedated, orally intubated on mechanical ventilation. Tolerating tube feeds. Off pressors. Daily C Pap trials. 11/17: Remains sedated, orally intubated on mechanical ventilation. Tolerating tube feeds. Failed C Pap trial yesterday. 11/18: Remains sedated, arousable, orally intubated on mechanical ventilation. Tolerated C Pap trials however on dropping pressure-support to+5 became tachypneic. Hemoglobin 7.7 this morning. No melena or rectal bleeding. Ordered CT abdomen and pelvis to evaluate for retroperitoneal bleed. One unit PRBCs ordered to be transfused. Also noted rising BUN/creatinine. Patient is nonoliguric and is on diuretics. 11/19: failed cpap today for hypoxia and tachypnea. ct abd pelvis yesterday without evidence of retroperitoneal hematoma. hgb improved with prbc and remains stable. BUN/Cr continues to rise, nephrology note today: most likely ATN. hypernatremia worsening as well. 11/20: continues to fail cpap for hypoxia. hgb stable. hypernatremia continues to worsen. cr stable. uop adequate. 11/21: Remains sedated, orally intubated on mechanical ventilation. Failed C Pap trials. Worsening BUN/creatinine noted. Remains nonoliguric. Objective Vital Signs Date Time Temp Pulse Resp B/P (MAP) Pulse Ox O2 Delivery O2 Flow Rate FiO2 11/21/16 16:00 100 172/87 (115) 94 11/21/16 15:22 35 11/21/16 04:00 98.0 18 11/18/16 07:22 Ventilator Intake and Output 11/21/16 11/21/16 11/22/16 08:00 16:00 00:00 Intake Total 2154 ml Output Total 1200 ml Balance 954 ml Result Diagram: 11/21/16 1235 11/21/16 1235 Imaging Last Impressions Chest X-Ray 11/14/16 0000 Signed Impressions: Service Date/Time: Monday, November 14, 2016 04:35 - CONCLUSION: Improved bilateral airspace disease. New nasogastric tube, tip in the stomach. Other lines and tubes unchanged. Issa Kumar MD Shoulder X-Ray 11/10/16 0000 Signed Impressions: Service Date/Time: October 13:50 - CONCLUSION: 1. Old right humeral neck fracture. 2. No acute fracture or dislocation. 3. Course interstitial opacities throughout the visualized right upper lobe. Crispin Ramos MD Humerus X-Ray 11/10/16 0000 Signed Impressions: Service Date/Time: October 13:53 - CONCLUSION: 1. Old right humeral neck fracture. 2. No acute fracture or dislocation. Crispin Ramos MD CT Angiography 11/10/16 0000 Signed Impressions: Service Date/Time: October 14:35 - CONCLUSION: 1. No evidence of pulmonary embolus. 2. Severe extensive bilateral pulmonary parenchymal opacity with a crazy paving appearance. Differential diagnosis includes pulmonary edema, pulmonary alveolar stenosis, acute interstitial pneumonia, and eosinophilic pneumonia. 3. Small pleural effusions left greater than right. 4. Mildly enlarged mediastinal lymph nodes likely reactive. Adolph Root MD Objective Remarks GENERAL: Sedated and intubated elderly woman SKIN: Warm and dry. HEAD: Normocephalic. EYES: Pallor present. No scleral icterus. No injection or drainage. NECK: trachea midline. No JVD CARDIOVASCULAR: Regular rate and rhythm RESPIRATORY: Orally intubated on mechanical ventilation. Breath sounds equal bilaterally. Scattered rhonchi, no wheezing or crackles. GASTROINTESTINAL: Abdomen soft, non-tender, nondistended. no guarding. MUSCULOSKELETAL: No cyanosis. Trace edema. NEURO: Sedated, arousable, orally intubated on mechanical ventilation A/P Assessment and Plan Assessment: 71yF with bilateral pneumonia and acute hypoxic respiratory failure. failing cpap trials and off pathway. remains critically ill today with persistent renal dysfunction, metabolic derangements and not improving from a pulmonary standpoint. Continues to fail CPAP trials. off pathway and not improving as we would expect. if we withdraw support, she would . may likely need tracheostomy if she does not improve. Acute hypoxic Respiratory failure on [facility] ventilation - Bilateral patchy infiltrates - Pneumonia versus pulmonary edema - Mechanical ventilation - Unasyn by ID. - Gentle diuresis if tolerated. - daily SBTs. failing for hypoxia and tachypnea. - intubated 11/12 (9 days of mechanical ventilation) Septic shock- resolved. - piv's -off vasopressors. - off ivf. continue gentle diuresis COPD - DuoNeb scheduled and when necessary, Solumedrol Coronary artery disease - Status post CABG - Troponins negative - Cardiology input appreciated - Echo with normal LV function. Paroxysmal atrial fibrillation - Rate controlled - Amiodarone - Eliquis held on 11/15 due to drop in Hgb. Started heparin for full anticoagulation on 11/17 however in view of hemoglobin drop on 11/18 stopped heparin. hgb 9.8 to 9.0 in 24h. will recheck this afternoon and if stable will order SQH 5000 q12h and slowly work back up to full anticoagulation. Anemia secondary to acute blood loss - No overt evidence of GI blood loss. CT abdomen pelvis ordered to evaluate for retroperitoneal bleed. CONCHITA - Strict intake output, monitor and replete electrolites, follow BUN/ creatinine. off diuretics given conchita. nephrology on board. May require hemodialysis if renal function continues to decline. - Ordered Kayexalate, calcium, glucose insulin for hyperkalemia. Hypernatremia- - free water DVT GI prophylaxis - Eliquis held 11/15, will start heparin for DVT prophylaxis as hemoglobin remained stable currently - Pepc[place]alee - Kimani SCDs Consulted palliative care to assist with deciding goals of therapy as patient looks like she would need a tracheostomy and a PEG tube and possibly hemodialysis if renal function continues to decline. Critical Care: The total critical care time was 30 minutes. Time to perform other separately billable procedures was not included in the critical care time. Ketan Starkey MD Nov 21, 2016 19:21
[2016-11-21] MEDS ORDERED: CALCIUM GLUCONATE INJ 2 GM in DEXTROSE 5% IN WATER 100ML INJ 100 ML IV ONE ×2 (21:00)
[2016-11-21] MEDS: SODIUM POLYSTYRENE SULFONATE SUSP 15 GM/60 ML CUP PO/NG SCH ×3 (21:12→22:59)
[2016-11-21] MEDS: ATORVASTATIN 80 MG TAB PO SCH (21:13)
[2016-11-21] MEDS: ALPRAZolam 0.5 MG TAB PO SCH (21:13)
[2016-11-22] VITALS (38 sets, daily range): BP systolic 111–183; BP diastolic 60–87; PULSE 88–104; TEMP 97.2–99.1; O2SAT 92–100
[2016-11-22] MEDS: hydrALAZINE HCL 20 MG/ML VIAL IV PUSH PRN (00:09)
[2016-11-22] MEDS: PROPOFOL 1000 MG/100 ML IV PRN ×3 (02:22→22:56)
[2016-11-22] MEDS: SODIUM POLYSTYRENE SULFONATE SUSP 15 GM/60 ML CUP PO/NG SCH ×2 (02:22→04:57)
[2016-11-22] MEDS: FREE WATER G-TUBE SCH ×6 (04:00→20:00)
--- NOTE | 2016-11-22 05:06 | RADRPT ---
EXAM DATE/TIME: 11/22/2016 04:08 [facility] COMPARISON: CHEST SINGLE AP, November 19, 2016, 3:51. INDICATIONS : Short of breath. MEDICAL HISTORY : Hypertension. Chronic obstructive pulmonary disease. SURGICAL HISTORY : CABG. ENCOUNTER: Subsequent ACUITY: 1 week PAIN SCORE: 0/10 LOCATION: Bilateral chest FINDINGS: Endotracheal tube tip is just above the nicolasa. Nasogastric tube descends into the stomach. There has been slight improvement in aeration with slight decrease in confluence of bilateral infiltrates. Car diac contours are grossly stable. CONCLUSION: Slight improvement in aeration Issa Bo MD on November 22, 2016 at 5:04 Board Certified Radiologist. This report was verified electronically.
[2016-11-22] MEDS: SODIUM CHLOR 0.9% 1000 ML INJ 1,000 ML IV SCH (05:45)
[2016-11-22] MEDS: INSULIN ASPART SUPPLEMENTAL SCALE SQ SCH ×4 (05:59→17:28)
[2016-11-22 06:59] LABS: HEMATOCRIT 31.9 % (35.0-46.0); MEAN CELL VOLUME 89.8 FL (80.0-100.0); MEAN CORPUSCULAR HEMOGLOBIN 28.5 PG (27.0-34.0); MEAN CORPUSCULAR HGB CONC 31.7 % (32.0-36.0); PLATELET COUNT 358 TH/MM3 (150-450); RED BLOOD COUNT 3.55 MIL/MM3 (4.00-5.30); RED CELL DISTRIBUTION WIDTH 19.1 % (11.6-17.2); REVIEW FLAG FINAL; WHITE BLOOD COUNT 22.3 TH/MM3 (4.0-11.0)
[2016-11-22 07:33] LABS: BICARBONATE 27.2 MEQ/L (21.0-32.0); POTASSIUM 4.2 MEQ/L (3.5-5.1)
[2016-11-22] MEDS: DOCUSATE SODIUM 50 MG/SENNA 8.6 MG TAB PO SCH ×2 (09:33→22:55)
[2016-11-22] MEDS: methylPREDNISolone SOD SUCC 40 MG/1 ML VIAL IV PUSH SCH ×2 (09:33→22:55)
[2016-11-22] MEDS: LORATADINE 10 MG TAB PO SCH (09:34)
[2016-11-22] MEDS: VENLAFAXINE HCL 25 MG TAB PO SCH ×2 (09:34→22:54)
[2016-11-22] MEDS: AMIODARONE 200 MG TAB PO SCH (09:34)
[2016-11-22] MEDS: SODIUM CHLORIDE 0.9% FLUSH 10 ML FLUSH IV FLUSH SCH ×2 (09:34→22:55)
--- NOTE | 2016-11-22 11:30 | HHI.HCPN ---
Reason for visit a. To assist with evaluation and management of symptoms including: Shortness of breath, Debility b. To assist medical decision maker(s) with: better understanding of current medical conditions; weighing benefits/burdens of medical treatment options; making medical treatment decisions. (Dalton Puentes) Subjective/Interval History Mrs Miranda is a 71 years old female history of CAD, COPD, atrial fibrillation , hypertension, hyperlipidemia, depression, obstructive sleep apnea. Approximately 8 weeks ago, patient had CABG X3 vessels and post operative pleural effusion which was drained in [place], [place]. Patient presented to the ER on 11/10/16 complaining of shortness of breath and cough overnight. Patient also complaining of pain to LUE. Chest x-ray revealed old right middle neck fracture no acute fracture or dislocation, course interstitial opacities throughout the visualize right upper lobe. Patient started on Zithromax and Cefepime. Patient seen in ICU. Patient awake, moving all extremities but not following commands. Patient is off sedation. Patient is currently on CPAP, and ventilator settings are 5/12/35%. Patient lasting approximately 2 hours on CPAP , gets very tachypneic. Chest x-ray today revealing slight improvement in aeration. O2 saturation high 90s. Return weight Today revealing WBC 22.3, hemoglobin 10.1, hematocrit 31.9, platelet count 358, sodium 154, potassium 4.2 , BUN/creatinine 117/3.17. Patient afebrile. SBP 120s to 180s. Patient tolerating tube feeds. Case discussed with Dr. Starkey in bedside RENALDO Degroot. Telephone conversation with patient's daughter gary Membreno. Dual visit with Bonny Villavicencio RN. Family/friend interactions Telephone conversation with johnathan Membreno. (Dalton Puentes) Family/friend interactions Contacted by patient's daughter, Paulette, requesting medical update. Review patient's labs, radiology studies and management consultant opinions and plans. Discussed possible options for continuing aggressive care with projected outcomes. Discussed patient's willingness to engage in rehabilitative therapy and compliance with past medical recommendations. Paulette requested information regarding ventilator withdrawal. Discussed anticipatory guidance with pre-lillian- and post medication for patient comfort as well as possible transition to hospice. All questions answered. She states she will update both of her sisters and discussed with her father when he returns home. He is currently in transit between [place] and [place], expected to arrive today in [place]. He wished to discuss with his 3 daughters prior to making any final decisions on his ' s course of care. (Bonny Villavicencio) Advance Directives Living Will: Never completed Health Care Surrogate: Completed, but not made available Durable Power of Broach Operator: Never completed (Dalton Puentes) Advance Directive Specifics Health Care Surrogate(s): Reported by that he is the healthcare surrogate -Jung Robersonjohn and alternate HCS is daughter Temi Garza. . (Dalton Puentes) Objective Vital Signs Date Time Temp Pulse Resp B/P (MAP) Pulse Ox O2 Delivery O2 Flow Rate FiO2 11/22/16 09:08 35 11/22/16 09:08 97 35 11/22/16 09:02 97 35 11/22/16 06:00 96 11/22/16 04:36 96 35 11/22/16 04:00 97.2 103 125/62 (83) 95 11/22/16 04:00 103 11/22/16 04:00 35 11/22/16 02:00 104 11/22/16 00:00 99 11/22/16 00:00 35 11/22/16 00:00 97.5 99 183/87 (119) 95 11/21/16 23:59 94 35 11/21/16 22:00 94 11/21/16 20:00 98.9 98 178/90 (119) 97 11/21/16 20:00 35 11/21/16 20:00 98 11/21/16 19:22 97 35 11/21/16 19:00 96 11/21/16 18:30 97 11/21/16 18:00 97 11/21/16 17:30 97 11/21/16 17:00 97 11/21/16 16:30 97 11/21/16 16:00 100 172/87 (115) 94 11/21/16 16:00 100 11/21/16 16:00 35 11/21/16 15:30 97 11/21/16 15:30 97 166/94 (118) 94 11/21/16 15:30 97 11/21/16 15:22 100 35 11/21/16 15:00 100 11/21/16 15:00 100 11/21/16 15:00 100 161/84 (109) 95 11/21/16 14:50 101 11/21/16 14:50 101 11/21/16 14:50 101 167/81 (109) 95 11/21/16 14:48 102 11/21/16 14:48 102 11/21/16 14:48 102 179/143 (155) 97 11/21/16 14:31 103 190/90 (123) 96 11/21/16 14:31 103 11/21/16 14:31 103 11/21/16 14:00 102 11/21/16 14:00 102 11/21/16 14:00 102 161/84 (109) 95 11/21/16 13:30 99 11/21/16 13:30 99 176/90 (118) 97 11/21/16 13:00 99 11/21/16 13:00 99 177/85 (115) 96 11/21/16 12:35 99 11/21/16 12:35 99 166/89 (114) 96 11/21/16 12:30 99 173/107 (129) 95 11/21/16 12:30 99 11/21/16 12:00 35 11/21/16 12:00 97 173/74 (107) 94 11/21/16 12:00 97 11/21/16 11:30 94 11/21/16 11:30 94 161/79 (106) 95 Intake & Output 11/22/16 11/22/16 07:00 19:00 Intake Total 1881 ml Output Total 1900 ml Balance -19 ml IV Total 460 ml Tube Feeding 771 ml Other 650 ml Output Urine Total 1100 ml Stool Total 800 ml Physical Exam CONSTITUTIONAL/GENERAL: This is an adequately nourished elderly patient, intubated on mechanical ventilation. TUBES/LINES/DRAINS:PIVS,FC, [place], Left nare NGT,SCDs, ETT, BUE soft restraints. SKIN: No jaundice, rashes, or lesions. Ecchymoses on upper extremities. No wounds seen anteriorly. Skin temperature appropriate. Not diaphoretic. HEAD: Atraumatic. Normocephalic. EYES: Pupils equal and round and reactive. Extraocular motions intact. No scleral icterus. No injection or drainage. Fundi not examined. ENT: Nose without bleeding or purulent drainage. Left nare NGT,Moist oral mucosa. NECK: Trachea midline. Supple, nontender. No palpable thyroid enlargement or nodularity. CARDIOVASCULAR: Regular rhythm, sinus tachycardia. No murmurs, gallops, or rubs. No JVD. Peripheral pulses symmetric. RESPIRATORY/CHEST: Symmetric, unlabored respirations. Clear to auscultation. Breath sounds equal bilaterally but diminished. No wheezes, rales, or rhonchi. GASTROINTESTINAL: Abdomen soft, non-tender, nondistended. No hepato-splenomegaly , or palpable masses. No guarding. Bowel sounds present. GENITOURINARY: Without palpable bladder distension. Barraza catheter in place. MUSCULOSKELETAL: Extremities without clubbing, cyanosis, or edema. No joint tenderness or effusion noted. No calf tenderness. No mottling or clubbing. NEUROLOGICAL: Lethargic and awake and intubated on mechanical ventilation.Patient is not following commands. Spontaneously moving all extremities. PSYCHIATRIC: Intubated on mechanical ventilation. . (Dalton Puentes) Diagnostic Tests Laboratory Laboratory Tests Test 11/20/16 04:20 11/20/16 18:22 11/21/16 12:35 11/22/16 06:08 White Blood Count 17.0 TH/MM3 (4.0-11.0) 22.7 TH/MM3 (4.0-11.0) 22.3 TH/MM3 (4.0-11.0) Red Blood Count 3.22 MIL/MM3 (4.00-5.30) 3.63 MIL/MM3 (4.00-5.30) 3.55 MIL/MM3 (4.00-5.30) Hemoglobin 9.0 GM/DL (11.6-15.3) 10.8 GM/DL (11.6-15.3) 10.3 GM/DL (11.6-15.3) 10.1 GM/DL (11.6-15.3) Hematocrit 28.6 % (35.0-46.0) 35.0 % (35.0-46.0) 32.9 % (35.0-46.0) 31.9 % (35.0-46.0) Mean Corpuscular Volume 89.0 FL (80.0-100.0) 90.5 FL (80.0-100.0) 89.8 FL (80.0-100.0) Mean Corpuscular Hemoglobin 28.1 PG (27.0-34.0) 28.4 PG (27.0-34.0) 28.5 PG (27.0-34.0) Mean Corpuscular Hemoglobin Concent 31.6 % (32.0-36.0) 31.4 % (32.0-36.0) 31.7 % (32.0-36.0) Red Cell Distribution Width 19.3 % (11.6-17.2) 19.2 % (11.6-17.2) 19.1 % (11.6-17.2) Platelet Count 310 TH/MM3 (150-450) 351 TH/MM3 (150-450) 358 TH/MM3 (150-450) Mean Platelet Volume 8.7 FL (7.0-11.0) 9.6 FL (7.0-11.0) 9.2 FL (7.0-11.0) Blood Urea Nitrogen 104 MG/DL (7-18) 115 MG/DL (7-18) 117 MG/DL (7-18) Creatinine 3.07 MG/DL (0.50-1.00) 3.01 MG/DL (0.50-1.00) 3.17 MG/DL (0.50-1.00) Random Glucose 174 MG/DL (74-106) 128 MG/DL (74-106) 116 MG/DL (74-106) Calcium Level 8.9 MG/DL (8.5-10.1) 8.7 MG/DL (8.5-10.1) 8.8 MG/DL (8.5-10.1) Sodium Level 153 MEQ/L (136-145) 150 MEQ/L (136-145) 154 MEQ/L (136-145) Potassium Level 4.9 MEQ/L (3.5-5.1) 5.8 MEQ/L (3.5-5.1) 4.2 MEQ/L (3.5-5.1) Chloride Level 116 MEQ/L (98-107) 114 MEQ/L (98-107) 117 MEQ/L (98-107) Carbon Dioxide Level 27.6 MEQ/L (21.0-32.0) 25.3 MEQ/L (21.0-32.0) 27.2 MEQ/L (21.0-32.0) Anion Gap 9 MEQ/L (5-15) 11 MEQ/L (5-15) 10 MEQ/L (5-15) Estimat Glomerular Filtration Rate 15 ML/MIN (>89) 15 ML/MIN (>89) 14 ML/MIN (>89) (Dalton Puentes [employer]) Result Diagram: 11/22/16 0611/22/16 06 Imaging Last Impressions Chest X-Ray 11/22/16 0600 Signed Impressions: Service Date/Time: Tuesday, November 22, 2016 04:08 - CONCLUSION: Slight improvement in aeration Issa Bo MD Abdomen/Pelvis CT 11/18/16 0000 Signed Impressions: Service Date/Time: Friday, November 18, 2016 10:09 - CONCLUSION: 1. No evidence for retroperitoneal hematoma or acute abnormality, as questioned. 2. Small left pleural effusion with redemonstration of diffuse interstitial patchy airspace opacities at the lung bases. 3. NGT in the stomach. Crispin Ramos MD Shoulder X-Ray 11/10/16 0000 Signed Impressions: Service Date/Time: October 13:50 - CONCLUSION: 1. Old right humeral neck fracture. 2. No acute fracture or dislocation. 3. Course interstitial opacities throughout the visualized right upper lobe. Crispin Ramos MD Humerus X-Ray 11/10/16 0000 Signed Impressions: Service Date/Time: October 13:53 - CONCLUSION: 1. Old right humeral neck fracture. 2. No acute fracture or dislocation. Crispin Ramos MD CT Angiography 11/10/16 0000 Signed Impressions: Service Date/Time: October 14:35 - CONCLUSION: 1. No evidence of pulmonary embolus. 2. Severe extensive bilateral pulmonary parenchymal opacity with a crazy paving appearance. Differential diagnosis includes pulmonary edema, pulmonary alveolar stenosis, acute interstitial pneumonia, and eosinophilic pneumonia. 3. Small pleural effusions left greater than right. 4. Mildly enlarged mediastinal lymph nodes likely reactive. Adolph Root MD Procedures 11/12/16 -intubation . (Dalton Puentes) Assessment and Plan Disease Oriented Problem List: (1) Respiratory failure (2) Septic shock (3) Acute kidney injury (4) Bilateral pneumonia (5) Coronary artery disease (6) Atrial fibrillation Symptom Scale: (1) Shortness of breath 0-10 Scale: Unable to quantify (2) Debility 0-10 Scale: Unable to quantify Pertinent Non-Medical Issues Psychosocial:Patient was born in [place] and she moved to [place] at an early age. Patient has been twice. Patient is to her second of 43 years. Patient has 3 daughters and 6 grandchildren. 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 Spiritual: Patient is Buddhist Legal:Reported by that he is the healthcare surrogate -Jung Robersonhannahtru and alternate HCS is daughter Temi Garaz. Ethical issues impacting care: None identified Important Contacts Spouse- Jung Miranda , Daughters- Karolina Almazan ; Yamilet Infante ; Temigalina Garza . Prognosis Mrs Miranda is a 71 years old female history of CAD, COPD, atrial fibrillation , hypertension, hyperlipidemia, depression, obstructive sleep apnea. Approximately 8 weeks ago, patient had CABG X3 vessels and post operative pleural effusion which was drained in [place], [place]. Patient presented to the ER on 11/10/16 complaining of shortness of breath and cough overnight. Chest CT revealed evidence of bilateral patchy pulmonary infiltrates consistent of pneumonia and/or pulmonary edema. Patient`s respiratory status declined requiring intubation. Further complications include sepsis, and acute renal failure. Given patient`s ongoing multiple comorbidities, patient is at high risk for further complications, deterioration, decline leading to . . Code Status: Alternative Code Plan PLAN: Legal decision maker: Patient currently intubated and on mechanical ventilation. Patient has a Jung Miranda who reports that he is patients` Health Care Surrogate and alternate healthcare Surrogate is patient`s daughter Temi Garza. Goals: Patient`s has made patient an Alternate Code. CODE STATUS: Alternate Code SYMPTOMS: * Shortness of breath-Patient has a history of COPD, obstructive sleep apnea. Patient has been having shortness of breath for more than a year. Currently intubated and on mechanical ventilation. Patient failing CPAP trials. Patient on solumedrol BID, Duonebs. * Debility- Patient has been deteriorating healthwise for more than a 2 years, has had decreased oral intake for sometime. Patient had CABG x 3 vessels on 2016. PT and OT following. Patient may benefit from rehabilitation if she survives this hospitalization. Palliative care will continue to follow the patient during hospital course as condition evolves, to assist patient/decision-maker with understanding of their medical conditions, weighing benefits/burdens of treatment options, for clarification of goals of treatment. Additionally will assist with any symptoms of palliative concern (Dalton Puentes) Plan Above assessment and plan reviewed, patient evaluated in dual visit with NATALY Alonso. Agree with above assessment and plan. (Bonny Villavicencio) Attestation To help prompt me to consider important information that might be impacting todays encounter, some historical information from prior notes written by myself or my colleagues may have been brought forward into todays note. My signature on this note, however, is an attestation that I personally performed the exam noted today, and, unless otherwise dated, the interactions with patient , family, and staff as well as the review of records noted all occurred today. I also attest that the listed assessment and stated plan reflect my best clinical judgment today based on the combination of historical information, prior notes, and todays exam/ interactions. The level of evaluation / management services and/or time that is claimed for this visit does NOT include work or time done by myself or other providers on previous visits. (Dalton Puentes) Dalton Puentes Nov 22, 2016 11:30 am Bonny Villavicencio Nov 22, 2016 4:36 pm
--- NOTE | 2016-11-22 12:50 | HHI.PR ---
Subjective Remarks On CPAP today and remains on the vent.Now on 35 % FIO2. Awake and responds .good output. Objective Vital Signs Date Time Temp Pulse Resp B/P (MAP) Pulse Ox O2 Delivery O2 Flow Rate FiO2 11/22/16 11:05 35 11/22/16 11:05 94 35 11/22/16 09:08 35 11/22/16 09:08 97 35 11/22/16 09:02 97 35 11/22/16 06:00 96 11/22/16 04:36 96 35 11/22/16 04:00 97.2 103 125/62 (83) 95 11/22/16 04:00 103 11/22/16 04:00 35 11/22/16 02:00 104 11/22/16 00:00 99 11/22/16 00:00 35 11/22/16 00:00 97.5 99 183/87 (119) 95 11/21/16 23:59 94 35 11/21/16 22:00 94 11/21/16 20:00 98.9 98 178/90 (119) 97 11/21/16 20:00 35 11/21/16 20:00 98 11/21/16 19:22 97 35 11/21/16 19:00 96 11/21/16 18:30 97 11/21/16 18:00 97 11/21/16 17:30 97 11/21/16 17:00 97 11/21/16 16:30 97 11/21/16 16:00 100 172/87 (115) 94 11/21/16 16:00 100 11/21/16 16:00 35 11/21/16 15:30 97 11/21/16 15:30 97 166/94 (118) 94 11/21/16 15:30 97 11/21/16 15:22 100 35 11/21/16 15:00 100 11/21/16 15:00 100 11/21/16 15:00 100 161/84 (109) 95 11/21/16 14:50 101 11/21/16 14:50 101 11/21/16 14:50 101 167/81 (109) 95 11/21/16 14:48 102 11/21/16 14:48 102 11/21/16 14:48 102 179/143 (155) 97 11/21/16 14:31 103 190/90 (123) 96 11/21/16 14:31 103 11/21/16 14:31 103 11/21/16 14:00 102 11/21/16 14:00 102 11/21/16 14:00 102 161/84 (109) 95 11/21/16 13:30 99 11/21/16 13:30 99 176/90 (118) 97 11/21/16 13:00 99 11/21/16 13:00 99 177/85 (115) 96 I/O 11/21/16 11/21/16 11/21/16 11/22/16 11/22/16 11/22/16 07:00 15:00 23:00 07:00 15:00 23:00 Intake Total 2154 ml 1304 ml 1881 ml Output Total 1200 ml 1150 ml 1900 ml Balance 954 ml 154 ml -19 ml IV Total 550 ml 460 ml Tube Feeding 704 ml 704 ml 771 ml Other 900 ml 600 ml 650 ml Output Urine Total 700 ml 850 ml 1100 ml Stool Total 500 ml 300 ml 800 ml Result Diagram: 11/22/16 0608 11/22/16607 Objective Remarks GENERAL: This moderately obese elderly lady intubated and on vent support. HEENT: Head normocephalic. Pupils are reactive and equal. Throat is clear . NECK: Supple. No bruits or thyroid enlargement or lymphadenopathy. CHEST: Distant breath sounds with occ wheezes and Occ Crackles at bases HEART: The heart sounds are irregular S1-S2 with no murmur. No S3, gallop. ABDOMEN: The abdomen is soft, protuberant without masses or organomegaly or tenderness. Bowel sounds are active. EXTREMITIES: No lesions. 1 + edema. NEURO: Reflexes are 1+ .Sedated. SKIN: No lesions observed. Assessment and Plan Assessment and Plan IMPRESSION 1. Bilateral pneumonia versus pulmonary edema. 2. Atrial fibrillation and ASHD. 3. History of coronary artery disease with CABG x3. 4. Pleural effusions. 5. COPD with emphysema and acute exacerbation. 6. History of DVT. 7. Respiratory Failure Plan : 1. Will get CPAP gases and parameters . 2.Labs in am 3. Continue antibiotics . per ID 4. PT evaluation 5. cont Solumedrol 40 mg IV BID. 6. Nebs qid , Duoneb 7. Wean Sedation 8. Tube feeds at 60 CC. Ursula Schwab MD Nov 22, 2016 12:49
[2016-11-22 13:02] LABS: BLOOD GAS BASE EXCESS 1.7 mmol/L (-2-2); BLOOD GAS CARBOXYHEMOGLOBIN 1.6 % (0-4); BLOOD GAS HCO3 25 mmol/L (22-26); BLOOD GAS METHEMOGLOBIN 1.4 % (0-2); BLOOD GAS O2 HGB SATURATION 94 % (90-100); BLOOD GAS OXYGEN CONTENT 13.5 Vol % (12.0-20.0); BLOOD GAS PCO2 34 mmHg (38-42); BLOOD GAS PO2 87 mmHg (61-120); BLOOD GAS TOTAL HGB 10.2 G/DL (12.0-16.0); CRITICAL VALUE NO; DRAW SITE LT RADIAL; FIO2 35 %; NUMBER OF ARTERIAL PUNCTURES 1; OXYGEN DEVICE VENTILATOR; STAT NO; TEMP CORR TO 98.6; ULNAR PULSE PRESENT; VENT SETTINGS CPAP 5/8PS
--- NOTE | 2016-11-22 15:26 | HHI.NPPN ---
Subjective History of Present Illness 71-year-old female with a past medical history of hyperlipidemia, chronic obstructive liver disease, sleep apnea, ischemic heart disease, history of coronary artery bypass grafting done about 28 weeks ago and depression who was admitted with worsening shortness of breath and cough. I was called to see the patient because of elevated BUN and creatinine. The patient had a creatinine of 0.7 on admission. Additional Remarks Patient remain intubated and sedated, remain unresponsive and clinically same. Review of Systems General General Remarks Intubated and sedated. Objective Data Data Vital Signs Date Time Temp Pulse Resp B/P (MAP) Pulse Ox O2 Delivery O2 Flow Rate FiO2 11/22/16 13:22 98 35 11/22/16 11:05 35 11/22/16 11:05 94 35 11/22/16 09:08 35 11/22/16 09:08 97 35 11/22/16 09:02 97 35 11/22/16 06:00 96 11/22/16 04:36 96 35 11/22/16 04:00 97.2 103 125/62 (83) 95 11/22/16 04:00 103 11/22/16 04:00 35 11/22/16 02:00 104 11/22/16 00:00 99 11/22/16 00:00 35 11/22/16 00:00 97.5 99 183/87 (119) 95 11/21/16 23:59 94 35 11/21/16 22:00 94 11/21/16 20:00 98.9 98 178/90 (119) 97 11/21/16 20:00 35 11/21/16 20:00 98 11/21/16 19:22 97 35 11/21/16 19:00 96 11/21/16 18:30 97 11/21/16 18:00 97 11/21/16 17:30 97 11/21/16 17:00 97 11/21/16 16:30 97 11/21/16 16:00 100 172/87 (115) 94 11/21/16 16:00 100 11/21/16 16:00 35 11/21/16 15:30 97 11/21/16 15:30 97 166/94 (118) 94 11/21/16 15:30 97 -: 11/22/16 0608 11/22/16 0608 Physical Exam General Appearance: No Acute Distress, Comfortable Eyes Eye Exam: Pupils Equal Neck Neck Exam: Neck Supple Pulmonary Resp Exam: Rhonchi, Decreased Bases, Diminished Breath Sounds, Poor Inspiratory Effort Cardiology CV Exam: Regular, Normal Sinus Rhythm Gastrointestinal/Abdomen GI Exam: Soft, Non-Tender, Bowel Sounds Present, Distended Extremeties Extremities Exam: Moderate Edema, Pitting Edema, Dependent Edema Neurologic Neuro Exam: Sedated Assessment/Plan Assessment Summary: CONCHITA/Acute Renal Failure Problem List: (1) Acute kidney injury ICD Codes: N17.9 - Acute kidney failure, unspecified (2) Respiratory failure ICD Codes: J96.90 - Respiratory failure, unspecified, unspecified whether with hypoxia or hypercapnia (3) Septic shock ICD Codes: A41.9 - Sepsis, unspecified organism; R65.21 - Severe sepsis with septic shock (4) Atrial fibrillation ICD Codes: I48.91 - Unspecified atrial fibrillation (5) Coronary artery disease ICD Codes: I25.10 - Atherosclerotic heart disease of [place] coronary artery without angina pectoris (6) Bilateral pneumonia ICD Codes: J18.9 - Pneumonia, unspecified organism Status: Acute Plan Patient has been non oliguric. Has Acute kidney injury, urine Na was high and osmolality was not very high, Eosinophils negative. Most likely has ATN causing CONCHITA, either due to hypotension or infection. Off Lasix, urine out put is adequate. Continue antibiotics. Avoid Nephrotoxins. Weaning as per CCM. Did not tolerate CPAP today. Creatinine increase slightly to 3.1. K is now normal, after Kayexalate. Na. is high, on free water. No urgent need for Dialysis. Problem Qualifiers (1) Bilateral pneumonia: Qualified Codes: J18.9 - Pneumonia, unspecified organism Michelle Boo MD Nov 22, 2016 15:26
--- NOTE | 2016-11-22 17:29 | HHI.CCPN ---
Subjective Remarks/Hospital Course 11/13: 71-year-old female with a history of COPD, coronary artery disease and hypertension who was admitted through the emergency room with complaints of progressive shortness of breath over the past 3 to 4 days. The patient has a history of CABG x3 approximately 7 weeks ago in [place], [place]. She did have some postoperative pleural effusions which had to be tapped. She then drove from [place] down here and she was experiencing increasing dyspnea. A CT scan of the chest showed evidence of bilateral patchy pulmonary infiltrates consistent with either pneumonia and/or pulmonary edema. At night November 12 her respiratory status dramatically declined, patient became hypoxemic and tachypneic and diaphoretic requiring endotracheal intubation. 11/14: Remains sedated, orally intubated on mechanical ventilation. On low dose vasopressin and Levophed for pressor support. 11/15: Remains sedated, orally intubated on mechanical ventilation. Failed CPAP trial yesterday within 5 minutes. Off Levophed. Low-dose vasopressin being titrated down. Tolerating tube feeds. Hemoglobin drop noted however significant positive fluid balance. 11/16: Remains sedated, orally intubated on mechanical ventilation. Tolerating tube feeds. Off pressors. Daily C Pap trials. 11/17: Remains sedated, orally intubated on mechanical ventilation. Tolerating tube feeds. Failed C Pap trial yesterday. 11/18: Remains sedated, arousable, orally intubated on mechanical ventilation. Tolerated C Pap trials however on dropping pressure-support to+5 became tachypneic. Hemoglobin 7.7 this morning. No melena or rectal bleeding. Ordered CT abdomen and pelvis to evaluate for retroperitoneal bleed. One unit PRBCs ordered to be transfused. Also noted rising BUN/creatinine. Patient is nonoliguric and is on diuretics. 11/19: failed cpap today for hypoxia and tachypnea. ct abd pelvis yesterday without evidence of retroperitoneal hematoma. hgb improved with prbc and remains stable. BUN/Cr continues to rise, nephrology note today: most likely ATN. hypernatremia worsening as well. 11/20: continues to fail cpap for hypoxia. hgb stable. hypernatremia continues to worsen. cr stable. uop adequate. 11/21: Remains sedated, orally intubated on mechanical ventilation. Failed C Pap trials. Worsening BUN/creatinine noted. Remains nonoliguric. 11/22: Arouses of sedation, encephalopathic, not following commands. Orally intubated on mechanical ventilation. Remains nonoliguric. Respiratory status borderline with C Pap trials Objective Vital Signs Date Time Temp Pulse Resp B/P (MAP) Pulse Ox O2 Delivery O2 Flow Rate FiO2 11/22/16 16:21 97 35 11/22/16 16:00 91 11/22/16 08:00 99.1 11/22/16 04:00 125/62 (83) 11/21/16 04:00 18 11/18/16 07:22 Ventilator Intake and Output 11/22/16 11/22/16 11/23/16 08:00 16:00 00:00 Intake Total 1881 ml Output Total 1900 ml Balance -19 ml Result Diagram: 11/22/16 0608 11/22/16 0608 Other Results Laboratory Tests Test 11/22/16 12:55 Blood Gas Puncture Site LT RADIAL Blood Gas Patient Temperature 98.6 Blood Gas HCO3 25 mmol/L (22-26) Blood Gas Base Excess 1.7 mmol/L (-2-2) Blood Gas Oxygen Saturation 94 % (90-100) Arterial Blood pH 7.48 (7.380-7.420) Arterial Blood Partial Pressure CO2 34 mmHg (38-42) Arterial Blood Partial Pressure O2 87 mmHg (61-120) Arterial Blood Oxygen Content 13.5 Vol % (12.0-20.0) Arterial Blood Carboxyhemoglobin 1.6 % (0-4) Arterial Blood Methemoglobin 1.4 % (0-2) Blood Gas Hemoglobin 10.2 G/DL (12.0-16.0) Oxygen Delivery Device VENTILATOR Blood Gas Ventilator Setting CPAP 5/8PS Blood Gas Inspired Oxygen 35 % Imaging Last Impressions Chest X-Ray 11/14/16 0000 Signed Impressions: Service Date/Time: Monday, November 14, 2016 04:35 - CONCLUSION: Improved bilateral airspace disease. New nasogastric tube, tip in the stomach. Other lines and tubes unchanged. Issa Kumar MD Shoulder X-Ray 11/10/16 0000 Signed Impressions: Service Date/Time: October 13:50 - CONCLUSION: 1. Old right humeral neck fracture. 2. No acute fracture or dislocation. 3. Course interstitial opacities throughout the visualized right upper lobe. Crispin Ramos MD Humerus X-Ray 11/10/16 0000 Signed Impressions: Service Date/Time: October 13:53 - CONCLUSION: 1. Old right humeral neck fracture. 2. No acute fracture or dislocation. Crispin Ramos MD CT Angiography 11/10/16 0000 Signed Impressions: Service Date/Time: October 14:35 - CONCLUSION: 1. No evidence of pulmonary embolus. 2. Severe extensive bilateral pulmonary parenchymal opacity with a crazy paving appearance. Differential diagnosis includes pulmonary edema, pulmonary alveolar stenosis, acute interstitial pneumonia, and eosinophilic pneumonia. 3. Small pleural effusions left greater than right. 4. Mildly enlarged mediastinal lymph nodes likely reactive. Adolph Root MD Objective Remarks GENERAL: Sedated and intubated elderly woman SKIN: Warm and dry. HEAD: Normocephalic. EYES: Pallor present. No scleral icterus. No injection or drainage. NECK: trachea midline. No JVD CARDIOVASCULAR: Regular rate and rhythm RESPIRATORY: Orally intubated on mechanical ventilation. Breath sounds equal bilaterally. Scattered rhonchi, no wheezing or crackles. GASTROINTESTINAL: Abdomen soft, non-tender, nondistended. no guarding. MUSCULOSKELETAL: No cyanosis. Trace edema. NEURO: Sedated, arousable, orally intubated on mechanical ventilation A/P Assessment and Plan Assessment: 71yF with bilateral pneumonia and acute hypoxic respiratory failure. failing cpap trials and off pathway. remains critically ill today with persistent renal dysfunction, metabolic derangements. Acute hypoxic Respiratory failure on [facility] ventilation - Bilateral patchy infiltrates - Pneumonia versus pulmonary edema - Mechanical ventilation - Unasyn by ID. - Gentle diuresis if tolerated. - daily SBTs. failing for hypoxia and tachypnea. - intubated 11/12 (11 days of mechanical ventilation) Septic shock- resolved. - piv's -off vasopressors. - off ivf. continue gentle diuresis COPD - DuoNeb scheduled and when necessary, Solumedrol Coronary artery disease - Status post CABG - Troponins negative - Cardiology input appreciated - Echo with normal LV function. Paroxysmal atrial fibrillation - Rate controlled - Amiodarone - Eliquis held on 11/15 due to drop in Hgb. Started heparin for full anticoagulation on 11/17 however in view of hemoglobin drop on 11/18 stopped heparin. hgb 9.8 to 9.0 in 24h. SQH 5000 q12h and slowly work back up to full anticoagulation. Anemia secondary to acute blood loss - No overt evidence of GI blood loss. CT abdomen pelvis ordered to evaluate for retroperitoneal bleed. CONCHITA - Strict intake output, monitor and replete electrolites, follow BUN/ creatinine. off diuretics given conchita. nephrology on board. May require hemodialysis if renal function continues to decline. - Ordered Kayexalate, calcium, glucose insulin for hyperkalemia. Hypernatremia- - free water DVT GI prophylaxis - Eliquis held 11/15, will start heparin for DVT prophylaxis as hemoglobin remained stable currently - Pepc[place]e - Kimani SCDs Consulted palliative care to assist with deciding goals of therapy as patient looks like she would need a tracheostomy and a PEG tube and possibly hemodialysis if renal function continues to decline. Critical Care: The total critical care time was 30 minutes. Time to perform other separately billable procedures was not included in the critical care time. Ketan Starkey MD Nov 22, 2016 17:29
--- NOTE | 2016-11-22 18:03 | PD.CARD.PN ---
Subjective Subjective Remarks Intubated, awake and communicating Objective Medications Laboratory Tests Test 11/22/16 06:08 11/22/16 12:55 White Blood Count 22.3 Red Blood Count 3.55 Hemoglobin 10.1 Hematocrit 31.9 Mean Corpuscular Volume 89.8 Mean Corpuscular Hemoglobin 28.5 Mean Corpuscular Hemoglobin Concent 31.7 Red Cell Distribution Width 19.1 Platelet Count 358 Mean Platelet Volume 9.2 Blood Urea Nitrogen 117 Creatinine 3.17 Random Glucose 116 Calcium Level 8.8 Sodium Level 154 Potassium Level 4.2 Chloride Level 117 Carbon Dioxide Level 27.2 Anion Gap 10 Estimat Glomerular Filtration Rate 14 Blood Gas Puncture Site LT RADIAL Blood Gas Patient Temperature 98.6 Blood Gas HCO3 25 Blood Gas Base Excess 1.7 Blood Gas Oxygen Saturation 94 Arterial Blood pH 7.48 Arterial Blood Partial Pressure CO2 34 Arterial Blood Partial Pressure O2 87 Arterial Blood Oxygen Content 13.5 Arterial Blood Carboxyhemoglobin 1.6 Arterial Blood Methemoglobin 1.4 Blood Gas Hemoglobin 10.2 Oxygen Delivery Device VENTILATOR Blood Gas Ventilator Setting CPAP 5/8PS Blood Gas Inspired Oxygen 35 Date/Time Source Procedure Growth Status 11/10/16 09:20 Blood Peripheral Aerobic Blood Culture - Final NO GROWTH IN 5 DAYS Complete 11/10/16 09:20 Blood Peripheral Anaerobic Blood Culture - Final NO GROWTH IN 5 DAYS Complete 11/18/16 09:15 Stool Stool Stool Occult Blood (SARAH) - Final HEMOCCULT POSITIVE Complete 11/15/16 09:00 Sputum Endotracheal Gram Stain - Final Complete 11/15/16 09:00 Sputum Endotracheal Sputum Culture - Final HEAVY GROWTH NORMAL RESPIRATORY MANJULA Complete 11/18/16 09:15 Urine Catheterized Urine Urine Culture - Final NO GROWTH IN 48 HOURS. Complete Vital Signs / I&O Vital Signs Date Time Temp Pulse Resp B/P (MAP) Pulse Ox O2 Delivery O2 Flow Rate FiO2 11/22/16 16:21 97 35 11/22/16 16:00 91 11/22/16 15:30 88 11/22/16 15:00 92 11/22/16 14:30 101 11/22/16 14:00 101 11/22/16 13:30 101 11/22/16 13:22 98 35 11/22/16 13:00 101 11/22/16 12:30 98 11/22/16 12:00 93 11/22/16 11:30 96 11/22/16 11:05 35 11/22/16 11:05 102 11/22/16 11:05 94 35 11/22/16 11:01 101 11/22/16 11:00 101 11/22/16 10:30 101 11/22/16 10:00 101 11/22/16 09:30 101 11/22/16 09:08 35 11/22/16 09:08 97 35 11/22/16 09:02 97 35 11/22/16 09:00 96 11/22/16 08:30 96 11/22/16 08:00 35 11/22/16 08:00 97 11/22/16 08:00 99.1 11/22/16 06:00 96 11/22/16 04:36 96 35 11/22/16 04:00 97.2 103 125/62 (83) 95 11/22/16 04:00 103 11/22/16 04:00 35 11/22/16 02:00 104 11/22/16 00:00 99 11/22/16 00:00 35 11/22/16 00:00 97.5 99 183/87 (119) 95 11/21/16 23:59 94 35 11/21/16 22:00 94 11/21/16 20:00 98.9 98 178/90 (119) 97 11/21/16 20:00 35 11/21/16 20:00 98 11/21/16 19:22 97 35 11/21/16 19:00 96 11/21/16 18:30 97 I/O 11/21/16 11/21/16 11/21/16 11/22/16 11/22/16 11/22/16 07:00 15:00 23:00 07:00 15:00 23:00 Intake Total 2154 ml 1304 ml 1881 ml Output Total 1200 ml 1150 ml 1900 ml Balance 954 ml 154 ml -19 ml IV Total 550 ml 460 ml Tube Feeding 704 ml 704 ml 771 ml Other 900 ml 600 ml 650 ml Output Urine Total 700 ml 850 ml 1100 ml Stool Total 500 ml 300 ml 800 ml Physical Exam GENERAL: Intubated, awake SKIN: Warm and dry. HEAD: Normocephalic. EYES: No scleral icterus. No injection or drainage. NECK: Supple, trachea midline. No JVD or lymphadenopathy. CARDIOVASCULAR: Regular, without murmurs, gallops, or rubs. RESPIRATORY: Breath sounds equal bilaterally, coarse. GASTROINTESTINAL: Abdomen soft, non-tender, nondistended. MUSCULOSKELETAL: No cyanosis, or edema. Laboratory Laboratory Tests Test 11/22/16 06:08 11/22/16 12:55 White Blood Count 22.3 TH/MM3 Red Blood Count 3.55 MIL/MM3 Hemoglobin 10.1 GM/DL Hematocrit 31.9 % Mean Corpuscular Volume 89.8 FL Mean Corpuscular Hemoglobin 28.5 PG Mean Corpuscular Hemoglobin Concent 31.7 % Red Cell Distribution Width 19.1 % Platelet Count 358 TH/MM3 Mean Platelet Volume 9.2 FL Blood Urea Nitrogen 117 MG/DL Creatinine 3.17 MG/DL Random Glucose 116 MG/DL Calcium Level 8.8 MG/DL Sodium Level 154 MEQ/L Potassium Level 4.2 MEQ/L Chloride Level 117 MEQ/L Carbon Dioxide Level 27.2 MEQ/L Anion Gap 10 MEQ/L Estimat Glomerular Filtration Rate 14 ML/MIN Blood Gas Puncture Site LT RADIAL Blood Gas Patient Temperature 98.6 Blood Gas HCO3 25 mmol/L Blood Gas Base Excess 1.7 mmol/L Blood Gas Oxygen Saturation 94 % Arterial Blood pH 7.48 Arterial Blood Partial Pressure CO2 34 mmHg Arterial Blood Partial Pressure O2 87 mmHg Arterial Blood Oxygen Content 13.5 Vol % Arterial Blood Carboxyhemoglobin 1.6 % Arterial Blood Methemoglobin 1.4 % Blood Gas Hemoglobin 10.2 G/DL Oxygen Delivery Device VENTILATOR Blood Gas Ventilator Setting CPAP 5/8PS Blood Gas Inspired Oxygen 35 % Imaging Last 24 hours Impressions Chest X-Ray 11/22/16 0600 Signed Impressions: Service Date/Time: Tuesday, November 22, 2016 04:08 - CONCLUSION: Slight improvement in aeration Issa Bo MD Assessment and Plan Problem List: (1) Respiratory failure ICD Codes: J96.90 - Respiratory failure, unspecified, unspecified whether with hypoxia or hypercapnia (2) Septic shock ICD Codes: A41.9 - Sepsis, unspecified organism; R65.21 - Severe sepsis with septic shock (3) Bilateral pneumonia ICD Codes: J18.9 - Pneumonia, unspecified organism Status: Acute (4) Coronary artery disease ICD Codes: I25.10 - Atherosclerotic heart disease of [place] coronary artery without angina pectoris (5) S/P CABG x 3 ICD Codes: Z95.1 - Presence of aortocoronary bypass graft (6) Atrial fibrillation ICD Codes: I48.91 - Unspecified atrial fibrillation (7) Renal insufficiency ICD Codes: N28.9 - Disorder of kidney and ureter, unspecified Assessment and Plan No new cardiac issues. Tele with NSR. On CPAP, possibly extubation today. Continue ICU care. Pt now DNR. Problem Qualifiers (1) Bilateral pneumonia: Qualified Codes: J18.9 - Pneumonia, unspecified organism Daniella Simpson MD Nov 22, 2016 18:03
[2016-11-22] MEDS: ATORVASTATIN 80 MG TAB PO SCH (22:55)
[2016-11-22] MEDS: ALPRAZolam 0.5 MG TAB PO SCH (22:55)
[2016-11-23] VITALS (20 sets, daily range): BP systolic 127–143; BP diastolic 60–71; PULSE 93–100; RESP 19–20; TEMP 98–98.8; O2SAT 93–100
[2016-11-23] MEDS: FREE WATER G-TUBE SCH ×7 (04:00→23:50)
[2016-11-23] MEDS: SODIUM CHLOR 0.9% 1000 ML INJ 1,000 ML IV SCH (05:45)
[2016-11-23] MEDS: INSULIN ASPART SUPPLEMENTAL SCALE SQ SCH ×5 (06:00→23:50)
[2016-11-23] MEDS: PROPOFOL 1000 MG/100 ML IV PRN ×3 (06:13→19:44)
[2016-11-23] MEDS: VENLAFAXINE HCL 25 MG TAB PO SCH ×2 (08:43→21:37)
[2016-11-23] MEDS: LORATADINE 10 MG TAB PO SCH (08:43)
[2016-11-23] MEDS: DOCUSATE SODIUM 50 MG/SENNA 8.6 MG TAB PO SCH ×2 (08:43→21:37)
[2016-11-23] MEDS: methylPREDNISolone SOD SUCC 40 MG/1 ML VIAL IV PUSH SCH ×2 (08:44→21:38)
[2016-11-23] MEDS: SODIUM CHLORIDE 0.9% FLUSH 10 ML FLUSH IV FLUSH SCH ×2 (08:44→21:38)
[2016-11-23] MEDS: AMIODARONE 200 MG TAB PO SCH (08:44)
[2016-11-23 11:54] LABS: MEAN CELL VOLUME 90.9 FL (80.0-100.0); MEAN CORPUSCULAR HEMOGLOBIN 28.4 PG (27.0-34.0); MEAN CORPUSCULAR HGB CONC 31.3 % (32.0-36.0); PLATELET COUNT 288 TH/MM3 (150-450); RED CELL DISTRIBUTION WIDTH 19.1 % (11.6-17.2); REVIEW FLAG FINAL; WHITE BLOOD COUNT 21.7 TH/MM3 (4.0-11.0)
--- NOTE | 2016-11-23 12:11 | HHI.HCPN ---
Reason for visit a. To assist with evaluation and management of symptoms including: Shortness of breath, Debility b. To assist medical decision maker(s) with: better understanding of current medical conditions; weighing benefits/burdens of medical treatment options; making medical treatment decisions. Subjective/Interval History Mrs Miranda is a 71 years old female history of CAD, COPD, atrial fibrillation , hypertension, hyperlipidemia, depression, obstructive sleep apnea. Approximately 8 weeks ago, patient had CABG X3 vessels and post operative pleural effusion which was drained in [place], [place]. Patient presented to the ER on 11/10/16 complaining of shortness of breath and cough overnight. Patient seen in ICU. Patient sleeping but easily arousable. Remains intubated on mechanical ventilation. Ventilator setting on CPAP 5/8/35%. O2 saturation high 90s. Eyes open, tracking examiner, followed simple commands with bilateral upper extremities. Spontaneously moving bilateral lower extremities. Patient is on low dose Propofol drip. Patient on TF at goal rate 60 ml/hr.Patient afebrile. SBP 120s to 140s. Laboratory work up revealing WBC 21.7, Hgb 9.4, Hct 30.0, Plt count 288, sodium 154, potassium 4.7, Bun/Creatinine 124/3.40. No imaging today.Patient tolerating tube feeds. Case discussed with bedside RN Adriel. [address] Starkey. He states that patient may be able to be medically extubated. Notified him that there is a family meeting scheduled for tomorrow with Palliative Care when gets back from [place] and meeting will address how family wants to progress with patient`s course of care. . Advance Directives Living Will: Never completed Health Care Surrogate: Completed, but not made available Durable Power of Sail Maker: Never completed Advance Directive Specifics Health Care Surrogate(s): reported that he is the healthcare surrogate -Jung Miranda and alternate HCS is daughter Temi Garza. . Objective Vital Signs Date Time Temp Pulse Resp B/P (MAP) Pulse Ox O2 Delivery O2 Flow Rate FiO2 11/23/16 10:30 96 35 11/23/16 08:27 95 35 11/23/16 06:00 96 11/23/16 04:12 97 35 11/23/16 04:00 35 11/23/16 04:00 98.4 96 142/65 (90) 96 11/23/16 04:00 96 11/23/16 02:00 96 11/23/16 00:03 97 35 11/23/16 00:00 98.6 94 127/60 (82) 97 11/23/16 00:00 94 11/23/16 00:00 35 11/22/16 22:00 97 11/22/16 20:41 98 Ventilator 11/22/16 20:35 100 35 11/22/16 20:00 35 11/22/16 20:00 98.9 94 124/60 (81) 94 11/22/16 20:00 94 11/22/16 19:30 97 140/72 (94) 92 11/22/16 19:30 97 11/22/16 19:23 97 11/22/16 19:23 97 140/68 (92) 96 11/22/16 18:00 97 11/22/16 18:00 97 157/76 (103) 95 11/22/16 17:30 94 164/79 (107) 97 11/22/16 17:00 90 111/61 (78) 96 11/22/16 16:30 91 119/62 (81) 96 11/22/16 16:21 97 35 11/22/16 16:00 91 137/68 (91) 96 11/22/16 16:00 35 11/22/16 16:00 91 11/22/16 15:30 88 11/22/16 15:00 92 11/22/16 14:30 101 11/22/16 14:00 101 11/22/16 13:30 101 11/22/16 13:22 98 35 11/22/16 13:00 101 11/22/16 12:30 98 11/22/16 12:00 99.1 11/22/16 12:00 93 11/22/16 12:00 35 Intake & Output 11/23/16 11/23/16 06:59 18:59 Intake Total 2287 ml Output Total 750 ml Balance 1537 ml IV Total 862 ml Tube Feeding 825 ml Other 600 ml Output Urine Total 650 ml Stool Total 100 ml Physical Exam CONSTITUTIONAL/GENERAL: This is an adequately nourished elderly patient, intubated on mechanical ventilation and sedated with low dose Propofol TUBES/LINES/DRAINS:PIVS,FC, [place], Left nare NGT,SCDs, ETT, BUE soft restraints. SKIN: No jaundice, rashes, or lesions. Ecchymoses on upper extremities. No wounds seen anteriorly. Skin temperature appropriate. Not diaphoretic. HEAD: Atraumatic. Normocephalic. EYES: Pupils equal and round and reactive. Extraocular motions intact. No scleral icterus. No injection or drainage. Fundi not examined. ENT: Nose without bleeding or purulent drainage. Left nare NGT,Moist oral mucosa. NECK: Trachea midline. Supple, nontender. No palpable thyroid enlargement or nodularity. CARDIOVASCULAR: Regular rhythm, no murmurs, gallops, or rubs. No JVD. Peripheral pulses symmetric. RESPIRATORY/CHEST: Symmetric, unlabored respirations. Clear to auscultation. Breath sounds equal bilaterally but diminished. No wheezes, rales, or rhonchi. GASTROINTESTINAL: Abdomen soft, non-tender, nondistended. No hepato-splenomegaly , or palpable masses. No guarding. Bowel sounds present. GENITOURINARY: Without palpable bladder distension. Barraza catheter in place. MUSCULOSKELETAL: Extremities without clubbing, cyanosis, or edema. No joint tenderness or effusion noted. No calf tenderness. No mottling or clubbing. NEUROLOGICAL: Sleeping and easily arousable, remains intubated on mechanical ventilation. On low dose sedation- Propofol drip. Patient followed commands with BUE. Spontaneously moving bilateral lower extremities. PSYCHIATRIC: Intubated on mechanical ventilation with low dose Propofol. . Diagnostic Tests Laboratory Laboratory Tests Test 11/20/16 18:22 11/21/16 12:35 11/22/16 06:08 11/22/16 12:55 Hemoglobin 10.8 GM/DL (11.6-15.3) 10.3 GM/DL (11.6-15.3) 10.1 GM/DL (11.6-15.3) Hematocrit 35.0 % (35.0-46.0) 32.9 % (35.0-46.0) 31.9 % (35.0-46.0) White Blood Count 22.7 TH/MM3 (4.0-11.0) 22.3 TH/MM3 (4.0-11.0) Red Blood Count 3.63 MIL/MM3 (4.00-5.30) 3.55 MIL/MM3 (4.00-5.30) Mean Corpuscular Volume 90.5 FL (80.0-100.0) 89.8 FL (80.0-100.0) Mean Corpuscular Hemoglobin 28.4 PG (27.0-34.0) 28.5 PG (27.0-34.0) Mean Corpuscular Hemoglobin Concent 31.4 % (32.0-36.0) 31.7 % (32.0-36.0) Red Cell Distribution Width 19.2 % (11.6-17.2) 19.1 % (11.6-17.2) Platelet Count 351 TH/MM3 (150-450) 358 TH/MM3 (150-450) Mean Platelet Volume 9.6 FL (7.0-11.0) 9.2 FL (7.0-11.0) Blood Urea Nitrogen 115 MG/DL (7-18) 117 MG/DL (7-18) Creatinine 3.01 MG/DL (0.50-1.00) 3.17 MG/DL (0.50-1.00) Random Glucose 128 MG/DL (74-106) 116 MG/DL (74-106) Calcium Level 8.7 MG/DL (8.5-10.1) 8.8 MG/DL (8.5-10.1) Sodium Level 150 MEQ/L (136-145) 154 MEQ/L (136-145) Potassium Level 5.8 MEQ/L (3.5-5.1) 4.2 MEQ/L (3.5-5.1) Chloride Level 114 MEQ/L (98-107) 117 MEQ/L (98-107) Carbon Dioxide Level 25.3 MEQ/L (21.0-32.0) 27.2 MEQ/L (21.0-32.0) Anion Gap 11 MEQ/L (5-15) 10 MEQ/L (5-15) Estimat Glomerular Filtration Rate 15 ML/MIN (>89) 14 ML/MIN (>89) Blood Gas Puncture Site LT RADIAL Blood Gas Patient Temperature 98.6 Blood Gas HCO3 25 mmol/L (22-26) Blood Gas Base Excess 1.7 mmol/L (-2-2) Blood Gas Oxygen Saturation 94 % (90-100) Arterial Blood pH 7.48 (7.380-7.420) Arterial Blood Partial Pressure CO2 34 mmHg (38-42) Arterial Blood Partial Pressure O2 87 mmHg (61-120) Arterial Blood Oxygen Content 13.5 Vol % (12.0-20.0) Arterial Blood Carboxyhemoglobin 1.6 % (0-4) Arterial Blood Methemoglobin 1.4 % (0-2) Blood Gas Hemoglobin 10.2 G/DL (12.0-16.0) Oxygen Delivery Device VENTILATOR Blood Gas Ventilator Setting CPAP 5/8PS Blood Gas Inspired Oxygen 35 % Test 11/23/16 11:20 Result Diagram: 11/22/16 0608 11/22/16 0608 Procedures 11/12/16 -intubation . Assessment and Plan Disease Oriented Problem List: (1) Respiratory failure (2) Septic shock (3) Acute kidney injury (4) Bilateral pneumonia (5) Coronary artery disease (6) Atrial fibrillation Symptom Scale: (1) Shortness of breath 0-10 Scale: Unable to quantify Comment: On CPAP trials . (2) Debility 0-10 Scale: Unable to quantify Pertinent Non-Medical Issues Psychosocial:Patient was born in [place] and she moved to [place] at an early age. Patient has been twice. Patient is to her second of 43 years. Patient has 3 daughters and 6 grandchildren. 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 Spiritual: Patient is Congregation Legal:Reported by that he is the healthcare surrogate -Jung Miranda and alternate HCS is daughter Temi Garza. Ethical issues impacting care: None identified Important Contacts Spouse- HCP: Jung Miranda , Daughters- Karolina Almazan [phone]; Yamilet Chengpia ; Temi Greg . Prognosis Mrs Miranda is a 71 years old female history of CAD, COPD, atrial fibrillation , hypertension, hyperlipidemia, depression, obstructive sleep apnea. Approximately 8 weeks ago, patient had CABG X3 vessels and post operative pleural effusion which was drained in [place], [place]. Patient presented to the ER on 11/10/16 complaining of shortness of breath and cough overnight. Chest CT revealed evidence of bilateral patchy pulmonary infiltrates consistent of pneumonia and/or pulmonary edema. Patient`s respiratory status declined requiring intubation. Further complications include sepsis, and acute renal failure. Given patient`s ongoing multiple comorbidities, patient is at high risk for further complications, deterioration, decline leading to . . Code Status: Alternative Code Plan PLAN: Legal decision maker: Patient currently intubated, on mechanical ventilation and is not able to make her own medical decisions. Patient has a Jung Miranda who reports that he is patients` Health Care Surrogate and alternate healthcare Surrogate is patient`s daughter Temi Garza. Goals: Patient`s has made patient an Alternate Code. Family meeting on 11/25/16 to determine goals. CODE STATUS: Alternate Code SYMPTOMS: * Shortness of breath-Patient has a history of COPD, obstructive sleep apnea. Patient has been having shortness of breath for more than a year. Currently intubated and on mechanical ventilation. Patient on CPAP trials. Patient on solumedrol BID, Duonebs. * Debility- Patient has been deteriorating healthwise for more than a 2 years, has had decreased oral intake for sometime. Patient had CABG x 3 vessels on 2016. PT and OT following. Patient may benefit from rehabilitation if she survives this hospitalization. Palliative care will continue to follow the patient during hospital course as condition evolves, to assist patient/decision-maker with understanding of their medical conditions, weighing benefits/burdens of treatment options, for clarification of goals of treatment. Additionally will assist with any symptoms of palliative concern. Attestation To help prompt me to consider important information that might be impacting today's encounter and assessment, information from prior notes written by myself or my colleagues may have been "brought forward" into today's note. My signature on this note, however, is an attestation that I personally performed the exam, history, and/or decision-making noted today, and, unless otherwise indicated, the interactions with patient, family, and staff as well as the review of records all occurred today. I also attest that the listed assessment and stated plan reflect my best clinical judgment today based on the combination of historical information, prior notes, and today's exam/ interactions. When time spent is documented, it refers only to time spent today by the signer, or if indicated, combined time spent today by collaborating physician/nurse practitioner. . Dalton Puentes Nov 23, 2016 12:11
[2016-11-23 12:16] LABS: BICARBONATE 24.5 MEQ/L (21.0-32.0); POTASSIUM 4.7 MEQ/L (3.5-5.1)
--- NOTE | 2016-11-23 14:16 | HHI.CCPN ---
Subjective Remarks/Hospital Course 11/13: 71-year-old female with a history of COPD, coronary artery disease and hypertension who was admitted through the emergency room with complaints of progressive shortness of breath over the past 3 to 4 days. The patient has a history of CABG x3 approximately 7 weeks ago in [place], [place]. She did have some postoperative pleural effusions which had to be tapped. She then drove from [place] down here and she was experiencing increasing dyspnea. A CT scan of the chest showed evidence of bilateral patchy pulmonary infiltrates consistent with either pneumonia and/or pulmonary edema. At night November 12 her respiratory status dramatically declined, patient became hypoxemic and tachypneic and diaphoretic requiring endotracheal intubation. 11/14: Remains sedated, orally intubated on mechanical ventilation. On low dose vasopressin and Levophed for pressor support. 11/15: Remains sedated, orally intubated on mechanical ventilation. Failed CPAP trial yesterday within 5 minutes. Off Levophed. Low-dose vasopressin being titrated down. Tolerating tube feeds. Hemoglobin drop noted however significant positive fluid balance. 11/16: Remains sedated, orally intubated on mechanical ventilation. Tolerating tube feeds. Off pressors. Daily C Pap trials. 11/17: Remains sedated, orally intubated on mechanical ventilation. Tolerating tube feeds. Failed C Pap trial yesterday. 11/18: Remains sedated, arousable, orally intubated on mechanical ventilation. Tolerated C Pap trials however on dropping pressure-support to+5 became tachypneic. Hemoglobin 7.7 this morning. No melena or rectal bleeding. Ordered CT abdomen and pelvis to evaluate for retroperitoneal bleed. One unit PRBCs ordered to be transfused. Also noted rising BUN/creatinine. Patient is nonoliguric and is on diuretics. 11/19: failed cpap today for hypoxia and tachypnea. ct abd pelvis yesterday without evidence of retroperitoneal hematoma. hgb improved with prbc and remains stable. BUN/Cr continues to rise, nephrology note today: most likely ATN. hypernatremia worsening as well. 11/20: continues to fail cpap for hypoxia. hgb stable. hypernatremia continues to worsen. cr stable. uop adequate. 11/21: Remains sedated, orally intubated on mechanical ventilation. Failed C Pap trials. Worsening BUN/creatinine noted. Remains nonoliguric. 11/22: Arouses of sedation, encephalopathic, not following commands. Orally intubated on mechanical ventilation. Remains nonoliguric. Respiratory status borderline with C Pap trials 11/23: Arouses off sedation however encephalopathic, remains orally intubated on mechanical ventilation. Tolerating C Pap trials. Remains nonoliguric however BUN creatinine rising. Objective Vital Signs Date Time Temp Pulse Resp B/P (MAP) Pulse Ox O2 Delivery O2 Flow Rate FiO2 11/23/16 13:08 97 35 11/23/16 10:00 93 11/23/16 08:00 98.0 20 139/67 (91) 11/22/16 20:41 Ventilator Intake and Output 11/23/16 11/23/16 11/24/16 08:00 16:00 00:00 Intake Total 2287 ml 115 ml Output Total 750 ml Balance 1537 ml 115 ml Result Diagram: 11/23/16 1120 11/23/16 1120 Imaging Last Impressions Chest X-Ray 11/14/16 0000 Signed Impressions: Service Date/Time: Monday, November 14, 2016 04:35 - CONCLUSION: Improved bilateral airspace disease. New nasogastric tube, tip in the stomach. Other lines and tubes unchanged. Issa Kumar MD Shoulder X-Ray 11/10/16 0000 Signed Impressions: Service Date/Time: October 13:50 - CONCLUSION: 1. Old right humeral neck fracture. 2. No acute fracture or dislocation. 3. Course interstitial opacities throughout the visualized right upper lobe. Crispin Ramos MD Humerus X-Ray 11/10/16 0000 Signed Impressions: Service Date/Time: October 13:53 - CONCLUSION: 1. Old right humeral neck fracture. 2. No acute fracture or dislocation. Crispin Ramos MD CT Angiography 11/10/16 0000 Signed Impressions: Service Date/Time: October 14:35 - CONCLUSION: 1. No evidence of pulmonary embolus. 2. Severe extensive bilateral pulmonary parenchymal opacity with a crazy paving appearance. Differential diagnosis includes pulmonary edema, pulmonary alveolar stenosis, acute interstitial pneumonia, and eosinophilic pneumonia. 3. Small pleural effusions left greater than right. 4. Mildly enlarged mediastinal lymph nodes likely reactive. Adolph Root MD Objective Remarks GENERAL: Sedated and intubated elderly woman SKIN: Warm and dry. HEAD: Normocephalic. EYES: Pallor present. No scleral icterus. No injection or drainage. NECK: trachea midline. No JVD CARDIOVASCULAR: Regular rate and rhythm RESPIRATORY: Orally intubated on mechanical ventilation. Breath sounds equal bilaterally. Scattered rhonchi, no wheezing or crackles. GASTROINTESTINAL: Abdomen soft, non-tender, nondistended. no guarding. MUSCULOSKELETAL: No cyanosis. Trace edema. NEURO: Sedated/encephalopathic, arousable, orally intubated on mechanical ventilation A/P Assessment and Plan Assessment: 71yF with bilateral pneumonia and acute hypoxic respiratory failure. failing cpap trials and off pathway. remains critically ill today with persistent renal dysfunction, metabolic derangements. Acute hypoxic [facility] - Bilateral patchy infiltrates - Pneumonia versus pulmonary edema - Mechanical ventilation - Unasyn by ID. - Gentle diuresis if tolerated. - daily SBTs. Tolerating C Pap trials however neurologic status and worsening renal function and concern for extubation. - intubated 11/12 (12 days of mechanical ventilation) Septic shock- resolved. - piv's -off vasopressors. - off ivf. Off diuretics COPD - DuoNeb scheduled and when necessary, Solumedrol Coronary artery disease - Status post CABG - Troponins negative - Cardiology input appreciated - Echo with normal LV function. Paroxysmal atrial fibrillation - Rate controlled - Amiodarone - Eliquis held on 11/15 due to drop in Hgb. Started heparin for full anticoagulation on 11/17 however in view of hemoglobin drop on 11/18 stopped heparin. hgb 9.8 to 9.0 in 24h. SQH 5000 q12h and slowly work back up to full anticoagulation. Anemia secondary to acute blood loss - No overt evidence of GI blood loss. CT abdomen pelvis ordered to evaluate for retroperitoneal bleed. CONCHITA - Strict intake output, monitor and replete electrolites, follow BUN/ creatinine. off diuretics given conchita. nephrology on board. May require hemodialysis if renal function continues to decline. - Ordered Kayexalate, calcium, glucose insulin for hyperkalemia which is now resolved. - Uremia could possibly be contribution to encephalopathy. Hypernatremia- - free water DVT GI prophylaxis - Eliquis held 11/15, will start heparin for DVT prophylaxis as hemoglobin remained stable currently - Liz - Kimani SCDs Consulted palliative care to assist with deciding goals of therapy as patient looks like she would need a tracheostomy and a PEG tube and possibly hemodialysis if renal function continues to decline. Critical Care: The total critical care time was 30 minutes. Time to perform other separately billable procedures was not included in the critical care time. Ketan Starkey MD Nov 23, 2016 14:16
[2016-11-23] MEDS: HEPARIN SODIUM - SQ 10,000 UNITS/ML VIAL SQ SCH (15:32)
--- NOTE | 2016-11-23 16:28 | PD.CARD.PN ---
Subjective Subjective Remarks Intubated, awake, on CPAP Objective Medications Current Medications Medications (Trade) Dose Ordered Sig/Vida Route Start Time Stop Time Status Last Admin (Eliquis) 5 mg BID PO 11/10/16 21:00 Future Hold 11/15/16 08:20 (Inderal) 10 mg Q12HR PO 11/10/16 12:00 Future Hold 11/13/16 08:40 (Lipitor) 80 mg HS PO 11/10/16 21:00 11/22/16 22:55 (Effexor) 50 mg BID PO 11/10/16 21:00 11/23/16 08:43 (Cordarone) 200 mg DAILY PO 11/10/16 11:00 11/23/16 08:44 (Claritin) 10 mg DAILY PO 11/10/16 12:00 11/23/16 08:43 (Duoneb Neb) 1 ampule Q4HR NEB PRN INH 11/10/16 12:00 11/20/16 19:32 (Zofran Inj) 4 mg Q6HR PRN IV PUSH 11/10/16 12:00 11/10/16 20:31 (Robitussin Dm 200-20 Mg/10 ml Liq) 10 ml Q4HR PRN PO 11/10/16 12:00 11/12/16 09:09 (NS Flush) 2 ml UNSCH PRN IV FLUSH 11/10/16 10:00 (NS Flush) 2 ml BID IV FLUSH 11/10/16 21:00 11/23/16 08:44 (Tylenol) 650 mg Q4H PRN PO 11/10/16 10:00 11/11/16 08:10 (Tylenol) 650 mg Q6H PRN PO 11/10/16 10:00 (Percocet 5-325 Mg) 1 tab Q6H PRN PO 11/10/16 12:00 11/10/16 21:47 (Percocet 10-325 Mg) 1 tab Q6H PRN PO 11/10/16 12:00 11/12/16 09:09 (Narcan Inj) 0.4 mg UNSCH PRN IV PUSH 11/10/16 10:00 (Hanna-Colace) 1 tab BID PO 11/10/16 21:00 11/23/16 08:43 (Milk Of Magnesia Liq) 30 ml Q12HR PRN PO 11/10/16 12:00 (Senokot) 17.2 mg Q12HR PRN PO 11/10/16 12:00 11/15/16 08:20 (Dulcolax Supp) 10 mg DAILY PRN RECTAL 11/10/16 12:00 11/15/16 08:21 (Lactulose Liq) 30 ml DAILY PRN PO 11/10/16 12:00 11/15/16 08:19 (Spiriva Inh) 18 mcg DAILY INH 11/11/16 17:00 Future Hold 11/12/16 08:47 (Xanax) 0.5 mg HS PO 11/12/16 21:00 11/22/16 22:55 Miscellaneous Information Patient in critical care unit? Ass... [id number] .XX 11/12/16 20:00 Fentanyl Citrate 250 ml @ 5 mls/hr TITRATE PRN IV 11/13/16 01:30 11/17/16 23:57 Propofol 100 ml @ 2.142 mls/ hr TITRATE PRN IV 11/13/16 03:00 11/23/16 14:01 Sodium Chloride 1,000 ml @ 20 mls/hr Q24H IV 11/13/16 09:45 11/23/16 05:45 (NovoLOG SUPPLEMENTAL SCALE) 1 Q6HR SQ 11/14/16 15:00 11/22/16 12:00 (D50w (Syr) Inj) 25 ml UNSCH PRN IV 11/14/16 15:00 (Glucagon Inj) 1 mg UNSCH PRN IM/SQ 11/14/16 15:00 (SoluMEDROL INJ) 20 mg BID IV PUSH 11/16/16 21:00 11/23/16 08:44 (Trandate Inj) 20 mg Q15M PRN IV PUSH 11/20/16 10:30 (Apresoline Inj) 10 mg Q30M PRN IV PUSH 11/20/16 10:30 11/22/16 00:09 (Free Water) 300 ml Q4HR G-TUBE 11/20/16 12:00 11/23/16 15:32 (Heparin Inj) 5,000 units Q12H SQ 11/23/16 15:00 11/23/16 15:32 Vital Signs / I&O Vital Signs Date Time Temp Pulse Resp B/P (MAP) Pulse Ox O2 Delivery O2 Flow Rate FiO2 11/23/16 15:38 96 T-piece 6.00 28 11/23/16 14:00 99 11/23/16 13:08 97 35 11/23/16 12:00 98.3 97 19 140/64 (89) 96 11/23/16 12:00 35 11/23/16 12:00 97 11/23/16 10:30 96 35 11/23/16 10:00 93 11/23/16 08:27 95 35 11/23/16 08:00 35 11/23/16 08:00 94 11/23/16 08:00 98.0 96 20 139/67 (91) 96 11/23/16 06:00 96 11/23/16 04:12 97 35 11/23/16 04:00 35 11/23/16 04:00 98.4 96 142/65 (90) 96 11/23/16 04:00 96 11/23/16 02:00 96 11/23/16 00:03 97 35 11/23/16 00:00 98.6 94 127/60 (82) 97 11/23/16 00:00 94 11/23/16 00:00 35 11/22/16 22:00 97 11/22/16 20:41 98 Ventilator 11/22/16 20:35 100 35 11/22/16 20:00 35 11/22/16 20:00 98.9 94 124/60 (81) 94 11/22/16 20:00 94 11/22/16 19:30 97 140/72 (94) 92 11/22/16 19:30 97 11/22/16 19:23 97 11/22/16 19:23 97 140/68 (92) 96 11/22/16 18:00 97 11/22/16 18:00 97 157/76 (103) 95 11/22/16 17:30 94 164/79 (107) 97 11/22/16 17:00 90 111/61 (78) 96 11/22/16 16:30 91 119/62 (81) 96 I/O 11/22/16 11/22/16 11/22/16 11/23/16 11/23/16 11/23/16 06:59 14:59 22:59 06:59 14:59 22:59 Intake Total 1881 ml 1437 ml 2287 ml 115 ml Output Total 1900 ml 1350 ml 750 ml Balance -19 ml 87 ml 1537 ml 115 ml IV Total 460 ml 862 ml 115 ml Tube Feeding 771 ml 837 ml 825 ml Other 650 ml 600 ml 600 ml Output Urine Total 1100 ml 650 ml 650 ml Stool Total 800 ml 700 ml 100 ml Physical Exam GENERAL: Intubated, awake SKIN: Warm and dry. HEAD: Normocephalic. EYES: No scleral icterus. No injection or drainage. NECK: Supple, trachea midline. No JVD or lymphadenopathy. CARDIOVASCULAR: Regular, without murmurs, gallops, or rubs. RESPIRATORY: Breath sounds equal bilaterally, coarse. GASTROINTESTINAL: Abdomen soft, non-tender, nondistended. MUSCULOSKELETAL: No cyanosis, or edema. Laboratory Laboratory Tests Test 11/23/16 11:20 White Blood Count 21.7 TH/MM3 Red Blood Count 3.30 MIL/MM3 Hemoglobin 9.4 GM/DL Hematocrit 30.0 % Mean Corpuscular Volume 90.9 FL Mean Corpuscular Hemoglobin 28.4 PG Mean Corpuscular Hemoglobin Concent 31.3 % Red Cell Distribution Width 19.1 % Platelet Count 288 TH/MM3 Mean Platelet Volume 9.8 FL Blood Urea Nitrogen 124 MG/DL Creatinine 3.40 MG/DL Random Glucose 142 MG/DL Calcium Level 8.9 MG/DL Sodium Level 154 MEQ/L Potassium Level 4.7 MEQ/L Chloride Level 119 MEQ/L Carbon Dioxide Level 24.5 MEQ/L Anion Gap 11 MEQ/L Estimat Glomerular Filtration Rate 13 ML/MIN Assessment and Plan Problem List: (1) Respiratory failure ICD Codes: J96.90 - Respiratory failure, unspecified, unspecified whether with hypoxia or hypercapnia (2) Septic shock ICD Codes: A41.9 - Sepsis, unspecified organism; R65.21 - Severe sepsis with septic shock (3) Bilateral pneumonia ICD Codes: J18.9 - Pneumonia, unspecified organism Status: Acute (4) Coronary artery disease ICD Codes: I25.10 - Atherosclerotic heart disease of [place] coronary artery without angina pectoris (5) S/P CABG x 3 ICD Codes: Z95.1 - Presence of aortocoronary bypass graft (6) Atrial fibrillation ICD Codes: I48.91 - Unspecified atrial fibrillation (7) Renal insufficiency ICD Codes: N28.9 - Disorder of kidney and ureter, unspecified Assessment and Plan No new cardiac issues. Tele with NSR, no arrhythmias. On CPAP, possibly extubation soon. Continue ICU care. Pt now DNR/do not reintubate status. Problem Qualifiers (1) Bilateral pneumonia: Qualified Codes: J18.9 - Pneumonia, unspecified organism Daniella Simpson MD Nov 23, 2016 16:28
--- NOTE | 2016-11-23 16:59 | HHI.NPPN ---
Subjective History of Present Illness 71-year-old female with a past medical history of hyperlipidemia, chronic obstructive liver disease, sleep apnea, ischemic heart disease, history of coronary artery bypass grafting done about 28 weeks ago and depression who was admitted with worsening shortness of breath and cough. I was called to see the patient because of elevated BUN and creatinine. The patient had a creatinine of 0.7 on admission. Additional Remarks Patient remain intubated and off sedation, now on CPAP, seen at 11 AM. Review of Systems General General Remarks Intubated and sedated. Objective Data Data 11/23/16 11/24/16 18:59 06:59 Intake Total 115 ml Balance 115 ml IV Total 115 ml Vital Signs Date Time Temp Pulse Resp B/P (MAP) Pulse Ox O2 Delivery O2 Flow Rate FiO2 11/23/16 15:47 99 35 11/23/16 15:38 96 T-piece 6.00 28 11/23/16 14:00 99 11/23/16 13:08 97 35 11/23/16 12:00 98.3 97 19 140/64 (89) 96 11/23/16 12:00 35 11/23/16 12:00 97 11/23/16 10:30 96 35 11/23/16 10:00 93 11/23/16 08:27 95 35 11/23/16 08:00 35 11/23/16 08:00 94 11/23/16 08:00 98.0 96 20 139/67 (91) 96 11/23/16 06:00 96 11/23/16 04:12 97 35 11/23/16 04:00 35 11/23/16 04:00 98.4 96 142/65 (90) 96 11/23/16 04:00 96 11/23/16 02:00 96 11/23/16 00:03 97 35 11/23/16 00:00 98.6 94 127/60 (82) 97 11/23/16 00:00 94 11/23/16 00:00 35 11/22/16 22:00 97 11/22/16 20:41 98 Ventilator 11/22/16 20:35 100 35 11/22/16 20:00 35 11/22/16 20:00 98.9 94 124/60 (81) 94 11/22/16 20:00 94 11/22/16 19:30 97 140/72 (94) 92 11/22/16 19:30 97 11/22/16 19:23 97 11/22/16 19:23 97 140/68 (92) 96 11/22/16 18:00 97 11/22/16 18:00 97 157/76 (103) 95 11/22/16 17:30 94 164/79 (107) 97 11/22/16 17:00 90 111/61 (78) 96 -: 11/23/16 1120 11/23/16 1120 Physical Exam General Appearance: No Acute Distress, Comfortable Eyes Eye Exam: Pupils Equal Neck Neck Exam: Neck Supple Pulmonary Resp Exam: Rhonchi, Decreased Bases, Diminished Breath Sounds, Poor Inspiratory Effort Cardiology CV Exam: Regular, Normal Sinus Rhythm Gastrointestinal/Abdomen GI Exam: Soft, Non-Tender, Bowel Sounds Present, Distended Extremeties Extremities Exam: Moderate Edema, Pitting Edema, Dependent Edema Neurologic Neuro Exam: Sedated Assessment/Plan Assessment Summary: CONCHITA/Acute Renal Failure Problem List: (1) Acute kidney injury ICD Codes: N17.9 - Acute kidney failure, unspecified (2) Respiratory failure ICD Codes: J96.90 - Respiratory failure, unspecified, unspecified whether with hypoxia or hypercapnia (3) Septic shock ICD Codes: A41.9 - Sepsis, unspecified organism; R65.21 - Severe sepsis with septic shock (4) Atrial fibrillation ICD Codes: I48.91 - Unspecified atrial fibrillation (5) Coronary artery disease ICD Codes: I25.10 - Atherosclerotic heart disease of [place] coronary artery without angina pectoris (6) Bilateral pneumonia ICD Codes: J18.9 - Pneumonia, unspecified organism Status: Acute Plan Patient has been non oliguric. Has Acute kidney injury, urine Na was high and osmolality was not very high, Eosinophils negative. Most likely has ATN causing CONCHITA, either due to hypotension or infection. Off Lasix, urine out put is adequate. Continue antibiotics. Avoid Nephrotoxins. Weaning as per CCM. Did not tolerate CPAP today. Creatinine increase slightly to 3.4. K is now normal, Na. is high, on free water. No urgent need for Dialysis. Weaning as tolerated. Problem Qualifiers (1) Bilateral pneumonia: Qualified Codes: J18.9 - Pneumonia, unspecified organism Michelle Boo MD Nov 23, 2016 16:59
--- NOTE | 2016-11-23 17:19 | RADRPT ---
EXAM DATE/TIME: 11/23/2016 15:48 [facility] COMPARISON: CHEST SINGLE AP, November 22, 2016, 4:08. INDICATIONS : Respiratory failure. MEDICAL HISTORY : Congestive heart failure. Hypertension. Chronic obstructive pulmonary disease. SURGICAL HISTORY : CABG. Appendectomy. Gastric ulcer ENCOUNTER: Subsequent ACUITY: 1 week PAIN SCORE: Non-responsive. LOCATION: Bilateral chest FINDINGS: ET tube and nasogastric tube are in good position. Coarse interstitial and alveolar opacities presen t in both lungs. The heart remains enlarged. There is no pneumothorax or pleural effusion. CONCLUSION: Stable chest with cardiomegaly and coarse interstitial and alveolar opacity in both lungs. Vikas Valencia MD FACR on November 23, 2016 at 17:17 Board Certified Radiologist. This report was verified electronically.
--- NOTE | 2016-11-23 19:11 | HHI.PR ---
Subjective Remarks sedated on the ventilator attempt at weaning not successful Objective Vital Signs Date Time Temp Pulse Resp B/P (MAP) Pulse Ox O2 Delivery O2 Flow Rate FiO2 11/23/16 18:00 100 11/23/16 16:00 98.8 97 20 127/71 (89) 96 11/23/16 16:00 97 11/23/16 16:00 35 11/23/16 15:47 99 35 11/23/16 15:38 96 T-piece 6.00 28 11/23/16 14:00 99 11/23/16 13:08 97 35 11/23/16 12:00 98.3 97 19 140/64 (89) 96 11/23/16 12:00 35 11/23/16 12:00 97 11/23/16 10:30 96 35 11/23/16 10:00 93 11/23/16 08:27 95 35 11/23/16 08:00 35 11/23/16 08:00 94 11/23/16 08:00 98.0 96 20 139/67 (91) 96 11/23/16 06:00 96 11/23/16 04:12 97 35 11/23/16 04:00 35 11/23/16 04:00 98.4 96 142/65 (90) 96 11/23/16 04:00 96 11/23/16 02:00 96 11/23/16 00:03 97 35 11/23/16 00:00 98.6 94 127/60 (82) 97 11/23/16 00:00 94 11/23/16 00:00 35 11/22/16 22:00 97 11/22/16 20:41 98 Ventilator 11/22/16 20:35 100 35 11/22/16 20:00 35 11/22/16 20:00 98.9 94 124/60 (81) 94 11/22/16 20:00 94 11/22/16 19:30 97 140/72 (94) 92 11/22/16 19:30 97 11/22/16 19:23 97 11/22/16 19:23 97 140/68 (92) 96 I/O 11/22/16 11/22/16 11/22/16 11/23/16 11/23/16 11/23/16 06:59 14:59 22:59 06:59 14:59 22:59 Intake Total 1881 ml 1437 ml 2287 ml 115 ml 1566 ml Output Total 1900 ml 1350 ml 750 ml 1350 ml Balance -19 ml 87 ml 1537 ml 115 ml 216 ml IV Total 460 ml 862 ml 115 ml Tube Feeding 771 ml 837 ml 825 ml 666 ml Tube Irrigant 900 ml Other 650 ml 600 ml 600 ml Output Urine Total 1100 ml 650 ml 650 ml 650 ml Stool Total 800 ml 700 ml 100 ml 700 ml Result Diagram: 11/23/16 1120 11/23/16 1120 Objective Remarks Laboratory Tests Test 11/17/16 07:43 11/17/16 14:30 11/17/16 21:00 11/18/16 04:20 White Blood Count 17.6 TH/MM3 (4.0-11.0) 17.8 TH/MM3 (4.0-11.0) Red Blood Count 2.82 MIL/MM3 (4.00-5.30) 2.96 MIL/MM3 (4.00-5.30) Hemoglobin 8.1 GM/DL (11.6-15.3) 8.2 GM/DL (11.6-15.3) Hematocrit 25.3 % (35.0-46.0) 26.5 % (35.0-46.0) Red Cell Distribution Width 19.6 % (11.6-17.2) 19.8 % (11.6-17.2) Neutrophils (%) (Auto) 86.0 % (16.0-70.0) Lymphocytes (%) (Auto) 6.9 % (9.0-44.0) Neutrophils # (Auto) 15.2 TH/MM3 (1.8-7.7) Monocytes # (Auto) 1.2 TH/MM3 (0-0.9) Blood Urea Nitrogen 74 MG/DL (7-18) Creatinine 2.16 MG/DL (0.50-1.00) Random Glucose 125 MG/DL (74-106) Total Protein 6.2 GM/DL (6.4-8.2) Albumin 2.0 GM/DL (3.4-5.0) Magnesium Level 3.0 MG/DL (1.5-2.5) Aspartate Amino Transf (AST/SGOT) 50 U/L (15-37) Alanine Aminotransferase (ALT/SGPT) 58 U/L (10-53) Sodium Level 146 MEQ/L (136-145) Chloride Level 112 MEQ/L (98-107) Estimat Glomerular Filtration Rate 22 ML/MIN (>89) Mean Corpuscular Hemoglobin Concent 31.0 % (32.0-36.0) Prothrombin Time 12.1 SEC (9.8-11.6) Activated Partial Thromboplast Time 24.0 SEC (24.3-30.1) 84.9 SEC (24.3-30.1) 56.5 SEC (24.3-30.1) Test 11/18/16 07:30 11/18/16 09:15 11/18/16 16:33 11/18/16 16:35 White Blood Count 18.4 TH/MM3 (4.0-11.0) Red Blood Count 2.71 MIL/MM3 (4.00-5.30) Hemoglobin 7.7 GM/DL (11.6-15.3) 9.4 GM/DL (11.6-15.3) Hematocrit 24.5 % (35.0-46.0) 29.8 % (35.0-46.0) Mean Corpuscular Hemoglobin Concent 31.3 % (32.0-36.0) Red Cell Distribution Width 19.2 % (11.6-17.2) Neutrophils (%) (Auto) 86.4 % (16.0-70.0) Lymphocytes (%) (Auto) 6.9 % (9.0-44.0) Neutrophils # (Auto) 15.9 TH/MM3 (1.8-7.7) Monocytes # (Auto) 1.2 TH/MM3 (0-0.9) Blood Urea Nitrogen 91 MG/DL (7-18) Creatinine 2.61 MG/DL (0.50-1.00) Random Glucose 133 MG/DL (74-106) Total Protein 6.1 GM/DL (6.4-8.2) Albumin 1.9 GM/DL (3.4-5.0) Magnesium Level 3.2 MG/DL (1.5-2.5) Aspartate Amino Transf (AST/SGOT) 51 U/L (15-37) Alanine Aminotransferase (ALT/SGPT) 68 U/L (10-53) Sodium Level 149 MEQ/L (136-145) Chloride Level 113 MEQ/L (98-107) Estimat Glomerular Filtration Rate 18 ML/MIN (>89) Urine Turbidity HAZY (CLEAR) Urine Protein 30 mg/dL (NEG-TRACE) Urine Occult Blood MOD (NEG) Urine RBC 27 /hpf (0-3) Urine WBC 6 /hpf (0-5) Urine Bacteria MOD /hpf (NONE) Urine Mucus FEW /lpf (OCC) Test 11/19/16 02:16 11/19/16 04:00 White Blood Count 20.0 TH/MM3 (4.0-11.0) Red Blood Count 3.47 MIL/MM3 (4.00-5.30) Hemoglobin 9.8 GM/DL (11.6-15.3) Hematocrit 30.7 % (35.0-46.0) Mean Corpuscular Hemoglobin Concent 31.9 % (32.0-36.0) Red Cell Distribution Width 19.3 % (11.6-17.2) Neutrophils (%) (Auto) 88.3 % (16.0-70.0) Lymphocytes (%) (Auto) 5.7 % (9.0-44.0) Neutrophils # (Auto) 17.6 TH/MM3 (1.8-7.7) Monocytes # (Auto) 1.1 TH/MM3 (0-0.9) Blood Urea Nitrogen 102 MG/DL (7-18) Creatinine 3.05 MG/DL (0.50-1.00) Random Glucose 154 MG/DL (74-106) Albumin 2.1 GM/DL (3.4-5.0) Aspartate Amino Transf (AST/SGOT) 58 U/L (15-37) Alanine Aminotransferase (ALT/SGPT) 78 U/L (10-53) Sodium Level 149 MEQ/L (136-145) Chloride Level 112 MEQ/L (98-107) Estimat Glomerular Filtration Rate 15 ML/MIN (>89) Assessment and Plan Assessment and Plan respiratory failure pna COPD PLAN VENT. SUPPORT ANTIBX. WEAN TOLERATED Discharge Planning GENERAL: SKIN: Warm and dry. HEAD: Atraumatic. Normocephalic. EYES: Pupils equal and round. No scleral icterus. No injection or drainage. ENT: No nasal bleeding or discharge. Mucous membranes pink and moist. NECK: Trachea midline. No JVD. CARDIOVASCULAR: Regular rate and rhythm. RESPIRATORY: No accessory muscle use. Clear to auscultation. Breath sounds equal bilaterally. GASTROINTESTINAL: Abdomen soft, non-tender, nondistended. Hepatic and splenic margins not palpable. MUSCULOSKELETAL: Extremities without clubbing, cyanosis, or edema. No obvious deformities. NEUROLOGICAL: Awake and alert. No obvious cranial nerve deficits. Motor grossly within normal limits. Five out of 5 muscle strength in the arms and legs. Normal speech. PSYCHIATRIC: Appropriate mood and affect; insight and judgment normal. Ryan Davis MD Nov 23, 2016 19:11
[2016-11-23] MEDS: ATORVASTATIN 80 MG TAB PO SCH (21:37)
[2016-11-23] MEDS: ALPRAZolam 0.5 MG TAB PO SCH (21:37)
[2016-11-24] VITALS (26 sets, daily range): BP systolic 137–178; BP diastolic 73–93; PULSE 93–111; RESP 20; TEMP 98.4–98.9; O2SAT 76–96
[2016-11-24] MEDS: PROPOFOL 1000 MG/100 ML IV PRN ×2 (00:20→07:27)
[2016-11-24] MEDS: HEPARIN SODIUM - SQ 10,000 UNITS/ML VIAL SQ SCH ×2 (03:52→14:30)
[2016-11-24] MEDS: FREE WATER G-TUBE SCH ×4 (03:52→14:30)
[2016-11-24] MEDS: SODIUM CHLOR 0.9% 1000 ML INJ 1,000 ML IV SCH (05:45)
[2016-11-24] MEDS: INSULIN ASPART SUPPLEMENTAL SCALE SQ SCH ×2 (06:00→12:00)
[2016-11-24] MEDS: VENLAFAXINE HCL 25 MG TAB PO SCH (07:25)
[2016-11-24] MEDS: SODIUM CHLORIDE 0.9% FLUSH 10 ML FLUSH IV FLUSH SCH ×2 (07:26→20:41)
[2016-11-24] MEDS: DOCUSATE SODIUM 50 MG/SENNA 8.6 MG TAB PO SCH ×2 (07:26→20:41)
[2016-11-24] MEDS: methylPREDNISolone SOD SUCC 40 MG/1 ML VIAL IV PUSH SCH ×2 (07:26→20:40)
[2016-11-24] MEDS: AMIODARONE 200 MG TAB PO SCH (07:26)
[2016-11-24] MEDS: LORATADINE 10 MG TAB PO SCH (07:26)
--- NOTE | 2016-11-24 08:35 | HHI.CCPN ---
Subjective Remarks/Hospital Course 11/13: 71-year-old female with a history of COPD, coronary artery disease and hypertension who was admitted through the emergency room with complaints of progressive shortness of breath over the past 3 to 4 days. The patient has a history of CABG x3 approximately 7 weeks ago in [place], [place]. She did have some postoperative pleural effusions which had to be tapped. She then drove from [place] down here and she was experiencing increasing dyspnea. A CT scan of the chest showed evidence of bilateral patchy pulmonary infiltrates consistent with either pneumonia and/or pulmonary edema. At night November 12 her respiratory status dramatically declined, patient became hypoxemic and tachypneic and diaphoretic requiring endotracheal intubation. 11/14: Remains sedated, orally intubated on mechanical ventilation. On low dose vasopressin and Levophed for pressor support. 11/15: Remains sedated, orally intubated on mechanical ventilation. Failed CPAP trial yesterday within 5 minutes. Off Levophed. Low-dose vasopressin being titrated down. Tolerating tube feeds. Hemoglobin drop noted however significant positive fluid balance. 11/16: Remains sedated, orally intubated on mechanical ventilation. Tolerating tube feeds. Off pressors. Daily C Pap trials. 11/17: Remains sedated, orally intubated on mechanical ventilation. Tolerating tube feeds. Failed C Pap trial yesterday. 11/18: Remains sedated, arousable, orally intubated on mechanical ventilation. Tolerated C Pap trials however on dropping pressure-support to+5 became tachypneic. Hemoglobin 7.7 this morning. No melena or rectal bleeding. Ordered CT abdomen and pelvis to evaluate for retroperitoneal bleed. One unit PRBCs ordered to be transfused. Also noted rising BUN/creatinine. Patient is nonoliguric and is on diuretics. 11/19: failed cpap today for hypoxia and tachypnea. ct abd pelvis yesterday without evidence of retroperitoneal hematoma. hgb improved with prbc and remains stable. BUN/Cr continues to rise, nephrology note today: most likely ATN. hypernatremia worsening as well. 11/20: continues to fail cpap for hypoxia. hgb stable. hypernatremia continues to worsen. cr stable. uop adequate. 11/21: Remains sedated, orally intubated on mechanical ventilation. Failed C Pap trials. Worsening BUN/creatinine noted. Remains nonoliguric. 11/22: Arouses of sedation, encephalopathic, not following commands. Orally intubated on mechanical ventilation. Remains nonoliguric. Respiratory status borderline with C Pap trials 11/23: Arouses off sedation however encephalopathic, remains orally intubated on mechanical ventilation. Tolerating C Pap trials. Remains nonoliguric however BUN creatinine rising. 11/24: Arouses off sedation, orally intubated on mechanical ventilation. Tolerating C Pap trials. Possible extubation today after discussion with family regarding decision to reintubate if she worsens following extubation Objective Vital Signs Date Time Temp Pulse Resp B/P (MAP) Pulse Ox O2 Delivery O2 Flow Rate FiO2 11/24/16 07:44 96 40 11/24/16 06:00 101 11/24/16 04:00 98.9 143/74 (97) 11/23/16 16:00 20 11/23/16 15:38 T-piece 6.00 Intake and Output 11/24/16 11/24/16 11/25/16 08:00 16:00 00:00 Intake Total 1784 ml Output Total 1700 ml Balance 84 ml Result Diagram: 11/23/16 1120 11/23/16 1120 Imaging Last Impressions Chest X-Ray 11/14/16 0000 Signed Impressions: Service Date/Time: Monday, November 14, 2016 04:35 - CONCLUSION: Improved bilateral airspace disease. New nasogastric tube, tip in the stomach. Other lines and tubes unchanged. Issa Kumar MD Shoulder X-Ray 11/10/16 0000 Signed Impressions: Service Date/Time: October 13:50 - CONCLUSION: 1. Old right humeral neck fracture. 2. No acute fracture or dislocation. 3. Course interstitial opacities throughout the visualized right upper lobe. Crispni Ramos MD Humerus X-Ray 11/10/16 0000 Signed Impressions: Service Date/Time: October 13:53 - CONCLUSION: 1. Old right humeral neck fracture. 2. No acute fracture or dislocation. Crispin Ramos MD CT Angiography 11/10/16 0000 Signed Impressions: Service Date/Time: October 14:35 - CONCLUSION: 1. No evidence of pulmonary embolus. 2. Severe extensive bilateral pulmonary parenchymal opacity with a crazy paving appearance. Differential diagnosis includes pulmonary edema, pulmonary alveolar stenosis, acute interstitial pneumonia, and eosinophilic pneumonia. 3. Small pleural effusions left greater than right. 4. Mildly enlarged mediastinal lymph nodes likely reactive. Adolph Root MD Objective Remarks GENERAL: Sedated and intubated elderly woman SKIN: Warm and dry. HEAD: Normocephalic. EYES: Pallor present. No scleral icterus. No injection or drainage. NECK: trachea midline. No JVD CARDIOVASCULAR: Regular rate and rhythm RESPIRATORY: Orally intubated on mechanical ventilation. Breath sounds equal bilaterally. Scattered rhonchi, no wheezing or crackles. GASTROINTESTINAL: Abdomen soft, non-tender, nondistended. no guarding. MUSCULOSKELETAL: No cyanosis. Trace edema. NEURO: Sedated/encephalopathic, arousable, orally intubated on mechanical ventilation A/P Assessment and Plan Assessment: 71yF with bilateral pneumonia and acute hypoxic respiratory failure. failing cpap trials and off pathway. remains critically ill today with persistent renal dysfunction, metabolic derangements. Acute hypoxic Respiratory failure on [facility] ventilation - Bilateral patchy infiltrates - Pneumonia versus pulmonary edema - Mechanical ventilation - Unasyn by ID. - Gentle diuresis if tolerated. - daily SBTs. Tolerating C Pap trials however neurologic status and worsening renal function are concerns and patient at high risk for reintubation. Awaiting clarification from family today prior to extubation. - intubated 11/12 (13 days of mechanical ventilation) Septic shock- resolved. - piv's -off vasopressors. - off ivf. Off diuretics COPD - DuoNeb scheduled and when necessary, Solumedrol Coronary artery disease - Status post CABG - Troponins negative - Cardiology input appreciated - Echo with normal LV function. Paroxysmal atrial fibrillation - Rate controlled - Amiodarone - Eliquis held on 11/15 due to drop in Hgb. Started heparin for full anticoagulation on 11/17 however in view of hemoglobin drop on 11/18 stopped heparin. hgb 9.8 to 9.0 in 24h. SQH 5000 q12h and slowly work back up to full anticoagulation. Anemia secondary to acute blood loss - No overt evidence of GI blood loss. CT abdomen pelvis ordered to evaluate for retroperitoneal bleed. CONCHITA - Strict intake output, monitor and replete electrolites, follow BUN/ creatinine. off diuretics given conchita. nephrology on board. June require hemodialysis if renal function continues to decline. Family deciding if patient would want hemodialysis if needed. - Ordered Kayexalate, calcium, glucose insulin for hyperkalemia which is now resolved. - Uremia could possibly be contribution to encephalopathy. Hypernatremia- - free water DVT GI prophylaxis - Fantaquchivo held 11/15, will start heparin for DVT prophylaxis as hemoglobin remained stable currently - Pepshilpa - Kimani SCDs Consulted palliative care to assist with deciding goals of therapy as patient looks like she would need a tracheostomy and a PEG tube and possibly hemodialysis if renal function continues to decline. Tolerating C Pap trials hence could possibly be extubated however awaiting clarification from family that if she worsens following extubation would day want her reintubated or transition to comfort measures. Critical Care: The total critical care time was 30 minutes. Time to perform other separately billable procedures was not included in the critical care time. Ketan Starkey MD Nov 24, 2016 08:35
[2016-11-24 09:09] LABS: BICARBONATE 24.6 MEQ/L (21.0-32.0); POTASSIUM 5.2 MEQ/L (3.5-5.1)
--- NOTE | 2016-11-24 10:18 | HHI.NPPN ---
Subjective History of Present Illness 71-year-old female with a past medical history of hyperlipidemia, chronic obstructive liver disease, sleep apnea, ischemic heart disease, history of coronary artery bypass grafting done about 28 weeks ago and depression who was admitted with worsening shortness of breath and cough. I was called to see the patient because of elevated BUN and creatinine. The patient had a creatinine of 0.7 on admission. Additional Remarks Patient is awake, on vent. and on CPAP. Review of Systems General General Remarks Intubated and sedated. Objective Data Data 11/24/16 11/25/16 18:59 06:59 Intake Total 200 ml Balance 200 ml IV Total 200 ml Vital Signs Date Time Temp Pulse Resp B/P (MAP) Pulse Ox O2 Delivery O2 Flow Rate FiO2 11/24/16 07:44 96 40 11/24/16 06:00 101 11/24/16 04:00 98.9 100 143/74 (97) 94 11/24/16 04:00 100 11/24/16 04:00 40 11/24/16 03:56 95 35 11/24/16 02:00 98 11/24/16 00:17 93 35 11/24/16 00:00 40 11/24/16 00:00 98.7 98 140/82 (101) 92 11/24/16 00:00 98 11/24/16 00:00 98 11/23/16 22:00 98 11/23/16 21:29 100 35 11/23/16 20:00 98.5 98 143/70 (94) 93 11/23/16 20:00 98 11/23/16 20:00 35 11/23/16 18:00 100 11/23/16 16:00 98.8 97 20 127/71 (89) 96 11/23/16 16:00 97 11/23/16 16:00 35 11/23/16 15:47 99 35 11/23/16 15:38 96 T-piece 6.00 28 11/23/16 14:00 99 11/23/16 13:08 97 35 11/23/16 12:00 98.3 97 19 140/64 (89) 96 11/23/16 12:00 35 11/23/16 12:00 97 11/23/16 10:30 96 35 -: 11/23/16 1120 11/24/16 0623 Physical Exam General Appearance: No Acute Distress, Comfortable Eyes Eye Exam: Pupils Equal Neck Neck Exam: Neck Supple Pulmonary Resp Exam: Rhonchi, Decreased Bases, Diminished Breath Sounds, Poor Inspiratory Effort Cardiology CV Exam: Regular, Normal Sinus Rhythm Gastrointestinal/Abdomen GI Exam: Soft, Non-Tender, Bowel Sounds Present, Distended Extremeties Extremities Exam: Moderate Edema, Pitting Edema, Dependent Edema Neurologic Neuro Exam: Awake Assessment/Plan Assessment Summary: CONCHITA/Acute Renal Failure Problem List: (1) Acute kidney injury ICD Codes: N17.9 - Acute kidney failure, unspecified (2) Respiratory failure ICD Codes: J96.90 - Respiratory failure, unspecified, unspecified whether with hypoxia or hypercapnia (3) Septic shock ICD Codes: A41.9 - Sepsis, unspecified organism; R65.21 - Severe sepsis with septic shock (4) Atrial fibrillation ICD Codes: I48.91 - Unspecified atrial fibrillation (5) Coronary artery disease ICD Codes: I25.10 - Atherosclerotic heart disease of [place] coronary artery without angina pectoris (6) Bilateral pneumonia ICD Codes: J18.9 - Pneumonia, unspecified organism Status: Acute Plan Patient has been non oliguric. Has Acute kidney injury, urine Na was high and osmolality was not very high, Eosinophils negative. Most likely has ATN causing CONCHITA, either due to hypotension or infection. Off Lasix, urine out put is adequate. Continue antibiotics. Avoid Nephrotoxins. Weaning as per CCM. Did not tolerate CPAP today. Creatinine increase again and now it is 3.5. K is 5.2 and Na. 154. on free water. Patient is No Code and for extubation today. I was told that family also does not want Dialysis if needed. Problem Qualifiers (1) Bilateral pneumonia: Qualified Codes: J18.9 - Pneumonia, unspecified organism Michelle Boo MD Nov 24, 2016 10:18
[2016-11-24] MEDS ORDERED: MORPHINE SULFATE 2 MG/ML INJ IM PRN (11:45)
[2016-11-24] MEDS ORDERED: LORazepam 2 MG/ML VIAL IV PUSH PRN (11:45)
--- NOTE | 2016-11-24 11:56 | HHI.HCPN ---
Reason for visit a. To assist with evaluation and management of symptoms including: Shortness of breath, Debility b. To assist medical decision maker(s) with: better understanding of current medical conditions; weighing benefits/burdens of medical treatment options; making medical treatment decisions. Subjective/Interval History Mrs Miranda is a 71 years old female history of CAD, COPD, atrial fibrillation , hypertension, hyperlipidemia, depression, obstructive sleep apnea. Approximately 8 weeks ago, patient had CABG X3 vessels and post operative pleural effusion which was drained in [place], [place]. Patient presented to the ER on 11/10/16 complaining of shortness of breath and cough overnight. Interim history * Nephrology following for increasing creatinine and worsening renal function. Recommending dialysis, however family is declining any further aggressive interventions as they state the patient would not want that. Creatinine has risen from 3.01-3.56 over the last 3 days and continues to worsen. Sodium has remained 154 in spite of increasing free water and potassium is now 5.2, with no exogenous potassium use or DEVIN inhibitor use. There is a consideration that uremia may be contributing to her encephalopathy, however the family states the patient would not be compliant with dialysis or renal diet and so choose not to pursue further aggressive intervention. Eliquis, which she had been taking for atrial fibrillation, has been stopped due to worsening renal function and she is now on heparin for thromboembolic prophylaxis. * Pulmonary following. She is tolerating CPAP trials and consideration is for medical extubation today. After discussion with the family, they have declined reintubation in case of worsening respiratory status. * Cardiology following. She is status post CABG 8 weeks ago with episodic paroxysmal atrial fibrillation. Patient remains in normal sinus rhythm at this time. DNR has been chosen as CODE STATUS. . Family/friend interactions Spoke with via telephone. After discussion with his daughters the family is of the opinion that the patient would not want, nor be compliant with , efforts at rehabilitation or dialysis. Plan is to extubate today and if she develops recurrent respiratory distress comfort measures will be employed and hospice consulted per my discussion with the . The has requested return of his cell phone, cell phone application support administrator, woke, stuffed animal and patient's close which had been left at the hospital. If she passes he has also requested return of her wedding band. The family has chosen the home of [place], contact joshua Morris phone number [phone]. . Advance Directives Living Will: Never completed Health Care Surrogate: Completed, but not made available Durable Power of Chemical Sprayer: Never completed Advance Directive Specifics Health Care Surrogate(s): reported that he is the healthcare surrogate -Jung Miranda and alternate HCS is daughter Temi Garza. . Objective Vital Signs Date Time Temp Pulse Resp B/P (MAP) Pulse Ox O2 Delivery O2 Flow Rate FiO2 11/24/16 08:00 40 11/24/16 07:44 96 40 11/24/16 06:00 101 11/24/16 04:00 98.9 100 143/74 (97) 94 11/24/16 04:00 100 11/24/16 04:00 40 11/24/16 03:56 95 35 11/24/16 02:00 98 11/24/16 00:17 93 35 11/24/16 00:00 40 11/24/16 00:00 98.7 98 140/82 (101) 92 11/24/16 00:00 98 11/24/16 00:00 98 11/23/16 22:00 98 11/23/16 21:29 100 35 11/23/16 20:00 98.5 98 143/70 (94) 93 11/23/16 20:00 98 11/23/16 20:00 35 11/23/16 18:00 100 11/23/16 16:00 98.8 97 20 127/71 (89) 96 11/23/16 16:00 97 11/23/16 16:00 35 11/23/16 15:47 99 35 11/23/16 15:38 96 T-piece 6.00 28 11/23/16 14:00 99 11/23/16 13:08 97 35 11/23/16 12:00 98.3 97 19 140/64 (89) 96 11/23/16 12:00 35 11/23/16 12:00 97 Intake & Output 11/24/16 11/24/16 07:00 19:00 Intake Total 1668 ml 200 ml Output Total 1700 ml Balance -32 ml 200 ml IV Total 84 ml 200 ml Tube Feeding 684 ml Other 900 ml Output Urine Total 700 ml Stool Total 1000 ml Physical Exam CONSTITUTIONAL/GENERAL: This is an obese, elderly patient, intubated on mechanical ventilation on CPAP. TUBES/LINES/DRAINS:PIVS,FC, [place], Left nare NGT,SCDs, ETT, BUE soft restraints. CARDIOVASCULAR: Regular rhythm, no murmurs, gallops, or rubs. No JVD. Peripheral pulses symmetric. RESPIRATORY/CHEST: Symmetric, unlabored respirations. Clear to auscultation. Breath sounds equal bilaterally but diminished. No wheezes, rales, or rhonchi. GASTROINTESTINAL: Abdomen soft, non-tender, nondistended. No hepato-splenomegaly , or palpable masses. No guarding. Bowel sounds present. GENITOURINARY: Without palpable bladder distension. Barraza catheter in place. MUSCULOSKELETAL: Extremities without clubbing, cyanosis, or edema. No joint tenderness or effusion noted. No calf tenderness. No mottling or clubbing. NEUROLOGICAL: easily arousable, remains intubated on mechanical ventilation. Patient followed commands with BUE. Spontaneously moving bilateral lower extremities. PSYCHIATRIC: Intubated on CPAP, pending medical extubation. . Diagnostic Tests Laboratory Laboratory Tests Test 11/21/16 12:35 11/22/16 06:08 11/22/16 12:55 11/23/16 11:20 White Blood Count 22.7 TH/MM3 (4.0-11.0) 22.3 TH/MM3 (4.0-11.0) 21.7 TH/MM3 (4.0-11.0) Red Blood Count 3.63 MIL/MM3 (4.00-5.30) 3.55 MIL/MM3 (4.00-5.30) 3.30 MIL/MM3 (4.00-5.30) Hemoglobin 10.3 GM/DL (11.6-15.3) 10.1 GM/DL (11.6-15.3) 9.4 GM/DL (11.6-15.3) Hematocrit 32.9 % (35.0-46.0) 31.9 % (35.0-46.0) 30.0 % (35.0-46.0) Mean Corpuscular Volume 90.5 FL (80.0-100.0) 89.8 FL (80.0-100.0) 90.9 FL (80.0-100.0) Mean Corpuscular Hemoglobin 28.4 PG (27.0-34.0) 28.5 PG (27.0-34.0) 28.4 PG (27.0-34.0) Mean Corpuscular Hemoglobin Concent 31.4 % (32.0-36.0) 31.7 % (32.0-36.0) 31.3 % (32.0-36.0) Red Cell Distribution Width 19.2 % (11.6-17.2) 19.1 % (11.6-17.2) 19.1 % (11.6-17.2) Platelet Count 351 TH/MM3 (150-450) 358 TH/MM3 (150-450) 288 TH/MM3 (150-450) Mean Platelet Volume 9.6 FL (7.0-11.0) 9.2 FL (7.0-11.0) 9.8 FL (7.0-11.0) Blood Urea Nitrogen 115 MG/DL (7-18) 117 MG/DL (7-18) 124 MG/DL (7-18) Creatinine 3.01 MG/DL (0.50-1.00) 3.17 MG/DL (0.50-1.00) 3.40 MG/DL (0.50-1.00) Random Glucose 128 MG/DL (74-106) 116 MG/DL (74-106) 142 MG/DL (74-106) Calcium Level 8.7 MG/DL (8.5-10.1) 8.8 MG/DL (8.5-10.1) 8.9 MG/DL (8.5-10.1) Sodium Level 150 MEQ/L (136-145) 154 MEQ/L (136-145) 154 MEQ/L (136-145) Potassium Level 5.8 MEQ/L (3.5-5.1) 4.2 MEQ/L (3.5-5.1) 4.7 MEQ/L (3.5-5.1) Chloride Level 114 MEQ/L (98-107) 117 MEQ/L (98-107) 119 MEQ/L (98-107) Carbon Dioxide Level 25.3 MEQ/L (21.0-32.0) 27.2 MEQ/L (21.0-32.0) 24.5 MEQ/L (21.0-32.0) Anion Gap 11 MEQ/L (5-15) 10 MEQ/L (5-15) 11 MEQ/L (5-15) Estimat Glomerular Filtration Rate 15 ML/MIN (>89) 14 ML/MIN (>89) 13 ML/MIN (>89) Blood Gas Puncture Site LT RADIAL Blood Gas Patient Temperature 98.6 Blood Gas HCO3 25 mmol/L (22-26) Blood Gas Base Excess 1.7 mmol/L (-2-2) Blood Gas Oxygen Saturation 94 % (90-100) Arterial Blood pH 7.48 (7.380-7.420) Arterial Blood Partial Pressure CO2 34 mmHg (38-42) Arterial Blood Partial Pressure O2 87 mmHg (61-120) Arterial Blood Oxygen Content 13.5 Vol % (12.0-20.0) Arterial Blood Carboxyhemoglobin 1.6 % (0-4) Arterial Blood Methemoglobin 1.4 % (0-2) Blood Gas Hemoglobin 10.2 G/DL (12.0-16.0) Oxygen Delivery Device VENTILATOR Blood Gas Ventilator Setting CPAP 5/8PS Blood Gas Inspired Oxygen 35 % Test 11/24/16 06:23 Blood Urea Nitrogen 126 MG/DL (7-18) Creatinine 3.56 MG/DL (0.50-1.00) Random Glucose 128 MG/DL (74-106) Calcium Level 8.4 MG/DL (8.5-10.1) Sodium Level 154 MEQ/L (136-145) Potassium Level 5.2 MEQ/L (3.5-5.1) Chloride Level 118 MEQ/L (98-107) Carbon Dioxide Level 24.6 MEQ/L (21.0-32.0) Anion Gap 11 MEQ/L (5-15) Estimat Glomerular Filtration Rate 13 ML/MIN (>89) Result Diagram: 11/23/16 1120 11/24/16 0623 Procedures 11/12/16 -intubation . Assessment and Plan Disease Oriented Problem List: (1) Respiratory failure (2) Septic shock (3) Acute kidney injury (4) Bilateral pneumonia (5) Coronary artery disease (6) Atrial fibrillation Symptom Scale: (1) Shortness of breath 0-10 Scale: Unable to quantify Comment: On CPAP trials . (2) Debility 0-10 Scale: Unable to quantify Pertinent Non-Medical Issues Psychosocial:Patient was born in [place] and she moved to [place] at an early age. Patient has been twice. Patient is to her second of 43 years. Patient has 3 daughters and 6 grandchildren. 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 Spiritual: Patient is Yarsani Legal:Reported by that he is the healthcare surrogate -Jung Miranda and alternate HCS is daughter Temi Garza. Ethical issues impacting care: None identified Important Contacts Spouse- HCP: Jung Miranda , Daughters- Karolina Almazan [phone]; Yamilet Infante ; Temi Garza . Prognosis Mrs Miranda is a 71 years old female history of CAD, COPD, atrial fibrillation , hypertension, hyperlipidemia, depression, obstructive sleep apnea. Approximately 8 weeks ago, patient had CABG X3 vessels and post operative pleural effusion which was drained in [place], [place]. Patient presented to the ER on 11/10/16 complaining of shortness of breath and cough overnight. Chest CT revealed evidence of bilateral patchy pulmonary infiltrates consistent of pneumonia and/or pulmonary edema. Patient`s respiratory status declined requiring intubation. Further complications include sepsis, and acute renal failure. Given patient`s ongoing multiple comorbidities, patient is at high risk for further complications, deterioration, decline leading to . . Code Status: Alternative Code Plan PLAN: Legal decision maker: Patient has just been extubated and has had sedation within the last 24 hours. Patient has a Jung Miranda who reports that he is patients` Health Care Surrogate and alternate healthcare Surrogate is patient`s daughter Temi Garza. Goals: Patient`s has made patient a DNR. CODE STATUS: DNR SYMPTOMS: * Shortness of breath-Patient has a history of COPD, obstructive sleep apnea. Patient has been having shortness of breath for more than a year. Medically extubated to 4 L nasal cannula. If patient develops respiratory distress family has requested comfort measures rather than re-intubation. Comfort medications ordered. * Debility- Patient has been deteriorating healthwise for more than a 2 years, has had decreased oral intake for sometime. Patient had CABG x 3 vessels on 2016. Family states patient has been noncompliant with any form of rehabilitation or exercise in the past, and would likely not cooperate or be motivated to exercise now. She has now developed renal failure but, per her previous conversations with her , would not want dialysis which will further complicate her debility. Summary This is a 71-year-old female 2 months past coronary artery bypass grafting with pneumonia who is now been medically extubated. She has a long history of sedentary behavior and has had many discussions with her stating that she does not wish to live in this state of disability and would prefer comfort measures and to aggressive treatment. The family is honoring her wishes and have stated that they do not want her reintubated if she develops respiratory distress, however as she also now has renal failure and per the family would decline dialysis, comfort measures have been initiated. Hospice has been consulted. The was open to hospice during this morning's conversation. Patient can be transferred to inpatient hospice once consents are signed. Palliative care will continue to follow the patient during hospital course as condition evolves, to assist patient/decision-maker with understanding of their medical conditions, weighing benefits/burdens of treatment options, for clarification of goals of treatment. Additionally will assist with any symptoms of palliative concern. Attestation To help prompt me to consider important information that might be impacting today's encounter and assessment, information from prior notes written by myself or my colleagues may have been "brought forward" into today's note. My signature on this note, however, is an attestation that I personally performed the exam, history, and/or decision-making noted today, and, unless otherwise indicated, the interactions with patient, family, and staff as well as the review of records all occurred today. I also attest that the listed assessment and stated plan reflect my best clinical judgment today based on the combination of historical information, prior notes, and today's exam/ interactions. When time spent is documented, it refers only to time spent today by the signer, or if indicated, combined time spent today by collaborating physician/nurse practitioner. Bonny Villavicencio Nov 24, 2016 11:56
[2016-11-24 12:28] LABS: HEMATOCRIT 31.8 % (35.0-46.0); MEAN CELL VOLUME 90.3 FL (80.0-100.0); MEAN CORPUSCULAR HEMOGLOBIN 27.5 PG (27.0-34.0); MEAN CORPUSCULAR HGB CONC 30.5 % (32.0-36.0); PLATELET COUNT 306 TH/MM3 (150-450); RED BLOOD COUNT 3.52 MIL/MM3 (4.00-5.30); RED CELL DISTRIBUTION WIDTH 19.4 % (11.6-17.2); REVIEW FLAG FINAL; WHITE BLOOD COUNT 22.4 TH/MM3 (4.0-11.0)
[2016-11-24] MEDS ORDERED: HYDROmorphone HCL PF 1 MG/ML VIAL IV PUSH PRN (12:45)
--- NOTE | 2016-11-24 13:50 | PD.CARD.PN ---
Subjective Subjective Remarks Extubated, mild SOB, no CP, mildly confused Objective Medications Current Medications Medications (Trade) Dose Ordered Sig/Vida Route Start Time Stop Time Status Last Admin (Eliquis) 5 mg BID PO 11/10/16 21:00 Future Hold 11/15/16 08:20 (Inderal) 10 mg Q12HR PO 11/10/16 12:00 Future Hold 11/13/16 08:40 (Lipitor) 80 mg HS PO 11/10/16 21:00 11/23/16 21:37 (Effexor) 50 mg BID PO 11/10/16 21:00 11/24/16 07:25 (Cordarone) 200 mg DAILY PO 11/10/16 11:00 11/24/16 07:26 (Claritin) 10 mg DAILY PO 11/10/16 12:00 11/24/16 07:26 (Duoneb Neb) 1 ampule Q4HR NEB PRN INH 11/10/16 12:00 11/20/16 19:32 (Zofran Inj) 4 mg Q6HR PRN IV PUSH 11/10/16 12:00 11/10/16 20:31 (Robitussin Dm 200-20 Mg/10 ml Liq) 10 ml Q4HR PRN PO 11/10/16 12:00 11/12/16 09:09 (NS Flush) 2 ml UNSCH PRN IV FLUSH 11/10/16 10:00 (NS Flush) 2 ml BID IV FLUSH 11/10/16 21:00 11/24/16 07:26 (Tylenol) 650 mg Q4H PRN PO 11/10/16 10:00 11/11/16 08:10 (Tylenol) 650 mg Q6H PRN PO 11/10/16 10:00 (Percocet 5-325 Mg) 1 tab Q6H PRN PO 11/10/16 12:00 11/10/16 21:47 (Percocet 10-325 Mg) 1 tab Q6H PRN PO 11/10/16 12:00 11/12/16 09:09 (Narcan Inj) 0.4 mg UNSCH PRN IV PUSH 11/10/16 10:00 (Hanna-Colace) 1 tab BID PO 11/10/16 21:00 11/24/16 07:26 (Milk Of Magnesia Liq) 30 ml Q12HR PRN PO 11/10/16 12:00 (Senokot) 17.2 mg Q12HR PRN PO 11/10/16 12:00 11/15/16 08:20 (Dulcolax Supp) 10 mg DAILY PRN RECTAL 11/10/16 12:00 11/15/16 08:21 (Lactulose Liq) 30 ml DAILY PRN PO 11/10/16 12:00 11/15/16 08:19 (Spiriva Inh) 18 mcg DAILY INH 11/11/16 17:00 Future Hold 11/12/16 08:47 (Xanax) 0.5 mg HS PO 11/12/16 21:00 11/23/16 21:37 Miscellaneous Information Patient in critical care unit? Ass... [id number] .XX 11/12/16 20:00 Fentanyl Citrate 250 ml @ 5 mls/hr TITRATE PRN IV 11/13/16 01:30 11/17/16 23:57 Propofol 100 ml @ 2.142 mls/ hr TITRATE PRN IV 11/13/16 03:00 11/24/16 07:27 Sodium Chloride 1,000 ml @ 20 mls/hr Q24H IV 11/13/16 09:45 11/23/16 05:45 (NovoLOG SUPPLEMENTAL SCALE) 1 Q6HR SQ 11/14/16 15:00 11/24/16 12:00 (D50w (Syr) Inj) 25 ml UNSCH PRN IV 11/14/16 15:00 (Glucagon Inj) 1 mg UNSCH PRN IM/SQ 11/14/16 15:00 (SoluMEDROL INJ) 20 mg BID IV PUSH 11/16/16 21:00 11/24/16 07:26 (Trandate Inj) 20 mg Q15M PRN IV PUSH 11/20/16 10:30 (Apresoline Inj) 10 mg Q30M PRN IV PUSH 11/20/16 10:30 11/22/16 00:09 (Free Water) 300 ml Q4HR G-TUBE 11/20/16 12:00 11/24/16 12:00 (Heparin Inj) 5,000 units Q12H SQ 11/23/16 15:00 11/24/16 03:52 (Ativan Inj) 1 mg Q2H PRN IV PUSH 11/24/16 11:45 (Dilaudid Pf Inj) 0.5 mg Q2H PRN IV PUSH 11/24/16 12:45 Vital Signs / I&O Vital Signs Date Time Temp Pulse Resp B/P (MAP) Pulse Ox O2 Delivery O2 Flow Rate FiO2 11/24/16 12:30 102 172/91 (118) 87 11/24/16 12:30 102 11/24/16 12:20 103 11/24/16 12:20 103 173/88 (116) 87 11/24/16 12:00 103 164/93 (116) 87 11/24/16 12:00 103 11/24/16 11:45 91 Nasal Cannula 5.00 11/24/16 11:45 91 Nasal Cannula 5 11/24/16 11:00 96 11/24/16 10:30 96 154/90 (111) 94 11/24/16 10:30 96 11/24/16 10:00 94 11/24/16 10:00 94 145/77 (99) 94 11/24/16 09:30 97 155/82 (106) 95 11/24/16 09:30 97 11/24/16 09:00 96 152/73 (99) 95 11/24/16 09:00 96 11/24/16 08:30 97 11/24/16 08:30 97 147/79 (101) 95 11/24/16 08:00 97 137/79 (98) 95 11/24/16 08:00 97 11/24/16 08:00 40 11/24/16 07:44 96 40 11/24/16 06:00 101 11/24/16 04:00 98.9 100 143/74 (97) 94 11/24/16 04:00 100 11/24/16 04:00 40 11/24/16 03:56 95 35 11/24/16 02:00 98 11/24/16 00:17 93 35 11/24/16 00:00 40 11/24/16 00:00 98.7 98 140/82 (101) 92 11/24/16 00:00 98 11/24/16 00:00 98 11/23/16 22:00 98 11/23/16 21:29 100 35 11/23/16 20:00 98.5 98 143/70 (94) 93 11/23/16 20:00 98 11/23/16 20:00 35 11/23/16 18:00 100 11/23/16 16:00 98.8 97 20 127/71 (89) 96 11/23/16 16:00 97 11/23/16 16:00 35 11/23/16 15:47 99 35 11/23/16 15:38 96 T-piece 6.00 28 11/23/16 14:00 99 I/O 11/23/16 11/23/16 11/23/16 11/24/16 11/24/16 11/24/16 06:59 14:59 22:59 06:59 14:59 22:59 Intake Total 2287 ml 115 ml 1650 ml 1584 ml 200 ml Output Total 750 ml 1350 ml 1700 ml Balance 1537 ml 115 ml 300 ml -116 ml 200 ml IV Total 862 ml 115 ml 84 ml 200 ml Tube Feeding 825 ml 666 ml 684 ml Tube Irrigant 900 ml Other 600 ml 900 ml Output Urine Total 650 ml 650 ml 700 ml Stool Total 100 ml 700 ml 1000 ml Physical Exam GENERAL: Extubated, awake SKIN: Warm and dry. HEAD: Normocephalic. EYES: No scleral icterus. No injection or drainage. NECK: Supple, trachea midline. No JVD or lymphadenopathy. CARDIOVASCULAR: Regular, without murmurs, gallops, or rubs. RESPIRATORY: Breath sounds equal bilaterally, coarse. GASTROINTESTINAL: Abdomen soft, non-tender, nondistended. MUSCULOSKELETAL: No cyanosis, or edema. Laboratory Laboratory Tests Test 11/24/16 06:23 11/24/16 11:33 Blood Urea Nitrogen 126 MG/DL Creatinine 3.56 MG/DL Random Glucose 128 MG/DL Calcium Level 8.4 MG/DL Sodium Level 154 MEQ/L Potassium Level 5.2 MEQ/L Chloride Level 118 MEQ/L Carbon Dioxide Level 24.6 MEQ/L Anion Gap 11 MEQ/L Estimat Glomerular Filtration Rate 13 ML/MIN White Blood Count 22.4 TH/MM3 Red Blood Count 3.52 MIL/MM3 Hemoglobin 9.7 GM/DL Hematocrit 31.8 % Mean Corpuscular Volume 90.3 FL Mean Corpuscular Hemoglobin 27.5 PG Mean Corpuscular Hemoglobin Concent 30.5 % Red Cell Distribution Width 19.4 % Platelet Count 306 TH/MM3 Mean Platelet Volume 10.2 FL Assessment and Plan Problem List: (1) Respiratory failure ICD Codes: J96.90 - Respiratory failure, unspecified, unspecified whether with hypoxia or hypercapnia (2) Septic shock ICD Codes: A41.9 - Sepsis, unspecified organism; R65.21 - Severe sepsis with septic shock (3) Bilateral pneumonia ICD Codes: J18.9 - Pneumonia, unspecified organism Status: Acute (4) Coronary artery disease ICD Codes: I25.10 - Atherosclerotic heart disease of [place] coronary artery without angina pectoris (5) S/P CABG x 3 ICD Codes: Z95.1 - Presence of aortocoronary bypass graft (6) Atrial fibrillation ICD Codes: I48.91 - Unspecified atrial fibrillation (7) Renal insufficiency ICD Codes: N28.9 - Disorder of kidney and ureter, unspecified Assessment and Plan No new cardiac issues. Tele with NSR/mild ST, no arrhythmias. Extubated successfully. Continue ICU care. Pt now DNR/do not reintubate status. Problem Qualifiers (1) Bilateral pneumonia: Qualified Codes: J18.9 - Pneumonia, unspecified organism Daniella Simpson MD Nov 24, 2016 13:50
[2016-11-24] MEDS ORDERED: HYOSCYAMINE SOLN 0.125 MG/ML 15 ML BTL SL PRN (16:00)
[2016-11-24] MEDS ORDERED: FUROSEMIDE 20 MG/2 ML VIAL IV PUSH PRN (16:00)
[2016-11-24] MEDS ORDERED: ACETAMINOPHEN 650 MG SUPP RECTAL PRN (16:00)
[2016-11-24] MEDS: HYDROmorphone HCL PF 1 MG/ML VIAL IV PUSH SCH ×2 (16:37→20:41)
[2016-11-24] MEDS: LORazepam 2 MG/ML VIAL IV PUSH SCH ×2 (16:37→20:41)
[2016-11-25] VITALS: BP 160/83; PULSE 104; RESP 22; TEMP 98.3; O2SAT 82
[2016-11-25] MEDS: HYDROmorphone HCL PF 1 MG/ML VIAL IV PUSH SCH ×4 (00:33→12:33)
[2016-11-25] MEDS: LORazepam 2 MG/ML VIAL IV PUSH SCH ×4 (00:34→12:33)
[2016-11-25 04:00] VITALS: BP 142/75; PULSE 106; RESP 22; TEMP 98.3; O2SAT 73
[2016-11-25 08:00] VITALS: BP 176/99; PULSE 102; RESP 18; TEMP 98.5; O2SAT 80
[2016-11-25] MEDS: methylPREDNISolone SOD SUCC 40 MG/1 ML VIAL IV PUSH SCH (08:35)
[2016-11-25] MEDS: SODIUM CHLORIDE 0.9% FLUSH 10 ML FLUSH IV FLUSH SCH (08:38)
[2016-11-25] MEDS: DOCUSATE SODIUM 50 MG/SENNA 8.6 MG TAB PO SCH (08:40)
--- NOTE | 2016-11-25 10:36 | HHI.NPPN ---
Subjective History of Present Illness 71-year-old female with a past medical history of hyperlipidemia, chronic obstructive liver disease, sleep apnea, ischemic heart disease, history of coronary artery bypass grafting done about 28 weeks ago and depression who was admitted with worsening shortness of breath and cough. I was called to see the patient because of elevated BUN and creatinine. The patient had a creatinine of 0.7 on admission. Additional Remarks Patient is extubated, lethargic, open eyes on command. Review of Systems General General Remarks Intubated and sedated. Objective Data Data Vital Signs Date Time Temp Pulse Resp B/P (MAP) Pulse Ox O2 Delivery O2 Flow Rate FiO2 11/25/16 08:00 98.5 102 18 176/99 (124) 80 11/25/16 04:00 98.3 106 22 142/75 (97) 73 11/25/16 00:00 98.3 104 22 160/83 (108) 82 11/24/16 20:25 94 Nasal Cannula 3.00 11/24/16 20:23 2.00 11/24/16 20:00 98.4 111 20 152/87 (108) 76 11/24/16 16:31 99 11/24/16 16:31 99 163/78 (106) 90 11/24/16 16:30 99 11/24/16 16:15 100 11/24/16 16:00 97 178/88 (118) 90 11/24/16 16:00 97 11/24/16 14:00 101 11/24/16 12:30 102 172/91 (118) 87 11/24/16 12:30 102 11/24/16 12:20 103 11/24/16 12:20 103 173/88 (116) 87 11/24/16 12:00 103 164/93 (116) 87 11/24/16 12:00 103 11/24/16 11:45 91 Nasal Cannula 5.00 11/24/16 11:45 91 Nasal Cannula 5 11/24/16 11:00 96 -: 11/24/16 1133 11/24/16 0623 Physical Exam General Appearance: No Acute Distress, Comfortable Eyes Eye Exam: Pupils Equal Neck Neck Exam: Neck Supple Pulmonary Resp Exam: Rhonchi, Decreased Bases, Diminished Breath Sounds, Poor Inspiratory Effort Cardiology CV Exam: Regular, Normal Sinus Rhythm Gastrointestinal/Abdomen GI Exam: Soft, Non-Tender, Bowel Sounds Present, Distended Extremeties Extremities Exam: Moderate Edema, Pitting Edema, Dependent Edema Neurologic Neuro Exam: Obtunded Assessment/Plan Assessment Summary: CONCHITA/Acute Renal Failure Problem List: (1) Acute kidney injury ICD Codes: N17.9 - Acute kidney failure, unspecified (2) Respiratory failure ICD Codes: J96.90 - Respiratory failure, unspecified, unspecified whether with hypoxia or hypercapnia (3) Septic shock ICD Codes: A41.9 - Sepsis, unspecified organism; R65.21 - Severe sepsis with septic shock (4) Atrial fibrillation ICD Codes: I48.91 - Unspecified atrial fibrillation (5) Coronary artery disease ICD Codes: I25.10 - Atherosclerotic heart disease of [place] coronary artery without angina pectoris (6) Bilateral pneumonia ICD Codes: J18.9 - Pneumonia, unspecified organism Status: Acute Plan Patient has been non oliguric. Has Acute kidney injury, urine Na was high and osmolality was not very high, Eosinophils negative. Most likely has ATN causing CONCHITA, either due to hypotension or infection. Now on Lasix, urine out put is adequate. Extubated and now on Hospice. no new labs. i will sign off from Nephrology, call again if needed. Problem Qualifiers (1) Bilateral pneumonia: Qualified Codes: J18.9 - Pneumonia, unspecified organism Michelle Boo MD Nov 25, 2016 10:36
[2016-11-25 11:49] VITALS: BP 161/114; PULSE 99; RESP 20; TEMP 98.5; O2SAT 77
--- NOTE | 2016-11-25 13:18 | HHI.DS ---
Discharge Summary Admission Date Nov 10, 2016 at 09:51 Discharge Date: Nov 25, 2016 Admitting Diagnosis Bilateral PNA (1) Respiratory failure Diagnosis: Secondary ICD Codes: J96.90 - Respiratory failure, unspecified, unspecified whether with hypoxia or hypercapnia (2) Septic shock Diagnosis: Secondary ICD Codes: A41.9 - Sepsis, unspecified organism; R65.21 - Severe sepsis with septic shock (3) Acute kidney injury Diagnosis: Secondary ICD Codes: N17.9 - Acute kidney failure, unspecified (4) Bilateral pneumonia Diagnosis: Secondary ICD Codes: J18.9 - Pneumonia, unspecified organism Status: Acute (5) Coronary artery disease Diagnosis: Principal ICD Codes: I25.10 - Atherosclerotic heart disease of [place] coronary artery without angina pectoris (6) Atrial fibrillation Diagnosis: Secondary ICD Codes: I48.91 - Unspecified atrial fibrillation Procedures 11/12/16 -intubation . Brief History Mrs Miranda is a 71 years old female history of CAD, COPD, atrial fibrillation , hypertension, hyperlipidemia, depression, obstructive sleep apnea. Approximately 8 weeks ago, patient had CABG X3 vessels and post operative pleural effusion which was drained in [place], [place]. Patient presented to the ER on 11/10/16 complaining of shortness of breath and cough overnight. Interim history * Nephrology following for increasing creatinine and worsening renal function. Recommending dialysis, however family is declining any further aggressive interventions as they state the patient would not want that. Creatinine has risen from 3.01-3.56 over the last 3 days and continues to worsen. Sodium has remained 154 in spite of increasing free water and potassium is now 5.2, with no exogenous potassium use or DEVIN inhibitor use. There is a consideration that uremia may be contributing to her encephalopathy, however the family states the patient would not be compliant with dialysis or renal diet and so choose not to pursue further aggressive intervention. Eliquis, which she had been taking for atrial fibrillation, has been stopped due to worsening renal function and she is now on heparin for thromboembolic prophylaxis. * Pulmonary following. She is tolerating CPAP trials and consideration is for medical extubation today. After discussion with the family, they have declined reintubation in case of worsening respiratory status. * Cardiology following. She is status post CABG 8 weeks ago with episodic paroxysmal atrial fibrillation. Patient remains in normal sinus rhythm at this time. DNR has been chosen as CODE STATUS. . CBC/BMP: 11/24/16 1133 11/24/16 0623 Significant Findings Laboratory Tests Test 11/23/16 11:20 11/24/16 06:23 11/24/16 11:33 White Blood Count 21.7 TH/MM3 (4.0-11.0) 22.4 TH/MM3 (4.0-11.0) Red Blood Count 3.30 MIL/MM3 (4.00-5.30) 3.52 MIL/MM3 (4.00-5.30) Hemoglobin 9.4 GM/DL (11.6-15.3) 9.7 GM/DL (11.6-15.3) Hematocrit 30.0 % (35.0-46.0) 31.8 % (35.0-46.0) Mean Corpuscular Hemoglobin Concent 31.3 % (32.0-36.0) 30.5 % (32.0-36.0) Red Cell Distribution Width 19.1 % (11.6-17.2) 19.4 % (11.6-17.2) Blood Urea Nitrogen 124 MG/DL (7-18) 126 MG/DL (7-18) Creatinine 3.40 MG/DL (0.50-1.00) 3.56 MG/DL (0.50-1.00) Random Glucose 142 MG/DL (74-106) 128 MG/DL (74-106) Sodium Level 154 MEQ/L (136-145) 154 MEQ/L (136-145) Chloride Level 119 MEQ/L (98-107) 118 MEQ/L (98-107) Estimat Glomerular Filtration Rate 13 ML/MIN (>89) 13 ML/MIN (>89) Calcium Level 8.4 MG/DL (8.5-10.1) Potassium Level 5.2 MEQ/L (3.5-5.1) Imaging Last Impressions Chest X-Ray 11/23/16 0000 Signed Impressions: Service Date/Time: Wednesday, November 23, 2016 15:48 - CONCLUSION: Stable chest with cardiomegaly and coarse interstitial and alveolar opacity in both lungs. Vikas Valencia MD FACR Abdomen/Pelvis CT 11/18/16 0000 Signed Impressions: Service Date/Time: Friday, November 18, 2016 10:09 - CONCLUSION: 1. No evidence for retroperitoneal hematoma or acute abnormality, as questioned. 2. Small left pleural effusion with redemonstration of diffuse interstitial patchy airspace opacities at the lung bases. 3. NGT in the stomach. Crispin Ramos MD Shoulder X-Ray 11/10/16 0000 Signed Impressions: Service Date/Time: October 13:50 - CONCLUSION: 1. Old right humeral neck fracture. 2. No acute fracture or dislocation. 3. Course interstitial opacities throughout the visualized right upper lobe. Crispin Ramos MD Humerus X-Ray 11/10/16 0000 Signed Impressions: Service Date/Time: October 13:53 - CONCLUSION: 1. Old right humeral neck fracture. 2. No acute fracture or dislocation. Crispin Ramos MD CT Angiography 11/10/16 0000 Signed Impressions: Service Date/Time: October 14:35 - CONCLUSION: 1. No evidence of pulmonary embolus. 2. Severe extensive bilateral pulmonary parenchymal opacity with a crazy paving appearance. Differential diagnosis includes pulmonary edema, pulmonary alveolar stenosis, acute interstitial pneumonia, and eosinophilic pneumonia. 3. Small pleural effusions left greater than right. 4. Mildly enlarged mediastinal lymph nodes likely reactive. Adolph Root MD PE at Discharge CONSTITUTIONAL/GENERAL: This is an obese, elderly patient, intubated on mechanical ventilation on CPAP. TUBES/LINES/DRAINS:PIVS,FC, [place], Left nare NGT,SCDs, ETT, BUE soft restraints. CARDIOVASCULAR: Regular rhythm, no murmurs, gallops, or rubs. No JVD. Peripheral pulses symmetric. RESPIRATORY/CHEST: Symmetric, unlabored respirations. Clear to auscultation. Breath sounds equal bilaterally but diminished. No wheezes, rales, or rhonchi. GASTROINTESTINAL: Abdomen soft, non-tender, nondistended. No hepato-splenomegaly , or palpable masses. No guarding. Bowel sounds present. GENITOURINARY: Without palpable bladder distension. Barraza catheter in place. MUSCULOSKELETAL: Extremities without clubbing, cyanosis, or edema. No joint tenderness or effusion noted. No calf tenderness. No mottling or clubbing. NEUROLOGICAL: easily arousable, remains intubated on mechanical ventilation. Patient followed commands with BUE. Spontaneously moving bilateral lower extremities. PSYCHIATRIC: Intubated on CPAP, pending medical extubation. . Transfer Summary Family has elected to transition to comfort measures with transfer to Hospice care center in [place]. Hospital Course Patient was medically extubated on 11/24/16. Family elected NO CODE (DNR/DNI). They decided to admit to hospice with comfort focused care with hospice support. Plan to transfer [facility]. . Pt Condition on Discharge: Deteriorating Discharge Disposition: Hospice/Med Facility Discharge Instructions DIET: Follow Instructions for: As Tolerated, No Restrictions Speech Therapy-Diet Recommends: Regular (as tolerated) Activities you can perform: Continue Bedrest Kavita Martinez Nov 25, 2016 13:18
== END 2016-11-25 14:42 | disposition hospice, inpatient (51) | DRG 207 ==
LOC: NEPC 07:43 → NEDA 09:51 → N05A 12:57 → HIME 11-12 10:50 → N05B 11-24 18:12
PROVIDERS: ADMIT Hospitalist; ATTEND Family Medicine
PROC: 5A1955Z Respiratory Ventilation, Greater than 96 Consecutive Hours (ICD-10-PCS; principal; 2016-11-13)
PROC: 0BH17EZ Insertion of Endotracheal Airway into Trachea, Via Natural or Artificial Opening (ICD-10-PCS; 2016-11-13)
PROC: 02HV33Z Insertion of Infusion Device into Superior Vena Cava, Percutaneous Approach (ICD-10-PCS; 2016-11-13)
PROC: 30233N1 Transfusion of Nonautologous Red Blood Cells into Peripheral Vein, Percutaneous Approach (ICD-10-PCS; 2016-11-18)
DX: J18.9 Pneumonia, unspecified organism (principal); N17.0 Acute kidney failure with tubular necrosis; R65.21 Severe sepsis with septic shock; A41.9 Sepsis, unspecified organism; I50.31 Acute diastolic (congestive) heart failure; G93.40 Encephalopathy, unspecified; J96.01 Acute respiratory failure with hypoxia; J44.0 Chronic obstructive pulmonary disease with (acute) lower respiratory infection; E87.0 Hyperosmolality and hypernatremia; J44.1 Chronic obstructive pulmonary disease with (acute) exacerbation; D62 Acute posthemorrhagic anemia; K92.2 Gastrointestinal hemorrhage, unspecified; I11.0 Hypertensive heart disease with heart failure; I48.0 Paroxysmal atrial fibrillation; I48.2 Chronic atrial fibrillation; G47.33 Obstructive sleep apnea (adult) (pediatric); I25.10 Atherosclerotic heart disease of native coronary artery without angina pectoris; F32.9 Major depressive disorder, single episode, unspecified; E78.5 Hyperlipidemia, unspecified; E66.9 Obesity, unspecified; M79.622 Pain in left upper arm; R73.9 Hyperglycemia, unspecified; Z51.5 Encounter for palliative care; Z66 Do not resuscitate; Z87.891 Personal history of nicotine dependence; Z95.1 Presence of aortocoronary bypass graft; Z68.27 Body mass index [BMI] 27.0-27.9, adult; Z86.718 Personal history of other venous thrombosis and embolism; Z79.02 Long term (current) use of antithrombotics/antiplatelets; Z88.5 Allergy status to narcotic agent
CPT/HCPCS: 31500; 36430; 36556; 36600; 71010; 71020; 71275; 73030; 73060; 74176; 76937; 80048; 80053; 81001; 82272; 82550; 82805; 82948; 83036; 83605; 83735; 83880; 83935; 84100; 84145; 84300; 84439; 84443; 84484; 85007; 85014; 85018; 85025; 85027; 85610; 85730; 86403; 86850; 86900; 86901; 86920; 87040; 87070; 87086; 87205; 87449; 87641; 87804; 93005; 93306; 94002; 94003; 94150; 94640; 94664; 96365; J0295; J0330; J0360; J0456; J0610; J0692; J1170; J1644; J1815; J1940; J2020; J2060; J2250; J2405; J2920; J3010; J3370; J3480; J7030; J7050; P9016; Q9967